=== PATIENT | female | born 1940 | race Caucasian/White ===

== ENCOUNTER → 2017-11-22 09:05 | Outpatient (CLI) | payer MEDICARE, SELFPAY ==
[2017-11-22 10:21] LABS: Hemoglobin 13.1 g/dl (12.0-15.0); Mean Corp Hgb Conc 32.8 g/gl (32-36); Mean Corpuscular Volume 88.7 fL (81-99); Mean Platelet Vol. 10.6 fl (6.2-12.0); Platelet Count 234 K/mm3 (150-450); RBC Distribution Width CV 13.7 % (11.6-14.6); Red Blood Count 4.51 M/mm3 (4.2-5.4); White Blood Count 4.3 K/mm3 (4.4-11.0)
[2017-11-22 10:22] LABS: Scan Indicated on CBC? Y/N NO
[2017-11-22 11:03] LABS: Vitamin D,25 Hydroxy 35.3 ng/mL (29.95-100.01)
[2017-11-22 11:15] LABS: ALB/GLOB Ratio 1.2 RATIO (0.9-2.4); AST(SGOT) 16 U/L (15-37); Alanine Aminotransfer ALT/SGPT 18 U/L (13-56); Albumin, Serum 3.7 g/dL (3.2-5.0); Alkaline Phosphatase 60 U/L (45-117); Anion Gap 8 (5-15); BUN 14 mg/dL (7-18); BUN/Creat Ratio 16.1 RATIO (10-20); Calcium,Total 8.8 mg/dL (8.5-10.1); Chloride 105 mmol/L (98-107); Cholesterol 161 mg/dL (200); Creatinine, Serum 0.87 mg/dL (0.55-1.02); EST Glomerular Filtration Rate 68 mL/min (>60); Est Glom Filt Rate - Afr Amer 82 mL/min (>60); Globulin 3.2 g/dL (2.2-4.2); Glucose 90 mg/dL (74-106); High Density Lipoprotein 62 mg/dL; Potassium 3.9 mmol/L (3.5-5.1); Protein, Total 6.9 g/dL (6.4-8.2); Sodium Level 141 mmol/L (136-145); Triglycerides 101 mg/dL; Very Low Density Lipoprotein 20 mg/dL (5-40)
== END ==
PROVIDERS: Family Provider Family Medicine; PCP Family Medicine; Visit Provider Family Medicine
DX: E78.5 Hyperlipidemia, unspecified (principal); K21.9 Gastro-esophageal reflux disease without esophagitis; M85.80 Other specified disorders of bone density and structure, unspecified site
CPT/HCPCS: 36415; 80053; 80061; 82306; 84443; 85027

== ENCOUNTER → 2017-12-12 13:02 | Outpatient (CLI) | payer MEDICARE, SELFPAY ==
--- NOTE | 2017-12-12 13:05 | BI_ITS ---
MAMMOGRAPHY - BILATERAL SCREENING 3-D NICHELLE SYNTHESIS REASON FOR EXAM: Female, 77 years old. Bilateral Screening 3-D tomosynthesis PERTINENT HISTORY: No significant family history. TECHNIQUE: 2-D mammograms and 3-D Nichelle synthesis of the breast (s) were performed. CAD was performed. COMPARISON: August 05, 2016. FINDINGS: The breast composition is composed of scattered fibroglandular density. No dense spiculated masses or suspicious clustered microcalcifications are identified. No architectural distortion is identified. There is no skin thickening or retraction. There has been no significant change since the prior study. BI/SCREENING MAMM (CAD), BILAT IMPRESSION: No mammographic signs of malignancy. Routine yearly mammograms recommended. ASSESSMENT CATEGORY: BIRADS Category 1: Negative. A letter regarding these results will be sent to the patient by the facility within 30 days. FOLLOW UP RECOMMENDATION: Yearly follow up mammogram recommended. (A) Approximately 10% of breast cancers are not detected by mammography. A normal mammogram should not delay biopsy of a clinically suspicious abnormality. Electronically Signed: Jose Angel Salgado MD at 14:59 EDT , Service support ,
--- NOTE | 2017-12-12 13:06 | BD_ITS ---
STUDY: DUAL ENERGY X-RAY ABSORPTIOMETRY / DXA REASON FOR EXAM: Female, 77 years old. Bone density screening. Patient has history of recent fracture. TECHNIQUE: Bone Mineral Density (BMD) measurements of lumbar spine and bilateral hips were obtained. COMPARISON: May 30, 2012 FINDINGS: Lumbar Spine (L3-L4): g/cm2 (1.095) / T-score (-0.9) / Z-score (0.9) Findings are suggestive of normal bone density with a low fracture risk. Left Femur Total: g/cm2 (1.007) / T-score (0.0) / Z-score (1.8) Left Femoral Neck: g/cm2 (0.970) / T-score (-0.5) / Z-score (1.5) Right Femur Total: g/cm2 (0.962) / T-score (-0.4) / Z-score (1.4) Right Femoral Neck: g/cm2 (0.893) / T-score (-1.0) / Z-score (0.9) Lumbar Spine (L1-L4): There has been decreased bone density since the previous examination. BD/Dexa Bone Density Study IMPRESSION: The patient is considered normal as outlined below according to World Robinson Organization (WHO) criteria with a low fracture risk. There has been worsening of bone density since the previous examination. Reference Information: The T-score is the number of standard deviations above or below the standard which is normal for young adults at their peak bone mineral density. The World Health Organization (WHO) interprets the T-scores as follows: Above -1 Normal bone density Between -1 and -2.5 Osteopenia Equal to / or below -2.5 Osteoporosis As a practical clinical guideline, osteopenia may be graded as follows: Mild -1 through -1.5 Moderate -1.6 through -2.0 Severe -2.1 through -2.4 The Z-score is the number of standard deviations above or below age-matched controls. A Z-score of less than -1.5 would be considered abnormal. References: 1. NIH Osteoporosis and Related Bone Diseases http://www.osteo.org 2. International Society for Clinical Densitometry http://www.iscd.org 3. National Osteoporosis Foundation http://www.nof.org Electronically Signed: Marianela Nicholson MD at 8:53 EDT , Service support ,
== END ==
PROVIDERS: Family Provider Family Medicine; PCP Family Medicine; Visit Provider Family Medicine
DX: Z12.31 Encounter for screening mammogram for malignant neoplasm of breast (principal); Z78.0 Asymptomatic menopausal state
CPT/HCPCS: 77063; 77067; 77080

== ENCOUNTER → 2018-01-16 15:27 | Outpatient (CLI) | payer MEDICARE, SELFPAY | PROVIDERS: Family Provider Family Medicine; PCP Family Medicine; Visit Provider Family Medicine | DX: R30.0 Dysuria (principal) | CPT/HCPCS: 87086; 87088; 87186 ==

== ENCOUNTER 2018-06-26 05:50 | Day surgery (SDC) | payer MEDICARE, SELFPAY ==
--- NOTE | 2018-06-19 14:17 | EKG12_ITS ---
Test Reason : PRE OP Blood Pressure : / mmHG Vent. Rate : 072 BPM Atrial Rate : 072 BPM P-R Int : 152 ms QRS Dur : 074 ms QT Int : 400 ms P-R-T Axes : 064 053 059 degrees QTc Int : 438 ms Normal sinus rhythm Normal ECG Confirmed by HARPAL ALONSO, ANTHONY ([id number]), editorial specialist SNEHAL ELLIOTT ([id number]) on 06/21/2018 3:43:03 PM Referred By: Geraldine Hoang Confirmed By:ANTHONY ROWAN MD
[2018-06-19 14:54] LABS: Hematocrit 39.5 % (37-47); Hemoglobin 13.2 g/dl (12.0-15.0); Mean Corp Hgb Conc 33.4 g/gl (32-36); Mean Corpuscular Volume 89.8 fL (81-99); Mean Platelet Vol. 10.4 fl (6.2-12.0); Platelet Count 225 K/mm3 (150-450); RBC Distribution Width CV 13.2 % (11.6-14.6); RBC Distribution Width SD 42.9 fl (35.1-43.9); White Blood Count 5.4 K/mm3 (4.4-11.0)
[2018-06-19 14:57] LABS: Scan Indicated on CBC? Y/N NO
[2018-06-19 14:59] LABS: Prothrombin Time (Protime)PT. 13.1 SECONDS (11.7-14.9)
[2018-06-19 15:00] LABS: Partial Thromboplast Time 28.6 Seconds (24.1-36.2)
[2018-06-19 15:15] LABS: AST(SGOT) 15 U/L (15-37); Alanine Aminotransfer ALT/SGPT 20 U/L (13-56); Albumin, Serum 3.8 g/dL (3.2-5.0); Alkaline Phosphatase 71 U/L (45-117); Bilirubin, Direct 0.13 mg/dL (0.00-0.30); Globulin 3.3 g/dL (2.2-4.2); Protein, Total 7.1 g/dL (6.4-8.2)
[2018-06-26] VITALS (10 sets, daily range): BP systolic 92–160; BP diastolic 46–73; PULSE 57–70; RESP 12–18; TEMP 36.2–36.6; O2SAT 92–100; BMI 26.6
[2018-06-26] MEDS: Phenazopyridine 95 MG Tablet 190 MG PO (06:25)
--- NOTE | 2018-06-26 07:30 | HYST_PTH ---
PATIENT: JORDY TIJERINA LOC: [facility] – [place] U#:[id number] AGE/SX: 78/F ROOM: RE06/26/[address]: Dr. Geraldine Hoang MD : [id number] BED: DIS: 06/27/2018 SPEC #: [id number] RECD: 06/26/18 11:40 STATUS: DIYA DONA #: [id number] CARMINE: 06/26/18 07:[address]: Geraldine Hoang DEPT: SURGICAL PATHOLOGY RECD BY: Inessa Quiroz ENTERED: 06/26/18 12:05 SP TYPE: HYSTERECT OTHR DR: MD Dr. Rohan Fritz MD Tissues: Uterus, NOS Procedures: Surgery Specimen Level V HEADER OPERATION: Hysterectomy, vaginal PRE-OP DIAGNOSIS: Cystocele, postmenopausal atrophic vaginitis, urge incontinence, chronic idiopathic constipation TISSUE SUBMITTED: Uterus and cervix MICROSCOPIC DIAGNOSIS Uterus and cervix, vaginal hysterectomy: Cervix - chronic cystic cervicitis. Endometrium - cystic atrophic endometrium. Myometrium - focal superficial adenomyosis. - Medical calcification blood vessel edwards. BIB:dionne 06/27/18 MICROSCOPIC DESCRIPTION Slides are reviewed. GROSS DESCRIPTION Received in fixative is one container labeled with the patient's name and designated uterus and cervix. The specimen consists of a hysterectomy specimen consisting of uterus with cervix weighing 35 gm and measuring 7 x 4 x 2.5 cm. The serosal surface is laws, glistening. The ectocervical mucosa is unremarkable. The external os is covered with laws, mucoid material. It is circular in contour. The endocervical canal measures 2.5 cm in length and the endocervical mucosa is unremarkable. The triangular endometrial cavity measures 3 cm in length and up to 2 cm in width. Sections of the uterine wall do not reveal any mass lesion and it measures up to 1 cm in thickness. Chicken Stuffer sections are submitted in six cassettes as follows: 1 - anterior cervix, 2 - posterior cervix, 3 & 4 - anterior uterine wall, 5 & 6 - posterior uterine wall. / BIB:dionne 06/26/18 TC:5 CPT: 20677
[2018-06-26] MEDS: Vasopressin 20 UNITS/ML Vial (07:47)
[2018-06-26] MEDS: Estrogens,Conj. 1 Tube 1 DOSE (09:36)
--- NOTE | 2018-06-26 09:59 | PCM.IMDPSTOP ---
Immediate Post-Op Note Date of Procedure: 06/26/18 Primary Surgeon/Physician: Maite Holm MD tracer clerk: eGraldine Hoang tracer clerk: Behzad Pre-Operative Diagnosis: Cystocele, uterine prolapse Post-Operative Diagnosis: same Surgery/Procedure Performed:: anterior repair with mesh, bilateral sacrospinous ligament fixation with mesh, cystoscopy with left ureteral catheterization. Description of Surgical Findings:: No complications. Mesh flat and in good position at conclusion of case. Estimated Blood Loss: 50cc Specimen's removed: none Drains: limon Type of Anesthesia:: General - Admit VTE Documentation VTE Present on Admission: Yes VTE Mechan Device Prophylaxis: SCD's VTE Pharm Prophylaxis ordered?: No Reason prophylaxis not ordered:: Treatment Not Indicated
--- NOTE | 2018-06-26 10:02 | OP.PN_ITS ---
Immediate Post-Op Note Date of Procedure: 06/26/18 Primary Surgeon/Physician: Maite Holm MD pediatric surgeon: Geraldine Hoang pediatric surgeon: Behzad Pre-Operative Diagnosis: Cystocele, uterine prolapse Post-Operative Diagnosis: same Surgery/Procedure Performed:: anterior repair with mesh, bilateral sacrospinous ligament fixation with mesh, cystoscopy with left ureteral catheterization. Description of Surgical Findings:: No complications. Mesh flat and in good position at conclusion of case. Estimated Blood Loss: 50cc Specimen's removed: none Drains: limon Type of Anesthesia:: General - Admit VTE Documentation VTE Present on Admission: Yes VTE Mechan Device Prophylaxis: SCD's VTE Pharm Prophylaxis ordered?: No Reason prophylaxis not ordered:: Treatment Not Indicated
--- NOTE | 2018-06-26 10:02 | PCM.OPRPT ---
Problem List (1) Cystocele with uterine descensus Status: Acute Report of Operation Date of Procedure: 06/26/18 Pre-Operative Diagnosis: Cystocele, uterine prolapse Post-Operative Diagnosis: same Surgery/Procedure Performed:: anterior repair with mesh, bilateral sacrospinous ligament fixation with mesh, cystoscopy with left ureteral catheterization. Description of Surgical Findings:: No complications. Mesh flat and in good position at conclusion of case. customer account administrator: Geraldine Hoang customer account administrator: Behzad Type of Anesthesia:: General Specimen's removed: none Drains: limon Estimated Blood Loss (mL): 50cc Description of Procedure: The patient is a 78-year-old female with significant pelvic organ prolapse who presents today for surgical intervention following appropriate workup and evaluation in the office. All risks benefits and alternatives were discussed preoperatively in the office. She agreed to insertion of mesh as part of her surgical intervention. The patient was taken to the operating room first by Dr. Hoang. She was placed in a supine position on the operating room table. Anesthesia monitored the head, neck, airway, IV access and vital signs throughout the case. Once anesthesia was appropriately administered the patient was prepped and draped in usual sterile fashion. She then underwent a hysterectomy per Dr. Hoang. Following closure of the vaginal cuff and in a transverse fashion, the case was turned to ri. The Limon catheter was draining her urinary bladder which was empty. The patient was in exaggerated dorsal lithotomy and Trendelenburg position. The anterior vaginal wall was injected submucosally with vasopressin for hydrostatic dissection and hemostatic control. At this time a midline vertical incision was made in the anterior vaginal wall approximately 2 cm in length. Both sharp and blunt dissection ensued until the space was opened with appropriate vaginal thickness all the way to the sacrospinous ligaments bilaterally. The ischial spines were palpable plated and the sacrospinous ligaments were cleared from surrounding tissues bilaterally. The ureters were easily palpable especially on the patient's left side. At this time the Beau was used to pass Ethibond suture through the sacrospinous ligaments bilaterally approximately 1-1/2 cm medial from the ischial spines. The patient's pelvis was very small. Following placement of the sutures palpation of the ureters were was performed to confirm that they were outside of the sacrospinous stitches. At this time sutures were passed bilaterally in the areas of the levator complexes as close to the white line as possible using 2-0 PDS. The mesh was then brought into position and trimmed for appropriate positioning. The mesh arms were folded and the Ethibond suture from the sacrospinous ligaments were passed through the mesh arms. The levator sutures were also passed through the mesh. The mesh was then post pushed into position and the sutures were tied down. 2-0 Vicryl stay sutures were placed close to the vaginal apex and close to the bladder neck area. The mesh was then irrigated with sterile water. The midline incision was closed using running interlocking 2-0 Vicryl. The Limon catheter was removed the patient was placed into flat position and a cystoscopy was performed. There were no strictures or foreign material identified in the urinary bladder. At this time urine was seen flushing from the patient's right ureteral orifice. The left ureteral orifice was intubated with a Polluck catheter and easily inserted to 20 cm and upon removal the left ureter had a very good ureteral jet observed. At this time a new Limon catheter was inserted to the other falling on the floor. Plain vaginal packing with estrogen cream was then placed and the patient was awakened and taken to the recovery room in good condition. There were no complications during this procedure. Grafts/Implants Used: anterior mesh, Coloplast Restorelle - Complications none - Admit VTE Documentation VTE Present on Admission: Yes VTE Mechan Device Prophylaxis: SCD's VTE Pharm Prophylaxis ordered?: Yes
--- NOTE | 2018-06-26 10:11 | OP.PCM_ITS ---
Problem List (1) Cystocele with uterine descensus Status: Acute Report of Operation Date of Procedure: 06/26/18 Pre-Operative Diagnosis: Cystocele, uterine prolapse Post-Operative Diagnosis: same Surgery/Procedure Performed:: anterior repair with mesh, bilateral sacrospinous ligament fixation with mesh, cystoscopy with left ureteral catheterization. Description of Surgical Findings:: No complications. Mesh flat and in good position at conclusion of case. access database developer: Geraldine Hoang access database developer: Behzad Type of Anesthesia:: General Specimen's removed: none Drains: limon Estimated Blood Loss (mL): 50cc Description of Procedure: The patient is a 78-year-old female with significant pelvic organ prolapse who presents today for surgical intervention following appropriate workup and evaluation in the office. All risks benefits and alternatives were discussed preoperatively in the office. She agreed to insertion of mesh as part of her surgical intervention. The patient was taken to the operating room first by Dr. Hoang. She was placed in a supine position on the operating room table. Anesthesia monitored the head, neck, airway, IV access and vital signs throughout the case. Once anesthesia was appropriately administered the patient was prepped and draped in usual sterile fashion. She then underwent a hysterectomy per Dr. Hoang. Following closure of the vaginal cuff and in a transverse fashion, the case was turned to nd. The Limon catheter was draining her urinary bladder which was empty. The patient was in exaggerated dorsal lithotomy and Trendelenburg positi on. The anterior vaginal wall was injected submucosally with vasopressin for hydrostatic dissection and hemostatic control. At this time a midline vertical incision was made in the anterior vaginal wall approximately 2 cm in length. Both sharp and blunt dissection ensued until the space was opened with appropriate vaginal thickness all the way to the sacrospinous ligaments bilaterally. The ischial spines were palpable plated and the sacrospinous ligaments were cleared from surrounding tissues bilaterally. The ureters were easily palpable especially on the patient's left side. At this time the Beau was used to pass Ethibond suture through the sacrospinous ligaments bilaterally approximately 1-1/2 cm medial from the ischial spines. The patient's pelvis was very small. Following placement of the sutures palpation of the ureters were was performed to confirm that they were outside of the sacrospinous stitches. At this time sutures were passed bilaterally in the areas of the levator complexes as close to the white line as possible using 2-0 PDS. The mesh was then brought into position and trimmed for appropriate positioning. The mesh arms were folded and the Ethibond suture from the sacrospinous ligaments were passed through the mesh arms. The levator sutures were also passed through the mesh. The mesh was then post pushed into position and the sutures were tied down. 2-0 Vicryl stay sutures were placed close to the vaginal apex and close to the bladder neck area. The mesh was then irrigated with sterile water. The midline incision was closed using running interlocking 2-0 Vicryl. The Limon catheter was removed the patient was placed into flat position and a cystoscopy was performed. There were no strictures or foreign material identified in the urinary bladder. At this time urine was seen flushing from the patient's right ureteral orifice. The left ureteral orifice was intubated with a Polluck catheter and easily inserted to 20 cm and upon removal the left ureter had a very good ureteral jet observed. At this time a new Limon catheter was inserted to the other falling on the floor. Plain vaginal packing with estrogen cream was then placed and the patient was awakened and taken to the recovery room in good condition. There were no complications during this procedure. Grafts/Implants Used: anterior mesh, Coloplast Restorelle - Complications none - Admit VTE Documentation VTE Present on Admission: Yes VTE Mechan Device Prophylaxis: SCD's VTE Pharm Prophylaxis ordered?: Yes
[2018-06-26] MEDS: Ketorolac 15 MG/ML Vial IV ×2 (12:31→18:03)
[2018-06-26] MEDS: Ondansetron 4 MG/2 ML Vial IV (12:34)
[2018-06-26] MEDS: HYDROmorphone 1 MG/ML Syringe IV (14:18)
[2018-06-26] MEDS: Lactated Ringers 1,000 ML 125 ML IV (16:18)
[2018-06-26] MEDS: Cefazolin 1 GM/50 ML BAG IV (16:20)
[2018-06-26] MEDS: Atorvastatin Calcium 20 MG Tablet PO (21:13)
[2018-06-26] MEDS: oxyCODONE 5 MG Tablet PO ×2 (21:13→22:04)
[2018-06-26] MEDS: Citalopram 20 MG Tablet 40 MG PO (21:13)
[2018-06-26] MEDS: Enoxaparin 40 MG/0.4 ML Syringe SC (21:14)
[2018-06-27] MEDS: Ketorolac 15 MG/ML Vial IV ×3 (00:20→12:13)
[2018-06-27] MEDS: Lactated Ringers 1,000 ML 125 ML IV (00:20)
[2018-06-27] MEDS: Cefazolin 1 GM/50 ML BAG IV (00:20)
[2018-06-27 05:30] VITALS: BP 107/61; PULSE 61; RESP 16; TEMP 37.3; O2SAT 94
[2018-06-27] MEDS: oxyCODONE 5 MG Tablet PO (07:28)
[2018-06-27 07:30] VITALS: O2SAT 95
[2018-06-27 09:15] VITALS: BP 99/53; PULSE 71; RESP 18; TEMP 37; O2SAT 98
[2018-06-27] MEDS: Pantoprazole Sodium 20 MG Tablet PO (09:17)
--- NOTE | 2018-06-27 13:19 | DCINST_ITS ---
Discharge Diet: No Restrictions Discharge Activity: Return to Normal Activity, May Not Drive, May Shower May resume sexual activity in: 6-8 weeks Call your doctor if your incision/area has: Continuous Slow Oozing, Sudden Increased Bleeding, Increased Pain/ Swelling, Increased Redness, Foul Smelling Discharge Call your doctor if you observe: Fever of 101 or Higher, Inability to urinate, Inability to have a bowel movement, Using more than one pad per hour Allergies/Adverse Reactions: Allergies No Known Allergies Allergy (Verified 06/22/18 12:09) Medications to take at Discharge atorvastatin 10 mg tablet 20 mg PO DAILY 04/24/18 citalopram 20 mg tablet 40 mg PO QHS 04/24/18 omeprazole 40 mg capsule,delayed release 20 mg PO DAILY 04/24/18 Ascorbic Acid [Vitamin C] 500 mg PO BIDCM 06/19/18 L.acidoph,Paracasei, B.lactis [Probiotic] 1 ea PO DAILY 06/19/18 Multivitamin [Multiple Vitamins] 1 ea PO BID 06/19/18 Naproxen Sodium [Aleve] 220 mg PO BID 06/19/18 estradiol 0.01% (0.1 mg/gram) vaginal cream 1 g VAGINAL 2XW 06/22/18 Naproxen [Naprosyn] 250 - 500 mg PO Q8H PRN PRN #30 tablet 06/27/18 Oxycodone HCl/Acetaminophen [Percocet 5-325] 1 - 2 tablet PO Q4H PRN PRN 7 Days #28 tablet 06/27/18 The following prescriptions were given: Oxycodone HCl/Acetaminophen [Percocet 5-325] 1 - 2 tablet PO Q4H PRN PRN 7 Days #28 tablet PRN Reason: Moderate-Severe pain Naproxen [Naprosyn] 250 - 500 mg PO Q8H PRN PRN #30 tablet PRN Reason: MILD PAIN Orders to be completed after discharge: Type & Screen Time Frame: 06/19/18, Location: None Selected 12 Lead EKG [[facility]] Time Frame: 06/19/18, Location: None Selected Partial Thromboplast Time Time Frame: 06/19/18, Location: Laboratory CBC-Complete Blood Cnt No Diff Time Frame: 06/19/18, Location: Laboratory Culture, Urine Time Frame: 06/19/18, Location: Laboratory Liver Profile Time Frame: 06/19/18, Location: Laboratory Prothrombin Time w/INR Time Frame: 06/19/18, Location: Laboratory Primary Care Physician: Nicholas Ragsdale MD [Primary Care Provider] - Test Results: Test results from this visit will be discussed in further detail at your follow- up appointment, if applicable. Please Follow Up With: Geraldine Hoang MD - [phone]
--- NOTE | 2018-06-27 13:20 | PCM.PN.GU ---
Physical Exam Subjective: Feeling well. Sore with deep breaths, doing the IS as instructed. Voiding without difficulty. Ready to go home. - Physical Exam Vital Signs Temp 98.6 F 06/27/18 09:15 Pulse 71 06/27/18 09:15 Resp 18 06/27/18 09:15 BP 99/53 L 06/27/18 09:15 Pulse Ox 98 06/27/18 09:15 Intake & Output 06/25/18 06/26/18 06/27/18 23:59 23:59 23:59 Intake Total 2814 / 2814 3897 / 3897 Output Total 425 / 425 1999 Balance 2389 / 2389 1897 / 1897 Weight: 68.1 kg Intake: Oral 700 / 700 2300 / 2300 IV fluid/meds 2114 / 2114 1597 / 1597 IV #2 1300 / 1300 Output: Urine 425 / 425 1999 General: Alert, Oriented x3, Cooperative, No apparent distress HEENT: Atraumatic, Normocephalic Oral: Moist Mucosa Neck: Supple Lungs: Normal air movement Cardiovascular: Regular rate Abdomen: Soft Rectal: Exam deferred Skin: No rashes Musculoskeletal: No Muscle Wasting Neurological: Cranial nerves II-XII grossly intact Psych/Mental Status: Normal Affect Medical Necessity - Tobacco Use Smoking Status: Never smoker Tobacco Use: Non-smoker Assessment/Plan All Active Problems (Last Reviewed 06/22/18 @ 12:10 by Nelsy Wolf) Cystocele with uterine descensus (Acute) POD#1 home with keflex for 3 days post-op restrictions continue estradiol return to office in 2 weeks.
--- NOTE | 2018-06-27 13:24 | DCINST_ITS ---
Discharge Diet: No Restrictions Discharge Activity: May Not Drive, May Shower, - - no lifting over 5 pounds. no strenuous activity. no exercise. Nothing in the vagina except the estradiol cream which needs to be continued. May resume sexual activity in: 6-8 weeks Call your doctor if your incision/area has: Continuous Slow Oozing, Sudden Increased Bleeding, Increased Pain/ Swelling, Increased Redness, Foul Smelling Discharge Call your doctor if you observe: Fever of 101 or Higher, Inability to urinate, Inability to have a bowel movement, Using more than one pad per hour, Chest pain, Calf discomfort, Uncontrolled pain Allergies/Adverse Reactions: Allergies No Known Allergies Allergy (Verified 06/22/18 12:09) Medications to take at Discharge atorvastatin 10 mg tablet 20 mg PO DAILY 04/24/18 citalopram 20 mg tablet 40 mg PO QHS 04/24/18 omeprazole 40 mg capsule,delayed release 20 mg PO DAILY 04/24/18 Ascorbic Acid [Vitamin C] 500 mg PO BIDCM 06/19/18 L.acidoph,Paracasei, B.lactis [Probiotic] 1 ea PO DAILY 06/19/18 Multivitamin [Multiple Vitamins] 1 ea PO BID 06/19/18 Naproxen Sodium [Aleve] 220 mg PO BID 06/19/18 estradiol 0.01% (0.1 mg/gram) vaginal cream 1 g VAGINAL 2XW 06/22/18 Cephalexin [Keflex] 500 mg PO Q12 3 Days #6 cap 06/27/18 Naproxen [Naprosyn] 250 - 500 mg PO Q8H PRN PRN #30 tablet 06/27/18 Oxycodone HCl/Acetaminophen [Percocet 5-325] 1 - 2 tablet PO Q4H PRN PRN 7 Days #28 tablet 06/27/18 The following prescriptions were given: Oxycodone HCl/Acetaminophen [Percocet 5-325] 1 - 2 tablet PO Q4H PRN PRN 7 Days #28 tablet PRN Reason: Moderate-Severe pain Naproxen [Naprosyn] 250 - 500 mg PO Q8H PRN PRN #30 tablet PRN Reason: MILD PAIN Cephalexin [Keflex] 500 mg PO Q12 3 Days #6 cap Orders to be completed after discharge: Type & Screen Time Frame: 06/19/18, Location: None Selected 12 Lead EKG [[facility]] Time Frame: 06/19/18, Location: None Selected Partial Thromboplast Time Time Frame: 06/19/18, Location: Laboratory CBC-Complete Blood Cnt No Diff Time Frame: 06/19/18, Location: Laboratory Culture, Urine Time Frame: 06/19/18, Location: Laboratory Liver Profile Time Frame: 06/19/18, Location: Laboratory Prothrombin Time w/INR Time Frame: 06/19/18, Location: Laboratory Primary Care Physician: Nicholas Ragsdale MD [Primary Care Provider] - Test Results: Test results from this visit will be discussed in further detail at your follow- up appointment, if applicable. Please Follow Up With: Maite Holm MD When: 2 weeks, call for appt. Proposed Discharge Date: 06/27/18
--- NOTE | 2018-06-28 00:19 | PCM.OPRPT ---
Problem List (1) Cystocele with uterine descensus Status: Acute Report of Operation Date of Procedure: 06/26/18 Pre-Operative Diagnosis: Cystocele, uterine prolapse Post-Operative Diagnosis: same Surgery/Procedure Performed:: total vaginal hysterectomy Description of Surgical Findings:: prolapse collection team lead: Geraldine Hoang collection team lead: Behzad Type of Anesthesia:: General Specimen's removed: none Drains: limon Estimated Blood Loss (mL): 50cc Fluids Replaced: crystalloid Description of Procedure: Patient was taken to the operating room and was placed under general anesthesia was prepped and draped in normal sterile fashion in the dorsal lithotomy position. Preoperative antibiotics and SCDs and Limon catheter was placed inside the bladder. Weighted speculum was placed in the vagina and the anterior and posterior lip of the cervix was grasped with 2 Mary clamps and circumferentially injected with dilute vasopressin. A circumferential incision was made with a scalpel and the posterior cul-de-sac was entered into sharply and a longneck speculum was placed. The anterior cul-de-sac was also dissected down and entered into sharply and the uterosacral ligaments were clamped cut and suture ligated bilaterally followed by the cardinal ligaments which were Clamped cut and suture ligated bilaterally with 0 Monocryl. The uterus serially descended and progressive bites were taken bilaterally up to the level of the utero-ovarian ligament bilaterally which was clamped transected and double ligated with 0 Monocryl suture and 0 Vicryl free tie. Bilateral fallopian tubes and ovaries were well visualized and noted be within normal limits and the bilateral fallopian tubes were transected across the base with a Brissa clamp and removed and sutured with 0 Vicryl suture. Excellent hemostasis was noted. Posterior peritoneum was reapproximated with 2-0 Vicryl and a modified Weldon stitch was placed through the posterior vaginal cuff and bilateral uterosacral ligaments across the posterior cul-de-sac skimming along to provide apical support to the vagina. The vagina was closed with pidjry-[id number] 0 Vicryl pop offs including the posterior and anterior peritoneum in the reapproximation. Excellent hemostasis was noted. please see dr colon's dictation for her portion of th eprocedure - Complications none - Admit VTE Documentation VTE Present on Admission: No VTE Mechan Device Prophylaxis: SCD's
--- NOTE | 2018-06-28 00:26 | OP.PCM_ITS ---
Problem List (1) Cystocele with uterine descensus Status: Acute Report of Operation Date of Procedure: 06/26/18 Pre-Operative Diagnosis: Cystocele, uterine prolapse Post-Operative Diagnosis: same Surgery/Procedure Performed:: total vaginal hysterectomy Description of Surgical Findings:: prolapse plasticator: Geraldine Hoang plasticator: Behzad Type of Anesthesia:: General Specimen's removed: none Drains: limon Estimated Blood Loss (mL): 50cc Fluids Replaced: crystalloid Description of Procedure: Patient was taken to the operating room and was placed under general anesthesia was prepped and draped in normal sterile fashion in the dorsal lithotomy position. Preoperative antibiotics and SCDs and Limon catheter was placed inside the bladder. Weighted speculum was placed in the vagina and the anterior and posterior lip of the cervix was grasped with 2 Mary clamps and circumferentially injected with dilute vasopressin. A circumferential incision was made with a scalpel and the posterior cul-de-sac was entered into sharply and a longneck speculum was placed. The anterior cul-de-sac was also dissected down and entered into sharply and the uterosacral ligaments were clamped cut and suture ligated bilaterally followed by the cardinal ligaments which were Clamped cut and suture ligated bilaterally with 0 Monocryl. The uterus serially descended and progressive bites were taken bilaterally up to the level of the utero-ovarian ligament bilaterally which was clamped transected and double ligated with 0 Monocryl suture and 0 Vicryl free tie. Bilateral fallopian tubes and ovaries were well visualized and noted be within normal limits and the bilateral fallopian tubes were transected across the base with a Brissa clamp and removed and sutured with 0 Vicryl suture. Excellent hemostasis was noted. Posterior peritoneum was reapproximated with 2-0 Vicryl and a modified Weldon stitch was placed through the posterior vaginal cuff and bilateral uterosacral ligaments across the posterior cul-de-sac skimming along to provide apical support to the vagina. The vagina was closed with borssd-[id number] 0 Vicryl pop offs including the posterior and anterior peritoneum in the reapproximation. Excellent hemostasis was noted. please see dr colon's dictation for her portion of th eprocedure - Complications none - Admit VTE Documentation VTE Present on Admission: No VTE Mechan Device Prophylaxis: SCD's
--- NOTE | 2018-06-28 00:28 | PCM.PN.OB ---
Subjective: late entry- patient seen at 12:30 06/27/18 no C PSOB N V ambulating well toelratin gpo voiding - Physical Exam General: Alert, Oriented x3 Vital Signs Temp Pulse Resp BP Pulse Ox 98.6 F 71 18 99/53 L 98 06/27/18 09:15 06/27/18 09:15 06/27/18 09:15 06/27/18 09:15 06/27/18 09:15 Oxygen Flow Rate (L/min) 2 Oxygen Delivery Method Room Air Weight: 150 lb 2.157 oz Body Mass Index (BMI) 26.6 Intake and Output for Last 24 Hours 06/26/18 06/27/18 06/28/18 23:59 23:59 23:59 Intake Total 2814 / 2814 3897 / 3897 Output Total 425 / 425 1999 Balance 2389 / 2389 1897 / 1897 Medical Necessity - Tobacco Use Smoking Status: Never smoker Tobacco Use: Non-smoker Assessment/Plan All Active Problems (Last Reviewed 06/22/18 @ 12:10 by Nelsy Wolf) Cystocele with uterine descensus (Acute) s/p tvh pelvic repair routine care [facility]
== END 2018-06-27 13:37 | disposition home or self-care (01) ==
LOC: SDC 05:51 → AC 05:52 → MS2 09:34
PROVIDERS: Urology; Family Provider Family Medicine; PCP Family Medicine; Referring Provider Obstetrics & Gynecology; Visit Provider Obstetrics & Gynecology
PROC: (CPT 57260; principal; 2018-06-26 07:10)
PROC: (CPT 58260; 2018-06-26 07:10)
DX: N81.4 Uterovaginal prolapse, unspecified (principal); N72 Inflammatory disease of cervix uteri; N80.0 Endometriosis of uterus; N85.8 Other specified noninflammatory disorders of uterus; N39.41 Urge incontinence; N95.2 Postmenopausal atrophic vaginitis; K59.04 Chronic idiopathic constipation; K21.9 Gastro-esophageal reflux disease without esophagitis; E78.00 Pure hypercholesterolemia, unspecified; F41.9 Anxiety disorder, unspecified; Z87.440 Personal history of urinary (tract) infections; Z79.899 Other long term (current) drug therapy
CPT/HCPCS: 52000; 57240; 57282; 58262; 36415; 80076; 85027; 85610; 85730; 86850; 86900; 87086; 88307; 93005; J7120; A4216; C1758; J2405

== ENCOUNTER → 2018-07-04 15:36 | Outpatient (CLI) | payer MEDICARE, SELFPAY ==
[2018-06-26 11:09] VITALS: BMI 26.6
[2018-07-04 17:46] LABS: Absolute Lymphocyte Count 1.25 X10^3/ul (0.83-4.51); Absolute Neutrophil Count 5.1 X10^3/uL (2.0-7.7); Basophil# 0.04 X10^3/uL; Basophil% 0.6 % (0-1); Eosinophil# 0.04 X10^3/uL; Eosinophils% 0.6 % (0-5); Hematocrit 40.1 % (37-47); Hemoglobin 12.9 g/dl (12.0-15.0); Lymphocyte # 1.25 X10^3/ul (4.0); Lymphocyte % 17.4 % (19-41); Mean Corp Hgb Conc 32.2 g/gl (32-36); Mean Corpuscular Hgb 28.9 pg (27.0-32.0); Mean Corpuscular Volume 89.7 fL (81-99); Mean Platelet Vol. 10.1 fl (6.2-12.0); Monocyte# 0.75 X10^3/uL; Monocyte% 10.4 % (0-10); Neutrophil # 5.09 X10^3/uL (2.7-7.7); Neutrophil % 70.9 % (47-70); Platelet Count 287 K/mm3 (150-450); RBC Distribution Width CV 13.1 % (11.6-14.6); RBC Distribution Width SD 42.7 fl (35.1-43.9); Red Blood Count 4.47 M/mm3 (4.2-5.4); White Blood Count 7.2 K/mm3 (4.4-11.0)
[2018-07-04 17:53] LABS: POSITIVE COUNT NO; POSITIVE DIFFERENTIAL NO; POSITIVE MORPHOLOGY NO
[2018-07-04 18:07] LABS: ALB/GLOB Ratio 1.1 RATIO (0.9-2.4); AST(SGOT) 11 U/L (15-37); Alanine Aminotransfer ALT/SGPT 22 U/L (13-56); Albumin, Serum 3.8 g/dL (3.2-5.0); Alkaline Phosphatase 68 U/L (45-117); Anion Gap 7 (5-15); BUN 12 mg/dL (7-18); BUN/Creat Ratio 15.6 RATIO (10-20); Calcium,Total 9.2 mg/dL (8.5-10.1); Chloride 106 mmol/L (98-107); Creatinine, Serum 0.77 mg/dL (0.55-1.02); EST Glomerular Filtration Rate 77 mL/min (>60); Est Glom Filt Rate - Afr Amer 94 mL/min (>60); Globulin 3.5 g/dL (2.2-4.2); Glucose 92 mg/dL (74-106); Potassium 4.1 mmol/L (3.5-5.1); Protein, Total 7.3 g/dL (6.4-8.2); Sodium Level 142 mmol/L (136-145)
== END ==
PROVIDERS: Nurse Practitioner Women's Health; Family Provider Family Medicine; PCP Family Medicine; Referring Provider Urology; Visit Provider Urology
DX: R53.83 Other fatigue (principal); Z90.710 Acquired absence of both cervix and uterus; Z98.890 Other specified postprocedural states
CPT/HCPCS: 36415; 80053; 82565; 85025

== ENCOUNTER → 2018-07-16 13:37 | Outpatient (CLI) | payer MEDICARE, SELFPAY ==
[2018-07-16 11:10] VITALS: BMI 26.6
== END ==
PROVIDERS: Family Provider Family Medicine; PCP Family Medicine; Referring Provider Nurse Practitioner Women's Health; Visit Provider Nurse Practitioner Women's Health
DX: N76.0 Acute vaginitis (principal); N89.8 Other specified noninflammatory disorders of vagina
CPT/HCPCS: 87070; 87086; 87088; 87186; 87205

== ENCOUNTER → 2019-02-28 | Outpatient (CLI) | payer MEDICARE, SELFPAY ==
[2018-08-10 13:54] VITALS: BMI 26.6
[2019-02-28 11:39] LABS: ALB/GLOB Ratio 0.9 RATIO (0.9-2.4); AST(SGOT) 13 U/L (15-37); Alanine Aminotransfer ALT/SGPT 19 U/L (13-56); Albumin, Serum 3.3 g/dL (3.2-5.0); Alkaline Phosphatase 73 U/L (45-117); Anion Gap 9 (5-15); BUN 14 mg/dL (7-18); BUN/Creat Ratio 12.8 RATIO (10-20); Calcium,Total 8.9 mg/dL (8.5-10.1); Chloride 103 mmol/L (98-107); Cholesterol 132 mg/dL (200); Creatinine, Serum 1.09 mg/dL (0.55-1.02); EST Glomerular Filtration Rate 52 mL/min (>60); Est Glom Filt Rate - Afr Amer 63 mL/min (>60); Globulin 3.8 g/dL (2.2-4.2); Glucose 123 mg/dL (74-106); High Density Lipoprotein 67 mg/dL; Potassium 4.2 mmol/L (3.5-5.1); Protein, Total 7.1 g/dL (6.4-8.2); Sodium Level 140 mmol/L (136-145); Triglycerides 66 mg/dL; Very Low Density Lipoprotein 13 mg/dL (5-40)
[2019-02-28 11:44] LABS: Vitamin D,25 Hydroxy 25.3 ng/mL (29.95-100.01)
--- NOTE | 2019-02-28 12:56 | BI_ITS ---
MAMMOGRAPHY - BILATERAL SCREENING REASON FOR EXAM: Female, 78 years old. Routine annual screening examination. PERTINENT HISTORY: Non-contributory. TECHNIQUE: Digital bilateral breast nichelle (3D mammographic acquisition) in the CC and MLO projections. 2-D mediolateral oblique (MLO) and craniocaudad (CC) views of both breasts were obtained. CAD: Full Field Digital Mammography with Computer Added Detection was performed. COMPARISON: Comparison is made with prior examination dated December 12, 2017 and August 05, 2016. FINDINGS: Breast Composition: The breasts are heterogeneously dense, which may obscure small masses. There are no dominant masses or suspicious calcifications. No other significant abnormalities are identified. There has been no significant change since the prior study. BI/SCREEN MAMM (CAD) W/NICHELLE BILAT IMPRESSION: Stable bilateral screening mammogram. Yearly follow-up mammogram recommended. (A) ASSESSMENT CATEGORY: BIRADS Category 1: Negative. A letter regarding these results will be sent to the patient by the facility within 30 days. Approximately 10% of breast cancers are not detected by mammography. A normal mammogram should not delay biopsy of a clinically suspicious abnormality. [id number] Electronically Signed: Wili Carroll, at 14:45 EDT , Service support ,
== END | disposition home or self-care (01) ==
LOC: OPBI 12:55
PROVIDERS: Family Provider Family Medicine; PCP Family Medicine; Referring Provider Family Medicine; Visit Provider Family Medicine
DX: R03.0 Elevated blood-pressure reading, without diagnosis of hypertension (principal); E78.5 Hyperlipidemia, unspecified; R53.81 Other malaise; Z12.31 Encounter for screening mammogram for malignant neoplasm of breast
CPT/HCPCS: 36415; 77063; 77067; 80053; 80061; 82306

== ENCOUNTER → 2019-09-18 | Outpatient (CLI) | payer MEDICARE, OTHER, SELFPAY ==
[2018-08-10 13:54] VITALS: BMI 26.6
== END | disposition home or self-care (01) ==
LOC: LABSPEC 11:16
PROVIDERS: PCP Family Medicine; Referring Provider Family Medicine; Visit Provider Family Medicine
DX: R82.90 Unspecified abnormal findings in urine (principal)
CPT/HCPCS: 87077; 87086; 87088; 87186

== ENCOUNTER → 2019-10-15 | Outpatient (CLI) | payer MEDICARE, OTHER, SELFPAY ==
[2018-08-10 13:54] VITALS: BMI 26.6
--- NOTE | 2019-10-15 11:47 | US_ITS ---
STUDY: Salivary gland ULTRASOUND REASON FOR EXAM: Female, 79 years old. ACUTE SIALOADENITIS LEFT NECK PAIN, BACK OF TONGUE PAIN TECHNIQUE: Ultrasound evaluation of the salivary glands was performed with real-time and static gilbert-scale imaging. COMPARISON: None. FINDINGS: The parotid and submandibular glands bilaterally appear mildly diffusely enlarged. There is no evidence for ductal dilatation or intraductal stone.. There is also no definitive evidence for focal mass. US/Head/Neck Soft Tissue IMPRESSION: Mild nonspecific bilateral enlargement of the parotid and submandibular glands. CT may be useful for further evaluation if clinically indicated. Electronically Signed: Vitor Garcia MD at 17:24 EST , Service support ,
== END | disposition home or self-care (01) ==
LOC: US 11:43
PROVIDERS: PCP Family Medicine; Referring Provider Otolaryngology; Visit Provider Otolaryngology
DX: K11.21 Acute sialoadenitis (principal)
CPT/HCPCS: 76536

== ENCOUNTER → 2019-11-06 | Outpatient (CLI) | payer MEDICARE, OTHER, SELFPAY ==
[2018-08-10 13:54] VITALS: BMI 26.6
== END | disposition home or self-care (01) ==
PROVIDERS: PCP Family Medicine; Visit Provider Family Medicine
DX: R30.0 Dysuria (principal)
CPT/HCPCS: 87086; 87088; 87186

== ENCOUNTER → 2020-03-24 | Outpatient (CLI) | payer MEDICARE, OTHER, SELFPAY ==
[2018-08-10 13:54] VITALS: BMI 26.6
--- NOTE | 2020-03-24 12:10 | BI_ITS ---
MAMMOGRAPHY - BILATERAL SCREENING REASON FOR EXAM: Female, 80 years old. Routine annual screening examination. PERTINENT HISTORY: Non-contributory. TECHNIQUE: Digital bilateral breast nichelle (3D mammographic acquisition) in the CC and MLO projections. 2-D mediolateral oblique (MLO) and craniocaudad (CC) views of both breasts were obtained. CAD: Full Field Digital Mammography with Computer Added Detection was performed. COMPARISON: Comparison is made with prior study dated 02/28/2019 and 12/12/2017. FINDINGS: Breast Composition: The breasts are heterogeneously dense, which may obscure small masses. There are no dominant masses or suspicious calcifications. No other significant abnormalities are identified. There has been no significant change since the prior study. BI/SCREEN MAMM (CAD) W/NICHELLE BILAT IMPRESSION: Stable bilateral screening mammogram. Yearly follow-up mammogram recommended. (A) ASSESSMENT CATEGORY: BIRADS Category 1: Negative. A letter regarding these results will be sent to the patient by the facility within 30 days. Approximately 10% of breast cancers are not detected by mammography. A normal mammogram should not delay biopsy of a clinically suspicious abnormality. [id number] Electronically Signed: Wili Carroll, at 13:54 EDT , Service support ,
== END | disposition home or self-care (01) ==
LOC: OPBI 12:09
PROVIDERS: PCP Family Medicine; Referring Provider Family Medicine; Visit Provider Family Medicine
DX: Z12.31 Encounter for screening mammogram for malignant neoplasm of breast (principal)
CPT/HCPCS: 77063; 77067

== ENCOUNTER → 2020-05-26 | Outpatient (CLI) | payer MEDICARE, OTHER, SELFPAY ==
[2018-08-10 13:54] VITALS: BMI 26.6
[2020-05-26 12:56] LABS: Anion Gap 4 (5-15); BUN 17 mg/dL (7-18); BUN/Creat Ratio 16.7 RATIO (10-20); Calcium,Total 8.9 mg/dL (8.5-10.1); Chloride 107 mmol/L (98-107); Cholesterol 150 mg/dL (200); Creatinine, Serum 1.02 mg/dL (0.55-1.02); EST Glomerular Filtration Rate 56 mL/min (>60); Est Glom Filt Rate - Afr Amer 67 mL/min (>60); Glucose 95 mg/dL (74-106); High Density Lipoprotein 73 mg/dL; Sodium Level 140 mmol/L (136-145); Thyroid Stim Hormone (TSH) 3.06 uIU/mL (0.358-3.74); Triglycerides 83 mg/dL; Very Low Density Lipoprotein 17 mg/dL (5-40)
[2020-05-27 08:23] LABS: Vitamin D,25 Hydroxy 44.5 ng/mL
== END | disposition home or self-care (01) ==
LOC: MFPLAB 09:25
PROVIDERS: PCP Family Medicine; Referring Provider Family Medicine; Visit Provider Family Medicine
DX: M85.80 Other specified disorders of bone density and structure, unspecified site (principal); E78.5 Hyperlipidemia, unspecified; Z13.220 Encounter for screening for lipoid disorders
CPT/HCPCS: 36415; 80048; 80061; 82306; 84443

== ENCOUNTER → 2020-05-28 | Outpatient (CLI) | payer MEDICARE, OTHER, SELFPAY ==
[2018-08-10 13:54] VITALS: BMI 26.6
--- NOTE | 2020-05-28 10:56 | BD_ITS ---
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 COMPARISON: Comparison is made with prior study dated 12/12/2017. FINDINGS: Lumbar Spine (L1-L4): g/cm2 (1.057) / T-score (-1.2) / Z-score (0.6) Findings are suggestive of osteopenia with a low fracture risk. Left Femur Total: g/cm2 (0.914) / T-score (-0.7) / Z-score (1.2) Left Femoral Neck: g/cm2 (0.824) / T-score (-1.5) / Z-score (0.5) Right Femur Total: g/cm2 (0.962) / T-score (-0.4) / Z-score (1.5) Right Femoral Neck: g/cm2 (0.901) / T-score (-1.0) / Z-score (1.1) The T-Scores on the most recent prior examination were: Lumbar Spine (L1-L4): There has been worsening of bone density since the previous examination. Left Femur Total: which represents a worsening of 9.2%. Right Femur Total: which represents no significant change. . BD/Dexa Bone Density Study IMPRESSION: The patient is considered osteopenic as outlined below according to World Robinson Organization (WHO) criteria with a low fracture risk. There has been worsening of bone density since the previous examination. Reference Information: The T-score is the number of standard deviations above or below the standard which is normal for young adults at their peak bone mineral density. The World Health Organization (WHO) interprets the T-scores as follows: Above -1 Normal bone density Between -1 and -2.5 Osteopenia Equal to / or below -2.5 Osteoporosis As a practical clinical guideline, osteopenia may be graded as follows: Mild -1 through -1.5 Moderate -1.6 through -2.0 Severe -2.1 through -2.4 The Z-score is the number of standard deviations above or below age-matched controls. A Z-score of less than -1.5 would be considered abnormal. References: 1. NIH Osteoporosis and Related Bone Diseases www osteo.org 2. International Society for Clinical Densitometry www iscd.org 3. National Osteoporosis Foundation www nof.org Electronically Signed: Wili Carroll, at 12:41 EDT , Service support ,
== END | disposition home or self-care (01) ==
LOC: OPBD 10:53
PROVIDERS: PCP Family Medicine; Referring Provider Family Medicine; Visit Provider Family Medicine
DX: Z78.0 Asymptomatic menopausal state (principal)
CPT/HCPCS: 77080

== ENCOUNTER 2020-07-27 09:29 | Day surgery (SDC) | payer MEDICARE, OTHER, SELFPAY ==
[2020-07-07 09:17] VITALS: BMI 28.7
[2020-07-27 10:04] VITALS: BP 124/60; PULSE 64; RESP 18; TEMP 36.7; O2SAT 95; BMI 27.6
[2020-07-27] MEDS: Lactated Ringers 1,000 ML 100 ML IV (10:17)
[2020-07-27 11:01] VITALS: BP 120/52; BP 124/60; PULSE 72; RESP 16; TEMP 36.8; O2SAT 99
[2020-07-27 11:05] VITALS: BP 107/48; BP 124/60; PULSE 63; RESP 16; O2SAT 95
--- NOTE | 2020-07-27 11:05 | OP.CCLET_ITS ---
07/27/2020 Nicholas Ragsdale [address] [place] [address] Re : Colonoscopy procedure for Sofiya Hazel Dear Dr. Ragsdale This procedure was performed on Monday, July 27, 2020. My impressions and recommendations are as follows: Impressions : - Diverticulosis in the sigmoid colon. No specimens collected. - Non-bleeding internal hemorrhoids. - The examination was otherwise normal. Recommendations : - Discharge patient to home. - Resume previous diet. - Continue present medications. - Repeat colonoscopy in 5 years for surveillance. - Return to primary care physician at appointment to be scheduled. My findings are described in the full procedure note, which is enclosed. If I can be of further assistance, please feel free to contact me at Doctor phone number(s): , Fax: [phone], Work: . Sincerely, MD Casimiro Oliveros MD 07/27/2020 11:04:25 AM This report has been signed electronically.
--- NOTE | 2020-07-27 11:05 | OP.COLON_ITS ---
Patient Name: Sofiya Hazel Procedure Date: 07/27/2020 10:36 AM Date of : 1940 Age: 80 Procedure: Colonoscopy Indications: Family history of anal canal cancer in a first-degree relative Providers: Casimiro George MD Referring MD: Nicholas Ragsdale Medicines: See the Anesthesia note for documentation of the administered medications Patient Profile: This is a 80 year old female. Refer to note in patient chart for documentation of history and physical. Last Colonoscopy: April 2015. Complications: No immediate complications. Procedure: Pre-Anesthesia Assessment: - Prior to the procedure, a History and Physical was performed, and patient medications and allergies were reviewed. The patient's tolerance of previous anesthesia was also reviewed. The risks and benefits of the procedure and the sedation options and risks were discussed with the patient. All questions were answered, and informed consent was obtained. Prior Anticoagulants: The patient has taken no previous anticoagulant or antiplatelet agents. ASA Grade Assessment: II - A patient with mild systemic disease. After reviewing the risks and benefits, the patient was deemed in satisfactory condition to undergo the procedure. After I obtained informed consent, the scope was passed under direct vision. Throughout the procedure, the patient's blood pressure, pulse, and oxygen saturations were monitored continuously. The colonoscope was introduced through the anus and advanced to the cecum, identified by appendiceal orifice and ileocecal valve. The colonoscopy was performed without difficulty. The patient tolerated the procedure well. The quality of the bowel preparation was good. Scope In: 10:43:49 AM Scope Withdrawal Time 0 hours 6 minutes 13 seconds Scope Out: 10:57:53 AM Total Procedure Duration Time 0 hours 14 minutes 4 seconds Findings: A few small-mouthed diverticula were found in the sigmoid colon. No biopsies or other specimens were collected for this exam. Non-bleeding internal hemorrhoids were found during retroflexion. The hemorrhoids were mild, small and Grade I (internal hemorrhoids that do not prolapse). The exam was otherwise without abnormality. Impression: - Diverticulosis in the sigmoid colon. No specimens collected. - Non-bleeding internal hemorrhoids. - The examination was otherwise normal. Recommendation: - Discharge patient to home. - Resume previous diet. - Continue present medications. - Repeat colonoscopy in 5 years for surveillance. - Return to primary care physician at appointment to be scheduled. Procedure Code(s): --- Professional --- 17878, Colonoscopy, flexible; diagnostic, including collection of specimen(s) by brushing or washing, when performed (separate procedure) Diagnosis Code(s): --- Professional --- K64.0, First degree hemorrhoids Z80.0, Family history of malignant neoplasm of digestive organs K57.30, Diverticulosis of large intestine without perforation or abscess without bleeding CPT copyright 2017 [employer]. All rights reserved. The codes documented in this report are preliminary and upon carving machine operator review may be revised to meet current compliance requirements. MD Casimiro Oliveros MD 07/27/2020 11:04:25 AM This report has been signed electronically. Number of Addenda: 0 Note Initiated On: 07/27/2020 10:36 AM
--- NOTE | 2020-07-27 11:08 | HP_ITS ---
Intake Vital Signs 07/07/20 Height 5 ft 1 in 07/07/20 Weight: 152 lb 07/07/20 BP 127/81 H 07/07/20 Blood Pressure Location Lt brachial 07/07/20 Position Sitting 07/07/20 Respiration 16 07/07/20 Pulse 77 07/07/20 Pulse Source Monitor 07/07/20 Temp 98.0 F 07/07/20 Temp Source Temporal 07/07/20 Pulse Oximetry (%) 95 07/07/20 Oxygen Delivery Method room air Intake Visit Reasons: CSCOPE Chief Complaint: Cscope Pressurization Mechanic Required: No Is patient in pain?: No Allergies No Known Allergies Allergy (Verified 07/07/20 09:18) Medications Multivitamin [Multiple Vitamins] 1 ea PO BID 06/19/18 [History Confirmed 07/07/20] Naproxen [Naprosyn] 250 - 500 mg PO Q8H PRN PRN #30 tab 06/27/18 [Rx Confirmed 07/07/20] citalopram 40 mg tablet 40 mg PO DAILY #30 tab 07/16/18 [Rx Confirmed 07/07/20] atorvastatin 20 mg tablet 20 mg PO DAILY tab 07/07/20 [History Confirmed 07/07/20] calcium carbonate 500 mg calcium (1,250 mg) tablet 500 mg PO DAILY 07/07/20 [History Confirmed 07/07/20] cholecalciferol (vitamin D3) 10 mcg (400 unit) capsule 10 mcg PO DAILY 07/07/20 [History Confirmed 07/07/20] lorazepam 0.5 mg tablet 0.5 mg PO BID PRN tab 07/07/20 [History Confirmed 07/07/20] omeprazole 40 mg capsule,delayed release 40 mg PO DAILY cap 07/07/20 [History Confirmed 07/07/20] primidone 50 mg tablet 50 mg PO ONCE 07/07/20 [History Confirmed 07/07/20] [facility] Medical History Arthritis (Acute) Hemorrhoids (Acute) Acid reflux (Acute) Constipation (Acute) Anxiety (Acute) Hyperlipidemia (Acute) Surgical History History of bladder suspension procedure (Acute) S/P hysterectomy (Acute) S/p bilateral carpal tunnel release (Acute) History of tubal ligation (Acute) S/P bilateral foot surgery (Acute) S/P cataract extraction (Resolved) Family History Brother Colon cancer High cholesterol Hypertension Mother Colostomy care Hypertension High cholesterol Sister Lung cancer Sister Cancer Thyroid disorder Social History (Updated 07/07/20 @ 11:[address] Casimiro George MD) Smoking Status: Never smoker alcohol intake: never substance use type: does not use caffeine: Yes what type of physical activity do you participate in: none seatbelt use: always do you feel safe at home: Yes additional social history: - solorzano HPI HPI Surgical H&P: Yes HPI: JORDY TIJERINA, is a 80 F who presents to the office today for Evaluation for endoscopy. Her last colonoscopy was on 05/02/2015. She has a brother who of colon cancer. She has had numerous colonoscopies in the past. She is not having any bowel issues at this time. She is not noticing any blood loss and she is not complaining of any abdominal pain. Her last colonoscopy was normal. ROS General General: No weight change, appetite, fatigue, colon cancer, breast cancer or weakness HEENT HEENT: No difficulty swallowing, eye injury, eye surgery, swollen glands or hoarseness Endo Endocrine: No thyroid disease, diabetes mellitus, thyroid cancer, Hair loss, heat intolerance or cold intolerance Skin Skin: No rash or changing moles Musc Musculoskeletal: Yes arthritis; no back problems, rheumatoid arthritis, gout or joint pain Cardio Cardiovascular: No murmur, pacemaker, heart disease, atrial fibrillation, high blood pressure, heart attack, heart stent, palpitations, shortness of breat with exertion or chest pain Psych Psychiatric: Yes depression and anxiety; no hearing voices Resp Respiratory: No shortness of breath, No sleep apnea, Yes cough, No COPD, No asthma, No emphysema, No wheezing Gastro Gastrointestinal: No abdominal pain, No nausea or vomiting, No diarrhea, Yes constipation, No blood in stool, Yes acid reflux, Yes hemorrhoids, No ulcers, No gallbladder problem, No black,tarry stools Avni Hematologic: No blood thinners, No blood disorders, No bleeding, No anemia, No blood clots Neuro Neurologic: No system reviewed and no additional complaints, except as docu, No as per HPI, No abnormal walking, No abnormal hearing, No abnormal movements, No abnormal speech, No behavioral changes, No burning sensations, No confusion, No seizure-like activity, No unsteadiness, No dizziness, No localized weakness, No frequent falls, No headache(s), No lack of coordination, No loss of vision, No memory loss, No numbness, No other visual disturbances, No radiating pain, No restless legs, No sensory deficit, No fainting, No tingling, No tremor(s), No weakness, No other Exam Const General: no acute distress, well developed, well hydrated Orientation: oriented to person, oriented to place, oriented to time [facility] Head: normocephalic, atraumatic Ears: external ears normal Mouth: moist mucous membranes Eyes Sclera: sclerae normal Pupils: normal by confrontation Neck Neck: no lymphadenopathy noted Neck mass: No Thyroid: thyroid normal, symmetrical Chest Chest palpation & inspection: normal inspection of the chest Resp Effort & Inspection: normal respiratory effort Auscultation: clear to auscultation bilaterally Percussion: percussion normal Cardio Rate: regular rate Rhythm: regular rhythm Heart Sounds: no murmurs GI Palpation: soft, no hepatosplenomegaly, no masses, nontender Rectal Exam: other Other: Rectal exam deferred. Extrem General: normal to inspection, no clubbing, cyanosis or edema Assessment & Plan Problems 1. Family history of colon cancer Z80.0 Plan I have discussed the above with the patient. I have offered the patient colonoscopy for evaluation. I have explained the risks/benefits of the procedure and described the procedure. I have discussed the risks with the patient, including but not limited to: infection, bleeding, perforation of the GI tract requiring emergency surgery, inability to complete the procedure, injury to any internal organs, complications of anesthesia, etc. - the patient understands and agrees to proceed. I have answered all the patient's questions to the patient's satisfaction and the patient has no further questions. The patient has been given instructions for the colon cleansing preparation. Coding Level of Care Code Off vis,new,level 3 Diagnoses Family history of colon cancer Z80.0 COVID (Procedure Consent) Procedure Criteria Procedure Criteria: Yes Elective The surgeon/proceduralist and patient have discussed in detail the risk of exposure to and/or potential harm posed by the COVID-19 virus with having a surgery/procedure at this time versus the risk of? delaying the surgery/procedure. It is not possible to know either the risk of delaying the surgery or procedure or chance of getting an infection with perfect accuracy, but a joint decision was made between the patient and the surgeon/proceduralist ?to proceed at this time with the scheduled surgery/procedure as indicated on the consent form. I have re-examined the patient. There are no clinical changes since date of exam.
[2020-07-27 11:10] VITALS: BP 110/52; BP 124/60; PULSE 61; RESP 16; O2SAT 94
[2020-07-27 11:22] VITALS: BP 118/51; BP 124/60; PULSE 60; RESP 16; TEMP 36.5; O2SAT 96
[2020-07-27 11:53] VITALS: BP 124/60
== END 2020-07-27 11:55 | disposition home or self-care (01) ==
LOC: EN 09:30 → AC 09:34
PROVIDERS: PCP Family Medicine; Referring Provider Family Medicine; Visit Provider Surgery
PROC: 0DJD8ZZ Inspection of Lower Intestinal Tract, Via Natural or Artificial Opening Endoscopic (ICD-10-PCS; CPT 45378; principal; 2020-07-27 10:40)
DX: K57.30 Diverticulosis of large intestine without perforation or abscess without bleeding (principal); K64.0 First degree hemorrhoids; Z80.0 Family history of malignant neoplasm of digestive organs; M19.90 Unspecified osteoarthritis, unspecified site; K21.9 Gastro-esophageal reflux disease without esophagitis; E78.5 Hyperlipidemia, unspecified; F41.9 Anxiety disorder, unspecified; F32.9 Major depressive disorder, single episode, unspecified; Z20.828 Contact with and (suspected) exposure to other viral communicable diseases; Z79.899 Other long term (current) drug therapy
CPT/HCPCS: G0105; 87426; C9803; J7120; J2405

== ENCOUNTER → 2020-11-16 12:17 | Outpatient (CLI) | payer MEDICARE, OTHER, SELFPAY ==
[2020-11-16 15:26] LABS: Vitamin D,25 Hydroxy 60.6 ng/mL
[2020-11-16 15:45] LABS: ALB/GLOB Ratio 1.5 RATIO (0.9-2.4); AST(SGOT) 16 U/L (15-37); Alanine Aminotransfer ALT/SGPT 23 U/L (13-56); Albumin, Serum 4.2 g/dL (3.2-5.0); Alkaline Phosphatase 59 U/L (45-117); Anion Gap 6 (5-15); BUN 18 mg/dL (7-18); BUN/Creat Ratio 17.8 RATIO (10-20); Calcium,Total 9.3 mg/dL (8.5-10.1); Chloride 107 mmol/L (98-107); Cholesterol 168 mg/dL (200); Creatinine, Serum 1.01 mg/dL (0.55-1.02); EST Glomerular Filtration Rate 56 mL/min (>60); Est Glom Filt Rate - Afr Amer 68 mL/min (>60); Globulin 2.8 g/dL (2.2-4.2); Glucose 86 mg/dL (74-106); High Density Lipoprotein 70 mg/dL; Sodium Level 141 mmol/L (136-145); Thyroid Stim Hormone (TSH) 1.82 uIU/mL (0.358-3.74); Triglycerides 93 mg/dL; Very Low Density Lipoprotein 19 mg/dL (5-40)
== END ==
PROVIDERS: PCP Family Medicine; Referring Provider Family Medicine; Visit Provider Family Medicine
DX: E78.5 Hyperlipidemia, unspecified (principal); M85.80 Other specified disorders of bone density and structure, unspecified site
CPT/HCPCS: 36415; 80053; 80061; 82306; 84443

== ENCOUNTER → 2020-12-22 14:20 | Outpatient (CLI) | payer MEDICARE, OTHER, SELFPAY ==
--- NOTE | 2020-12-22 14:23 | RAD_ITS ---
STUDY: X-RAY - RIGHT KNEE REASON FOR EXAM: Female, 80 years old. Right knee pain. TECHNIQUE: 4 view(s) of the knee. COMPARISON: None. FINDINGS: Normal visualized distal femur. Normal visualized proximal tibia and fibula. Normal proximal tibiofibular articulation. There is no acute fracture, dislocation or destructive osseous pathology. There is moderate degenerative arthrosis of the medial femorotibial compartment with moderate joint space narrowing. There is mild degenerative arthrosis of the lateral femorotibial compartment. There is severe degenerative arthrosis of the patellofemoral articulation. . The soft tissue structures are unremarkable. RAD/Knee 4 or More Views IMPRESSION: Degenerative arthrosis. Electronically Signed: August Pérez DO at 23:45 EDT Tel [phone], Service support ,
== END ==
PROVIDERS: PCP Family Medicine; Referring Provider Family Medicine; Visit Provider Family Medicine
DX: M25.561 Pain in right knee (principal)
CPT/HCPCS: 73564

== ENCOUNTER → 2021-04-06 | Outpatient (CLI) | payer MEDICARE, OTHER, SELFPAY ==
[2021-04-06 21:57] LABS: Probe Check PASS; Specimen Processing Control PASS
== END | disposition home or self-care (01) ==
PROVIDERS: PCP Family Medicine; Visit Provider Family Medicine
DX: U07.1 COVID-19 (principal)
CPT/HCPCS: 87635; U0005; U0003

== ENCOUNTER 2021-04-07 14:35 | Outpatient (CLI) | payer MEDICARE, OTHER, SELFPAY ==
[2021-04-07] MEDS: 0.9% Saline Lock 10 ML Syringe IV (14:44)
[2021-04-07 14:51] VITALS: BP 134/64; PULSE 75; RESP 18; TEMP 38.1; O2SAT 96; BMI 27.1
[2021-04-07 15:35] VITALS: BP 119/64; PULSE 80; RESP 16; TEMP 37.9; O2SAT 96
[2021-04-07 16:40] VITALS: BP 99/58; PULSE 90; RESP 16; TEMP 37.7
== END 2021-04-07 16:45 | disposition home or self-care (01) ==
LOC: ICUOUT 14:36 → ICU 14:36
PROVIDERS: PCP Family Medicine; Referring Provider Nurse Practitioner Acute Care; Visit Provider Nurse Practitioner Acute Care
DX: Z23 Encounter for immunization (principal); U07.1 COVID-19
CPT/HCPCS: J7050; M0243; A4216; Q0244

== ENCOUNTER → 2021-07-12 12:16 | Outpatient (CLI) | payer MEDICARE, OTHER, SELFPAY ==
--- NOTE | 2021-07-12 12:18 | BI_ITS ---
MAMMOGRAPHY - BILATERAL SCREENING 3-D TOMOSYNTHESIS REASON FOR EXAM: Female, 81 years old. Screening PERTINENT HISTORY: No significant family history. TECHNIQUE: 2-D mammograms and 3-D Tomosynthesis of the breast (s) were performed. CAD was performed. COMPARISON: None. FINDINGS: The breast composition is heterogeneously dense that can obscure small breast masses. Scattered benign calcifications are seen. No dense spiculated masses or suspicious microcalcifications are identified. No architectural distortion is identified. There is no skin thickening or retraction. There has been no significant change since the prior study. BI/SCRN MAMM (CAD)W/NICEHLLE BILAT IMPRESSION: No mammographic signs of malignancy. Routine yearly mammograms recommended. ASSESSMENT CATEGORY: BIRADS Category 2: Benign. A letter regarding these results will be sent to the patient by the facility within 30 days. FOLLOW UP RECOMMENDATION: Yearly follow up mammogram recommended. (A) Approximately 10% of breast cancers are not detected by mammography. A normal mammogram should not delay biopsy of a clinically suspicious abnormality. Electronically Signed: Romario Guzman MD at 14:41 EST , Service support ,
== END ==
PROVIDERS: PCP Family Medicine; Referring Provider Family Medicine; Visit Provider Family Medicine
DX: Z12.31 Encounter for screening mammogram for malignant neoplasm of breast (principal)
CPT/HCPCS: 77063; 77067

== ENCOUNTER 2021-12-08 16:45 | Emergency (ER) | payer MEDICARE, OTHER, SELFPAY ==
[2021-12-08 16:46] VITALS: BP 154/71; PULSE 76; RESP 19; TEMP 36.2; O2SAT 98; BMI 26.2
--- NOTE | 2021-12-08 17:01 | ED.VIS.LOWEX ---
HPI History of Present Illness Chief Complaint: Lower Extremity Injury Informant: patient Narrative Narrative: Nontraumatic left knee pain for the past 2 weeks. States started after putting up curtains on a stepstool. Denies any falls. She has had issues of bilateral knee pain in the past with osteoarthritis she is seeing Dr. Valles, states has done Synvisc injections x3 doses in both knees. On and off pain. States a month ago similar pain had cortisone injection by her PCP which helped symptoms for a week and it has progressed. Denies paresthesias. Is on naproxen. Not helping. Has tolerated Car[place] in the past however states was nauseated. She is not a diabetic. Prior similar symptoms: Yes [facility] Medical History (Updated 12/08/21 @ 18:[address] Harlan Ramey DO) Acid reflux Anxiety Arthritis Constipation Hemorrhoids Hyperlipidemia Home Medications multivitamin 1 ea PO BID 06/19/18 [History Last Taken 04/05/21] naproxen 250 - 500 mg PO Q8H PRN PRN #30 tab 06/27/18 [Rx Last Taken Unknown] atorvastatin 20 mg tablet 20 mg PO DAILY tab 07/07/20 [History Last Taken 04/06/21] calcium carbonate 500 mg calcium (1,250 mg) tablet 500 mg PO BID 07/07/20 [History Last Taken 04/05/21] lorazepam 0.5 mg tablet 0.5 mg PO BID PRN PRN tab 07/07/20 [History Last Taken Unknown] omeprazole 40 mg capsule,delayed release 40 mg PO DAILY cap 07/07/20 [History Last Taken 04/05/21] bupropion HCl 300 mg PO DAILY 04/07/21 [History Last Taken 04/05/21] citalopram 40 mg PO DAILY 04/07/21 [History Last Taken 04/05/21] oxycodone-acetaminophen [Percocet] 1 tab PO Q6H PRN 3 Days #12 tab 12/08/21 [Rx Last Taken Unknown] prednisone 40 mg PO DAILY #10 tab 12/08/21 [Rx Last Taken Unknown] Allergy/AdvReac Type Severity Reaction Status Date / Time No Known Allergies Allergy Verified 12/08/21 16:47 Family History Brother Colon cancer High cholesterol Hypertension Mother Colostomy care Hypertension High cholesterol Sister Lung cancer Sister Cancer Thyroid disorder Surgical History History of bladder suspension procedure History of tubal ligation S/p bilateral carpal tunnel release S/P bilateral foot surgery S/P cataract extraction S/P hysterectomy Social History Smoking Status: Never smoker alcohol intake: never substance use type: does not use caffeine: Yes what type of physical activity do you participate in: none seatbelt use: always do you feel safe at home: Yes additional social history: - solorzano ROS ROS ED Constitutional Constitutional ED: Denies chills, fever(s) or sweats Eyes Eyes: Denies change in vision ENT ENT ED: Denies dysphagia or sore throat Cardiovascular Cardiovascular: Denies chest pain, leg edema, palpitations or racing heartbeat Respiratory/Chest Respiratory/Chest: Denies cough, dyspnea or dyspnea on exertion Gastrointestinal Gastrointestinal: Denies abdominal pain, diarrhea, nausea or vomiting Genitourinary Genitourinary ED: Denies dysuria, hematuria or urinary frequency Musculoskeletal Musculoskeletal: Reports other Details: Left knee pain ; Denies back pain, extremity pain or neck pain Integumentary Denies rash or wounds Neurologic Neurologic: Denies headache(s), paresthesias or weakness EXAM Physical Exam Const Vital Signs: 12/08/21 16:46 12/08/21 18:04 Temperature 97.2 F L Temperature Source Temporal Pulse Rate 76 97 Respiratory Rate 19 H 16 Blood Pressure 154/71 H Blood Pressure Mean 98 Pulse Ox 98 Oxygen Delivery Method Room Air Positive well nourished and well developed Constitutional Narrative: Uncomfortable, nontoxic General Appearance ED: well developed HEENT Reports moist mucous membranes normocephalic and atraumatic Eyes PERRL, EOMs intact bilaterally and conjunctivae normal General Eye ED: Yes normal appearance of both eyes Neck no lymphadenopathy and supple General: Negative for tenderness Chest Wall Chest: Negative for tenderness Resp normal respiratory effort and normal air movement Effort and Inspection: symmetric chest movement; Negative for respiratory distress Cardio regular rate, regular rhythm and no murmurs Peripheral Pulses: pulses 2+ throughout GI normal to inspection, nondistended, normoactive bowel sounds and non-tender Palpation: Negative for guarding or rebound tenderness present Back/Spine no CVA tenderness and no thoracic nor lumbar tenderness Extremity Extremity Narrative: Left lower extremity: Negative logroll, knee extensor mechanism intact. No swelling. Negative varus and valgus positive Chilango's with valgus stress. Skin intact. Neuro vas intact distally. General Extremety ED: Negative for edema or tenderness General Extremity: Negative for edema Neuro oriented x3 and no sensory deficits noted Sensorium / Orientation: awake and alert Skin no rashes or lesions noted and no wounds MDM MDM MDM Narrative Medical decision making narrative: 4 view x-ray left knee reviewed by myself and read by radiology significant arthritis was noted. No fractures. Start on prednisone, initially wrote for oxycodone however patient drove here wanted to drive home. Her ride left. Discussed with her she is status post cortisone injection a month ago, typically cannot be redone for 3 to 4 months. She has been recommended total knee arthroplasty by a previous orthopedist who has since left. She is written prescription for prednisone along with Percocet to use as needed. She continue her Anselmo wrap. She is given follow-up with on-call orthopedist for outpatient evaluation. All questions were answered. Radiography Diagnostic Testing: Clinical Impression(s) from Imaging Studies Knee X-Ray 12/08/21 17:10 IMPRESSION: Degenerative arthrosis. Electronically Signed: Robbie Quintero MD at 17:33 EDT , Discharge Plan Triage Chief Complaint: Lower Extremity Injury ED Provider: Harlan Ramey Dx/Rx/DC Orders Clinical Impression: Internal derangement of left knee, Osteoarthritis, Knee pain, left Instructions: Knee Pain Prescriptions: New oxycodone-acetaminophen [Percocet] 5-325 mg tablet 1 tab PO Q6H PRN (Reason: pain) 3 Days Qty: 12 RF: 0 prednisone 20 MG tablet 40 mg PO DAILY Qty: 10 RF: 0 No Action omeprazole 40 mg capsule,delayed release(DR/EC) 40 mg PO DAILY RF: 0 atorvastatin 20 mg tablet 20 mg PO DAILY RF: 0 lorazepam 0.5 mg tablet 0.5 mg PO BID PRN PRN (Reason: Anxiety) RF: 0 calcium carbonate [Calcium 500] 500 mg calcium (1,250 mg) tablet 500 mg PO BID RF: 0 multivitamin 1 EACH tablet 1 ea PO BID RF: 0 naproxen 250 MG tablet 250 - 500 mg PO Q8H PRN PRN (Reason: MILD PAIN) Qty: 30 RF: 1 bupropion HCl 300 mg tablet extended release 24 hr 300 mg PO DAILY RF: 0 citalopram 40 mg tablet 40 mg PO DAILY RF: 0 Primary Care Provider: Kevin Burns Referrals: Kevin Burns MD [Primary Care Provider] - Gavin Mosley MD [STAFF PHYSICIAN] - 3-5 Days Activity Restrictions/Additional Instructions: Significant osteoarthritis of the left knee. Internal derangement of left knee. Follow-up with Dr. Boudreaux for outpatient discussion as you were recommended knee replacement by Dr. Valles in the past. Disposition Disposition: Home, Self Care Discharge Date/Time: 12/08/21 18:10
--- NOTE | 2021-12-08 17:10 | RAD_ITS ---
STUDY: X-RAY - LEFT KNEE REASON FOR EXAM: Female, 81 years old. pain TECHNIQUE: 4 view(s) of the knee. COMPARISON: None. FINDINGS: Normal visualized distal femur. Normal visualized proximal tibia and fibula. Normal proximal tibiofibular articulation. There is moderate degenerative arthrosis of the medial femorotibial compartment with moderate joint space narrowing. There is moderate degenerative arthrosis of the lateral femorotibial compartment with moderate joint space narrowing. There is moderate degenerative arthrosis of the patellofemoral articulation. The soft tissue structures are unremarkable. RAD/Knee 4 or More Views IMPRESSION: Degenerative arthrosis. Electronically Signed: Robbie Quintero MD at 17:33 EDT ,
[2021-12-08] MEDS: predniSONE 20 MG Tablet 40 MG PO (17:31)
[2021-12-08 18:04] VITALS: PULSE 97; RESP 16
== END 2021-12-08 18:10 | disposition home or self-care (01) ==
PROVIDERS: Emergency Provider Emergency Medicine; PCP Internal Medicine; Visit Provider Emergency Medicine
DX: M23.92 Unspecified internal derangement of left knee (principal); M17.12 Unilateral primary osteoarthritis, left knee; E78.5 Hyperlipidemia, unspecified; M19.90 Unspecified osteoarthritis, unspecified site; K21.9 Gastro-esophageal reflux disease without esophagitis; F41.9 Anxiety disorder, unspecified; Z79.899 Other long term (current) drug therapy
CPT/HCPCS: 73564; 99282

== ENCOUNTER 2022-04-04 07:08 | Day surgery (SDC) | payer MEDICARE, OTHER, SELFPAY ==
--- NOTE | 2022-04-04 | IMM_PTH ---
PATIENT: JORDY TIJERINA LOC: EN U#:[id number] AGE/SX: 82/F ROOM: RE04/04/[address]: Dr. Khadra Seo MD : 1940 BED: DIS: 04/04/2022 SPEC #: [id number] RECD: 04/05/22 07:53 STATUS: DIYA REVishnu #: [id number] CARMINE: 04/04/22 00:[address]: Khadra Seo DEPT: IMMUNOHISTOCHEMISTRY RECD BY: Inessa Quiroz ENTERED: 04/05/22 07:54 SP TYPE: IMMUNO OTHR DR: Dr. Kevin Burns MD Tissues: COLON BIOPSY Procedures: H Pylori (initial) PHYSICIAN & [place] [id number] SPECIMEN INFORMATION: Tissue Source: A. Antrum biopsy Clinical Info: Constipation, diarrhea, acid reflux Specimen Number: [id number] CPT code: 22485 METHODOLOGY: Deparaffinized sections of prefer/formalin-fixed tissue or PAP/DQ stained slides are incubated with monoclonal/polyclonal antibodies/oligonucleotide probes. Localization is made via biotin free immunoperoxidase method. Appropriate controls are performed and reacted as expected. Results on target cell population are indicated in the following table: RESULTS: ANTIBODY / CLONE RESULT Block A H Pylori (polyclonal) negative These tests were developed and their performance characteristics determined by [facility]. They may not have been cleared or approved by the U.S. Food and Drug Administration. The FDA has determined that such clearance or approval is not necessary. The above immunohistochemical/dualISH markers are ordered and reviewed by the Pathologist. INTERPRETATION: A. Antrum biopsy: Negative for H. pylori organisms. AM:kay 04/05/2022
--- NOTE | 2022-04-04 07:18 | HP.PCM_ITS ---
HPI - General HPI Narrative JORDY TIJERINA, is a 82 F who presents for EGD and colonoscopy. Patient states she now has more high constipation with hard stools than her diarrhea she had previously. Patient is unsure amount of fiber she is getting. Patient has been on omeprazole for years and never had an EGD. from 02/23/2022 office appt: JORDY TIJERINA, is a 81 F who presents to the office today for change in bowel habits/diarrhea.? Patient states about 4 weeks ago started having diarrhea and therefore she was having accidents due to not being able to get to the restroom.? Patient did start taking Metamucil and after 3 to 4 days the diarrhea did slow down.? Currently she states she has very soft bowel movements couple times a day but no more accidents.? Patient's last colonoscopy was in [address] George did show diverticulosis and some small hemorrhoids at that time.? Patient's brother did have colon cancer at age 69.? Patient had stool studies done at [facility] urgent care negative fecal occult, negative enteric pathogen/O&P, negative C. difficile On 01/26/2022. [facility] Medical History (Updated 04/01/22 @ 09:22 by Luli Alamo) Acid reflux Anxiety Arthritis Back pain Breast lump Carpal tunnel syndrome Constipation Coronary artery disease Diarrhea Gastric reflux Hemorrhoids High cholesterol History of stress test Hyperlipidemia Leg cramps Macular degeneration Non-smoker Osteopenia Pancreatic cyst Post-menopausal Skin lesion of scalp Sleep apnea Wears dentures Home Medications multivitamin 1 ea PO BID SUPPLEMENT 06/19/18 [History Last Taken 04/05/21] naproxen 250 mg tablet 250 - 500 mg PO Q8H PRN PRN MILD PAIN #30 tabs 06/27/18 [Rx Last Taken Unknown] atorvastatin 20 mg tablet 20 mg PO DAILY 07/07/20 [History Last Taken 04/06/21] calcium carbonate 500 mg calcium (1,250 mg) tablet (Calcium 500) 500 mg PO BID 07/07/20 [History Last Taken 04/05/21] omeprazole 40 mg capsule,delayed release 40 mg PO DAILY ACID REFLUX 07/07/20 [History Last Taken 04/05/21] citalopram 40 mg tablet 40 mg PO DAILY MENTAL HEALTH #30 tabs 03/09/22 [Rx Last Taken Unknown] melatonin 10 mg tablet 10 mg PO QHS 04/01/22 [History Last Taken Unknown] vit C 250 mg-vit E 90 mg-zinc 40 mg-copper 1 [id number] capsule (PreserVision AREDS-2) 1 tab PO BID 04/01/22 [History Last Taken Unknown] Allergy/AdvReac Type Severity Reaction Status Date / Time No Known Allergies Allergy Verified 04/04/22 07:48 Family History Brother Colon cancer High cholesterol Hypertension Anxiety Arthritis Myocardial infarction Mother Colostomy care Hypertension High cholesterol Sister Lung cancer Anxiety Arthritis Breast cancer Depression Respiratory disease Colon cancer Sister Cancer lung Thyroid disorder Hypertension Surgical History (Updated 04/01/22 @ 09:22 by Luli Alamo) bilateral carpal tunnel surgery History of bladder suspension procedure History of tubal ligation Hx of hysterectomy S/p bilateral carpal tunnel release S/P bilateral foot surgery S/P cataract extraction S/P hysterectomy Social History Smoking Status: Never smoker alcohol intake: never substance use type: does not use caffeine: Yes what type of physical activity do you participate in: none seatbelt use: always do you feel safe at home: Yes additional social history: - solorzano Past Medical/Surgical History Planned Operation Planned Operative Procedure/s: COLONOSCOPY/EGD S.O.S: No Previous Hospitalizations/Surgeries HX Hospitalizations: No HX of Surgeries: hysterectomy with bladder sling 2018 tubal ligation bunionectomy b/l carpal tunnel b/l cataract b/l colonoscopy Any Problems With Anesthesia: No You/Your Family Experience Fever (Hyperthermia) With Anes: No Cholinesterase deficiency: No Cardiovascular Hx Chest Pain within Last 2 months: No Hx of Irregular Heartbeat and/or Afib: No Hx Heart Attack: No Hx Congestive Heart Failure: No Hx Rheumatic Fever: No Hx Hypertension: No Hx Internal Defibrillator: No Hx Pacemaker: No Hx Cardiac Catheterization: No Hx Cardiac Surgery/Stents/Etc.: No Hx Stress Test: Yes (2014 neg per pt) Hx Pain in Legs when Walking/Leg Cramps: No Respiratory Chronic Cough: No HX of Shortness of Breath: No Hoarseness: No Hx Chronic Obstructive Pulmonary Disease (COPD): No Hx Asthma: No Hx Emphysema: No Hx Sleep Apnea: Yes (DOESN'T WEAR) CPAP: No BIPAP: No Hx Respiratory Tract Infection/Cold (presently): No Result (for STOP score): Positive Hx Smoking: No Smoking Status: Never smoker Gastrointestinal Hx Gastroesophageal Reflux: Yes Controlled With Meds: Yes Hx Gastrointestinal Disorders: No Hx Gastrointestinal Bleed: No Hx Ulcer: No Hx Hiatal Hernia: No Difficulty Chewing/Swallowing: No Special diet followed at home: No Hx Unplanned Weight Loss of 20#: No HX Unplanned Weight Gain of 20#: No Neurological Hx Seizures: No HX Syncope/Blackout Spells/Unconsciousness: No Hx Transient Ischemic Attacks (TIA): No Hx Multiple Sclerosis: No Hx Parkinson's Disease: No Hx Head/Neck Injury: No Hx Headaches: No Hx Back Injury/Pain: No Recent Onset of Speech Difficulty: No Restless Legs: Yes (no meds) Does patient have nerve stimulator: No Blood Disorder Hx Leukemia: No Bleeding Tendencies: No Hx Deep Vein Thrombosis: No Hx High Cholesterol: Yes (on meds) Blood Transmitted Disease: No Hx Hepatitis: No Hx Cirrhosis: No Hx Anemia: No Hx Blood Disorders: No Reproduction : No Is Patient Lactating: No Hx Hysterectomy: Yes Hx Tubal Ligation: Yes Are You Post Menopause: Yes Genitourinary Hx Renal Disease: No Musculoskeletal Hx Arthritis: Yes Hx Rheumatoid Arthritis: No Hx Gout: No Recent Onset of an Orthopedic Problem: No Endocrine Hx Diabetes: No Thyroid Disease: No Hx Steroid Therapy: No Psycho/Social Hx Substance Use: No Hx Alcohol Use: No Hx Anxiety: Yes Hx Depression: Yes Mental Illness: No Hx Dementia: No Miscellaneous Hx Cancer: No Recent Exposure to Contagious Disease: No Hx of C-Diff: No Any Loose Teeth: Yes Allergies No Known Allergies Allergy (Verified 04/04/22 07:48) Discharge Is Pt Admitted From a Senior Living, or a Correction: No After D/C, Where Do you Plan to Go: Return Home From the [facility] History Number of Risk Factors: 3 Physical Exam Const alert, oriented x3 and no apparent distress HEENT normocephalic and head/scalp atraumatic Resp normal respiratory effort Cardio regular rate GI soft to palpation and non-tender; Negative for non-distended Palpation: Negative for guarding Extremity no clubbing, cyanosis or edema Neuro CN's II-XII intact bilaterally Psych mental status grossly normal Assessment & Plan Assessment/Plan (1) Constipation: (2) Diarrhea: (3) Acid reflux: PLAN: Plan Plan for an EGD as well as colonoscopy Surgery Risks - Colonoscopy Risks Include but are not Limited To: Risks include but are not limited to: Bleeding, perforation requiring further surgery, inability to complete colonoscopy requiring barium enema.
--- NOTE | 2022-04-04 07:20 | HP.PCM_ITS ---
HPI - General HPI Narrative JORDY TIJERINA, is a 82 F who presents [facility] Medical History (Updated 04/01/22 @ 09:22 by Luli Alamo) Acid reflux Anxiety Arthritis Back pain Breast lump Carpal tunnel syndrome Constipation Coronary artery disease Diarrhea Gastric reflux Hemorrhoids High cholesterol History of stress test Hyperlipidemia Leg cramps Macular degeneration Non-smoker Osteopenia Pancreatic cyst Post-menopausal Skin lesion of scalp Sleep apnea Wears dentures Home Medications multivitamin 1 ea PO BID SUPPLEMENT 06/19/18 [History Last Taken 04/05/21] naproxen 250 mg tablet 250 - 500 mg PO Q8H PRN PRN MILD PAIN #30 tabs 06/27/18 [Rx Last Taken Unknown] atorvastatin 20 mg tablet 20 mg PO DAILY 07/07/20 [History Last Taken 04/06/21] calcium carbonate 500 mg calcium (1,250 mg) tablet (Calcium 500) 500 mg PO BID 07/07/20 [History Last Taken 04/05/21] omeprazole 40 mg capsule,delayed release 40 mg PO DAILY ACID REFLUX 07/07/20 [History Last Taken 04/05/21] citalopram 40 mg tablet 40 mg PO DAILY MENTAL HEALTH #30 tabs 03/09/22 [Rx Last Taken Unknown] melatonin 10 mg tablet 10 mg PO QHS 04/01/22 [History Last Taken Unknown] vit C 250 mg-vit E 90 mg-zinc 40 mg-copper 1 [id number] capsule (PreserVision AREDS-2) 1 tab PO BID 04/01/22 [History Last Taken Unknown] Allergy/AdvReac Type Severity Reaction Status Date / Time No Known Allergies Allergy Verified 04/01/22 09:12 Family History Brother Colon cancer High cholesterol Hypertension Anxiety Arthritis Myocardial infarction Mother Colostomy care Hypertension High cholesterol Sister Lung cancer Anxiety Arthritis Breast cancer Depression Respiratory disease Colon cancer Sister Cancer lung Thyroid disorder Hypertension Surgical History (Updated 04/01/22 @ 09:22 by Luli Alamo) bilateral carpal tunnel surgery History of bladder suspension procedure History of tubal ligation Hx of hysterectomy S/p bilateral carpal tunnel release S/P bilateral foot surgery S/P cataract extraction S/P hysterectomy Social History Smoking Status: Never smoker alcohol intake: never substance use type: does not use caffeine: Yes what type of physical activity do you participate in: none seatbelt use: always do you feel safe at home: Yes additional social history: - solorzano Past Medical/Surgical History Planned Operation Planned Operative Procedure/s: COLONOSCOPY/EGD S.O.S: No Previous Hospitalizations/Surgeries HX Hospitalizations: No HX of Surgeries: hysterectomy with bladder sling 2018 tubal ligation bunionectomy b/l carpal tunnel b/l cataract b/l colonoscopy Any Problems With Anesthesia: No You/Your Family Experience Fever (Hyperthermia) With Anes: No Cholinesterase deficiency: No Cardiovascular Hx Chest Pain within Last 2 months: No Hx of Irregular Heartbeat and/or Afib: No Hx Heart Attack: No Hx Congestive Heart Failure: No Hx Rheumatic Fever: No Hx Hypertension: No Hx Internal Defibrillator: No Hx Pacemaker: No Hx Cardiac Catheterization: No Hx Cardiac Surgery/Stents/Etc.: No Hx Stress Test: Yes (2014 neg per pt) Hx Pain in Legs when Walking/Leg Cramps: No Respiratory Chronic Cough: No HX of Shortness of Breath: No Hoarseness: No Hx Chronic Obstructive Pulmonary Disease (COPD): No Hx Asthma: No Hx Emphysema: No Hx Sleep Apnea: Yes (DOESN'T WEAR) CPAP: No BIPAP: No Hx Respiratory Tract Infection/Cold (presently): No Result (for STOP score): Positive Hx Smoking: No Smoking Status: Never smoker Gastrointestinal Hx Gastroesophageal Reflux: Yes Controlled With Meds: Yes Hx Gastrointestinal Disorders: No Hx Gastrointestinal Bleed: No Hx Ulcer: No Hx Hiatal Hernia: No Difficulty Chewing/Swallowing: No Special diet followed at home: No Hx Unplanned Weight Loss of 20#: No HX Unplanned Weight Gain of 20#: No Neurological Hx Seizures: No HX Syncope/Blackout Spells/Unconsciousness: No Hx Transient Ischemic Attacks (TIA): No Hx Multiple Sclerosis: No Hx Parkinson's Disease: No Hx Head/Neck Injury: No Hx Headaches: No Hx Back Injury/Pain: No Recent Onset of Speech Difficulty: No Restless Legs: Yes (no meds) Does patient have nerve stimulator: No Blood Disorder Hx Leukemia: No Bleeding Tendencies: No Hx Deep Vein Thrombosis: No Hx High Cholesterol: Yes (on meds) Blood Transmitted Disease: No Hx Hepatitis: No Hx Cirrhosis: No Hx Anemia: No Hx Blood Disorders: No Reproduction : No Is Patient Lactating: No Hx Hysterectomy: Yes Hx Tubal Ligation: Yes Are You Post Menopause: Yes Genitourinary Hx Renal Disease: No Musculoskeletal Hx Arthritis: Yes Hx Rheumatoid Arthritis: No Hx Gout: No Recent Onset of an Orthopedic Problem: No Endocrine Hx Diabetes: No Thyroid Disease: No Hx Steroid Therapy: No Psycho/Social Hx Substance Use: No Hx Alcohol Use: No Hx Anxiety: Yes Hx Depression: Yes Mental Illness: No Hx Dementia: No Miscellaneous Hx Cancer: No Recent Exposure to Contagious Disease: No Hx of C-Diff: No Any Loose Teeth: Yes Allergies No Known Allergies Allergy (Verified 04/01/22 09:12) Discharge Is Pt Admitted From a Snf, or a Longterm: No After D/C, Where Do you Plan to Go: Return Home From the [facility] History Number of Risk Factors: 3 Assessment & Plan Assessment/Plan (1) Constipation: (2) Diarrhea: (3) Acid reflux: Surgery Risks - Colonoscopy Risks Include but are not Limited To: Risks include but are not limited to: Bleeding, perforation requiring further surgery, inability to complete colonoscopy requiring barium enema.
[2022-04-04] MEDS: Lactated Ringers 1,000 ML 15 ML IV (07:49)
[2022-04-04 07:50] VITALS: BP 144/80; PULSE 62; RESP 16; TEMP 36.7; O2SAT 96; BMI 26.2
--- NOTE | 2022-04-04 08:30 | EGD_PTH ---
PATIENT: JORDY TIJERINA LOC: EN U#:[id number] AGE/SX: 82/F ROOM: RE04/04/[address]: Dr. Khadra Seo MD : 1940 BED: DIS: 04/04/2022 SPEC #: [id number] RECD: 04/04/22 11:31 STATUS: DIYA DONA #: [id number] CARMINE: 04/04/22 08:[address]: Khadra Seo DEPT: SURGICAL PATHOLOGY RECD BY: Deisy Vaughan ENTERED: 04/04/22 12:15 SP TYPE: EGD BIOPSY ALEXI DR: Dr. Kevin uBrns MD Tissues: A - Gastric mucous membrane B - Stomach, NOS Procedures: Surgery Specimen Level IV HEADER OPERATION: Colonoscopy, EGD PRE-OP DIAGNOSIS: Constipation, diarrhea, acid reflux TISSUE SUBMITTED: A. Antrum biopsy, B. GE junction MICROSCOPIC DIAGNOSIS A. Gastric antrum, biopsy: Chronic gastritis B. Gastro-esophageal junction, biopsy: Chronic inflammation. No evidence of goblet cell metaplasia. See Comment. AM:am 04/05/2022 COMMENT A The results of immunohistochemistry for Helicobacter pylori will be reported separately ([id number]). B. Alcian blue/PAS stain with matched control supports the above diagnosis. MICROSCOPIC DESCRIPTION Slides are reviewed. GROSS DESCRIPTION A. Received is one container labeled with the patient?s name and designated antrum. The specimen consists of one irregular fragment of light laws soft tissue that measures 0.3 x 0.3 x 0.1cm. The specimen is totally submitted in one cassette. B. Received is one container labeled with the patient name and designated GE junction. The specimen consists of one irregular fragment of light laws soft tissue that measures 0.5 x 0.2 x 0.1 cm. The specimen is totally submitted in one cassette. /BIB:agata 04/04/22 TC:3 CPT:97308c4,11842
[2022-04-04 09:00] VITALS: BP 125/73; BP 144/80; PULSE 71; RESP 16; TEMP 36.4; O2SAT 99
--- NOTE | 2022-04-04 09:03 | OP.CCLET_ITS ---
04/04/2022 Kevin Burns MD [address] [place] [address] [place] [address] Re : Upper GI endoscopy procedure for Sofiya Hazel Dear Dr. Burns This procedure was performed on Monday, April 04, 2022. My impressions and recommendations are as follows: Impressions : - Z-line irregular, 40 cm from the incisors. - Erythematous mucosa in the antrum. Biopsied. - Normal examined duodenum. Recommendations : - Await pathology results. - Continue present medications. My findings are described in the full procedure note, which is enclosed. If I can be of further assistance, please feel free to contact me at Doctor phone number(s): , Work: . Sincerely, MD Khadra Davila MD 04/04/2022 9:02:08 AM This report has been signed electronically.
--- NOTE | 2022-04-04 09:03 | OP.EGD_ITS ---
Patient Name: Sofiya Hazel Procedure Date: 04/04/2022 8:14 AM Date of : 1940 Age: 82 Procedure: Upper GI endoscopy Indications: Esophageal reflux Providers: Khadra Seo MD Medicines: Monitored Anesthesia Care Patient Profile: This is an 82 year old female. Complications: No immediate complications. Procedure: Pre-Anesthesia Assessment: - Prior to the procedure, a History and Physical was performed, and patient medications and allergies were reviewed. The patient's tolerance of previous anesthesia was also reviewed. The risks and benefits of the procedure and the sedation options and risks were discussed with the patient. All questions were answered, and informed consent was obtained. Prior Anticoagulants: The patient has taken no previous anticoagulant or antiplatelet agents. ASA Grade Assessment: Per anesthesia. After reviewing the risks and benefits, the patient was deemed in satisfactory condition to undergo the procedure. After obtaining informed consent, the endoscope was passed under direct vision. Throughout the procedure, the patient's blood pressure, pulse, and oxygen saturations were monitored continuously. The pediatric colonoscope was introduced through the mouth, and advanced to the second part of duodenum. The upper GI endoscopy was accomplished without difficulty. The patient tolerated the procedure well. Scope In: 8:24:55 AM Scope Out: 8:31:09 AM Total Procedure Duration Time 0 hours 6 minutes 14 seconds Findings: The Z-line was irregular and was found 40 cm from the incisors. The cardia and gastric fundus were normal on retroflexion. Mildly erythematous mucosa without bleeding was found in the gastric antrum. Biopsies were taken with a cold forceps for histology. Biopsies were taken with a cold forceps for Helicobacter pylori cultures. The examined duodenum was normal. Impression: - Z-line irregular, 40 cm from the incisors. - Erythematous mucosa in the antrum. Biopsied. - Normal examined duodenum. Recommendation: - Await pathology results. - Continue present medications. Procedure Code(s): --- Professional --- 59168, Esophagogastroduodenoscopy, flexible, transoral; with biopsy, single or multiple Diagnosis Code(s): --- Professional --- K22.8, Other specified diseases of esophagus K31.89, Other diseases of stomach and duodenum K21.9, Gastro-esophageal reflux disease without esophagitis CPT copyright 2017 [employer]. All rights reserved. The codes documented in this report are preliminary and upon packer inspector review may be revised to meet current compliance requirements. MD Khadra Davila MD 04/04/2022 9:02:08 AM This report has been signed electronically. Number of Addenda: 0 Note Initiated On: 04/04/2022 8:14 AM
[2022-04-04 09:05] VITALS: BP 134/75; BP 144/80; PULSE 68; RESP 16; O2SAT 96
--- NOTE | 2022-04-04 09:08 | OP.COLON_ITS ---
Patient Name: Sofiya Hazel Procedure Date: 04/04/2022 8:31 AM Date of : 1940 Age: 82 Procedure: Colonoscopy Indications: Constipation, Diarrhea Providers: Khadra Seo MD Medicines: Monitored Anesthesia Care Patient Profile: This is an 82 year old female. Last Colonoscopy: within the past 3 years. Complications: No immediate complications. Procedure: Pre-Anesthesia Assessment: - Prior to the procedure, a History and Physical was performed, and patient medications and allergies were reviewed. The patient's tolerance of previous anesthesia was also reviewed. The risks and benefits of the procedure and the sedation options and risks were discussed with the patient. All questions were answered, and informed consent was obtained. Prior Anticoagulants: The patient has taken no previous anticoagulant or antiplatelet agents. ASA Grade Assessment: Per anesthesia. After reviewing the risks and benefits, the patient was deemed in satisfactory condition to undergo the procedure. After I obtained informed consent, the scope was passed under direct vision. Throughout the procedure, the patient's blood pressure, pulse, and oxygen saturations were monitored continuously. The pediatric colonoscope was introduced through the anus and advanced to the cecum, identified by the appendiceal orifice, ileocecal valve and palpation. The colonoscopy was somewhat difficult due to a tortuous colon. Successful completion of the procedure was aided by applying abdominal pressure. The patient tolerated the procedure well. The quality of the bowel preparation was good. Scope In: 8:32:41 AM Scope Withdrawal Time 0 hours 8 minutes 6 seconds Scope Out: 8:54:26 AM Total Procedure Duration Time 0 hours 21 minutes 45 seconds Findings: Hemorrhoids were found on perianal exam. Non-bleeding internal hemorrhoids were found. The hemorrhoids were Grade I (internal hemorrhoids that do not prolapse). Scattered small-mouthed diverticula were found in the sigmoid colon and ascending colon. The exam was otherwise without abnormality. Impression: - Hemorrhoids found on perianal exam. - Non-bleeding internal hemorrhoids. - Diverticulosis in the sigmoid colon and in the ascending colon. - The examination was otherwise normal. - No specimens collected. Recommendation: - Discharge patient to home. - Resume previous diet. - Continue present medications. - No repeat colonoscopy due to current age (66 years or older). Procedure Code(s): --- Professional --- 77446, Colonoscopy, flexible; diagnostic, including collection of specimen(s) by brushing or washing, when performed (separate procedure) Diagnosis Code(s): --- Professional --- K64.0, First degree hemorrhoids K59.00, Constipation, unspecified R19.7, Diarrhea, unspecified K57.30, Diverticulosis of large intestine without perforation or abscess without bleeding CPT copyright 2017 [employer]. All rights reserved. The codes documented in this report are preliminary and upon case planner review may be revised to meet current compliance requirements. MD Khadra Davila MD 04/04/2022 9:08:04 AM This report has been signed electronically. Number of Addenda: 0 Note Initiated On: 04/04/2022 8:31 AM
--- NOTE | 2022-04-04 09:09 | OP.CCLET_ITS ---
04/04/2022 Kevin Burns MD [address] [place] [address] [place] [address] Re : Colonoscopy procedure for Sofiya Hazel Dear Dr. Burns This procedure was performed on Monday, April 04, 2022. My impressions and recommendations are as follows: Impressions : - Hemorrhoids found on perianal exam. - Non-bleeding internal hemorrhoids. - Diverticulosis in the sigmoid colon and in the ascending colon. - The examination was otherwise normal. - No specimens collected. Recommendations : - Discharge patient to home. - Resume previous diet. - Continue present medications. - No repeat colonoscopy due to current age (66 years or older). My findings are described in the full procedure note, which is enclosed. If I can be of further assistance, please feel free to contact me at Doctor phone number(s): , Work: . Sincerely, MD Khadra Davila MD 04/04/2022 9:08:04 AM This report has been signed electronically.
[2022-04-04 09:10] VITALS: BP 140/81; BP 144/80; PULSE 68; RESP 16; O2SAT 98
[2022-04-04 09:15] VITALS: BP 144/80; BP 160/78; PULSE 68; RESP 16; TEMP 37.2; O2SAT 97
[2022-04-04 09:31] VITALS: BP 144/80
== END 2022-04-04 09:49 | disposition home or self-care (01) ==
LOC: EN 07:09 → AC 07:11
PROVIDERS: PCP Internal Medicine; Referring Provider Internal Medicine; Visit Provider Surgery
PROC: 0DJD8ZZ Inspection of Lower Intestinal Tract, Via Natural or Artificial Opening Endoscopic (ICD-10-PCS; CPT 45378; principal; 2022-04-04 08:25)
DX: K21.00 Gastro-esophageal reflux disease with esophagitis, without bleeding (principal); K29.50 Unspecified chronic gastritis without bleeding; K64.0 First degree hemorrhoids; K64.8 Other hemorrhoids; K31.89 Other diseases of stomach and duodenum; K57.30 Diverticulosis of large intestine without perforation or abscess without bleeding; E78.00 Pure hypercholesterolemia, unspecified; I25.10 Atherosclerotic heart disease of native coronary artery without angina pectoris; F41.9 Anxiety disorder, unspecified; G47.30 Sleep apnea, unspecified; Z79.899 Other long term (current) drug therapy; Z86.16 Personal history of COVID-19; Z80.0 Family history of malignant neoplasm of digestive organs
CPT/HCPCS: 45378; 43239; 88305; 88342; J7120; J2405

== ENCOUNTER → 2022-06-14 | Outpatient (CLI) | payer MEDICARE, OTHER, SELFPAY ==
[2022-06-14 11:10] LABS: Mucous, Urine 0 SEEN /hpf (<or=2+)
[2022-06-14 12:12] LABS: Color, Urine Yellow (Yellow); Glucose, Dipstick Normal (Normal); Ketone-Dipstick Negative (Negative); Leukocyte Esterase-Dipstick 500 /ul (Negative); Nitrite-Dipstick Positive (Negative); Occult Blood-Urine 10 /ul (Negative); Protein-Dipstick Negative (Negative); Urine Bilirubin Dipstick Negative (Negative); Urine Clarity Sl. Cloudy (Clear); Urine Urobilinogen Normal (Normal)
[2022-06-14 12:15] LABS: Absolute Lymphocyte Count 1.49 X10^3/uL (0.83-4.51); Absolute Neutrophil Count 3.9 X10^3/uL (2.0-7.7); Basophil# 0.05 X10^3/uL; Basophil% 0.8 % (0-1); Hematocrit 40.2 % (37-47); Lymphocyte # 1.49 X10^3/ul (0.83-4.51); Lymphocyte % 24.4 % (19-41); Mean Corp Hgb Conc 32.3 g/dL (32-36); Mean Corpuscular Volume 89.5 fL (81-99); Mean Platelet Vol. 10.3 fl (6.2-12.0); Monocyte# 0.61 X10^3/uL; NRBC Flagged by Analyzer 0 % (0-5); Neutrophil # 3.94 X10^3/uL (2.7-7.7); Neutrophil % 64.5 % (47-70); Platelet Count 205 K/mm3 (150-450); RBC Distribution Width CV 13.8 % (11.6-14.6); RBC Distribution Width SD 45.1 fl (35.1-43.9); Red Blood Count 4.49 M/mm3 (4.2-5.4); White Blood Count 6.1 K/mm3 (4.4-11.0)
[2022-06-14 12:23] LABS: Bacteria 2+ /hpf (None Seen); Red Blood Cells-Urine 0-5 SEEN /hpf (0-5); Squamous Epithelial Cells - UA 0-5 SEEN /hpf (5-10); White Blood Cells 25-50 SEEN /hpf (0-5)
[2022-06-14 12:24] LABS: ALB/GLOB Ratio 1.3 RATIO (0.9-2.4); AST(SGOT) 15 U/L (15-37); Alanine Aminotransfer ALT/SGPT 24 U/L (13-56); Albumin, Serum 3.8 g/dL (3.2-5.0); Alkaline Phosphatase 66 U/L (45-117); Anion Gap 4 (5-15); BUN 19 mg/dL (7-18); BUN/Creat Ratio 20.2 RATIO (10-20); Calcium,Total 9.2 mg/dL (8.5-10.1); Chloride 106 mmol/L (98-107); Cholesterol 155 mg/dL (200); Creatinine, Serum 0.94 mg/dL (0.55-1.02); EST Glomerular Filtration Rate 61 mL/min (>60); Est Glom Filt Rate - Afr Amer 74 mL/min (>60); Glucose 102 mg/dL (74-106); High Density Lipoprotein 71 mg/dL; Potassium 4.3 mmol/L (3.5-5.1); Protein, Total 6.8 g/dL (6.4-8.2); Sodium Level 138 mmol/L (136-145); Triglycerides 60 mg/dL; Very Low Density Lipoprotein 12 mg/dL (5-40)
== END | disposition home or self-care (01) ==
PROVIDERS: Visit Provider Internal Medicine
DX: E78.5 Hyperlipidemia, unspecified (principal); R82.90 Unspecified abnormal findings in urine
CPT/HCPCS: 36415; 80053; 80061; 81001; 85025; 87086; 87088; 87186

== ENCOUNTER → 2022-10-03 | Outpatient (CLI) | payer MEDICARE, OTHER, SELFPAY ==
[2022-10-03 15:58] LABS: ALB/GLOB Ratio 1.3 RATIO (0.9-2.4); AST(SGOT) 17 U/L (15-37); Alanine Aminotransfer ALT/SGPT 24 U/L (13-56); Albumin, Serum 3.9 g/dL (3.2-5.0); Alkaline Phosphatase 67 U/L (45-117); Anion Gap 7 (5-15); BUN 19 mg/dL (7-18); BUN/Creat Ratio 20.1 RATIO (10-20); Calcium,Total 9.3 mg/dL (8.5-10.1); Chloride 104 mmol/L (98-107); Creatinine, Serum 0.94 mg/dL (0.55-1.02); EST Glomerular Filtration Rate 61 mL/min (>60); Est Glom Filt Rate - Afr Amer 73 mL/min (>60); Globulin 2.9 g/dL (2.2-4.2); Glucose 123 mg/dL (74-106); Potassium 3.6 mmol/L (3.5-5.1); Protein, Total 6.8 g/dL (6.4-8.2); Sodium Level 140 mmol/L (136-145)
[2022-10-03 15:59] LABS: Vitamin B12 338 pg/mL (211-911)
== END | disposition home or self-care (01) ==
LOC: BIMLAB 13:50
PROVIDERS: PCP Internal Medicine; Referring Provider Internal Medicine; Visit Provider Internal Medicine
DX: E78.5 Hyperlipidemia, unspecified (principal); Z13.21 Encounter for screening for nutritional disorder
CPT/HCPCS: 36415; 80053; 82607

== ENCOUNTER → 2023-06-08 | Outpatient (CLI) | payer MEDICARE, OTHER, SELFPAY ==
[2023-06-08 15:38] LABS: Bacteria 0 SEEN /hpf (None Seen); Mucous, Urine 0 SEEN /hpf (<or=2+); Red Blood Cells-Urine 0 SEEN /hpf (0-5); White Blood Cells 0 SEEN /hpf (0-5)
[2023-06-08 15:50] LABS: Color, Urine Yellow (Yellow); Glucose, Dipstick Normal (Normal); Ketone-Dipstick Negative (Negative); Leukocyte Esterase-Dipstick Negative /ul (Negative); Nitrite-Dipstick Negative (Negative); Occult Blood-Urine Negative /ul (Negative); Protein-Dipstick Negative (Negative); Specific Gravity, Urine 1.005 (1.002-1.030); Urine Bilirubin Dipstick Negative (Negative); Urine Clarity Clear (Clear); Urine Urobilinogen Normal (Normal)
[2023-06-08 16:47] LABS: Squamous Epithelial Cells - UA 5-10 SEEN /hpf (5-10)
== END | disposition home or self-care (01) ==
LOC: LABSPEC 15:21
PROVIDERS: PCP Internal Medicine; Referring Provider Physician Assistant Surgical; Visit Provider Physician Assistant Surgical
DX: R82.90 Unspecified abnormal findings in urine (principal); N39.0 Urinary tract infection, site not specified
CPT/HCPCS: 81001; 87086

== ENCOUNTER → 2023-07-19 | Outpatient (CLI) | payer MEDICARE, OTHER, SELFPAY ==
[2023-07-19 15:25] LABS: Absolute Lymphocyte Count 1.89 X10^3/uL (0.83-4.51); Absolute Neutrophil Count 3.8 X10^3/uL (2.0-7.7); Basophil# 0.09 X10^3/uL; Basophil% 1.4 % (0-1); Eosinophil# 0.09 X10^3/uL; Eosinophils% 1.4 % (0-5); Hematocrit 40.5 % (37-47); Hemoglobin 12.7 g/dL (12.0-15.0); Lymphocyte # 1.89 X10^3/ul (0.83-4.51); Lymphocyte % 29.2 % (19-41); Mean Corp Hgb Conc 31.4 g/dL (32-36); Mean Corpuscular Hgb 28.5 pg (27.0-32.0); Mean Platelet Vol. 10.6 fl (6.2-12.0); Monocyte# 0.63 X10^3/uL; Monocyte% 9.7 % (0-10); NRBC Flagged by Analyzer 0 % (0-5); Neutrophil # 3.77 X10^3/uL (2.7-7.7); Neutrophil % 58.1 % (47-70); Platelet Count 238 K/mm3 (150-450); RBC Distribution Width CV 12.9 % (11.6-14.6); RBC Distribution Width SD 42.5 fl (35.1-43.9); Red Blood Count 4.45 M/mm3 (4.2-5.4); White Blood Count 6.5 K/mm3 (4.4-11.0)
[2023-07-19 15:37] LABS: ALB/GLOB Ratio 1.4 RATIO (0.9-2.4); AST(SGOT) 13 U/L (15-37); Alanine Aminotransfer ALT/SGPT 23 U/L (13-56); Alkaline Phosphatase 63 U/L (45-117); Anion Gap 7 (5-15); BUN 16 mg/dL (7-18); Chloride 107 mmol/L (98-107); Cholesterol 133 mg/dL (200); Creatinine, Serum 0.84 mg/dL (0.55-1.02); EST Glomerular Filtration Rate 69 mL/min (>60); Est Glom Filt Rate - Afr Amer 83 mL/min (>60); Globulin 2.8 g/dL (2.2-4.2); Glucose 90 mg/dL (74-106); High Density Lipoprotein 64 mg/dL; Potassium 3.8 mmol/L (3.5-5.1); Protein, Total 6.8 g/dL (6.4-8.2); Sodium Level 142 mmol/L (136-145); Triglycerides 85 mg/dL; Very Low Density Lipoprotein 17 mg/dL (5-40)
[2023-07-19 15:41] LABS: Vitamin B12 881 pg/mL (211-911)
== END | disposition home or self-care (01) ==
LOC: BIMLAB 11:46
PROVIDERS: PCP Internal Medicine; Referring Provider Internal Medicine; Visit Provider Internal Medicine
DX: E78.5 Hyperlipidemia, unspecified (principal); M85.80 Other specified disorders of bone density and structure, unspecified site; F41.9 Anxiety disorder, unspecified
CPT/HCPCS: 36415; 80053; 80061; 82306; 82607; 85025

== ENCOUNTER → 2023-07-24 | Outpatient (CLI) | payer MEDICARE, OTHER, SELFPAY ==
--- NOTE | 2023-07-24 14:03 | US_ITS ---
INDICATION: right chest wall swelling EXAMINATION: Ultrasound US Chest TECHNIQUE: Mccann scale images were obtained of the right lower anterior chest wall . COMPARISON: No relevant prior comparison study available FINDINGS: No cystic or solid mass is seen in the region of interest scan. No focal abnormality is seen. US/Chest IMPRESSION: No abnormality seen in the region of interest. Electronically Signed: Bradford Jacobs MD at 22:07 EST ,
== END | disposition home or self-care (01) ==
PROVIDERS: PCP Internal Medicine; Visit Provider Internal Medicine
DX: R22.2 Localized swelling, mass and lump, trunk (principal)
CPT/HCPCS: 76604

== ENCOUNTER → 2023-08-30 | Outpatient (CLI) | payer MEDICARE, OTHER, SELFPAY ==
--- NOTE | 2023-08-30 10:19 | BI_ITS ---
MAMMOGRAPHY - BILATERAL SCREENING REASON FOR EXAM: Female, 83 years old. Routine annual screening examination. PERTINENT HISTORY: Non-contributory. Remote breast aspiration. TECHNIQUE: Digital bilateral breast nichelle (3D mammographic acquisition) in the CC and MLO projections. 2-D mediolateral oblique (MLO) and craniocaudad (CC) views of both breasts were obtained. CAD: Full Field Digital Mammography with Computer Added Detection was performed. COMPARISON: Comparison is made with prior study dated July 12, 2021 and March 24, 2020. FINDINGS: Breast Composition: The breasts are heterogeneously dense, which may obscure small masses. There are no dominant masses or suspicious calcifications. No other significant abnormalities are identified. There has been no significant change since the prior study. BI/SCRN MAMM (CAD)W/NICHELLE BILAT IMPRESSION: Stable bilateral screening mammogram. Yearly follow-up mammogram recommended. (A) ASSESSMENT CATEGORY: BIRADS Category 1: Negative. A letter regarding these results will be sent to the patient by the facility within 30 days. Approximately 10% of breast cancers are not detected by mammography. A normal mammogram should not delay biopsy of a clinically suspicious abnormality. [id number] Electronically Signed: Wili Carroll MD at 12:22 EST ,
--- NOTE | 2023-08-30 10:25 | BD_ITS ---
STUDY: DUAL ENERGY X-RAY ABSORPTIOMETRY / DXA REASON FOR EXAM: Female, 83 years old. Post menopausal TECHNIQUE: Bone Mineral Density (BMD) measurements of lumbar spine and bilateral hips were obtained. COMPARISON: Comparison is made with prior study dated May 28, 2020. FINDINGS: Lumbar Spine (L1-L4): g/cm2 (0.884) / T-score (-2.0) / Z-score (0.9) Findings are suggestive of osteopenia with a moderate fracture risk. Left Femur Total: g/cm2 (0.851) / T-score (-0.7) / Z-score (1.4) Left Femoral Neck: g/cm2 (0.713) / T-score (-1.2) / Z-score (1.1) Right Femur Total: g/cm2 (0.850) / T-score (-0.8) / Z-score (1.4) Right Femoral Neck: g/cm2 (0.700) / T-score (-1.3) / Z-score (1.0) The T-Scores on the most recent prior examination were: Lumbar Spine (L1-L4): There has been worsening of bone density since the previous examination. Left Femur Total: which represents an improvement of 0.1. Right Femur Total: which represents a worsening of 5.3%. BD/Dexa Bone Density Study IMPRESSION: The patient is considered osteopenic as outlined below according to World [employer] Organization (WHO) criteria with a moderate fracture risk. There has been worsening of bone density since the previous examination. Reference Information: The T-score is the number of standard deviations above or below the standard which is normal for young adults at their peak bone mineral density. The World Health Organization (WHO) interprets the T-scores as follows: Above -1 Normal bone density Between -1 and -2.5 Osteopenia Equal to / or below -2.5 Osteoporosis As a practical clinical guideline, osteopenia may be graded as follows: Mild -1 through -1.5 Moderate -1.6 through -2.0 Severe -2.1 through -2.4 The Z-score is the number of standard deviations above or below age-matched controls. A Z-score of less than -1.5 would be considered abnormal. References: 1. NIH Osteoporosis and Related Bone Diseases www osteo.org 2. International Society for Clinical Densitometry www iscd.org 3. National Osteoporosis Foundation www nof.org Electronically Signed: Wili Carroll MD at 14:20 EST ,
== END | disposition home or self-care (01) ==
LOC: OPBD 10:19
PROVIDERS: PCP Internal Medicine; Referring Provider Internal Medicine; Visit Provider Internal Medicine
DX: Z12.31 Encounter for screening mammogram for malignant neoplasm of breast (principal); Z78.0 Asymptomatic menopausal state
CPT/HCPCS: 77063; 77067; 77080

== ENCOUNTER → 2024-04-30 | Outpatient (CLI) | payer MEDICARE, OTHER, SELFPAY ==
--- NOTE | 2024-04-30 12:45 | CT_ITS ---
INDICATION: headache EXAMINATION: CT BRAIN WITH AND WITHOUT CONTRAST - CT Head or Brain WO/W Contrast Injection TECHNIQUE: Multiple axial images were obtained of the brain with and without IV contrast. The protocol utilizes one or more of the following dose reduction techniques: automated exposure control, adjustment of mA and/or kV according to patient size,and/or use of iterative reconstruction technique. IV Contrast dosage and agent: 60 cc of Isovue-370 RADIATION DOSAGE (If Supplied By Facility): CTDIvol = ( 44.99 ) mGy, DLP = ( 1479.73 ) mGycm COMPARISON: No relevant prior comparison study available 10/23/2003 FINDINGS: BRAIN PARENCHYMA: No intra- or extra-axial hemorrhage. No evidence of acute infarct. No intracranial mass or mass effect. There is preservation of the gilbert/white matter interface. Posterior fossa structures are unremarkable. No abnormal contrast enhancement. CSF SPACES: Appropriate for age. No hydrocephalus. Basal cisterns are patent. CALVARIUM, SKULL BASE, PARANASAL SINUSES AND MASTOID AIR CELLS: Clear. No discrete lytic or blastic abnormalities. ORBITS: Both globes, extraocular muscles, optic nerves and retrobulbar fat appear unremarkable. ASPECTS Score for Acute Strokes: 10 CT/Brain/Head W/WO Contrast IMPRESSION: Negative CT Brain with and without contrast. Electronically Signed: Bradford Jacobs MD at 10:45 EDT ,
--- NOTE | 2024-04-30 12:47 | CT_ITS ---
CT RIGHT LOWER EXTREMITY WITH 3-D IMAGING CLINICAL INDICATION: Pain, right knee surgical planning. TECHNIQUE: Axial CT images of the right lower extremity (including right hip, right knee, and right ankle) was performed without IV contrast material. Coronal and sagittal reformats were provided. The protocol utilizes one or more of the following dose reduction techniques: automated exposure control, adjustment of mA and/or kV according to patient size, and/or use of iterative reconstruction technique. RADIATION DOSAGE (If Supplied By Facility): CTDIvol = ( 18.76 ) mGy, DLP = ( 1116.24 ) mGycm COMPARISON: Right knee radiographs dated 12/08/2021. FINDINGS: Bones: There is mild degenerative arthrosis of the right hip joint with mild marginal osteophyte formation. There is severe degenerative arthrosis of the medial femorotibial compartment of the right knee with [id number], marginal osteophyte formation, and subchondral sclerosis. There is moderate degenerative arthrosis of the patellofemoral and lateral femorotibial compartments of the right knee. Normal right ankle. Osseous structures are normal without evidence of fracture or dislocation. No lytic or blastic osseous masses. Soft Tissues: There is a tiny right knee joint effusion. The deep soft tissue structures are unremarkable. The superficial soft tissues are unremarkable without evidence of edema, hematoma, or foreign body. 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 Tiny right knee joint effusion. Electronically Signed: Charlie Moss MD at 15:48 EDT ,
[2024-04-30 13:13] LABS: CREATININE FINGERSTICK < 1.0 mg/dL (0.55-1.02); EGFR FINGERSTICK > 60.0000 mL/min (>60)
== END | disposition home or self-care (01) ==
PROVIDERS: PCP Internal Medicine; Referring Provider Physician Assistant; Visit Provider Physician Assistant
DX: Z01.812 Encounter for preprocedural laboratory examination (principal); M17.11 Unilateral primary osteoarthritis, right knee; M25.561 Pain in right knee; R51.9 Headache, unspecified
CPT/HCPCS: 70470; 73700; Q9967

== ENCOUNTER 2024-05-20 06:56 | Observation (INO) | payer MEDICARE, OTHER, SELFPAY ==
--- NOTE | 2024-04-30 12:42 | EKG12_ITS ---
Test Reason : PREOP Blood Pressure : / mmHG Vent. Rate : 063 BPM Atrial Rate : 063 BPM P-R Int : 120 ms QRS Dur : 074 ms QT Int : 436 ms P-R-T Axes : 035 006 028 degrees QTc Int : 446 ms Normal sinus rhythm Normal ECG Confirmed by GISELA ALONSO, JESENIA ([id number]), assistant film editor CORTEZ CALDERA ([id number]) on 05/01/2024 1:17:28 PM Referred By: Gavin Mosley Confirmed By:JESENIA HIGGINS MD
[2024-04-30 13:40] LABS: Absolute Lymphocyte Count 2.11 X10^3/uL (0.83-4.51); Absolute Neutrophil Count 3.5 X10^3/uL (2.0-7.7); Basophil# 0.07 X10^3/uL; Basophil% 1.1 % (0-1); Eosinophil# 0.19 X10^3/uL; Eosinophils% 2.9 % (0-5); Hematocrit 37.5 % (37-47); Hemoglobin 12.1 g/dL (12.0-15.0); Lymphocyte # 2.11 X10^3/ul (0.83-4.51); Lymphocyte % 32.6 % (19-41); Mean Corp Hgb Conc 32.3 g/dL (32-36); Mean Corpuscular Hgb 29.4 pg (27.0-32.0); Mean Corpuscular Volume 91.2 fL (81-99); Mean Platelet Vol. 9.6 fl (6.2-12.0); Monocyte# 0.62 X10^3/uL; Monocyte% 9.6 % (0-10); NRBC Flagged by Analyzer 0 % (0-5); Neutrophil # 3.47 X10^3/uL (2.7-7.7); Neutrophil % 53.5 % (47-70); Platelet Count 218 K/mm3 (150-450); RBC Distribution Width CV 13.2 % (11.6-14.6); RBC Distribution Width SD 44.6 fl (35.1-43.9); Red Blood Count 4.11 M/mm3 (4.2-5.4); White Blood Count 6.5 K/mm3 (4.4-11.0)
[2024-04-30 14:00] LABS: Magnesium 2.2 mg/dL (1.6-2.6)
[2024-04-30 14:03] LABS: Albumin, Serum 3.7 g/dL (3.2-5.0); Anion Gap 3 (5-15); BUN 18 mg/dL (7-18); BUN/Creat Ratio 21.3 RATIO (10-20); Calcium,Total 9.4 mg/dL (8.5-10.1); Chloride 104 mmol/L (98-107); Creatinine, Serum 0.85 mg/dL (0.55-1.02); EST Glomerular Filtration Rate 68 mL/min (>60); Est Glom Filt Rate - Afr Amer 83 mL/min (>60); Glucose 100 mg/dL (74-106); Potassium 3.7 mmol/L (3.5-5.1); Sodium Level 137 mmol/L (136-145)
--- NOTE | 2024-05-16 09:07 | PCM.HP.BLA ---
History and Physical History and Physical Patient Name: Sofiya Hazel : 1940From:? CYNTHIA PRESTON PA-C DATE OF PRE-OPERATIVE EXAM: 05/13/2024 DATE OF SURGERY:? 05/20/2024 SCHEDULED PROCEDURE:? Robotic-assisted right total knee arthroplasty HISTORY OF PRESENT ILLNESS: Preoperative history and physical exam was performed on May 13, 2024.? This is a 84-year-old female who has been having ongoing pain for many years with her right knee.? Patient's pain has been constant, dull, aching, sharp, and sore.? Her pain can reach 8/10 with activities and on average is 6/10.? Pain is increased with going up and down stairs, sitting and walking for long distances.? Patient has attempted conservative measures including nonsteroidal anti-inflammatories, Tylenol, corticosteroid injections, and viscose supplementation injections.? The last injection was temporarily helpful.? She continues to have pain over the medial aspect of the knee.? She denies past history of surgery on the right knee.? After failing conservative measures and discussing treatment options with Dr. Gavin Mosley, the patient does wish to proceed with the robotic assisted right total knee arthroplasty.? Patient has medical history pertinent for coronary artery disease, gastroesophageal reflux disease, anxiety, hypercholesterolemia.? She denies past history of DVT or pulmonary embolism.? No recent chest pain, shortness of breath, fevers chills or recent infections.? Patient has obtain surgical clearance from the primary care provider Dr. Burns. ? REVIEW OF SYSTEMS: Review Of Systems: Constitutional: Reports anxiety.? Denies anorexia,? change in appetite, fever and weight change,hard of hearing, and vision problems. Cardiovasular: Denies chest pain, heart murmur, irregular heartbeat and peripheral vascular disease. Respiratory: Denies asthma, cough, pneumonia, sleep apnea, shortness of breath, tuberculosis and wheezing. Gastrointestinal: Reports constipation, but denies diarrhea, heartburn, nausea, rectal itching and vomitingDenies constipation, diarrhea, heartburn, nausea, bloody stools and vomiting, and difficulty swallowing. Genitourinary: Reports incontinence. Musculoskeletal: Reports leg swelling and pain, but denies trouble walking and weakness and limp. Skin: Reports tattoo, but denies Raynaud's and history of shingles. Neurological: Denies ambulatory dysfunction, dizziness, numbness/tingling and tremor. Psychiatric: Reports anxiety, but denies depression, insomnia, mental illness and stress. Hematologic/Lymphatic: Denies anemia, bleeding/bruising tendency and past transfusion. Reviewed, no changes. PAST MEDICAL HISTORY: Advance Care Plan: Other Directive, LIVING WILL Effective Date: 12/13/2021 Other Directive, POA Effective Date: 12/13/2021 Past Medical History: Medical Problems: Arthritis, Hypercholesterolemia, Osteoarthritis Covid- 19 - (02/2021) Acid Reflux, Coronary Artery Disease, Anxiety Accidents: Fracture - RT FOOT Surgical Hx: Tubal Ligation - sukh Feet - Bilateral bunion-sukh Carpal Tunnel - (09/2006) left [facility] Tenovaginotomy RRF - (11/20/2006) [facility]? [facility] Carpal Tunnel - (2006) RIGHT CTR, DR. BROWN, [facility] Hysterectomy - (2016) BLADDER SURGERY Anesthesia Complications: None Assistive Devices: Dentures Reviewed and updated. 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 Personal Habits:? Cigarette Use: Never.Smokeless Tobacco: Never Used Smokeless Tobacco.E-Cigarette Use: Never used.Alcohol: Denies use.Drug Use: Denies Use.Enjoy Exercising: Never Exercises. Reviewed, no changes. VITALS: Ht: 61 Wt: 152lb Wt k.947 BMI: 28.7 BP: 134/82 Pulse: 66 T: 97.4 T: 36.3C Pain Level: 8 O2SatR: 97 ALLERGIES: No Known Drug Allergy No Known Substance Allergies MEDICATIONS: Mupirocin 2 % use qtip and apply inside each nostril twice a day until the day of surgery, Meloxicam 7.5 mg 1 by mouth twice a day, Citalopram Hydrobromide 40 mg daily, B-Complex? 1 po qd, Atorvastatin Calcium 20 mg 1 tab by mouth every night at bedtime, Preservision Areds 2? 1po qdya, Calcium 500 mg twice daily, Multivitamin? take one(1) tablet daily., Prevacid 30 mg 1 tablet 1x/day by mouth, Melatonin 10 mg one by mouth at bedtime, Vitamin D (Cholecalciferol) 10 mcg (400 Unit) 1t po qd, Krill Oil 350 mg one daily by mouth PRE-OP EXAM: General appearance:NORMAL? Other: Eyes: Conjunctivae and lids: NORMAL? Pupils: ERR Ears, Nose, Mouth, and Throat: NORMAL? Other: Inspection of lips, teeth and gums: NORMAL?? Other: Neck: Examination of neck: no masses noted. Respiratory: Assessment of respiratory effort: NORMAL?? Other: ? Auscultation of lungs: clear to auscultation no wheezes, rhonchi or rales. Cardiovascular:? Auscultation of heart: regular rate and rhythm, no murmurs, gallops or rubs. PHYSICAL EXAMINATION: Patient walks with an antalgic gait.? Patient's right knee is without erythema or signs of infection.? She does have varus alignment which is fixed.? She has large effusion.? Tenderness to palpation along the medial joint line and lateral joint line.? Range of motion: Lacks 5 full extension to 105 flexion.? Stable to varus/valgus stress test, stable anterior/posterior drawer exam. IMAGING STUDIES: Previous x-rays of the right knee reveal varus alignment with severe medial joint space narrowing, subchondral sclerosis, osteophyte formation consistent with severe stage IV [id number] erosive osteoarthritis IMPRESSION: 1.? Severe right knee osteoarthritis with varus deformity 2.? Coronary artery disease 3.? Hypercholesterolemia 4.? Anxiety 5.? Gastroesophageal reflux disease 6.? Overweight with a BMI 28.7 PLAN: Dr. Gavin Mosley did discuss and review with the patient all treatment options including surgical versus nonsurgical options.? Patient does wish to proceed with the above-stated procedure.? Potential risks, benefits, and complications of the procedure were discussed in detail including but not limited to , infection, nerve and blood vessel damage, persistent pain, numbness, tingling, paresthesias, blood clot, pulmonary embolism, and requirement for possible further surgery.? The patient expressed full understanding and has no further questions for the doctor.? Patient does agree to proceed with the above-stated procedure and has signed the surgery consent form. POST-OP MEDICATION PLAN: Pain Medications:? Postoperative pain regimen will be initiated by Dr. Gavin Mosley in the hospital.? Patient was found to be staph positive and will be placed on doxycycline postoperatively.? Discussed with the patient she has more sensitive to some light on this medication and should take appropriate precautions.? Also recommended [id number] probiotic.? Patient is concerned about discharge home postoperatively.? I did explain to the patient that we will have case management on board and she will need to be assessed by physical therapy postoperatively for appropriate and safe discharge planning.? She did voice understanding. DVT Prophylaxis:? Aspirin 81 mg twice daily for 4 weeks postoperatively.? Denies past history of DVT or pulmonary embolism This dictation was created using voice recognition software. Phonetic and/or grammatical errors may exist. ___? I have re-examined the patient.? There are no clinical changes since date of exam. ___? See progress notes for changes. ___? Dictated on admission Date: ? Time: Signature:
[2024-05-20] VITALS (14 sets, daily range): BP systolic 103–135; BP diastolic 47–85; PULSE 58–76; RESP 15–18; TEMP 36.4–36.7; O2SAT 94–99; BMI 26.5
[2024-05-20] MEDS: Lactated Ringers 1,000 ML 999 ML IV ×2 (06:21→09:41)
[2024-05-20] MEDS: Vancomycin IV 1,000 MG/200 ML BAG 200 MG IV (06:22)
[2024-05-20] MEDS: Magnesium 1 GM over 15 mins IV (06:36)
--- NOTE | 2024-05-20 06:47 | PCM.PRE.AN2 ---
ASA Classification* ASA Classification ASA Classification: 2 Assessment & Plan Anesthesia* Anesthesia Assessment Anesthesia Assessment: Discussed sedation and/or anesthesia options, risks, benefits, and alternatives with patient/parents/legal guardian/POA. Questions invited. The patient/parents/legal guardian/POA seems to understand and agrees to proceed with anesthesia plan. Reviewed the physical assessment, medical history, allergy history and patient home medications list prior to surgery/procedure/anesthetic and documented any changes. Performed airway and anesthesia risk assessments. Anesthesia Type Anesthesia Type: Spinal (Block consented, GA bkup) Anesthesia Focused Assessment* Airway Assessment Mouth opens: >3 cm Mallampati Score: II Focused Labs Anesthesia Preop lab: CBC WBC 6.5 K/mm3 (4.4-11.0) 04/30/24 13:27 RBC 4.11 M/mm3 (4.2-5.4) L 04/30/24 13:27 Hgb 12.1 g/dL (12.0-15.0) 04/30/24 13:27 Hct 37.5 % (37-47) 04/30/24 13:27 Plt Count 218 K/mm3 (150-450) 04/30/24 13:27 CHEMISTRY Potassium 3.7 mmol/L (3.5-5.1) 04/30/24 13:27 Sodium 137 mmol/L (136-145) 04/30/24 13:27 Magnesium 2.2 mg/dL (1.6-2.6) 04/30/24 13:27 BUN 18 mg/dL (7-18) 04/30/24 13:27 Creatinine 0.85 mg/dL (0.55-1.02) 04/30/24 13:27 Glucose 100 mg/dL (74-106) 04/30/24 13:27 TSH 1.82 uIU/mL (0.358-3.74) 11/16/20 12:18 COAG PT 13.1 SECONDS (11.7-14.9) 06/19/18 13:55 Pre-Assessment Diagnosis/Proposed Procedure Planned Operative Procedure(s): ROBOTIC ASSISTED RIGHT TOTAL KNEE ARTHROPLASTY Anesthesia History Anesthesia History - senior officer: Anesthesia History - senior officer Hx Hospitalization No 04/26/24 10:11 Any Problems With Anesthesia No 04/26/24 10:11 Cholinesterase deficiency No 04/26/24 10:11 You/Your Family Experience No 04/26/24 10:11 fever (hyperthermia) with Relationship Recent Exposure to Contagious No 04/04/22 07:18 Disease Does patient have nerve No 04/26/24 10:11 stimulator Patient instructed to have device shut off --Does patient have Pacemaker or ICD? When Was Last Pacemaker Check QUESTION #4 FULL TEXT: You/Your Family Experience fever (hyperthermia) with Anesthesia Last Oral Intake Last Oral intake: Last Oral Intake NPO since Meds taken in AM with sips of water? Meds patient instructed to take am of surgery PONV PONV - senior officer: PONV - senior officer Female Yes 04/26/24 10:11 HX of Motion Sickness No 04/26/24 10:11 HX of N/V After Surgery No 04/26/24 10:11 Non-Smoker Yes 04/26/24 10:11 Duration of Surgery greater Yes 04/26/24 10:11 than 60 minutes Number of Risk Factors 3 04/26/24 10:11 PONV Score Moderate Risk 04/26/24 10:11 Height & Weight Height & Weight: Anesthesia: Height & Weight Height 5 ft 3 in 05/17/24 08:36 Weight: 68.946 kg 05/17/24 08:36 Respiratory Assessment Respiratory Assessment - senior officer: Respiratory Tract Infection Hx - senior officer Hx Respiratory Tract Infection No 04/26/24 10:11 STOP Sleep Apnea STOP Sleep Apnea - senior officer: STOP Sleep Apnea - senior officer Hx Hypertension No 04/26/24 10:11 Hx Sleep Apnea Yes: DOESN'T WEAR 04/26/24 10:11 CPAP No 04/26/24 10:11 BIPAP No 04/26/24 10:11 Do you snore loudly (louder No 04/26/24 10:11 than talking or can be heard Do you often feel tired/ No 04/26/24 10:11 fatigued/ sleepy during daytime? Has anyone observed you stop No 04/26/24 10:11 breathing during sleep? STOP Results Positive 04/26/24 10:11 QUESTION #5 FULL TEXT : Do you snore loudly (louder than talking or can be heard through closed doors)? Tobacco Use History Tobacco Use History - senior officer: Tobacco Use History - senior officer Tobacco Use Smoking Status Never smoker 04/26/24 10:11 Hx Tobacco Use No 04/26/24 10:11 Years Smoking Packs Smoked per Day Smoking Cessation Date was within the last 15 years Hx Smoking Cessation Date Hx Smoking Cessation Counseling Hematologic Medial History Hematologic Hx - senior officer: Hematologic Medical Hx - pricing coordinator Hx of Blood Transfusion No 04/26/24 10:11 Hx of Transfusion in last 3 No 04/26/24 10:11 Months Date of Last Transfusion (if within last 3 months) Ever experience any problems No 04/26/24 10:11 with transfusion(s)? Specify any problems Hx of Preganancy in last 3 No 04/26/24 10:11 Months Nurse Filling Out Transfusion [email or web address] 04/26/24 10:11 & Questions: Date: 04/26/24 04/26/24 10:11 Time: 10:19 04/26/24 10:11 Patient unable to answer at this time (ie. confused, unrespo /Reproduction History /Reproductive History - senior officer: /Reproductive Hx- senior officer Hx Now Gestational Age (in weeks): EDC: Hx Hx Para Hx Section SAB No 04/26/24 10:11 Active Medications Active Medications: Current Medications Generic Name Dose Route Start Last Admin Trade Name Ramez PRN Reason Stop Dose Admin Acetaminophen 1,000 mg 05/20/24 07:30 Acetaminophen 500 Mg Tablet PO 05/20/24 07:31 X1 ONE Sodium Chloride 77.4 ml/ 0 ml 05/20/24 07:30 Ropivacaine 200 mg/ OPERA.SITE 05/20/24 07:31 Epinephrine HCl 0.6 mg/ X1 ONE Ketorolac Tromethamine 30 mg/ Morphine Sulfate 5 mg Dexamethasone Sodium Phosphate 10 mg 05/20/24 07:30 Dexamethasone 10 Mg/Ml Vial IV 05/20/24 07:31 X1 ONE Gabapentin 600 mg 05/20/24 07:30 Gabapentin 600 Mg Tablet PO 05/20/24 07:31 X1 ONE Lactated Ringer's 1,000 mls @ 999 mls/hr 05/20/24 07:30 05/20/24 06:21 IV 05/20/24 08:30 999 mls/hr .Q1H1M NAMITA Administration Cefazolin Sodium 2 gm/ Sodium 110 mls @ 150 mls/hr 05/20/24 07:30 Chloride IV 05/20/24 08:13 PREOP ONE Tranexamic Acid 1,000 mg/ 110 mls @ 660 mls/hr 05/20/24 07:30 Sodium Chloride IV 05/20/24 07:39 X1 ONE Tranexamic Acid 1,000 mg/ 110 mls @ 660 mls/hr 05/20/24 08:30 Sodium Chloride IV 05/20/24 08:39 X1 ONE Lactated Ringer's 1,000 mls @ 999 mls/hr 05/20/24 08:30 IV 05/20/24 09:30 .Q1H1M NAMITA Lactated Ringer's 1,000 mls @ 125 mls/hr 05/20/24 09:30 IV 05/20/24 17:29 .Q8H NAMITA Vancomycin HCl 1,000 mg in 200 mls @ 200 mls/hr 05/20/24 06:00 05/20/24 06:22 Vancomycin IV 05/20/24 06:59 200 mls/hr PREOP ONE Administration Magnesium Sulfate 1 gm/ 102 mls @ 408 mls/hr 05/20/24 07:30 05/20/24 06:36 Dextrose IV 05/20/24 07:44 408 mls/hr X1 ONE Administration Insulin Human Lispro 1 - 6 unit 05/20/24 07:30 Insulin Lispro 100 Unit/Ml Insuln.Pen SC 05/20/24 13:30 Q4H PRN PRN BG>/= 180, SEE PROTOCOL Protocol PFSH Medical History Preoperative evaluation to rule out surgical contraindication Headache Lightheadedness Localized swelling of chest wall Thrush Perineal pruritus in female Encounter for vitamin deficiency screening Flu vaccine need Foul smelling urine Wears dentures Post-menopausal High cholesterol Back pain Gastric reflux Non-smoker Sleep apnea Leg cramps History of stress test Coronary artery disease Pancreatic cyst Skin lesion of scalp Diarrhea Macular degeneration Osteopenia Carpal tunnel syndrome Breast lump Arthritis Hemorrhoids Acid reflux Constipation Hyperlipidemia Anxiety Home Medications ?Medication ?Instructions ?Recorded ?Last Taken ?Type calcium carbonate (Calcium 500) 500 mg PO BID 07/07/20 05/15/24 History melatonin 10 mg tablet 10 mg PO QHS 04/01/22 05/19/24 History vit C 250 mg-vit E 90 mg-zinc 40 1 tab PO BID 04/01/22 05/19/24 History mg-copper 1 [id number] capsule (PreserVision AREDS-2) lansoprazole 30 mg capsule,delayed 30 mg PO DAILY #60 caps 12/28/22 05/19/24 Rx release hydrocortisone 2.5 % topical cream 1 applic topical BID PRN skin 07/19/23 Unknown Rx irritation #30 grams cholecalciferol (vitamin D3) 10 10 mcg PO DAILY 11/09/23 05/19/24 History mcg (400 unit) capsule blood pressure monitor #1 ea 11/27/23 Unknown Rx atorvastatin 40 mg tablet 40 mg PO DAILY #90 tabs 01/19/24 05/18/24 Rx acetaminophen 500 mg capsule 1,000 mg PO BID 04/26/24 05/15/24 History citalopram 40 mg tablet [address] [facility] 04/26/24 05/19/24 History indomethacin 50 mg capsule 50 mg PO BID #30 caps 05/06/24 05/13/24 Rx krill oil 500 mg capsule mg PO 05/06/24 05/15/24 History meloxicam 7.5 mg tablet 7.5 mg PO BID 05/20/24 05/15/24 History Allergy/AdvReac Type Severity Reaction Status Date / Time No Known Allergies Allergy Verified 05/20/24 06:28 Family History Brother Colon cancer High cholesterol Hypertension Anxiety Arthritis Myocardial infarction Mother Colostomy care Hypertension High cholesterol Sister Lung cancer Anxiety Arthritis Breast cancer Depression Respiratory disease Colon cancer Sister Cancer lung Thyroid disorder Hypertension Surgical History Hx of hysterectomy History of bladder suspension procedure S/P hysterectomy S/p bilateral carpal tunnel release S/P cataract extraction bilateral carpal tunnel surgery S/P bilateral foot surgery History of tubal ligation Social History Smoking Status: Never smoker alcohol intake: never substance use type: does not use caffeine: Yes what type of physical activity do you participate in: none seatbelt use: always do you feel safe at home: Yes additional social history: - solorzano Review of Systems (Anesthesia) ROS Narrative System reviewed and no additional complaints, except as documented.
[2024-05-20] MEDS: Acetaminophen 500 MG Tablet 1000 MG PO ×3 (06:52→22:44)
[2024-05-20] MEDS: Gabapentin 600 MG Tablet PO (06:53)
--- NOTE | 2024-05-20 06:57 | RAD_ITS ---
STUDY: X-RAY - RIGHT KNEE REASON FOR EXAM: Female, 84 years old. Post op - AP and Lateral xray of operative knee in PACU. TECHNIQUE: 2 views of the right knee. COMPARISON: Right knee radiographs dated 12/22/2020. FINDINGS: There are new postoperative changes related to right total knee arthroplasty with patellar resurfacing. There is a vertical staple line along the anterior aspect of the knee. There is gas in the patellofemoral joint recess and anterior soft tissues, compatible with recent surgery. The orthopedic hardware components are intact. There is no periprosthetic fracture. Normal proximal tibiofibular articulation. RAD/Knee 1 or 2 Views IMPRESSION: New postoperative changes related to right total knee arthroplasty. Electronically Signed: Charlie Moss MD at 9:49 EDT ,
[2024-05-20] MEDS: Lactated Ringers 1,000 ML 75 ML IV (07:17)
[2024-05-20 07:19] LABS: Bedside Glucose 115 mg/dL (74-106)
[2024-05-20] MEDS: Cefazolin 2 GM in 0.9% Normal Saline (100mL Bag) 100 ML IV (07:28)
[2024-05-20] MEDS: dexAMETHasone 10 MG/ML Vial IV (07:30)
--- NOTE | 2024-05-20 07:30 | KNEE_PTH ---
PATIENT: JORDY TIJERINA LOC: MS3 U#:[id number] AGE/SX: 84/F ROOM: [facility] [place] RE05/20/[address]: Dr. Gavin Mosley MD : 1940 BED: 1 DIS: 05/22/2024 SPEC #: [id number] RECD: 05/20/24 09:20 STATUS: DIYA REVishnu #: [id number] CARMINE: 05/20/24 07:[address]: Gavin Mosley DEPT: SURGICAL PATHOLOGY RECD BY: Deisy Vaughan ENTERED: 05/20/24 11:03 SP TYPE: TOTAL KNEE OTHR DR: MD Dr. Angel De León MD Tissues: Knee, NOS Procedures: Decalcification bone/plaque Surgery Specimen Level IV HEADER OPERATION: Total knee replacement robotic arm assist PRE-OP DIAGNOSIS: Severe right knee osteoarthritis with varus deformity TISSUE SUBMITTED: Bone and soft tissue right knee MICROSCOPIC DIAGNOSIS Bone and soft tissue, right knee, total knee replacement/resection: Pieces of bone with degenerative osteoarthritic changes. Fibroadipose tissue, fibroconnective tissue and reactive synovial tissue. : 05/23/2024 MICROSCOPIC DESCRIPTION Slides are reviewed. GROSS DESCRIPTION Received is one container designated bone and soft tissue right knee. The specimen consists of multiple fragments of laws-yellow bone measuring in aggregate 10.0 x 9.0 x 3.0 cm. Also in the specimen container are a small piece of yellow-white soft tissue noted attached to the bone measuring in aggregate 2.5 x 1.0 x 0.3 cm. A number of bony fragments contain articular surfaces consistent with tibial plateau and femoral condyle and displaying prominent osteophyte formation, eburnation and bone erosion. Quality Supervisor sections are submitted in two cassettes as follows: 1 - soft tissue, entirely submitted, 2 - bone after decalcification. / BIB. 05/20/2024 TC:5 CPT: 12491, 93213
[2024-05-20] MEDS: TXA 1000mg in NS100 100ml (IVPB at Incision) 660 MG IV (07:35)
[2024-05-20] MEDS: TXA 1000mg in NS100 100ml (IVPB at Closure) 660 MG IV (08:30)
[2024-05-20] MEDS: JPS (Morphine 10mg/ml) OPERA.SITE (08:31)
--- NOTE | 2024-05-20 08:34 | OP.PCM_ITS ---
Report of Operation Date of Procedure: 05/20/24 Pre-Operative Diagnosis: Right knee primary osteoarthritis Post-Operative Diagnosis: Right knee primary osteoarthritis Surgery/Procedure Performed:: Right minimally invasive robotic total knee replacement Description of Surgical Findings:: Stable knee with good patella tracking Surgeon: Gavin Mosley compressed gas tester: Shalom Jha Type of Anesthesia: Spinal Anesthesiologist: Rancho Gold Special Medications: 2 g Ancef, 1 g TXA at incision, 1 g TXA closure, 10 mg Decadron, joint cocktail (5 mg Duramorph, 30 mL of 0.5% Ropivicaine, 1000 units of epinephrine, 30 mg of Toradol) Specimen's removed: Bony cuts Estimated Blood Loss (mL): 50 Fluids Replaced: 1300 mL crystalloid Description of Procedure: Implants used: 1. [place] size 2 triathlon cruciate retaining distal femoral press-fit component 2. Afshan size 3 press-fit tritanium tibial baseplate 3. Afshan X3 9 mm CS polyethylene 4. [place] X3 32 asymmetric patella Brief history operative indications: 84-year-old F with history of right knee osteoarthritis with radiographic findings with loss of joint space, osteophyte formation and subchondral sclerosis. Failed conservative measures as mentioned in the H&P. Discussion of total knee arthroplasty as well as risk and benefits were discussed the patient including but not limited to blood loss, DVTs, PEs, neurovascular damage, genera l risk of anesthesia including loss of life, and stiffness or instability were discussed with patient. Patient demonstrated understanding and was able to sign informed consent. Procedure: On the date of procedure patient's right lower extremity was marked in the preoperative area. The patient was then taken back to the operating room where the patient was placed on the table in the supine position. All bony prominences were identified a well-padded. Anesthesia assumed control of the C-spine and airway and remained controlled throughout the remainder of the procedure. A tourniquet was placed on the right upper thigh and the leg was prepped in a sterile fashion. The surgeon then scrubbed at this time .Upon reentering the room right lower extremity was draped in a standard orthopedic fashion. A timeout was then called and everyone agreed upon the side, the site, the procedure to be performed, patient's identity and antibiotics given. Esmarch bandage was used to exsanguinate the extremity and the tourniquet was placed up to 250 mmHg with the knee in flexion. A midline skin incision was made and sharp dissection was taken down through skin subcutaneous tissue and fat. The standard medial parapatellar incision was made and the patella was subluxed laterally. An Appropriate deep MCL release was done and the fat pad was resected. Our attention was then directed to the patella. The patella was everted and a flat resection was made. The knee was then flexed up in 2 femoral pins were placed inside the incision and 2 tibial pins were placed outside the incision in the medial tibia bicortically. Once this was completed the 2 checkpoints in the femur and tibia were placed. Knee was then flexed up and the bony landmarks were registered. Once this was completed knee was taken through range of motion and manually stressed allowing us to a plan for an appropriate tibial cut. The robotic arm was brought into the field sterilely and checkpoint and saw were registered. Based on the patient's deformity the tibial cut was made in 1-1/2 degrees of. At this time the tensioner was then placed in the joint and ligament tension was checked at 90 degrees and full extension. Based on the patient's ligamentous tension appropriate adjustments were made to the operative plan and ligament releases were done. Once we were happy with our operative plan with balanced flexion and extension gaps our attention was directed to the femur. The robot was brought into the field sterilely and registered. Posterior condylar cuts, anterior chamfer cuts and anterior cuts were appropriately made for a size 2 femur. When these were completed the saws were switched out in the distal femoral and posterior chamfer cuts were made. Protecting the soft tissue throughout this time. A size 3 tibial base plate was selected. the knee was flexed to 90 degrees and the soft tissues and posterior osteophytes were removed from the joint. 40 cc of the periarticular injection was injected into the posterior medial corner of the joint. The appropriate trials were then placed on the femur and tibia. A trial polyethylene was trialed to ensure proper balancing and stability of the knee. The appropriate tibial internal rotation was then marked with a bovie. Our attention was then directed to the patella. The lug holes were drilled and the patella trial was placed. Patellar tracking was checked and deemed appropriate. Once we were happy lug holes were drilled for the femur and trial components were removed. the tibia was subluxed and pinned into place and the keel was punched and drilled appropriately. Final components were verified and opened, and cement was mixed in a vacuum. Afshan Simplex cement was used. The wound was copiously irrigated with normal saline. When the cement was ready the components were impacted into place starting with the tibia, femur and finally cementing the patella. The trial poly component was placed and the knee was placed in full extension. All excess cement was removed in the process. Once the cement had cured the tracking, alignment and balance were verified and a size [] polyethylene component was placed. Once the final components were placed a 3-minute dilute Betadine lavage was performed followed by an Irrisept lavage was performed and the wound was copiously irrigated with normal saline solution and the periarticular injection was given. The wound was closed in a layer otero fashion using #1 vicryl interrupted sutures for the arthrotomy, 2-0 interrupted Vicryl suture for the subcuticular layer and luigi for final skin closure. A sterile compressive dressing was then placed. The patient was then awakened from anesthesia, transferred to the [place] and transferred to the PACU for recovery. Post op plan DVT ppx: ASA 81mg BID, thigh high compression stockings Follow up: in office in 2 weeks for wound check PT: to start POD #0 at hospital, outpatient PT should be arranged. Patient replaced on doxycycline postoperatively extended oral antibiotics due to positive staph screening preoperatively My physician legal support assistant was a vital part of this case. He was important in appropriate retraction during the case, and protection of soft tissues during bony cuts. His intimate knowledge of the case and my steps aided in safe and expedient completion of the procedure as well as appropriate position of the leg during the case. He was also vital in assisting with closure under my direct supervision. Due to the complexity of this case robotic arm was used to assist in the surgery to improve accuracy and clinical outcomes. Complications No intraoperative complications Admit VTE Documentation VTE Present on Admission: No VTE Mechan Device Prophylaxis: SCD's and Thigh High STEVEN Hose VTE Pharm Prophylaxis ordered?: Yes
--- NOTE | 2024-05-20 09:12 | PCM.POST.ANE ---
Anesthesia: Postop Eval I Current Vital Signs Temperature: 97.6 F Pulse Rate: 72 Blood Pressure: 103/71 Respiratory Rate: 16 Pulse Ox: 97 Oxygen Delivery Method: Room Air Assessment Airway patent: Yes Spontaneous unlabored respirations: Yes Mental status: Awake and Calm nausea: No Vomiting: No Anesthesia Complication: No Fluid Hydration Crystalloid volume administer (ml): 1,800 Total IV fluid infused: 1,800 Progress Note Anesthesia document: Postop Eval 1 completed: Yes
[2024-05-20] MEDS: Lactated Ringers 1,000 ML 125 ML IV (10:01)
--- NOTE | 2024-05-20 10:50 | POSTOPAN2_ITS ---
Anesthesia Postop Eval I Sum Postop Eval Completion status Anesthesia document: Postop Eval 1 completed: Yes Anesthesia Postop Eval I Summary Anesthesia Postop Eval I Summary: Anesthesia Postop Eval I: Assessment Summary Airway patent Yes 05/20/24 09:13 SENIOR CARE SPECIALIST.ADONISOBNaida Spontaneous unlabored Yes 05/20/24 09:13 SENIOR CARE SPECIALIST.GEORGE respirations Mental status Awake,Calm 05/20/24 09:13 SENIOR CARE SPECIALIST.GEORGE nausea No 05/20/24 09:13 SENIOR CARE SPECIALIST.GEORGE Vomiting No 05/20/24 09:13 SENIOR CARE SPECIALISTTREVOR Anesthesia Postop Eval I: Fluid Summary Crystalloid volume administer 1,800 05/20/24 09:13 SENIOR CARE SPECIALIST.GEORGE (ml) Colloids volume administered ( ml) Blood Product volume administered (ml) Total IV fluid infused 1,800 05/20/24 09:13 SENIOR CARE SPECIALIST.GEORGE Anesthesia Postop Eval I: Summary Notes Anesthesia Complication No 05/20/24 09:13 SENIOR CARE SPECIALISTTREVOR Anesthesia Complication Comment: Post-operative progress note Anesthesia: Postop Eval II Evaluation Mental status: Awake Pain Level: 0 nausea: No Vomiting: No
--- NOTE | 2024-05-20 10:50 | PCM.POSTANE2 ---
Anesthesia Postop Eval I Sum Postop Eval Completion status Anesthesia document: Postop Eval 1 completed: Yes Anesthesia Postop Eval I Summary Anesthesia Postop Eval I Summary: Anesthesia Postop Eval I: Assessment Summary Airway patent Yes 05/20/24 09:13 FRANCHISE SPECIALIST.ADONISOBNaida Spontaneous unlabored Yes 05/20/24 09:13 FRANCHISE SPECIALIST.GEORGE respirations Mental status Awake,Calm 05/20/24 09:13 FRANCHISE SPECIALIST.GEORGE nausea No 05/20/24 09:13 FRANCHISE SPECIALIST.GEORGE Vomiting No 05/20/24 09:13 FRANCHISE SPECIALISTTREOVR Anesthesia Postop Eval I: Fluid Summary Crystalloid volume administer 1,800 05/20/24 09:13 FRANCHISE SPECIALIST.GEORGE (ml) Colloids volume administered ( ml) Blood Product volume administered (ml) Total IV fluid infused 1,800 05/20/24 09:13 FRANCHISE SPECIALIST.GEORGE Anesthesia Postop Eval I: Summary Notes Anesthesia Complication No 05/20/24 09:13 FRANCHISE SPECIALISTTREVOR Anesthesia Complication Comment: Post-operative progress note Anesthesia: Postop Eval II Evaluation Mental status: Awake Pain Level: 0 nausea: No Vomiting: No
[2024-05-20] MEDS: Senna/Docusate Sodium 1 Tablet 2 TABLET PO ×3 (11:36→22:46)
[2024-05-20] MEDS: Calcium (Elemental) 500 MG Tablet PO ×2 (11:36→22:46)
[2024-05-20] MEDS: Lansoprazole 15 MG Capsule.DR 30 MG PO (11:37)
[2024-05-20] MEDS: Famotidine 20 MG Tablet PO (11:37)
[2024-05-20] MEDS: Atorvastatin Calcium 40 MG Tablet PO (11:37)
[2024-05-20] MEDS: Aspirin 81 MG TAB.CHEW PO ×2 (11:37→22:43)
[2024-05-20] MEDS: Ensure Surgery 237 ML LIQUID PO (13:58)
[2024-05-20] MEDS: Cefazolin 1 GM/50 ML BAG IV ×2 (15:31→22:44)
--- NOTE | 2024-05-20 15:49 | PCM.CONS.GEN ---
Assessment & Plan Assessment/Plan (1) Encounter for perioperative consultation: PLAN: Plan This 84-year-old female was admitted after right knee TKA 1. Perioperative management of right knee primary osteoarthritis: Patient had right minimally invasive robotic total knee replacement on 05/20/2024. No nausea or vomiting. Pain is well-controlled. DVT prophylaxis as per discretion of orthopedic surgeon. Incentive spirometry. Bowel and bladder care per 2. nonobstructive CAD: Twelve-lead EKG reviewed. Normal sinus rhythm 63/min. No chest pain or shortness of breath. 3. Dyslipidemia: On atorvastatin continued. 4. GERD: PPI. 5. Anxiety on citalopram continued HPI Consult Data Date of Consult: 05/20/24 HPI Narrative Reason for Consultation: Perioperative management after right TKR HPI Narrative: JORDY TIJERINA, is a 84 F who is admitted after elective right knee minimally invasive robotic replacement. Patient denies history of chest pain shortness of breath, dizziness vertigo or syncope. She has history of nonobstructive CAD, dyslipidemia. She is voiding urine. She had a bowel movement in the morning. No nausea or vomiting. No acute concern [facility] Medical History Preoperative evaluation to rule out surgical contraindication Headache Lightheadedness Localized swelling of chest wall Thrush Perineal pruritus in female Encounter for vitamin deficiency screening Flu vaccine need Foul smelling urine Wears dentures Post-menopausal High cholesterol Back pain Gastric reflux Non-smoker Sleep apnea Leg cramps History of stress test Coronary artery disease Pancreatic cyst Skin lesion of scalp Diarrhea Macular degeneration Osteopenia Carpal tunnel syndrome Breast lump Arthritis Hemorrhoids Acid reflux Constipation Hyperlipidemia Anxiety Home Medications ?Medication ?Instructions ?Recorded ?Last Taken ?Type calcium carbonate (Calcium 500) 500 mg PO BID 07/07/20 05/15/24 History melatonin 10 mg tablet 10 mg PO QHS 04/01/22 05/19/24 History vit C 250 mg-vit E 90 mg-zinc 40 1 tab PO BID 04/01/22 05/19/24 History mg-copper 1 [id number] capsule (PreserVision AREDS-2) lansoprazole 30 mg capsule,delayed 30 mg PO DAILY #60 caps 12/28/22 05/19/24 Rx release hydrocortisone 2.5 % topical cream 1 applic topical BID PRN skin 07/19/23 Unknown Rx irritation #30 grams cholecalciferol (vitamin D3) 10 10 mcg PO DAILY 11/09/23 05/19/24 History mcg (400 unit) capsule blood pressure monitor #1 ea 11/27/23 Unknown Rx atorvastatin 40 mg tablet 40 mg PO DAILY #90 tabs 01/19/24 05/18/24 Rx acetaminophen 500 mg capsule 1,000 mg PO BID 04/26/24 05/15/24 History citalopram 40 mg tablet 40 mg PO [facility] 04/26/24 05/19/24 History indomethacin 50 mg capsule 50 mg PO BID #30 caps 05/06/24 05/13/24 Rx krill oil 500 mg capsule mg PO 05/06/24 05/15/24 History meloxicam 7.5 mg tablet 7.5 mg PO BID 05/20/24 05/15/24 History Allergy/AdvReac Type Severity Reaction Status Date / Time No Known Allergies Allergy Verified 05/20/24 06:28 Family History Brother Colon cancer High cholesterol Hypertension Anxiety Arthritis Myocardial infarction Mother Colostomy care Hypertension High cholesterol Sister Lung cancer Anxiety Arthritis Breast cancer Depression Respiratory disease Colon cancer Sister Cancer lung Thyroid disorder Hypertension Surgical History Hx of hysterectomy History of bladder suspension procedure S/P hysterectomy S/p bilateral carpal tunnel release S/P cataract extraction bilateral carpal tunnel surgery S/P bilateral foot surgery History of tubal ligation Social History Smoking Status: Never smoker alcohol intake: never substance use type: does not use caffeine: Yes what type of physical activity do you participate in: none seatbelt use: always do you feel safe at home: Yes additional social history: - solorzanoace BOWDEN ROS Narrative Constitutional: Reports fatigue and weakness. No fever. HEENT: Reports systems reviewed and no addt'l complaints, except as documented Respiratory/Chest: No acute shortness of breath or respiratory distress or wheezing. CVS: No chest pain palpitation or dizziness Gastrointestinal: Denies coffee ground emesis, hematemesis or vomiting Genitourinary: Denies burning urination or new urinary tract symptoms Musculoskeletal: Chronic degenerative arthritis. Denies acute joint pain or limited range of motion. No acute injury Neurologic: Denies seizure-like symptoms. skin: Right TKR. Endocrinology: Reports systems reviewed and no addt'l complaints, except as documented Hematologic/Lymphatic: Reports systems reviewed and no addt'l complaints, except as documented Rest 14 ROS are negative except as mentioned in HPI Physical Exam Narrative General: Alert, Oriented x3, Cooperative HEENT: Atraumatic, PERRLA, EOMI, Normocephalic Oral: No Gingival or Mucosal Lesions/ Ulcerations Neck: Supple, No JVD, Negative Carotid Bruits Chest wall/Lungs: Air entry diminished in bilateral lung bases. No crepitation/rhonchi Cardiovascular: Regular rate, Regular Rhythm, Normal S1, Normal S2, No M/G/R Abdomen: Bowel Sounds Present, Soft, Non Tender, Non-Distended : No dysuria. No renal angle tenderness. No suprapubic tenderness. Extremities: No edema, Capillary Refill Less than 3 Seconds Skin: Right knee under Anselmo wrap bandage and ice wrap. No acute tenderness. Musculoskeletal: Severe degenerative arthritis, knee joint right worse than left. No acute tenderness to Palpation of Extremities Neurological: Cranial nerves II-XII grossly intact, DTR 2+/4. No acute focal neurological deficit. Psych/Mental Status: Normal Affect, Appropriate. Lab / Micro Data 04/30/24 13:27 04/30/24 13:27 Labs: Laboratory Results - last 24 hr 05/20/24 06:39: POC Glucose 115 H Imaging Radiology Impression Knee X-Ray 05/20/24 06:57 IMPRESSION: New postoperative changes related to right total knee arthroplasty. Electronically Signed: Charlie Moss MD at 9:49 EDT , Charges/Coding Visit Charges Office Visits / Consults: [id number] OV L4 Est 30min
--- NOTE | 2024-05-20 16:19 | CASEMGMT ---
Social Work- Pt declines list of SNF facilities. Pt preference is [facility]. Referral completed. IGGY Vines
[2024-05-20] MEDS: Ketorolac 15 MG/ML Vial IV (17:20)
[2024-05-20] MEDS: Citalopram 40 MG TABLET PO (22:46)
[2024-05-20] MEDS: MELATONIN 10 MG TABLET PO (22:47)
[2024-05-21 05:00] VITALS: BP 133/66; PULSE 62; RESP 18; TEMP 36.7; O2SAT 98
[2024-05-21] MEDS: Acetaminophen 500 MG Tablet 1000 MG PO ×3 (05:20→22:06)
[2024-05-21] MEDS: Ketorolac 15 MG/ML Vial IV ×2 (06:19→12:22)
[2024-05-21] MEDS: 0.9% Saline Lock 10 ML Syringe IV ×2 (06:19→12:23)
[2024-05-21 07:03] LABS: Hematocrit 30.4 % (37-47); Hemoglobin 9.8 g/dL (12.0-15.0); Mean Corp Hgb Conc 32.2 g/dL (32-36); Mean Corpuscular Hgb 28.9 pg (27.0-32.0); Mean Corpuscular Volume 89.7 fL (81-99); Mean Platelet Vol. 10.3 fl (6.2-12.0); Platelet Count 148 K/mm3 (150-450); RBC Distribution Width CV 12.6 % (11.6-14.6); RBC Distribution Width SD 41.1 fl (35.1-43.9); Red Blood Count 3.39 M/mm3 (4.2-5.4); White Blood Count 8.4 K/mm3 (4.4-11.0)
[2024-05-21 07:13] LABS: Anion Gap 4 (5-15); BUN 18 mg/dL (7-18); BUN/Creat Ratio 23.9 RATIO (10-20); Calcium,Total 8.6 mg/dL (8.5-10.1); Chloride 107 mmol/L (98-107); Creatinine, Serum 0.75 mg/dL (0.55-1.02); EST Glomerular Filtration Rate 78 mL/min (>60); Est Glom Filt Rate - Afr Amer 95 mL/min (>60); Estimated Creatinine Clearance 50.16 ml/min; Glucose 124 mg/dL (74-106); Potassium 3.9 mmol/L (3.5-5.1); Sodium Level 139 mmol/L (136-145)
--- NOTE | 2024-05-21 08:15 | PCM.PN.ORT ---
Subjective Subjective The patient was sitting in bed upon examination. Patient denies any chest pain, shortness of breath, dizziness, lightheadedness, nausea or vomiting, or calf pain. Pain is controlled on medications. No adverse overnight events. Patient does report increased pain this morning. She does live home alone in which there is concern upon discharge. Case management is currently involved with appropriate discharge planning. Patient has had a drop in her hemoglobin postoperatively. She denies past history of anemia. Denies any dizziness or lightheadedness. Her vitals are stable. Objective Data Objective Data Vital Signs: Vital Signs Temp Pulse Resp BP Pulse Ox O2 Del Method O2 Flow Rate 98.0 F 62 18 133/66 H 98 Room Air 2 05/21/24 05:00 05/21/24 05:00 05/21/24 05:00 05/21/24 05:00 05/21/24 05:00 05/21/24 08:01 05/20/24 23:00 Oxygen Flow Rate (L/min) 2 Oxygen Delivery Method Room Air Weight: 67.9 kg Body Mass Index (BMI) 26.5 Intake & Output: Intake and Output for Last 24 Hours 05/19/24 05/20/24 05/21/24 23:59 23:59 23:59 Intake Total 5482 / 6618 1336 / 1336 Balance 5482 / 6618 1336 / 1336 Lab / Micro Data 05/21/24 06:27 05/21/24 06:27 Labs: Laboratory Results - last 24 hr 05/21/24 06:27: WBC 8.4, RBC 3.39 L, Hgb 9.8 L, Hct 30.4 L, MCV 89.7, MCH 28.9, MCHC 32.2, RDW Std Deviation 41.1, RDW Coeff of David 12.6, Plt Count 148 L, MPV 10.3, Sodium 139, Potassium 3.9, Chloride 107, Carbon Dioxide 28.0, Anion Gap 4 L, BUN 18, Creatinine 0.75, Estim Creat Clear Calc 50.16, Est GFR (MDRD) Af Amer 95, Est GFR (MDRD) Non-Af 78, BUN/Creatinine Ratio 23.9 H, Glucose 124 H, Calcium 8.6 Micro: Microbiology 04/30/24 13:27 Swab (Method) Nasal Screen MRSA/MSSA - Final Radiography Diagnostic Testing: Radiology Impression Knee X-Ray 05/20/24 06:57 IMPRESSION: New postoperative changes related to right total knee arthroplasty. Electronically Signed: Charlie Moss MD at 9:49 EDT , Physical Exam Narrative Vital signs stable and afebrile. SCDs and STEVEN hose are in place bilaterally Patient is able to plantarflex and dorsiflex actively. Sensation is intact to light touch to saphenous, sural, superficial and deep peroneal, and tibial distribution. Dressings are clean dry and intact. Negative Homans bilaterally, negative signs and symptoms of DVT. Const alert, oriented x3 and no apparent distress Assessment & Plan Assessment/Plan (1) Status post total right knee replacement: PLAN: 1. S/P robotic assisted right total knee arthroplasty POD #1 2. Continue Pain Medications: Tylenol, meloxicam, oxycodone. Patient will resume her home meloxicam postoperatively. 3. DVT Prophylaxis: Take 81 mg aspirin twice daily for 4 weeks postoperatively for DVT prophylaxis. Patient denies past history of DVT or pulmonary embolism. 4. PT/OT: Weightbearing as tolerated with walker. Patient does live home alone and in a 1.5 story home. Would appreciate recommendations from physical therapy for appropriate discharge planning 5. H & H: .4, asymptomatic. There has been postoperative drop in hemoglobin most likely secondary to acute blood loss versus dilutional component. She has no past history of anemia. Vitals are stable. Patient will be started on ferrous sulfate and folic acid. I did recommend to the patient that upon discharge following back with her primary care physician in approximately 3-4 weeks for reassessment with labs. She did voiced understanding. 6. Currently on doxycycline for 2 weeks postoperatively due to findings of staph positive in preoperative workup. I discussed with the patient potential side effects of doxycycline including sensitivity to the sunlight and increased risk of skin burn. Recommend patient take appropriate precautions. Also recommend patient to take probiotic while on the antibiotic. Patient voiced understanding agreement. 7. Encouraged Incentive Spirometry 8. Patient is aware of postoperative constipation that can occur from 1-3 days postoperatively. Will continue with senna 2 tablets twice daily until first bowel movement. Patient was advised if not having a bowel movement after day 3 she is to contact orthopedics so appropriate change can be made. Patient voiced understanding. 9. Continue postoperative medical treatment per medicine 10. Disposition: At this time I would appreciate recommendations from physical therapy after assessment today. She has had increased pain as the block is wearing off. Patient does live home alone and in a 1.5 story house. There is concern for discharge planning with the patient for risk of fall at home. Case management is currently involved with appropriate discharge planning. Patient also had a drop in her hemoglobin in which she has no past history of anemia. There is no increased bleed or vital changes. I do feel this is from acute blood loss from surgery versus dilutional component. Once we have patient appropriately assessed for discharge planning we will move forward with regards to those recommendations. I will repeat labs tomorrow. I have reviewed the [place] Automated Rx Reporting System (OARRS) report for this patient for refill pattern and other prescriber involvement as part of the appropriate surveillance for the provision of acute and chronic controlled medications. The report was requested and reviewed on the date of this entry and was considered in the prescribing process. This dictation was created using voice recognition software. Phonetic and/or grammatical errors may exist.
[2024-05-21 08:20] VITALS: BP 111/46; PULSE 59; RESP 16; TEMP 36.9; O2SAT 97
[2024-05-21] MEDS: Ensure Surgery 237 ML LIQUID PO ×2 (08:38→16:52)
--- NOTE | 2024-05-21 09:35 | CASEMGMT ---
BETTINA JACOBSEN Assessment: Face to Face with pt for initial transition planning/care coordination assessment. BETTINA JACOBSEN introduced self and role at [facility], pt voices understanding and consents to assessment. Pt is A&O x4 and answers all questions appropriately at this time. Pt lying in bed in no distress with oxygen on. Care providers, pharmacy, and demographics verified/updated. Admitting Dx: TKR Strata Score: 1 PCP:Katy Specialists:tracy Mosley Pharmacy: [facility] Benef[facility]: yes LNOK: Juancarlos Hazel, son; Nadja Hazel, dil Living Arrangements: Pt lives alone in a 1.5 story home with 2 steps to enter with a grab bar. Pt reports prior to surgery she was I in ADL and IADLs. Pt denies concerns at home. Transportation: Pt drives self and denies concerns with transportation. DME:cane, [employer], built in shower seat HHC/SNF: Denies hx of Pt states she would like to go to the Inpt Rehab Unit at [facility], she is aware she has been accepted and RN DELMAR or NABEEL to follow pt after she has therapy today to confirm that she is appropriate for that level of care. Pt does not want a list of other options for Rehab units. Pt states no further concerns/needs. CM to follow. Advised pt to ask CM if any further question/concerns/needs arise, voices understanding. Pt Goal: Inpt Rehab Unit [facility] Plan: Inpt Rehab Unit pending therapy today Doron DUNBAR CM
--- NOTE | 2024-05-21 09:47 | CASEMGMT ---
Met with patient to complete CHURCH form. CHURCH form explained to patient who voiced understanding and signed form. Original form placed in pt?s chart and copy provided to patient. Mary Moralez, Discharge Planning Asst
[2024-05-21] MEDS: Multivitamin (Healthy Eyes) Capsule 1 CAP PO ×2 (11:01→16:53)
[2024-05-21] MEDS: Cholecalciferol (VIT D3) 25 MCG TABLET (1,000 UNITS) PO (11:02)
[2024-05-21] MEDS: Lansoprazole 15 MG Capsule.DR 30 MG PO (11:02)
[2024-05-21] MEDS: Famotidine 20 MG Tablet PO (11:02)
[2024-05-21] MEDS: Aspirin 81 MG TAB.CHEW PO ×2 (11:02→22:06)
[2024-05-21] MEDS: Atorvastatin Calcium 40 MG Tablet PO (11:02)
[2024-05-21] MEDS: Calcium (Elemental) 500 MG Tablet PO ×2 (11:02→22:05)
[2024-05-21] MEDS: Ferrous Sulfate 325 MG Tablet PO ×2 (12:16→16:52)
--- NOTE | 2024-05-21 12:49 | PCM.PN.HOSP ---
Reason for Visit Reason for Visit: Diagnoses Encounter for other preprocedural examination (05/20/24) Presence of right artificial knee joint (05/20/24) Objective Data Objective Data Vital Signs: Vital Signs Temp Pulse Resp BP Pulse Ox O2 Del Method O2 Flow Rate 98.4 F 59 L 16 111/46 L 97 Room Air 2 05/21/24 08:20 05/21/24 08:20 05/21/24 08:20 05/21/24 08:20 05/21/24 08:20 05/21/24 08:20 05/20/24 23:00 Oxygen Flow Rate (L/min) 2 Oxygen Delivery Method Room Air Weight: 149 lb 11.102 oz Body Mass Index (BMI) 26.5 Intake & Output: Intake and Output for Last 24 Hours 05/19/24 05/20/24 05/21/24 23:59 23:59 23:59 Intake Total 5482 / 6618 1336 / 1336 Balance 5482 / 6618 1336 / 1336 Lab / Micro Data 05/21/24 06:27 05/21/24 06:27 Labs: Laboratory Results - last 24 hr 05/21/24 06:27: WBC 8.4, RBC 3.39 L, Hgb 9.8 L, Hct 30.4 L, MCV 89.7, MCH 28.9, MCHC 32.2, RDW Std Deviation 41.1, RDW Coeff of David 12.6, Plt Count 148 L, MPV 10.3, Sodium 139, Potassium 3.9, Chloride 107, Carbon Dioxide 28.0, Anion Gap 4 L, BUN 18, Creatinine 0.75, Estim Creat Clear Calc 50.16, Est GFR (MDRD) Af Amer 95, Est GFR (MDRD) Non-Af 78, BUN/Creatinine Ratio 23.9 H, Glucose 124 H, Calcium 8.6 Micro: Microbiology 04/30/24 13:27 Swab (Method) Nasal Screen MRSA/MSSA - Final Physical Exam Narrative Seen and examined. No acute issues. Did not had bowel movement after surgery but patient felt like she is going to have it. On stool softeners. Physical exam General: Alert, Oriented x3, Cooperative HEENT: Atraumatic, PERRLA, EOMI, Normocephalic Oral: No Gingival or Mucosal Lesions/ Ulcerations Neck: Supple, No JVD, Negative Carotid Bruits Chest wall/Lungs: Air entry diminished in bilateral lung bases. No crepitation/rhonchi Cardiovascular: Regular rate, Regular Rhythm, Normal S1, Normal S2, No M/G/R Abdomen: Bowel Sounds Present, Soft, Non Tender, Non-Distended : No dysuria. No renal angle tenderness. No suprapubic tenderness. Extremities: No edema, Capillary Refill Less than 3 Seconds Skin: Right knee under Anselmo wrap bandage and ice wrap. No acute tenderness. Musculoskeletal: Severe degenerative arthritis, knee joint right worse than left. No acute tenderness to Palpation of Extremities Neurological: Cranial nerves II-XII grossly intact, DTR 2+/4. No acute focal neurological deficit. Psych/Mental Status: Normal Affect, Appropriate. Assessment & Plan Assessment/Plan (1) Encounter for perioperative consultation: PLAN: Plan This 84-year-old female was admitted after right knee TKA 1. Perioperative management of right knee primary osteoarthritis: Patient had right minimally invasive robotic total knee replacement on 05/20/2024. No nausea or vomiting. Pain is well-controlled. DVT prophylaxis as per discretion of orthopedic surgeon. Incentive spirometry. Bowel and bladder care. 05/21: Blood pressure and heart rate are controlled. No shortness of breath or hypoxia. PT and OT on board. On stool softener. Voiding spontaneously urine. 2. Mild nonobstructive CAD: Twelve-lead EKG reviewed. Normal sinus rhythm 63/min. No chest pain or shortness of breath. 05/21: No acute issues. Continue home medications. 3. Dyslipidemia: On atorvastatin continued. 4. GERD: PPI. 5. Anxiety on citalopram continued Patient is medically optimized and can be discharged from medical standpoint. Charges/Coding Visit Charges Inpatient E&M: 20944 Subs Hosp L2
[2024-05-21 14:15] VITALS: BP 98/56; PULSE 73; RESP 16; TEMP 36.8; O2SAT 97
[2024-05-21] MEDS: Doxycycline 100 MG CAPSULE PO ×2 (14:19→22:06)
--- NOTE | 2024-05-21 15:13 | CASEMGMT ---
Social Work- SW met with pt to advise of RU acceptance. SW advised that pt will likely be d/c tomorrow by physician per sw conversation with physician. Pt expressed agreement. IGGY Vines
[2024-05-21 16:42] VITALS: BP 101/42; PULSE 72; RESP 16; TEMP 36.8; O2SAT 97
[2024-05-21] MEDS: oxyCODONE 5 MG Tablet PO ×2 (16:50→22:05)
[2024-05-21 19:59] VITALS: BP 110/48; PULSE 75; RESP 16; TEMP 37.2; O2SAT 92
[2024-05-21] MEDS: MELATONIN 10 MG TABLET PO (22:05)
[2024-05-21] MEDS: Senna/Docusate Sodium 1 Tablet 2 TABLET PO (22:05)
[2024-05-21] MEDS: Citalopram 40 MG TABLET PO (22:06)
[2024-05-22 03:32] VITALS: BP 116/52; PULSE 71; RESP 16; TEMP 36.9; O2SAT 92
[2024-05-22] MEDS: Acetaminophen 500 MG Tablet 1000 MG PO (06:34)
[2024-05-22] MEDS: Multivitamin (Healthy Eyes) Capsule 1 CAP PO (07:41)
[2024-05-22] MEDS: Famotidine 20 MG Tablet PO (07:42)
[2024-05-22] MEDS: Folic Acid 1 MG Tablet PO (07:42)
[2024-05-22] MEDS: Aspirin 81 MG TAB.CHEW PO (07:42)
[2024-05-22] MEDS: Senna/Docusate Sodium 1 Tablet 2 TABLET PO (07:43)
[2024-05-22] MEDS: Cholecalciferol (VIT D3) 25 MCG TABLET (1,000 UNITS) PO (07:43)
[2024-05-22] MEDS: Calcium (Elemental) 500 MG Tablet PO (07:43)
[2024-05-22] MEDS: Ensure Surgery 237 ML LIQUID PO (07:44)
[2024-05-22] MEDS: Atorvastatin Calcium 40 MG Tablet PO (07:44)
[2024-05-22] MEDS: Meloxicam 7.5 MG Tablet PO (08:20)
[2024-05-22 08:34] VITALS: O2SAT 96
[2024-05-22 09:50] VITALS: BP 126/59; PULSE 70; RESP 18; TEMP 36.8; O2SAT 93
[2024-05-22] MEDS: Doxycycline 100 MG CAPSULE PO (09:55)
[2024-05-22] MEDS: Lansoprazole 15 MG Capsule.DR 30 MG PO (09:55)
--- NOTE | 2024-05-22 10:10 | PCM.PN.ORT ---
Subjective Subjective The patient was sitting in bedside chair upon examination. Patient denies any chest pain, shortness of breath, dizziness, lightheadedness, nausea or vomiting, or calf pain. Pain is controlled on medications. No adverse overnight events. Patient does report her pain has increased since the block wore off. Pain is primarily when she is up and moving. Patient is ready for discharge to the fourth floor rehabilitation at [facility]. Patient denies any dizziness or lightheadedness. Objective Data Objective Data Vital Signs: Vital Signs Temp Pulse Resp BP Pulse Ox O2 Del Method O2 Flow Rate 98.3 F 70 18 126/59 H 93 Room Air 2 05/22/24 09:50 05/22/24 09:50 05/22/24 09:50 05/22/24 09:50 05/22/24 09:50 05/22/24 09:50 05/20/24 23:00 Oxygen Flow Rate (L/min) 2 Oxygen Delivery Method Room Air Weight: 67.9 kg Body Mass Index (BMI) 26.5 Intake & Output: Intake and Output for Last 24 Hours 05/20/24 05/21/24 05/22/24 23:59 23:59 23:59 Intake Total 5482 / 6618 1985 600 / 600 Balance 5482 / 6618 1985 600 / 600 Lab / Micro Data 05/22/24 10:04 05/21/24 06:27 Micro: Microbiology 04/30/24 13:27 Swab (Method) Nasal Screen MRSA/MSSA - Final Physical Exam Narrative Vital signs stable and afebrile. Patient is able to plantarflex and dorsiflex actively. Sensation is intact to light touch to saphenous, sural, superficial and deep peroneal, and tibial distribution. Dressings are clean dry and intact. Negative Homans bilaterally, negative signs and symptoms of DVT. Const alert, oriented x3 and no apparent distress Assessment & Plan Assessment/Plan (1) Status post total right knee replacement: PLAN: 1. S/P robotic assisted right total knee arthroplasty POD #2 2. Continue Pain Medications: Tylenol, meloxicam, oxycodone. Patient will resume her home meloxicam postoperatively. 3. DVT Prophylaxis: Take 81 mg aspirin twice daily for 4 weeks postoperatively for DVT prophylaxis. Patient denies past history of DVT or pulmonary embolism. 4. PT/OT: Weightbearing as tolerated with walker. Patient does live home alone and in a 1.5 story home. Would appreciate recommendations from physical therapy for appropriate discharge planning 5. H & H: 10.7/33.0, asymptomatic. Hemoglobin has improved since yesterday. There has been postoperative drop in hemoglobin most likely secondary to acute blood loss versus dilutional component. She has no past history of anemia. Vitals are stable. Patient will be started on ferrous sulfate and folic acid. I did recommend to the patient that upon discharge following back with her primary care physician in approximately 3-4 weeks for reassessment with labs. She did voiced understanding. 6. Currently on doxycycline for 2 weeks postoperatively due to findings of staph positive in preoperative workup. I discussed with the patient potential side effects of doxycycline including sensitivity to the sunlight and increased risk of skin burn. Recommend patient take appropriate precautions. Also recommend patient to take probiotic while on the antibiotic. Patient voiced understanding agreement. 7. Encouraged Incentive Spirometry 8. Postoperative constipation: Patient has had a bowel movement. We will use the stool softener as needed. Also discussed with the patient that the ferrous sulfate can cause some constipation. If needed she can use this while on that medication. 9. Continue postoperative medical treatment per medicine 10. Disposition: Case was discussed with case management. Patient is okay to be discharged to the fourth floor rehabilitation unit at [facility]. Plan will be for discharge today. Patient will continue above medications. I discussed her medications in great detail. Patient was found to have some postoperative anemia in which we did start her on ferrous sulfate and folic acid. I would recommend we repeat lab work in 1 week. Also recommend once she is discharged from the fourth floor rehabilitation unit she is scheduling a follow-up within 3-4 weeks postoperatively with her primary care provider. I would defer any further management to the primary care provider. Patient did voiced understanding. We discussed the potential for constipation and black tarry stools with ferrous sulfate. If she has any concerns she will contact our office. Patient will follow-up as scheduled at her 2-week postoperative follow-up with orthopedics for suture/staple removal and x-rays. Upon discharge she will contact our office with any concerns or questions. I have reviewed the [place] Automated Rx Reporting System (OARRS) report for this patient for refill pattern and other prescriber involvement as part of the appropriate surveillance for the provision of acute and chronic controlled medications. The report was requested and reviewed on the date of this entry and was considered in the prescribing process. This dictation was created using voice recognition software. Phonetic and/or grammatical errors may exist.
[2024-05-22 10:13] LABS: Hemoglobin 10.7 g/dL (12.0-15.0); Mean Corp Hgb Conc 32.4 g/dL (32-36); Mean Corpuscular Hgb 29.6 pg (27.0-32.0); Mean Corpuscular Volume 91.2 fL (81-99); Mean Platelet Vol. 9.9 fl (6.2-12.0); Platelet Count 165 K/mm3 (150-450); RBC Distribution Width CV 13.1 % (11.6-14.6); RBC Distribution Width SD 43.8 fl (35.1-43.9); Red Blood Count 3.62 M/mm3 (4.2-5.4); White Blood Count 8.7 K/mm3 (4.4-11.0)
--- NOTE | 2024-05-22 10:20 | PCM.DC ---
Discharge Instructions Diet Discharge Diet: No restrictions Activity Discharge Activity: May Not Drive (No driving for 6 weeks postoperatively. Must also be off all narcotics and able to walk 100 feet without the use of cane or walker.) Ice area for (Minutes): 20 (Every 1-2 hours while [address] place barrier between the skin and ice pack.) Weight Bearing Status: Weight bearing as tolerated (With walker) Keep extremity elevated above heart level: Operative Extremity Dressing / Incision Call your doctor if your incision/area has: Continuous Slow Oozing, Sudden Increased Bleeding, Increased Pain/ Swelling, Increased Redness and Foul Smelling Discharge Call your doctor if you observe: Fever of 101 or Higher, Coldness, Increased Pain, Numbness or Tingling, Change in Color, Shortness of breath, Chest pain, Calf discomfort and Uncontrolled pain Remove Dressing in: 3 days (Okay to remove dressings on May 25, 2024) Additional Dressing/Incision Instructions:: Follow [facility] Post-op Instructions. Continue antibiotics for 2 weeks postoperatively: Continue with doxycycline as prescribed. You are more sensitive to sunlight and should take appropriate precautions as you are more likely to get skin burn in the setting. Okay to shower with Mepilex dressing in place. Once postoperative dressing has been removed only use gentle soap and water over the incision. Do not use any ointments, Neosporin, salves, alcohol pads over the incision for 6 weeks postoperatively. Do not submerge underwater for 6 weeks postoperatively. Continue with STEVEN hose/elastic stockings for 2 weeks postoperatively. May remove at nighttime but needs to be placed back on the leg during the day. Do NOT use alcohol with narcotic pain medication. Do NOT make important decisions while taking narcotic medication. If you have problems with taking your medication (rash, itching, nausea, etc.) call the office at once. Follow Up Care Test Results: Test results from this visit will be discussed in further detail at your follow-up appointment, if applicable. Discharge Plan Admission Admit Date/Time: 05/20/24 06:56 Attending Provider: Gavin Mosley Primary Care Provider: Kevin Burns Consulting Providers: Angel Benitez Discharge Orders/Prescriptions Prescriptions: New acetaminophen 500 mg Tablet 1,000 mg PO TID 14 Days Qty: 84 0RF Rx Instructions: Do not take more than 3000 mg Tylenol in a 24-hour period. aspirin [Enteric Coated Aspirin] 81 mg tablet,delayed release (DR/EC) 81 mg PO BID 30 Days Qty: 60 0RF Rx Instructions: Take 81 mg aspirin twice daily for 4 weeks postoperatively for DVT prophylaxis. meloxicam 7.5 mg Tablet 7.5 mg PO BID 14 Days Qty: 28 0RF doxycycline monohydrate 100 mg Capsule 100 mg PO BID 12 Days Qty: 0 0RF Rx Instructions: Take for 2 weeks postoperatively ferrous sulfate [FeroSul] 325 mg (65 mg iron) Tablet 325 mg PO 1200,1700 14 Days Qty: 28 0RF folic acid 1 mg Tablet 1 mg PO BREAKFAST 14 Days Qty: 14 0RF oxycodone 5 mg Tablet 5 - 10 mg PO Q4H PRN PRN (Reason: as needed for pain) 7 Days Qty: 0 0RF sennosides-docusate sodium [Stimulant Laxative Plus] 8.6-50 mg Tablet 2 tab PO BID Qty: 0 0RF Rx Instructions: Only use senna as needed for constipation Continued calcium carbonate [Calcium 500] 500 mg calcium (1,250 mg) tablet 500 mg PO BID hydrocortisone 2.5 % cream 1 applic topical BID PRN (Reason: skin irritation) Qty: 30 3RF cholecalciferol (vitamin D3) 10 mcg (400 unit) capsule 10 mcg PO DAILY melatonin 10 mg Tablet 10 mg PO QHS PreserVision AREDS-2 250-90-40-1 mg Capsule 1 tab PO BID citalopram 40 mg tablet 40 mg PO QHS lansoprazole 30 mg capsule,delayed release(DR/EC) 30 mg PO DAILY Qty: 60 1RF (DME) blood pressure monitor Kit See Rx Instructions .ROUTE .MEDSUPPLY Qty: 1 0RF Rx Instructions: As directed atorvastatin 40 mg tablet 40 mg PO DAILY Qty: 90 3RF Held krill oil 500 mg capsule PO Hold Instructions: Resume on 06/03/24. Hold for 2 weeks postoperatively Discontinued indomethacin 50 mg capsule 50 mg PO BID Qty: 30 0RF Rx Instructions: administer with food or milk acetaminophen 500 mg capsule 1,000 mg PO BID meloxicam 7.5 mg tablet 7.5 mg PO BID Other Ambulatory Orders: 12 Lead EKG (Routine) Timeframe: 20240430 Location: None Selected Ordered By: Dr. Gavin Melany CBC-Complete Blood Cnt No Diff (Routine) Timeframe: 1 Week Facility: [facility] - Location: Laboratory Ordered By: Shalom HAWLEY Referrals / Follow Up: Kevin Burns MD [Primary Care Provider] - (follow up in 3-4 weeks with labs) Aleena Brumfield PA [Med Staff - Adv Practice Prof] - 06/03/24 3:15 pm Disposition Disposition (needs filled in before D/C Order can be placed): Inpatient Rehab Unit/Facility
--- NOTE | 2024-05-22 10:39 | PCM.DC.SUM ---
Providers Date of Admission: 05/20/24 Primary Care Physician: Dr. Kevin Burns MD Consultations 05/20/24 06:56 Consult: Hospitalist Routine Consulting Provider: Angel Benitez Reason for Consult: post op med management EMERGENT Consult: No MD Notified: Yes Date Notified: 05/20/24 Time Notified: 10:41 Method of Notification: Text Reason For Visit: Total Knee Replacement Robotic Arm Diagnosis Discharge Diagnosis (1) Status post total right knee replacement: Status: Acute Code(s): Z96.651 - Presence of right artificial knee joint Plan: 1. S/P robotic assisted right total knee arthroplasty POD #2 2. Continue Pain Medications: Tylenol, meloxicam, oxycodone. Patient will resume her home meloxicam postoperatively. 3. DVT Prophylaxis: Take 81 mg aspirin twice daily for 4 weeks postoperatively for DVT prophylaxis. Patient denies past history of DVT or pulmonary embolism. 4. PT/OT: Weightbearing as tolerated with walker. Patient does live home alone and in a 1.5 story home. Would appreciate recommendations from physical therapy for appropriate discharge planning 5. H & H: 10.7/33.0, asymptomatic. Hemoglobin has improved since yesterday. There has been postoperative drop in hemoglobin most likely secondary to acute blood loss versus dilutional component. She has no past history of anemia. Vitals are stable. Patient will be started on ferrous sulfate and folic acid. I did recommend to the patient that upon discharge following back with her primary care physician in approximately 3-4 weeks for reassessment with labs. She did voiced understanding. 6. Currently on doxycycline for 2 weeks postoperatively due to findings of staph positive in preoperative workup. I discussed with the patient potential side effects of doxycycline including sensitivity to the sunlight and increased risk of skin burn. Recommend patient take appropriate precautions. Also recommend patient to take probiotic while on the antibiotic. Patient voiced understanding agreement. 7. Encouraged Incentive Spirometry 8. Postoperative constipation: Patient has had a bowel movement. We will use the stool softener as needed. Also discussed with the patient that the ferrous sulfate can cause some constipation. If needed she can use this while on that medication. 9. Continue postoperative medical treatment per medicine 10. Disposition: Case was discussed with case management. Patient is okay to be discharged to the fourth floor rehabilitation unit at [facility]. Plan will be for discharge today. Patient will continue above medications. I discussed her medications in great detail. Patient was found to have some postoperative anemia in which we did start her on ferrous sulfate and folic acid. I would recommend we repeat lab work in 1 week. Also recommend once she is discharged from the fourth floor rehabilitation unit she is scheduling a follow-up within 3-4 weeks postoperatively with her primary care provider. I would defer any further management to the primary care provider. Patient did voiced understanding. We discussed the potential for constipation and black tarry stools with ferrous sulfate. If she has any concerns she will contact our office. Patient will follow-up as scheduled at her 2-week postoperative follow-up with orthopedics for suture/staple removal and x-rays. Upon discharge she will contact our office with any concerns or questions. I have reviewed the [place] Automated Rx Reporting System (OARRS) report for this patient for refill pattern and other prescriber involvement as part of the appropriate surveillance for the provision of acute and chronic controlled medications. The report was requested and reviewed on the date of this entry and was considered in the prescribing process. This dictation was created using voice recognition software. Phonetic and/or grammatical errors may exist. Medications at Discharge Home Medications calcium carbonate (Calcium 500) 500 mg PO BID 07/07/20 melatonin 10 mg tablet 10 mg PO QHS 04/01/22 vit C 250 mg-vit E 90 mg-zinc 40 mg-copper 1 [id number] capsule (PreserVision AREDS-2) 1 tab PO BID 04/01/22 lansoprazole 30 mg capsule,delayed release 30 mg PO DAILY #60 caps 12/28/22 hydrocortisone 2.5 % topical cream 1 applic topical BID PRN skin irritation #30 grams 07/19/23 cholecalciferol (vitamin D3) 10 mcg (400 unit) capsule 10 mcg PO DAILY 11/09/23 blood pressure monitor #1 ea 11/27/23 atorvastatin 40 mg tablet 40 mg PO DAILY #90 tabs 01/19/24 citalopram 40 mg tablet 40 mg PO QHS MENTAL HEALTH 04/26/24 krill oil 500 mg capsule mg PO 05/06/24 acetaminophen 500 mg tablet 1,000 mg (2 x 500 mg) PO TID 14 days #84 tabs 05/22/24 aspirin 81 mg tablet,delayed release (Enteric Coated Aspirin) 81 mg PO BID 30 days #60 tabs 05/22/24 doxycycline monohydrate 100 mg capsule 100 mg PO BID 12 days #0 caps 05/22/24 ferrous sulfate 325 mg (65 mg iron) tablet (FeroSul) 325 mg PO 1200,1700 14 days #28 tabs 05/22/24 folic acid 1 mg tablet 1 mg PO BREAKFAST 14 days #14 tabs 05/22/24 meloxicam 7.5 mg tablet 7.5 mg PO BID 14 days #28 tabs 05/22/24 oxycodone 5 mg tablet 5 - 10 mg (1 - 2 x 5 mg) PO Q4H PRN PRN as needed for pain 7 days #0 tabs 05/22/24 sennosides 8.6 mg-docusate sodium 50 mg tablet (Stimulant Laxative Plus) 2 tab PO BID #0 tabs 05/22/24 Hospital Course Operations total knee replacement (Right robotic assisted total knee arthroplasty) Summary of Care Provided Hospital Course: Patient is a 84-year-old female who has had ongoing right knee pain for many years. After failing conservative measures, the patient opted to proceed with a robotic assisted right total knee arthroplasty. The patient underwent the above-stated procedure on May 20, 2024. Patient did receive perioperative antibiotics. Intraoperatively was uneventful. For details please see dictated operative note. The patient was placed in thigh-high teds, bilateral SCDs, remained stable in recovery. Patient was admitted to the 3rd floor at [facility]. The patient's pain was managed with the use of IV and p.o. pain medications. Patient participated in physical therapy. Patient was discharged on postoperative day # 2 to 4 for inpatient rehabilitation at [facility]. Patient was given medications stated below. Patient will continue the doxycycline for 2 weeks postoperatively as she did test positive for staph on preoperative workup. Advised the patient that she is more sensitive to the sunlight and should take appropriate precautions. Postoperatively she also saw a drop in her hemoglobin with postoperative anemia secondary to acute blood loss versus dilutional component. She was placed on ferrous sulfate and folic acid. I do advise patient to follow-up with her primary care physician upon discharge from the fourth floor rehabilitation unit for repeat labs and continued management of the postoperative anemia. I would defer to the primary care physician for continuation of the iron and folic acid. Did advise the patient that the ferrous sulfate can cause constipation and medication can be adjusted. She will contact our office with any concerns or questions. Patient will continue with the Tylenol, meloxicam, and oxycodone for primary pain control. She will remain on the aspirin 81 mg twice daily for 4 weeks postoperatively for DVT prophylaxis. Patient will follow up with [facility] per postop instructions for reassessment. Weight / BMI Weight Weight: 67.9 kg Body Mass Index (BMI) 26.5 ABG / Lab / Microbiology Data 05/22/24 10:04 05/21/24 06:27 Laboratory: Laboratory Results - last 24 hr 05/22/24 10:04: WBC 8.7, RBC 3.62 L, Hgb 10.7 L, Hct 33.0 L, MCV 91.2, MCH 29.6, MCHC 32.4, RDW Std Deviation 43.8, RDW Coeff of David 13.1, Plt Count 165, MPV 9.9 Microbiology: Microbiology 04/30/24 13:27 Swab (Method) Nasal Screen MRSA/MSSA - Final D/C Instructions Discharge Diet: No restrictions Ice area for (Minutes): 20 (Every 1-2 hours while awake[address] place barrier between the skin and ice pack.) Weight Bearing Status: Weight bearing as tolerated (With walker) Keep extremity elevated above heart level: Operative Extremity Call your doctor if your incision/area has: Continuous Slow Oozing, Sudden Increased Bleeding, Increased Pain/ Swelling, Increased Redness and Foul Smelling Discharge Call your doctor if you observe: Fever of 101 or Higher, Coldness, Increased Pain, Numbness or Tingling, Change in Color, Shortness of breath, Chest pain, Calf discomfort and Uncontrolled pain Additional Dressing/Incision Instructions: Follow [facility] Post-op Instructions. Continue antibiotics for 2 weeks postoperatively: Continue with doxycycline as prescribed. You are more sensitive to sunlight and should take appropriate precautions as you are more likely to get skin burn in the setting. Okay to shower with Mepilex dressing in place. Once postoperative dressing has been removed only use gentle soap and water over the incision. Do not use any ointments, Neosporin, salves, alcohol pads over the incision for 6 weeks postoperatively. Do not submerge underwater for 6 weeks postoperatively. Continue with STEVEN hose/elastic stockings for 2 weeks postoperatively. May remove at nighttime but needs to be placed back on the leg during the day. Do NOT use alcohol with narcotic pain medication. Do NOT make important decisions while taking narcotic medication. If you have problems with taking your medication (rash, itching, nausea, etc.) call the office at once. Meaningful Use Info Meaningful Use Meaningful Use Diagnoses (Choose all that apply): None applicable Ischemic Stroke Statin Dosing Therapy Reference: STATIN DOSE THERAPY REFERENCE: * Patients > 75 years receive moderate or high dose statin therapy. * Patients 75 years or YOUNGER should receive HIGH intensity statin dose unless contraindicated. You will be required to document reason for non-treatment if statin daily dose does not meet guidelines. HIGH DOSE STATIN THERAPY DAILY Atorvastatin > than or = to 40 mg Rosuvastatin > than or = to 20 mg Amlodipine + Atorvastatin > than or = to 2.5/40 mg Ezetimibe + Simvastatin 10/80 mg Simvastatin 80mg Discharge Plan Admission Admit Date/Time: 05/20/24 06:56 Attending Provider: Gavin Mosley Primary Care Provider: Kevin Burns Consulting Providers: Angel Benitez Discharge Orders/Prescriptions Prescriptions: New acetaminophen 500 mg Tablet 1,000 mg PO TID 14 Days Qty: 84 0RF Rx Instructions: Do not take more than 3000 mg Tylenol in a 24-hour period. aspirin [Enteric Coated Aspirin] 81 mg tablet,delayed release (DR/EC) 81 mg PO BID 30 Days Qty: 60 0RF Rx Instructions: Take 81 mg aspirin twice daily for 4 weeks postoperatively for DVT prophylaxis. meloxicam 7.5 mg Tablet 7.5 mg PO BID 14 Days Qty: 28 0RF doxycycline monohydrate 100 mg Capsule 100 mg PO BID 12 Days Qty: 0 0RF Rx Instructions: Take for 2 weeks postoperatively ferrous sulfate [FeroSul] 325 mg (65 mg iron) Tablet 325 mg PO 1200,1700 14 Days Qty: 28 0RF folic acid 1 mg Tablet 1 mg PO BREAKFAST 14 Days Qty: 14 0RF oxycodone 5 mg Tablet 5 - 10 mg PO Q4H PRN PRN (Reason: as needed for pain) 7 Days Qty: 0 0RF sennosides-docusate sodium [Stimulant Laxative Plus] 8.6-50 mg Tablet 2 tab PO BID Qty: 0 0RF Rx Instructions: Only use senna as needed for constipation Continued calcium carbonate [Calcium 500] 500 mg calcium (1,250 mg) tablet 500 mg PO BID hydrocortisone 2.5 % cream 1 applic topical BID PRN (Reason: skin irritation) Qty: 30 3RF cholecalciferol (vitamin D3) 10 mcg (400 unit) capsule 10 mcg PO DAILY melatonin 10 mg Tablet 10 mg PO QHS PreserVision AREDS-2 250-90-40-1 mg Capsule 1 tab PO BID citalopram 40 mg tablet 40 mg PO QHS lansoprazole 30 mg capsule,delayed release(DR/EC) 30 mg PO DAILY Qty: 60 1RF (DME) blood pressure monitor Kit See Rx Instructions .ROUTE .MEDSUPPLY Qty: 1 0RF Rx Instructions: As directed atorvastatin 40 mg tablet 40 mg PO DAILY Qty: 90 3RF Held krill oil 500 mg capsule PO Hold Instructions: Resume on 06/03/24. Hold for 2 weeks postoperatively Discontinued indomethacin 50 mg capsule 50 mg PO BID Qty: 30 0RF Rx Instructions: administer with food or milk acetaminophen 500 mg capsule 1,000 mg PO BID meloxicam 7.5 mg tablet 7.5 mg PO BID Other Ambulatory Orders: 12 Lead EKG (Routine) Timeframe: [id number] Location: None Selected Ordered By: Dr. Gavin Mosley CBC-Complete Blood Cnt No Diff (Routine) Timeframe: 1 Week Facility: [facility] - Location: Laboratory Ordered By: Shalom HAWLEY Referrals / Follow Up: Kevin Burns MD [Primary Care Provider] - (follow up in 3-4 weeks with labs) Aleena Brumfield PA [Med Staff - Adv Practice Prof] - 06/03/24 3:15 pm Disposition Disposition (needs filled in before D/C Order can be placed): Inpatient Rehab Unit/Facility
--- NOTE | 2024-05-22 11:01 | CASEMGMT ---
Social Work Per physician, pt is ready for DC to [facility] inpatient rehab today. NABEEL spoke with Fouzia in [facility] and pt can be accepted. SW updated pt that [facility] has accepted and dc is planned for today. Pt is agreeable and states she will notify her family. RN updated. Disposition: Inpatient Rehab IGGY Renee
[2024-05-22] MEDS: oxyCODONE 5 MG Tablet PO (11:08)
== END 2024-05-22 11:16 ==
LOC: SDC 09:57 → MS3 09:57
PROVIDERS: Anesthesiology; Physician Assistant Surgical; Admitting Provider Specialist; PCP Internal Medicine; Referring Provider Specialist; Visit Provider Specialist
PROC: 0SRC0JZ Replacement of Right Knee Joint with Synthetic Substitute, Open Approach (ICD-10-PCS; CPT 27447; principal; 2024-05-20 07:00)
DX: M17.11 Unilateral primary osteoarthritis, right knee (principal); F41.9 Anxiety disorder, unspecified; K21.9 Gastro-esophageal reflux disease without esophagitis; I25.10 Atherosclerotic heart disease of native coronary artery without angina pectoris; E78.00 Pure hypercholesterolemia, unspecified; Z79.899 Other long term (current) drug therapy
CPT/HCPCS: 27447; S2900; 01402; 64447; 36415; 73560; 80048; 82040; 82962; 83735; 85025; 85027; 87077; 87081; 88305; 88311; 93005; 94668; 96365; 96366; 96375; 96376; 97116; 97162; 97166; 97530; 97535; 99221; 99252; C1776; J7120; A4216; G0378; G0463; J3475

== ENCOUNTER 2024-05-22 11:32 | Inpatient (IN) | payer MEDICARE, OTHER, SELFPAY ==
[2024-05-22 11:41] VITALS: BP 146/68; PULSE 69; RESP 15; TEMP 36.5; O2SAT 96; BMI 28.1
[2024-05-22] MEDS: Acetaminophen 500 MG Tablet 1000 MG PO ×2 (13:40→21:04)
[2024-05-22 13:48] VITALS: O2SAT 91
[2024-05-22] MEDS: oxyCODONE 5 MG Tablet PO ×2 (16:12→21:03)
[2024-05-22] MEDS: Ferrous Sulfate 325 MG Tablet PO (16:14)
--- NOTE | 2024-05-22 16:22 | HP.PCM_ITS ---
HPI - General General Date of Admission: 05/22/24 Date of Service: 05/22/24 Chief Complaint: Here for 3 hours daily rehabilitation. HPI Narrative JORDY TIJERINA, is a 84 Female who presents with followin05/20/2024 Admit [facility]. 05/20/2024 Dr. Mosley performed right total knee replacement. 05/20/2024 Medicine consulted. 05/21/2024 Sitting in bed, pain controlled with medications. Lives alone. Hemoglobin 9.8. Tylenol, Meloxicam, Oxycodone for pain. Aspirin 81mg twice daily x 4 weeks for dvt prophylaxis. PT/OT, consider SNF. Doxycycline 100mg twice daily x 2 weeks, nasal swab s. aureus. Bowel regimen. 05/21/2024, Constipated, on stool softeners. 05/22/2024 Admit to with debility, here for rehabilitation, strengthening, prior to discharge home alone. [facility] Medical History (Updated 05/22/24 @ 16:[address] Jesus Veloz MD) Preoperative evaluation to rule out surgical contraindication Headache Lightheadedness Localized swelling of chest wall Thrush Perineal pruritus in female Encounter for vitamin deficiency screening Flu vaccine need Foul smelling urine Wears dentures Post-menopausal High cholesterol Back pain Gastric reflux Non-smoker Sleep apnea Leg cramps History of stress test Coronary artery disease Pancreatic cyst Skin lesion of scalp Diarrhea Macular degeneration Osteopenia Carpal tunnel syndrome Breast lump Arthritis Hemorrhoids Acid reflux Constipation Hyperlipidemia Anxiety Home Medications ?Medication ?Instructions ?Recorded ?Last Taken ?Type calcium carbonate (Calcium 500) 500 mg PO BID supplement 07/07/20 05/22/24 History melatonin 10 mg tablet 10 mg PO QHS sleep 04/01/22 05/21/24 History vit C 250 mg-vit E 90 mg-zinc 40 1 tab PO BID supplement 04/01/22 05/19/24 History mg-copper 1 if-fmihel-vvoihk capsule (PreserVision AREDS-2) lansoprazole 30 mg capsule,delayed 30 mg PO DAILY Acid reflex #60 caps 12/28/22 05/22/24 Rx release hydrocortisone 2.5 % topical cream 1 applic topical BID PRN skin 07/19/23 Unknown Rx irritation #30 grams cholecalciferol (vitamin D3) 10 10 mcg PO DAILY supplement 11/09/23 05/22/24 History mcg (400 unit) capsule blood pressure monitor #1 ea 11/27/23 Unknown Rx atorvastatin 40 mg tablet 40 mg PO DAILY cholesterol #90 tabs 01/19/24 05/22/24 Rx citalopram 40 mg tablet 40 mg PO QHS MENTAL HEALTH 04/26/24 05/21/24 History krill oil 500 mg capsule 500 mg PO DAILY supplement 05/06/24 05/15/24 History acetaminophen 500 mg tablet 1,000 mg PO Q8 pain 05/22/24 05/22/24 History aspirin 81 mg tablet,delayed 81 mg PO BID DVT Prophalyaxis 05/22/24 05/22/24 History release (Enteric Coated Aspirin) doxycycline monohydrate 100 mg 100 mg PO BID ATB 05/22/24 05/22/24 History capsule ferrous sulfate 325 mg (65 mg 325 mg PO 1200,1700 supplement 14 05/22/24 05/21/24 Rx iron) tablet (FeroSul) days #28 tabs folic acid 1 mg tablet 1 mg PO DAILY supplement 05/22/24 05/22/24 History meloxicam 7.5 mg tablet 7.5 mg PO BID OA 14 days #28 tabs 05/22/24 05/22/24 Rx oxycodone 5 mg tablet 5 - 10 mg (1 - 2 x 5 mg) PO Q4H 05/22/24 05/22/24 11:10 Rx PRN PRN as needed for pain 7 days #0 tabs sennosides 8.6 mg-docusate sodium 2 tab PO BID bowel mobility #0 tabs 05/22/24 05/22/24 Rx 50 mg tablet (Stimulant Laxative Plus) Allergy/AdvReac Type Severity Reaction Status Date / Time No Known Allergies Allergy Verified 05/20/24 06:28 Family History Brother Colon cancer High cholesterol Hypertension Anxiety Arthritis Myocardial infarction Mother Colostomy care Hypertension High cholesterol Sister Lung cancer Anxiety Arthritis Breast cancer Depression Respiratory disease Colon cancer Sister Cancer lung Thyroid disorder Hypertension Surgical History (Updated 05/22/24 @ 16:[address] Jesus Veloz MD) History of total right knee replacement Hx of hysterectomy History of bladder suspension procedure S/P hysterectomy S/p bilateral carpal tunnel release S/P cataract extraction bilateral carpal tunnel surgery S/P bilateral foot surgery History of tubal ligation Social History (Updated 05/22/24 @ 16:[address] Jesus Veloz MD) household members: none Smoking Status: Never smoker alcohol intake: never substance use type: does not use caffeine: Yes what type of physical activity do you participate in: none seatbelt use: always do you feel safe at home: Yes additional social history: - solorzano ROS Constitutional Constitutional: Denies chills, fever(s) or weight gain ENT HEENT: Denies headache(s), nasal congestion or nasal discharge Cardiovascular Cardiovascular: Denies chest pain or palpitations Respiratory/Chest Respiratory/Chest: Denies cough, excessive phlegm production or shortness of breath with exertion Gastrointestinal Gastrointestinal: Denies abdominal pain, nausea or vomiting Genitourinary Genitourinary: Denies dysuria Musculoskeletal Musculoskeletal: Reports joint pain and other Details: right knee pain. ; Denies joint swelling Integumentary Integumentary: Denies rash or wounds Neurologic Neurologic: Denies focal weakness, numbness or tingling Psychiatric Psychiatric: Denies anxiety, auditory hallucinations, depression, homicidal ideation or suicidal ideation Vital Signs Vital Signs Vital Signs: 05/22/24 11:41 05/22/24 13:48 Temperature 97.7 F L Temperature Source Temporal Pulse Rate 69 Respiratory Rate 15 Blood Pressure 146/68 H Blood Pressure Mean 94 Blood Pressure Source Monitor Blood Pressure Position Semi-Fowlers Blood Pressure Location Left Arm Pulse Ox 96 91 Oxygen Delivery Method Room Air Room Air Weight Weight: 72 kg Body Mass Index (BMI) 28.1 Indicators for Scoring Admitted with or Primary Diagnosis of CVA/Stroke: No Hx of CVA/Stroke: No Physical Exam Const alert General Appearance: cooperative HEENT normocephalic Eyes PERRL and EOMs intact bilaterally Neck supple, no JVD and no carotid bruits Resp normal respiratory effort, normal air movement and clear to auscultation bilaterally Cardio regular rate and regular rhythm GI normal to inspection, nondistended, normoactive bowel sounds, non-tender and non-distended Extremity normal capillary refill General Extremity: Negative for edema Skin no rashes or lesions noted General Skin Exam: no breakdown Psych affect normal Appearance: appropriate Assessment & Plan Assessment/Plan (1) Debility: (2) Status post total right knee replacement: (3) Coronary artery disease: (4) Acid reflux: (5) Anxiety: (6) Hyperlipidemia: QUALIFIERS: Hyperlipidemia type: unspecified Qualified Code(s): E78.5 - Hyperlipidemia, unspecified PLAN: Plan 84 year old female with below past medical history hospitalized for right total knee replacement 05/20/[address] Mosley, admitted to TCU with debility, here for rehabilitation, strengthening, prior to discharge home alone. * Debility - PT/OT. * Pain - Tylenol 1000mg q8, Oxycodone 5 - 10mg q4 prn. * Bowel - senna/colace 2 tablets bid, Dulcolax 10mg pr x 1 prn, MOM 30ml po x 1 prn. * DVT prophylaxis - Aspirin 81mg bid thru 06/21/2024. * Hyperlipidemia - Atorvastatin 40mg qhs. * Calcium deficiency - Calcium 500mg bid. * Vitamin D deficiency - D3 25mcg daily. * Depression - Celexa 40mg qhs. * S. aureus nasal swab - Doxycycline 100mg bid thru . * Iron deficiency anemia - Ferrous sulfate 325mg bid. * Folate deficiency - Folic acid 1mg daily. * Rash - HC 2.5% topical bid prn. * Insomnia - Melatonin 10mg qhs. * Osteoarthritis - Meloxicam 7.5mg bid. * Macular degeneration - Healthy Eyes 1 capsule po bid. * GERD - Pantoprazole 40mg daily.
[2024-05-22 17:35] VITALS: BP 131/60; PULSE 69; RESP 15; TEMP 36.3; O2SAT 95
[2024-05-22] MEDS: Senna/Docusate Sodium 1 Tablet 2 TABLET PO (21:04)
[2024-05-22] MEDS: Multivitamin (Healthy Eyes) Capsule 1 CAP PO (21:04)
[2024-05-22] MEDS: Meloxicam 7.5 MG Tablet PO (21:05)
[2024-05-22] MEDS: Aspirin E.C. 81 MG Tablet PO (21:05)
[2024-05-22] MEDS: Citalopram 40 MG TABLET PO (21:05)
[2024-05-22] MEDS: Doxycycline 100 MG CAPSULE PO (21:05)
[2024-05-22] MEDS: MELATONIN 10 MG TABLET PO (21:06)
[2024-05-23 05:27] VITALS: BP 127/62; PULSE 72; RESP 16; TEMP 37.2; O2SAT 92
[2024-05-23] MEDS: oxyCODONE 5 MG Tablet PO ×4 (05:31→20:44)
[2024-05-23] MEDS: Acetaminophen 500 MG Tablet 1000 MG PO ×3 (05:31→20:39)
[2024-05-23 05:59] LABS: Absolute Lymphocyte Count 1.47 X10^3/uL (0.83-4.51); Basophil# 0.04 X10^3/uL; Basophil% 0.5 % (0-1); Eosinophils% 3.4 % (0-5); Hematocrit 31.1 % (37-47); Hemoglobin 9.9 g/dL (12.0-15.0); Lymphocyte # 1.47 X10^3/ul (0.83-4.51); Lymphocyte % 16.8 % (19-41); Mean Corp Hgb Conc 31.8 g/dL (32-36); Mean Corpuscular Hgb 29.1 pg (27.0-32.0); Mean Corpuscular Volume 91.5 fL (81-99); Mean Platelet Vol. 10.7 fl (6.2-12.0); Monocyte# 0.91 X10^3/uL; Monocyte% 10.4 % (0-10); NRBC Flagged by Analyzer 0 % (0-5); Neutrophil # 5.99 X10^3/uL (2.7-7.7); Neutrophil % 68.6 % (47-70); Platelet Count 189 K/mm3 (150-450); RBC Distribution Width CV 13.2 % (11.6-14.6); RBC Distribution Width SD 44.2 fl (35.1-43.9); White Blood Count 8.7 K/mm3 (4.4-11.0)
[2024-05-23 07:11] LABS: ALB/GLOB Ratio 0.8 RATIO (0.9-2.4); AST(SGOT) 12 U/L (15-37); Alanine Aminotransfer ALT/SGPT 20 U/L (13-56); Albumin, Serum 2.5 g/dL (3.2-5.0); Alkaline Phosphatase 53 U/L (45-117); Anion Gap 4 (5-15); BUN 18 mg/dL (7-18); BUN/Creat Ratio 24.7 RATIO (10-20); Calcium,Total 8.7 mg/dL (8.5-10.1); Chloride 106 mmol/L (98-107); Creatinine, Serum 0.73 mg/dL (0.55-1.02); EST Glomerular Filtration Rate 81 mL/min (>60); Est Glom Filt Rate - Afr Amer 98 mL/min (>60); Estimated Creatinine Clearance 50.38 ml/min; Globulin 3.3 g/dL (2.2-4.2); Glucose 111 mg/dL (74-106); Magnesium 1.8 mg/dL (1.6-2.6); Phosphorus 3.5 mg/dL (2.5-4.9); Potassium 4.2 mmol/L (3.5-5.1); Protein, Total 5.8 g/dL (6.4-8.2); Sodium Level 140 mmol/L (136-145)
[2024-05-23 07:22] VITALS: O2SAT 90
--- NOTE | 2024-05-23 07:50 | PN.REHAB_ITS ---
Subjective Subjective Patient seen, examined. She is sleepy, but no new complaints, pain controlled. Objective Data Objective Data Vital Signs: Vital Signs Temp Pulse Resp BP Pulse Ox O2 Del Method 99.0 F 72 16 127/62 H 90 Room Air 05/23/24 05:27 05/23/24 05:27 05/23/24 05:27 05/23/24 05:27 05/23/24 07:22 05/23/24 07:22 Oxygen Delivery Method Room Air Weight: 72 kg Body Mass Index (BMI) 28.1 Intake & Output: Intake and Output for Last 24 Hours 05/21/24 05/22/24 05/23/24 23:59 23:59 23:59 Intake Total 660 / 660 650 / 650 Output Total 400 / 400 800 / 800 Balance 260 / 260 -150 / -150 Lab / Micro Data 05/23/24 05:17 05/23/24 05:17 Labs: Laboratory Results - last 24 hr 05/23/24 05:17: WBC 8.7, RBC 3.40 L, Hgb 9.9 L, Hct 31.1 L, MCV 91.5, MCH 29.1, MCHC 31.8 L, RDW Std Deviation 44.2 H, RDW Coeff of David 13.2, Plt Count 189, MPV 10.7, Immature Gran % (Auto) 0.300, Neut % (Auto) 68.6, Lymph % (Auto) 16.8 L, M marcos % (Auto) 10.4 H, Eos % (Auto) 3.4, Baso % (Auto) 0.5, Absolute Neuts (auto) 6.0, Absolute Lymphs (auto) 1.47, Nucleated RBC % 0, Sodium 140, Potassium 4.2, Chloride 106, Carbon Dioxide 30.0, Anion Gap 4 L, BUN 18, Creatinine 0.73, Estim Creat Clear Calc 50.38, Est GFR (MDRD) Af Amer 98, Est GFR (MDRD) Non-Af 81, B UN/Creatinine Ratio 24.7 H, Glucose 111 H, Calcium 8.7, Phosphorus 3.5, Magnesium 1.8, Total Bilirubin 0.60, AST 12 L, ALT 20, Alkaline Phosphatase 53, Total Protein 5.8 L, Albumin 2.5 L, Globulin 3.3, Albumin/Globulin Ratio 0.8 L Indicators for Scoring Admitted with or Primary Diagnosis of CVA/Stroke: No Hx of CVA/Stroke: No Physical Exam Const alert General Appearance: cooperative HEENT normocephalic Eyes PERRL and EOMs intact bilaterally Neck supple, no JVD and no carotid bruits Resp normal respiratory effort, normal air movement and clear to auscultation bilaterally Cardio regular rate and regular rhythm GI normal to inspection, nondistended, normoactive bowel sounds, non-tender and non-distended Extremity normal capillary refill General Extremity: Negative for edema Skin no rashes or lesions noted General Skin Exam: no breakdown Psych affect normal Appearance: appropriate Assessment & Plan Assessment/Plan (1) Debility: (2) Status post total right knee replacement: (3) Coronary artery disease: (4) Acid reflux: (5) Anxiety: (6) Hyperlipidemia: QUALIFIERS: Hyperlipidemia type: unspecified Qualified Code(s): E 78.5 - Hyperlipidemia, unspecified PLAN: Plan 84 year old female with below past medical history hospitalized for right total knee replacement 05/20/[address] Mosley, admitted to TCU with debility, here for rehabilitation, strengthening, prior to discharge home alone. * Debility - PT/OT. * Pain - Tylenol 1000mg q8, Oxycodone 5 - 10mg q4 prn. * Bowel - senna/colace 2 tablets bid, Dulcolax 10mg pr x 1 prn, MOM 30ml po x 1 prn. * DVT prophylaxis - Aspirin 81mg bid thru 06/21/2024. * Hyperlipidemia - Atorvastatin 40mg qhs. * Calcium deficiency - Calcium 500mg bid. * Vitamin D deficiency - D3 25mcg daily. * Depression - Celexa 40mg qhs. * S. aureus nasal swab - Doxycycline 100mg bid thru . * Iron deficiency anemia - Ferrous sulfate 325mg bid. * Folate deficiency - Folic acid 1mg daily. * Rash - HC 2.5% topical bid prn. * Insomnia - Melatonin 10mg qhs. * Osteoarthritis - Meloxicam 7.5mg bid. * Macular degeneration - Healthy Eyes 1 capsule po bid. * GERD - Pantoprazole 40mg daily.
[2024-05-23] MEDS: Aspirin E.C. 81 MG Tablet PO ×2 (08:03→20:38)
[2024-05-23] MEDS: Calcium (Elemental) 500 MG Tablet PO ×2 (08:03→16:21)
[2024-05-23] MEDS: Doxycycline 100 MG CAPSULE PO ×2 (08:03→20:38)
[2024-05-23] MEDS: Senna/Docusate Sodium 1 Tablet 2 TABLET PO ×2 (08:03→20:37)
[2024-05-23] MEDS: Multivitamin (Healthy Eyes) Capsule 1 CAP PO ×2 (08:04→20:38)
[2024-05-23] MEDS: Meloxicam 7.5 MG Tablet PO ×2 (08:04→20:38)
[2024-05-23] MEDS: Ferrous Sulfate 325 MG Tablet PO ×2 (08:04→16:21)
[2024-05-23] MEDS: Pantoprazole Sodium 40 MG Tablet PO (08:04)
[2024-05-23] MEDS: Folic Acid 1 MG Tablet PO (08:04)
[2024-05-23] MEDS: Cholecalciferol (VIT D3) 25 MCG TABLET (1,000 UNITS) PO (08:05)
--- NOTE | 2024-05-23 15:48 | CHAPLAIN ---
Type of Pastoral Visit _x__ Initial Visit ___ Follow-up Visit ___ On-call Visit ___ General Patient Visit ___ Spiritual Assessment ___ Family Conference ___ Bereavement ___ Rapid Response ___ Code Blue ___ Other (describe below) Pastoral Care Referral From _x__ Patient ___ Family ___ Nurse ___ Physician ___ Fish Bin Tender ___ Weight Caller ___ Other (describe below) Sacrament/Intervention _x__ Active listening ___ Anointing ___ Gnosticism ___ Bereavement ___ Communion _x__ Rossana exploration ___ _x__ Life review _x__ Prayer ___ Reconciliation ___ Sacrament of Sick _x__ Supportive presence ___ Wedding ___ Other (describe below) Pastoral Comments patient is welcoming and describes her health situation and rehab needs; pt has gift items in the room and states that they come from her scientologist family; pt has long relationship with her local scientologist and is thankful for that support; pt speaks of this being her first incident of its kind and how she needs better pain management and recovery before going home; pt speaks of being during COVID and how hard that time was for her; pt is given time to express her grief and frustration from that time and to affirm her feelings and hopes for the future; pt has a strong rossana as did her who helped her prepare for the hope of eternal life with his passing; pt welcomes presence and prayer for support today; pt has some tears
--- NOTE | 2024-05-23 17:02 | CASEMGMT ---
Social Work SW requested pt provide copies of advanced directives. Charito Carrasco OFFAL BALER BEAM DYER OPERATOR
[2024-05-23 17:23] VITALS: BP 104/44; PULSE 66; RESP 17; TEMP 37.1; O2SAT 17
[2024-05-23 20:20] VITALS: PULSE 66; RESP 17; O2SAT 93
[2024-05-23] MEDS: MELATONIN 10 MG TABLET PO (20:38)
[2024-05-23] MEDS: Atorvastatin Calcium 40 MG Tablet PO (20:39)
[2024-05-23] MEDS: Citalopram 40 MG TABLET PO (20:40)
[2024-05-24 06:00] VITALS: BP 145/76; PULSE 77; RESP 16; TEMP 36.7; O2SAT 94
[2024-05-24] MEDS: Acetaminophen 500 MG Tablet 1000 MG PO ×3 (06:24→21:29)
[2024-05-24] MEDS: Doxycycline 100 MG CAPSULE PO ×2 (08:12→21:29)
[2024-05-24] MEDS: Aspirin E.C. 81 MG Tablet PO ×2 (08:12→21:30)
[2024-05-24] MEDS: Meloxicam 7.5 MG Tablet PO ×2 (08:12→21:29)
[2024-05-24] MEDS: Folic Acid 1 MG Tablet PO (08:12)
[2024-05-24] MEDS: Senna/Docusate Sodium 1 Tablet 2 TABLET PO ×2 (08:12→21:29)
[2024-05-24] MEDS: Pantoprazole Sodium 40 MG Tablet PO (08:12)
[2024-05-24] MEDS: Cholecalciferol (VIT D3) 25 MCG TABLET (1,000 UNITS) PO (08:12)
[2024-05-24] MEDS: Calcium (Elemental) 500 MG Tablet PO ×2 (08:13→17:25)
[2024-05-24] MEDS: Multivitamin (Healthy Eyes) Capsule 1 CAP PO ×2 (08:13→21:29)
--- NOTE | 2024-05-24 08:21 | PN.REHAB_ITS ---
Subjective Subjective Patient seen, examined. Sleepy, but easily awakened. Pain controlled, noticed albumin low, encouraged her to eat everything on her tray. Objective Data Objective Data Vital Signs: Vital Signs Temp Pulse Resp BP Pulse Ox O2 Del Method 98.1 F 77 16 145/76 H 94 Room Air 05/24/24 06:00 05/24/24 06:00 05/24/24 06:00 05/24/24 06:00 05/24/24 06:00 05/24/24 06:00 Oxygen Delivery Method Room Air Weight: 72 kg Body Mass Index (BMI) 28.1 Intake & Output: Intake and Output for Last 24 Hours 05/22/24 05/23/24 05/24/24 23:59 23:59 23:59 Intake Total 660 / 660 2410 / 2410 690 / 690 Output Total 400 / 400 1999 / 1999 400 / 400 Balance 260 / 260 410 / 410 290 / 290 Lab / Micro Data 05/23/24 05:17 05/23/24 05:17 Indicators for Scoring Admitted with or Primary Diagnosis of CVA/Stroke: No Hx of CVA/Stroke: No Physical Exam Const alert General Appearance: cooperative HEENT normocephalic Eyes PERRL and EOMs intact bilaterally Neck supple, no JVD and no carotid bruits Resp normal respiratory effort, normal air movement and clear to auscultation bilaterally Cardio regular rate and regular rhythm GI normal to inspection, nondistended, normoactive bowel sounds, non-tender and non-distended Extremity normal capillary refill General Extremity: Negative for edema Skin no rashes or lesions noted General Skin Exam: no breakdown Psych affect normal Appearance: appropriate Assessment & Plan Assessment/Plan (1) Debility: (2) Status post total right knee replacement: (3) Coronary artery disease: (4) Acid reflux: (5) Anxiety: (6) Hyperlipidemia: QUALIFIERS: Hyperlipidemia type: unspecified Qualified Code(s): E 78.5 - Hyperlipidemia, unspecified PLAN: Plan 84 year old female with below past medical history hospitalized for right total knee replacement 05/20/[address] Mosley, admitted to TCU with debility, here for rehabilitation, strengthening, prior to discharge home alone. * Debility - PT/OT. * Pain - Tylenol 1000mg q8, Oxycodone 5 - 10mg q4 prn. * Bowel - senna/colace 2 tablets bid, Dulcolax 10mg pr x 1 prn, MOM 30ml po x 1 prn. * DVT prophylaxis - Aspirin 81mg bid thru 06/21/2024. * Hyperlipidemia - Atorvastatin 40mg qhs. * Calcium deficiency - Calcium 500mg bid. * Vitamin D deficiency - D3 25mcg daily. * Depression - Celexa 40mg qhs. * S. aureus nasal swab - Doxycycline 100mg bid thru . * Iron deficiency anemia - Ferrous sulfate 325mg bid. * Folate deficiency - Folic acid 1mg daily. * Rash - HC 2.5% topical bid prn. * Insomnia - Melatonin 10mg qhs. * Osteoarthritis - Meloxicam 7.5mg bid. * Macular degeneration - Healthy Eyes 1 capsule po bid. * GERD - Pantoprazole 40mg daily.
[2024-05-24] MEDS: Ferrous Sulfate 325 MG Tablet PO ×2 (13:09→17:25)
[2024-05-24 17:06] VITALS: BP 120/56; PULSE 66; RESP 16; TEMP 37.3; O2SAT 95
[2024-05-24] MEDS: oxyCODONE 5 MG Tablet PO ×2 (17:48→21:30)
[2024-05-24 21:25] VITALS: PULSE 66; RESP 16; O2SAT 95
[2024-05-24] MEDS: Citalopram 40 MG TABLET PO (21:29)
[2024-05-24] MEDS: Atorvastatin Calcium 40 MG Tablet PO (21:29)
[2024-05-24] MEDS: MELATONIN 10 MG TABLET PO (21:29)
--- NOTE | 2024-05-25 03:19 | NURSING ---
Reviewed and agree with Batsheva BENNETT, documentation and assessment charting.
[2024-05-25 06:00] VITALS: BP 157/70; PULSE 70; RESP 18; TEMP 36.8; O2SAT 18
[2024-05-25] MEDS: Acetaminophen 500 MG Tablet 1000 MG PO ×3 (06:17→21:23)
[2024-05-25 07:02] VITALS: O2SAT 91
[2024-05-25 07:48] VITALS: BP 139/62; PULSE 70; RESP 18; TEMP 36.8; O2SAT 93
[2024-05-25] MEDS: Calcium (Elemental) 500 MG Tablet PO ×2 (08:03→17:27)
[2024-05-25] MEDS: Doxycycline 100 MG CAPSULE PO ×2 (09:55→21:22)
[2024-05-25] MEDS: Multivitamin (Healthy Eyes) Capsule 1 CAP PO ×2 (09:55→21:22)
[2024-05-25] MEDS: Folic Acid 1 MG Tablet PO (09:55)
[2024-05-25] MEDS: Aspirin E.C. 81 MG Tablet PO ×2 (09:56→21:22)
[2024-05-25] MEDS: Meloxicam 7.5 MG Tablet PO ×2 (09:56→21:23)
[2024-05-25] MEDS: Pantoprazole Sodium 40 MG Tablet PO (09:57)
[2024-05-25] MEDS: Cholecalciferol (VIT D3) 25 MCG TABLET (1,000 UNITS) PO (09:57)
[2024-05-25] MEDS: Senna/Docusate Sodium 1 Tablet 2 TABLET PO ×2 (09:59→21:24)
[2024-05-25] MEDS: Ferrous Sulfate 325 MG Tablet PO ×2 (13:03→17:27)
[2024-05-25] MEDS: oxyCODONE 5 MG Tablet PO ×2 (17:35→21:27)
[2024-05-25 18:00] VITALS: BP 145/74; PULSE 74; RESP 16; TEMP 37.1; O2SAT 96
[2024-05-25] MEDS: Citalopram 40 MG TABLET PO (21:22)
[2024-05-25] MEDS: MELATONIN 10 MG TABLET PO (21:23)
[2024-05-25] MEDS: Atorvastatin Calcium 40 MG Tablet PO (21:23)
[2024-05-26] MEDS: Acetaminophen 500 MG Tablet 1000 MG PO ×3 (05:10→20:38)
[2024-05-26] MEDS: oxyCODONE 5 MG Tablet PO ×2 (05:10→20:39)
[2024-05-26 05:17] VITALS: BP 143/58; PULSE 67; RESP 16; TEMP 36.4; O2SAT 94
[2024-05-26] MEDS: Doxycycline 100 MG CAPSULE PO ×2 (07:56→20:35)
[2024-05-26] MEDS: Calcium (Elemental) 500 MG Tablet PO ×2 (07:56→17:33)
[2024-05-26] MEDS: Meloxicam 7.5 MG Tablet PO ×2 (07:56→20:37)
[2024-05-26] MEDS: Aspirin E.C. 81 MG Tablet PO ×2 (07:57→20:36)
[2024-05-26] MEDS: Senna/Docusate Sodium 1 Tablet 2 TABLET PO ×2 (07:57→20:41)
[2024-05-26] MEDS: Folic Acid 1 MG Tablet PO (07:57)
[2024-05-26] MEDS: Multivitamin (Healthy Eyes) Capsule 1 CAP PO ×2 (07:57→20:36)
[2024-05-26] MEDS: Pantoprazole Sodium 40 MG Tablet PO (07:57)
[2024-05-26] MEDS: Cholecalciferol (VIT D3) 25 MCG TABLET (1,000 UNITS) PO (07:57)
[2024-05-26] MEDS: Ferrous Sulfate 325 MG Tablet PO ×2 (12:25→17:33)
[2024-05-26 18:00] VITALS: BP 135/69; PULSE 73; RESP 16; TEMP 36.9; O2SAT 94
[2024-05-26] MEDS: Citalopram 40 MG TABLET PO (20:35)
[2024-05-26] MEDS: MELATONIN 10 MG TABLET PO (20:36)
[2024-05-26] MEDS: Atorvastatin Calcium 40 MG Tablet PO (20:36)
[2024-05-27] MEDS: Acetaminophen 500 MG Tablet 1000 MG PO ×3 (05:13→21:18)
[2024-05-27 05:21] VITALS: BP 135/64; PULSE 74; RESP 18; TEMP 36.8; O2SAT 96
[2024-05-27] MEDS: Calcium (Elemental) 500 MG Tablet PO ×2 (07:57→17:10)
[2024-05-27] MEDS: Aspirin E.C. 81 MG Tablet PO ×2 (07:57→21:21)
[2024-05-27] MEDS: Meloxicam 7.5 MG Tablet PO ×2 (07:57→21:19)
[2024-05-27] MEDS: Doxycycline 100 MG CAPSULE PO ×2 (07:57→21:21)
[2024-05-27] MEDS: Multivitamin (Healthy Eyes) Capsule 1 CAP PO ×2 (07:57→21:21)
[2024-05-27] MEDS: Pantoprazole Sodium 40 MG Tablet PO (07:57)
[2024-05-27] MEDS: Senna/Docusate Sodium 1 Tablet 2 TABLET PO ×2 (07:57→21:22)
[2024-05-27] MEDS: Folic Acid 1 MG Tablet PO (07:57)
[2024-05-27] MEDS: Cholecalciferol (VIT D3) 25 MCG TABLET (1,000 UNITS) PO (07:57)
--- NOTE | 2024-05-27 08:36 | CASEMGMT ---
Social Work IDT met with patient and dtr via conference call for Team meeting. Discussed patient's progress in PT/OT/SN. Educated to Medicare approval of 11 days with [facility] 06/02. Pt has own FWW. IDT recommending OP PT. Provided verbal list of options. Pt prefers [facility]. Pt requesting to DC home 05/29. IDT agreeable. Son can transport. SW faxed referral to [facility] for PT. Plan: DC home alone 05/29, [facility] Charito Carrasco, HOUSEKEEPING ASSOCIATE DISABILITY CASE MANAGER
[2024-05-27] MEDS: oxyCODONE 5 MG Tablet PO ×3 (10:37→21:24)
[2024-05-27] MEDS: Ferrous Sulfate 325 MG Tablet PO ×2 (12:59→17:10)
[2024-05-27 18:00] VITALS: BP 138/62; PULSE 71; RESP 18; TEMP 37; O2SAT 96
--- NOTE | 2024-05-27 20:34 | PN.REHAB_ITS ---
Subjective Subjective Patient seen, examined on Team rounds. Her son was on speaker phone. She is ambulating well with therapy, she has no new problems, concerns, issues, complaints. Objective Data Objective Data Vital Signs: Vital Signs Temp Pulse Resp BP Pulse Ox O2 Del Method 98.6 F 71 18 138/62 H 96 Room Air 05/27/24 18:00 05/27/24 18:00 05/27/24 18:00 05/27/24 18:00 05/27/24 18:00 05/27/24 18:00 Oxygen Delivery Method Room Air Weight: 72 kg Body Mass Index (BMI) 28.1 Intake & Output: Intake and Output for Last 24 Hours 05/25/24 05/26/24 05/27/24 23:59 23:59 23:59 Intake Total 1500 / 1500 1450 / 1450 1440 / 1440 Output Total 400 / 400 2500 / 2500 1600 / 1600 Balance 1100 / 1100 -1050 / -1050 -160 / -160 Lab / Micro Data 05/23/24 05:17 05/23/24 05:17 Indicators for Scoring Admitted with or Primary Diagnosis of CVA/Stroke: No Hx of CVA/Stroke: No Physical Exam Const alert General Appearance: cooperative HEENT normocephalic Eyes PERRL and EOMs intact bilaterally Neck supple, no JVD and no carotid bruits Resp normal respiratory effort, normal air movement and clear to auscultation bilaterally Cardio regular rate and regular rhythm GI normal to inspection, nondistended, normoactive bowel sounds, non-tender and non-distended Extremity normal capillary refill General Extremity: Negative for edema Skin no rashes or lesions noted General Skin Exam: no breakdown Psych affect normal Appearance: appropriate Assessment & Plan Assessment/Plan (1) Debility: (2) Status post total right knee replacement: (3) Coronary artery disease: (4) Acid reflux: (5) Anxiety: (6) Hyperlipidemia: QUALIFIERS: Hyperlipidemia type: unspecified Qualified Code(s): E 78.5 - Hyperlipidemia, unspecified PLAN: Plan 84 year old female with below past medical history hospitalized for right total knee replacement 05/20/[address] Mosley, admitted to TCU with debility, here for rehabilitation, strengthening, prior to discharge home alone. * Debility - PT/OT. * Pain - Tylenol 1000mg q8, Oxycodone 5 - 10mg q4 prn. * Bowel - senna/colace 2 tablets bid, Dulcolax 10mg pr x 1 prn, MOM 30ml po x 1 prn. * DVT prophylaxis - Aspirin 81mg bid thru 06/21/2024. * Hyperlipidemia - Atorvastatin 40mg qhs. * Calcium deficiency - Calcium 500mg bid. * Vitamin D deficiency - D3 25mcg daily. * Depression - Celexa 40mg qhs. * S. aureus nasal swab - Doxycycline 100mg bid thru 06/05/2024. * Iron deficiency anemia - Ferrous sulfate 325mg bid. * Folate deficiency - Folic acid 1mg daily. * Rash - HC 2.5% topical bid prn. * Insomnia - Melatonin 10mg qhs. * Osteoarthritis - Meloxicam 7.5mg bid. * Macular degeneration - Healthy Eyes 1 capsule po bid. * GERD - Pantoprazole 40mg daily.
[2024-05-27] MEDS: MELATONIN 10 MG TABLET PO (21:20)
[2024-05-27] MEDS: Atorvastatin Calcium 40 MG Tablet PO (21:20)
[2024-05-27] MEDS: Citalopram 40 MG TABLET PO (21:21)
[2024-05-27 22:00] VITALS: RESP 16
[2024-05-28] MEDS: Acetaminophen 500 MG Tablet 1000 MG PO ×3 (06:09→21:17)
[2024-05-28] MEDS: oxyCODONE 5 MG Tablet PO ×3 (06:28→21:28)
[2024-05-28 06:37] VITALS: BP 136/73; PULSE 73; RESP 16; TEMP 36.4; O2SAT 92
--- NOTE | 2024-05-28 08:11 | DS.PCM_ITS ---
Providers Date of Admission: 05/22/24 Primary Care Physician: Dr. Kevin Burns MD Reason For Visit: TOTAL RIGHT KNEE REPLACEMENT Diagnosis Discharge Diagnosis (1) Debility: Status: Acute Code(s): R53.81 - Other malaise (2) Status post total right knee replacement: Status: Acute Code(s): Z96.651 - Presence of right artificial knee joint (3) Coronary artery disease: Status: Acute Code(s): I25.10 - Atherosclerotic heart disease of [place] coronary artery without angina pectoris (4) Acid reflux: Status: Acute Code(s): K21.9 - Gastro-esophageal reflux disease without esophagitis (5) Anxiety: Status: Chronic Code(s): F41.9 - Anxiety disorder, unspecified (6) Hyperlipidemia: Status: Chronic Code(s): E78.5 - Hyperlipidemia, unspecified Qualifiers: Hyperlipidemia type: unspecified Qualified Code(s): E78.5 - Hyperlipidemia, unspecified Plan 84 year old female with below past medical history hospitalized for right total knee replacement 05/20/[address] Mosley, admitted to TCU with debility, here for rehabilitation, strengthening, prior to discharge home alone. * Debility - PT/OT. * Pain - Tylenol 1000mg q8, Oxycodone 5 - 10mg q4 prn. * Bowel - senna/colace 2 tablets bid, Dulcolax 10mg pr x 1 prn, MOM 30ml po x 1 prn. * DVT prophylaxis - Aspirin 81mg bid thru 06/21/2024. * Hyperlipidemia - Atorvastatin 40mg qhs. * Calcium deficiency - Calcium 500mg bid. * Vitamin D deficiency - D3 25mcg daily. * Depression - Celexa 40mg qhs. * S. aureus nasal swab - Doxycycline 100mg bid thru 06/05/2024. * Iron deficiency anemia - Ferrous sulfate 325mg bid. * Folate deficiency - Folic acid 1mg daily. * Rash - HC 2.5% topical bid prn. * Insomnia - Melatonin 10mg qhs. * Osteoarthritis - Meloxicam 7.5mg bid. * Macular degeneration - Healthy Eyes 1 capsule po bid. * GERD - Pantoprazole 40mg daily. Medications at Discharge Home Medications calcium carbonate (Calcium 500) 500 mg PO BID supplement 11/17/20 melatonin 10 mg tablet 10 mg PO QHS sleep 04/01/22 vit C 250 mg-vit E 90 mg-zinc 40 mg-copper 1 [id number] capsule (PreserVision AREDS-2) 1 tab PO BID supplement 04/01/22 lansoprazole 30 mg capsule,delayed release 30 mg PO DAILY Acid reflex #60 caps 12/28/22 cholecalciferol (vitamin D3) 10 mcg (400 unit) capsule 10 mcg PO DAILY supplement 11/09/23 blood pressure monitor #1 ea 11/27/23 atorvastatin 40 mg tablet 40 mg PO DAILY cholesterol #90 tabs 01/19/24 citalopram 40 mg tablet 40 mg PO QHS MENTAL HEALTH 04/26/24 krill oil 500 mg capsule 500 mg PO DAILY supplement 05/06/24 acetaminophen 500 mg tablet 1,000 mg PO Q8 pain 05/22/24 ferrous sulfate 325 mg (65 mg iron) tablet (FeroSul) 325 mg PO 1200,1700 supplement 14 days #28 tabs 05/22/24 folic acid 1 mg tablet 1 mg PO DAILY supplement 05/22/24 meloxicam 7.5 mg tablet 7.5 mg PO BID OA 14 days #28 tabs 05/22/24 aspirin 81 mg tablet,delayed release 81 mg PO BID 23 days #0 tabs 05/28/24 doxycycline monohydrate 100 mg capsule 100 mg PO BID 7 days #14 caps 05/28/24 oxycodone 5 mg tablet 5 - 10 mg (1 - 2 x 5 mg) PO Q4H PRN PRN PAIN 1-10 7 days #84 tabs 05/28/24 sennosides 8.6 mg-docusate sodium 50 mg tablet (Stimulant Laxative Plus) 2 tab PO BID 30 days #120 tabs 05/28/24 Hospital Course Operations total knee replacement (Right.) Procedures None Summary of Care Provided Minutes Spent on Discharge: 35 Hospital Course: 84 year old female with below past medical history hospitalized for right total knee replacement 05/20/[address] Mosley, admitted to TCU with debility, here for rehabilitation, strengthening, prior to discharge home alone. Discharge home alone 05/29/2024, [facility] PT. Physical Exam Const alert General Appearance: cooperative HEENT normocephalic Eyes PERRL and EOMs intact bilaterally Neck supple, no JVD and no carotid bruits Resp normal respiratory effort, normal air movement and clear to auscultation bilaterally Cardio regular rate and regular rhythm GI normal to inspection, nondistended, normoactive bowel sounds, non-tender and non-distended Extremity normal capillary refill General Extremity: Negative for edema Skin no rashes or lesions noted General Skin Exam: no breakdown Psych affect normal Appearance: appropriate Weight / BMI Weight Weight: 72 kg Body Mass Index (BMI) 28.1 ABG / Lab / Microbiology Data 05/23/24 05:17 05/23/24 05:17 Indicators for Scoring Admitted with or Primary Diagnosis of CVA/Stroke: No Hx of CVA/Stroke: No D/C Instructions Discharge Diet: No restrictions Discharge Activity: Return to Normal Activity, May Shower and Use Walker Weight Bearing Status: Weight bearing as tolerated Call your doctor if you observe: Fever of 101 or Higher, Inability to urinate, Inability to have a bowel movement, Shortness of breath, Dizziness, Fainting spells, Swelling in the ankles, Chest pain and Uncontrolled pain Additional Instructions: Discharge home alone 05/29/2024, [facility] PT. Meaningful Use Info Meaningful Use Meaningful Use Diagnoses (Choose all that apply): None applicable Ischemic Stroke Statin Dosing Therapy Reference: STATIN DOSE THERAPY REFERENCE: * Patients > 75 years receive moderate or high dose statin therapy. * Patients 75 years or YOUNGER should receive HIGH intensity statin dose unless contraindicated. You will be required to document reason for non-treatment if statin daily dose does not meet guidelines. HIGH DOSE STATIN THERAPY DAILY Atorvastatin > than or = to 40 mg Rosuvastatin > than or = to 20 mg Amlodipine + Atorvastatin > than or = to 2.5/40 mg Ezetimibe + Simvastatin 10/80 mg Simvastatin 80mg Discharge Plan Admission Admit Date/Time: 05/22/24 11:32 Primary Reason for Your Visit: Debility. Attending Provider: Jesus Veloz Chi Primary Care Provider: Kevin Burns Instructions Additional Instructions / Restrictions: Discharge home alone 05/29/2024, [facility] PT. Discharge Orders/Prescriptions Prescriptions: New sennosides-docusate sodium [Stimulant Laxative Plus] 8.6-50 mg Tablet 2 tab PO BID 30 Days Qty: 120 0RF aspirin 81 mg Tablet,Delayed Release (Dr/Ec) 81 mg PO BID 23 Days Qty: 0 0RF doxycycline monohydrate 100 mg Capsule 100 mg PO BID 7 Days Qty: 14 0RF oxycodone 5 mg Tablet 5 - 10 mg PO Q4H PRN PRN (Reason: PAIN 1-10) 7 Days Qty: 84 0RF Continued calcium carbonate [Calcium 500] 500 mg calcium (1,250 mg) tablet 500 mg PO BID cholecalciferol (vitamin D3) 10 mcg (400 unit) capsule 10 mcg PO DAILY krill oil 500 mg capsule 500 mg PO DAILY melatonin 10 mg Tablet 10 mg PO QHS PreserVision AREDS-2 250-90-40-1 mg Capsule 1 tab PO BID citalopram 40 mg tablet 40 mg PO QHS meloxicam 7.5 mg Tablet 7.5 mg PO BID 14 Days Qty: 28 0RF ferrous sulfate [FeroSul] 325 mg (65 mg iron) Tablet 325 mg PO 1200,1700 14 Days Qty: 28 0RF acetaminophen 500 mg Tablet 1,000 mg PO Q8 folic acid 1 mg Tablet 1 mg PO DAILY lansoprazole 30 mg capsule,delayed release(DR/EC) 30 mg PO DAILY Qty: 60 1RF atorvastatin 40 mg tablet 40 mg PO DAILY Qty: 90 3RF Discontinued hydrocortisone 2.5 % cream 1 applic topical BID PRN (Reason: skin irritation) Qty: 30 3RF oxycodone 5 mg Tablet 5 - 10 mg PO Q4H PRN PRN (Reason: as needed for pain) 7 Days Qty: 0 0RF sennosides-docusate sodium [Stimulant Laxative Plus] 8.6-50 mg Tablet 2 tab PO BID Qty: 0 0RF Rx Instructions: Only use senna as needed for constipation aspirin [Enteric Coated Aspirin] 81 mg tablet,delayed release (DR/EC) 81 mg PO BID doxycycline monohydrate 100 mg Capsule 100 mg PO BID No Action (DME) blood pressure monitor Kit See Rx Instructions .ROUTE .MEDSUPPLY Qty: 1 0RF Rx Instructions: As directed Referrals / Follow Up: Kevin Burns MD [Primary Care Provider] - 06/06/24 2:00 pm (WITH DANIEL VILLALBA) Gavin Mosley MD [Med Staff - Active Staff] - 06/03/24 3:15 pm (WITH MICAELA CERDA NP) Disposition Disposition (needs filled in before D/C Order can be placed): Home, Self Care
[2024-05-28] MEDS: Calcium (Elemental) 500 MG Tablet PO ×2 (08:18→16:21)
[2024-05-28] MEDS: Doxycycline 100 MG CAPSULE PO ×2 (08:21→21:17)
[2024-05-28] MEDS: Meloxicam 7.5 MG Tablet PO ×2 (08:21→21:18)
[2024-05-28] MEDS: Aspirin E.C. 81 MG Tablet PO ×2 (08:21→21:18)
[2024-05-28] MEDS: Multivitamin (Healthy Eyes) Capsule 1 CAP PO ×2 (08:21→21:18)
[2024-05-28] MEDS: Folic Acid 1 MG Tablet PO (08:21)
[2024-05-28] MEDS: Pantoprazole Sodium 40 MG Tablet PO (08:21)
[2024-05-28] MEDS: Senna/Docusate Sodium 1 Tablet 2 TABLET PO ×2 (08:22→21:18)
[2024-05-28] MEDS: Cholecalciferol (VIT D3) 25 MCG TABLET (1,000 UNITS) PO (08:22)
[2024-05-28] MEDS: Ferrous Sulfate 325 MG Tablet PO ×2 (13:06→16:21)
[2024-05-28 18:00] VITALS: BP 132/65; PULSE 71; RESP 16; TEMP 37.2; O2SAT 93
[2024-05-28] MEDS: Atorvastatin Calcium 40 MG Tablet PO (21:20)
[2024-05-28] MEDS: MELATONIN 10 MG TABLET PO (21:20)
[2024-05-28] MEDS: Citalopram 40 MG TABLET PO (21:21)
[2024-05-29] MEDS: Acetaminophen 500 MG Tablet 1000 MG PO (05:29)
[2024-05-29 05:31] VITALS: BP 148/62; PULSE 65; RESP 17; TEMP 36.4; O2SAT 95
[2024-05-29 05:32] VITALS: BMI 27.8
--- NOTE | 2024-05-29 07:38 | REHABEVAL_ITS ---
Admission Information Primary Diagnosis:: Right total knee replacement. Status Changes from Prescreening?: No changes Identified Actual Problem List:: Pain, ALteration in Cmfrt, Alteration in Sleep, Mobility Impaired, Ineffective Communication, Know.Dfct/Disease Process and Alteration- Leisure Activ. Potential Problem List:: DVT, Bleeding, Infection, UTI, Aspiration, Falls, Skin Integrity and Depression Risk of Complications DVT: STEVEN Hose Bleeding: Monitor Lab Values, Nursing to Teach Precautions for anti-coagulation therapy., Wound, if applicable, to be assessed every shift. and Stroke patients assessed for lethargy or change in status. Infection: Clinical Staff to Monitor for S/S of infection: and S/S of infection include fever, redness, warmth, etc. Urinary Tract Infection: Monitor for frequency, burning, discomfort, or incontinence. and Nursing will obtain urine sample for urinalysis and C&S when ordered. Aspiration: Clinical staff will monitor for coughing, drooling, congestion., Speech will evaluate swallowing and dsyphasia. and Nursing will monitor patient swallowing during meals. Falls: Patient will be evaluated for Fall Precautions and Patient will be placed on Fall Precautions as indicated per protocol. Skin Breakdown: Nursing will assess skin daily using assessment tool. and Nursing will place on Skin Breakdown Precautions as indicated. Pain: Clinical staff will assess patient's pain level per protocol., Medications will be given, if needed, and the pain level reassessed. and Other methods: Massage, distraction, decrease stimulus, etc. used PRN. Plan of Care Patient requires physician specializing in physical medicine and rehab oversight to provide close medical supervision of rehab issues including: Pain Management, Sleep Problems, Bowel and Bladder, Medical and co-morbidity Management, DVT prophylaxis, Rehabilitation Leadership and Coordination of treatment team Patient needs Physical Therapy: At least 5 out of 7 days and For a minimum of 1. 5 hrs Patient needs Physical Therapy to improve:: Mobility, Strengthening, Transfers, Stretching, ROM, Endurance, Stairs, Gait and Balance Patient needs Occupational Therapy: At least 5 out of 7 days and For a minimum of 1.5 hrs Patient needs Occupational Therapy to improve ADL's incl.: Eating, Grooming, Bathing, Dressing, Toileting, Toilet transfers, Community Reintegration, Higher functioning activities, Household tasks, Adaptive Equipment, Splinting and Other activities as determined Patient requires 24/7 Rehabilitation Nursing for: Pain Issues, Identifying and preventing risk factors, Monitoring and reporting current medical conditions, Assisting with ambulation, transfer, and all ADL's, Teaching patients about disease process and medications, Family teaching, Providing safe environment, Bowel and Bladder Issues, Skin integrity and Medication Management Patient needs Sheet Metal Shop Supervisor/ Case Management for: Discharge Planning and Arranging Home Equipment or Services Patient needs Dietary and Nutrition Services for: Adequate Nutrition, Nutr itional Supplements and Nutritional Education Goals Goals Patient will remain: free from falls and or injury at time of discharge. Patient will ambulate: with MOD I assist Patient will complete upper body dressing at: MOD I level of assist. Patient will complete lower body dressing at: MOD I level of assist. Patient will complete toilet transfer at: - (Sup.) Patient will complete toileting at: - (Sup.) Patient will perform bathing at: MOD I level of assist. Patient will perform Tub/Shower transfer at: - (Sup.) Patient will complete grooming at: MOD I level of assist. Discharge Planning Pt Prognosis for Sig. Practical Improv. w/in Reasonable Time: Good Estimated Length of stay (days): 7 Anticipated D/C Destination: Home with Outpt Therapy Was Preadmission Assessment Accurate?: Yes
[2024-05-29] MEDS: Pantoprazole Sodium 40 MG Tablet PO (08:30)
[2024-05-29] MEDS: Aspirin E.C. 81 MG Tablet PO (08:30)
[2024-05-29] MEDS: oxyCODONE 5 MG Tablet PO (08:30)
[2024-05-29] MEDS: Multivitamin (Healthy Eyes) Capsule 1 CAP PO (08:30)
[2024-05-29] MEDS: Folic Acid 1 MG Tablet PO (08:30)
[2024-05-29] MEDS: Cholecalciferol (VIT D3) 25 MCG TABLET (1,000 UNITS) PO (08:30)
[2024-05-29] MEDS: Doxycycline 100 MG CAPSULE PO (08:31)
[2024-05-29] MEDS: Calcium (Elemental) 500 MG Tablet PO (08:31)
[2024-05-29] MEDS: Meloxicam 7.5 MG Tablet PO (08:31)
[2024-05-29 13:19] VITALS: BP 148/62; PULSE 65; RESP 16; TEMP 36.4; O2SAT 95
== END 2024-05-29 13:20 | disposition home or self-care (01) | DRG 470 ==
PROVIDERS: Admitting Provider Family Medicine Geriatric Medicine; PCP Internal Medicine; Referring Provider Family Medicine Geriatric Medicine; Visit Provider Family Medicine Geriatric Medicine
DX: Z47.1 Aftercare following joint replacement surgery (principal); D50.9 Iron deficiency anemia, unspecified; F32.A Depression, unspecified; I25.10 Atherosclerotic heart disease of native coronary artery without angina pectoris; H35.30 Unspecified macular degeneration; K21.9 Gastro-esophageal reflux disease without esophagitis; E78.00 Pure hypercholesterolemia, unspecified; E55.9 Vitamin D deficiency, unspecified; F41.9 Anxiety disorder, unspecified; E53.8 Deficiency of other specified B group vitamins; M17.11 Unilateral primary osteoarthritis, right knee; Z96.651 Presence of right artificial knee joint; Z79.899 Other long term (current) drug therapy; Z79.82 Long term (current) use of aspirin; G47.00 Insomnia, unspecified
CPT/HCPCS: 36415; 73560; 80048; 80053; 82040; 82962; 83735; 84100; 85025; 85027; 87077; 87081; 88305; 88311; 93005; 94668; 96365; 96366; 96375; 96376; 97110; 97116; 97162; 97166; 97530; 97535; 97802; 99221; 99252; C1776; J7120; A4216; G0378; G0463; J3475

== ENCOUNTER → 2024-07-08 | Outpatient (CLI) | payer MEDICARE, OTHER, SELFPAY ==
--- NOTE | 2024-07-08 11:22 | RAD_ITS ---
INDICATION: pain EXAMINATION/TECHNIQUE: X-RAY - RIGHT XR Shoulder Min 2 Views 4 VIEWS COMPARISON: No relevant prior comparison study available FINDINGS: SOFT TISSUES: Soft tissue calcification lateral to the humeral head consistent with calcific tendinitis. No radiopaque foreign body. BONES/JOINTS: No acute fracture or subluxation.. Sclerosis in the region of the greater tuberosity. Preservation of the joint space.. No sclerotic or destructive changes observed. RAD/Shoulder min 2 Views IMPRESSION: Calcific tendinitis of the right shoulder. Electronically Signed: Bradford Jacobs MD at 11:42 EST ,
[2024-07-08 15:26] LABS: Absolute Lymphocyte Count 1.74 X10^3/uL (0.83-4.51); Absolute Neutrophil Count 4.6 X10^3/uL (2.0-7.7); Basophil# 0.07 X10^3/uL; Eosinophil# 0.22 X10^3/uL; Hematocrit 37.7 % (37-47); Hemoglobin 12.1 g/dL (12.0-15.0); Lymphocyte # 1.74 X10^3/ul (0.83-4.51); Lymphocyte % 23.9 % (19-41); Mean Corp Hgb Conc 32.1 g/dL (32-36); Mean Corpuscular Hgb 28.9 pg (27.0-32.0); Mean Platelet Vol. 10.8 fl (6.2-12.0); Monocyte# 0.65 X10^3/uL; Monocyte% 8.9 % (0-10); NRBC Flagged by Analyzer 0 % (0-5); Neutrophil # 4.59 X10^3/uL (2.7-7.7); Neutrophil % 62.9 % (47-70); Platelet Count 259 K/mm3 (150-450); RBC Distribution Width CV 12.9 % (11.6-14.6); RBC Distribution Width SD 42.3 fl (35.1-43.9); Red Blood Count 4.19 M/mm3 (4.2-5.4); White Blood Count 7.3 K/mm3 (4.4-11.0)
== END | disposition home or self-care (01) ==
PROVIDERS: Nurse Practitioner; PCP Internal Medicine; Referring Provider Physician Assistant; Visit Provider Physician Assistant
DX: M25.511 Pain in right shoulder (principal); D64.9 Anemia, unspecified
CPT/HCPCS: 36415; 73030; 85025

== ENCOUNTER → 2024-09-27 | Outpatient (CLI) | payer MEDICARE, OTHER, SELFPAY ==
--- NOTE | 2024-09-27 13:00 | RAD_ITS ---
PROCEDURE: CHEST PA AND LATERAL REASON FOR EXAM: Cough. TECHNIQUE: Frontal and lateral views of the chest. COMPARISON: None. FINDINGS: The heart size is normal. The mediastinal contour is unremarkable. Hyperinflation. Degenerative changes are identified within the thoracic spine. RAD/Chest PA and Lateral IMPRESSION: Hyperinflation. Reading Location: [place] [id number]
== END | disposition home or self-care (01) ==
LOC: MTRAD 12:56
PROVIDERS: PCP Internal Medicine; Referring Provider Physician Assistant Surgical; Visit Provider Physician Assistant Surgical
DX: R05.9 Cough, unspecified (principal)
CPT/HCPCS: 71046

== ENCOUNTER → 2025-01-02 | Outpatient (CLI) | payer MEDICARE, OTHER, SELFPAY ==
[2025-01-02 17:34] LABS: ALB/GLOB Ratio 1.6 RATIO (0.9-2.4); AST(SGOT) 20 U/L (<=31); Alanine Aminotransfer ALT/SGPT 16 U/L (<=34); Albumin, Serum 4.1 g/dL (3.4-4.8); Alkaline Phosphatase 64 U/L (35-104); Anion Gap 11 (5-15); BUN 19 mg/dL (4-19); BUN/Creat Ratio 20.5 RATIO (10-20); Calcium,Total 9.5 mg/dL (7.6-11.0); Carbon Dioxide 24.6 mmol/L (21.0-32.0); Chloride 105 mmol/L (98-108); Cholesterol 142 mg/dL (<=200); Creatinine, Serum 0.92 mg/dL (0.70-1.20); EST Glomerular Filtration Rate 63 (>60); Globulin 2.5 g/dL (2.2-4.2); Glucose 119 mg/dL (70-99); High Density Lipoprotein 61 mg/dL; Low Density Lipoprotein Calc. 57 mg/dL; Potassium 3.9 mmol/L (3.3-5.1); Protein, Total 6.6 g/dL (5.9-8.4); Sodium Level 140 mmol/L (133-145); Total Bilirubin 0.35 mg/dL (0.00-1.30); Triglycerides 122 mg/dL; Very Low Density Lipoprotein 24 mg/dL (5-40); Vitamin D,25 Hydroxy 47.7 ng/mL (30-100); cholesterol:hdl ratio screen 2.34
[2025-01-02 17:36] LABS: Rheumatoid Factor < 10.0 IU/mL (<15)
[2025-01-02 17:53] LABS: Absolute Lymphocyte Count 1.49 X10^3/uL (0.83-4.51); Absolute Neutrophil Count 5.4 X10^3/uL (2.0-7.7); Basophil# 0.03 X10^3/uL; Basophil% 0.4 % (0-1); Eosinophil# 0.22 X10^3/uL; Eosinophils% 2.8 % (0-5); Hematocrit 37.3 % (37-47); Hemoglobin 12.3 g/dL (12.0-15.0); Lymphocyte # 1.49 X10^3/ul (0.83-4.51); Lymphocyte % 19.2 % (19-41); Mean Corpuscular Hgb 29.3 pg (27.0-32.0); Mean Corpuscular Volume 88.8 fL (81-99); Mean Platelet Vol. 10.4 fl (6.2-12.0); Monocyte# 0.63 X10^3/uL; Monocyte% 8.1 % (0-10); NRBC Flagged by Analyzer 0 % (0-5); Neutrophil # 5.38 X10^3/uL (2.7-7.7); Neutrophil % 69.2 % (47-70); Platelet Count 201 K/mm3 (150-450); RBC Distribution Width SD 45.1 fl (35.1-43.9); White Blood Count 7.8 K/mm3 (4.4-11.0)
[2025-01-02 17:56] LABS: Erythrocyte Sedimentation Rate 9 mm/hr (0-30)
[2025-01-04 14:08] LABS: CCP IgG Antibodies 7 units (0-19)
[2025-01-06 13:08] LABS: ANTINUCLEAR ANTIBODIES DIRECT Negative (Negative)
== END | disposition home or self-care (01) ==
LOC: BIMLAB 15:31
PROVIDERS: PCP Internal Medicine; Referring Provider Internal Medicine; Visit Provider Internal Medicine
DX: E78.5 Hyperlipidemia, unspecified (principal); M19.90 Unspecified osteoarthritis, unspecified site; M85.80 Other specified disorders of bone density and structure, unspecified site
CPT/HCPCS: 36415; 80053; 80061; 82306; 85025; 85652; 86038; 86200; 86225; 86431

== ENCOUNTER → 2025-01-10 | Outpatient (CLI) | payer MEDICARE, OTHER, SELFPAY ==
--- NOTE | 2025-01-10 13:04 | BI_ITS ---
EXAM: SCRN MAMM (CAD)W/NICHELLE BILAT 01/10/2025 CLINICAL HISTORY: F, Age 84 y/o , SCREENING TECHNIQUE: Bilateral screening digital breast tomosynthesis with 2D and 3D images. Computer aided detection. COMPARISON: Prior exam(s) dated 08/30/2023, 07/12/2021, 03/24/2020. FINDINGS: TISSUE DENSITY: The breast tissue is composed of scattered area of fibroglandular density. Bilateral Breast Mammographic Findings: No significant masses, calcifications or other abnormalities are identified. BI/SCRN MAMM (CAD)W/NICHELLE BILAT IMPRESSION: Right Breast: BIRADS 1 NEGATIVE. Left Breast: BIRADS 1 NEGATIVE. OVERALL FINAL ASSESSMENT: BIRADS 1 NEGATIVE. RECOMMENDATION: Routine annual follow-up in 1 Year A letter with findings and recommendations will be mailed to the patient. Reading Location: [id number]
== END | disposition home or self-care (01) ==
LOC: OPBI 13:01
PROVIDERS: PCP Internal Medicine; Referring Provider Internal Medicine; Visit Provider Internal Medicine
DX: Z12.31 Encounter for screening mammogram for malignant neoplasm of breast (principal)
CPT/HCPCS: 77063; 77067

== ENCOUNTER → 2025-03-24 | Outpatient (CLI) | payer MEDICARE, OTHER, SELFPAY ==
[2025-03-24 15:59] LABS: Hematocrit 36.8 % (37-47); Hemoglobin 12.0 g/dL (12.0-15.0); Immature Granulocytes Count 0.000 X10^3/uL (0.0-0.0); Mean Corp Hgb Conc 32.6 g/dL (32-36); Mean Corpuscular Volume 88.5 fL (81-99); Mean Platelet Vol. 10.4 fl (6.2-12.0); NRBC Flagged by Analyzer 0 % (0-5); Platelet Count 222 K/mm3 (150-450); RBC Distribution Width CV 14.1 % (11.6-14.6); RBC Distribution Width SD 45.4 fl (35.1-43.9); Red Blood Count 4.16 M/mm3 (4.2-5.4); White Blood Count 5.6 K/mm3 (4.4-11.0)
[2025-03-24 16:32] LABS: AST(SGOT) 19 U/L (<=31); Alanine Aminotransfer ALT/SGPT 12 U/L (<=34); Albumin, Serum 4.2 g/dL (3.4-4.8); Alkaline Phosphatase 72 U/L (35-104); Anion Gap 10 (5-15); BUN 15 mg/dL (4-19); BUN/Creat Ratio 19.1 RATIO (10-20); Calcium,Total 9.5 mg/dL (7.6-11.0); Carbon Dioxide 27.3 mmol/L (21.0-32.0); Chloride 104 mmol/L (98-108); Globulin 2.2 g/dL (2.2-4.2); Glucose 100 mg/dL (70-99); Potassium 4.0 mmol/L (3.3-5.1)
== END | disposition home or self-care (01) ==
LOC: BIMLAB 14:32
PROVIDERS: PCP Internal Medicine; Referring Provider Internal Medicine; Visit Provider Internal Medicine
DX: R61 Generalized hyperhidrosis (principal); R19.7 Diarrhea, unspecified
CPT/HCPCS: 36415; 80053; 84439; 84443; 84482; 85025

== ENCOUNTER → 2025-03-25 | Outpatient (CLI) | payer MEDICARE, OTHER, SELFPAY ==
--- OUTSIDE RECORDS SUMMARY | 2025-03-25 19:19 | XMS RPT_ITS | CCD ---
Author Organization [facility] Care Team Providers Care Income Auditor Name Role Phone JOHNNIE RAGSDALE Primary Care Unavail able BRYANT MCGREGOR, PIPE LINE MAINTENANCE SUPERVISOR Attending Unavaila ble BRYANT MCGREGOR, PIPE LINE MAINTENANCE SUPERVISOR Admitting Unavaila ble AA NO PCP, NO PCP Primary Care Unavailable SOUTH, DEE DEE Attending Unavailable SOUTH, DEE DEE Admitting Unavailable BRYANT CASAREZ Consulting Unavailable SOUTH, DEE DEE Attending Unavailable SOUTH, DEE DEE Admitting Unavailable JOHNNIE RAGSDALE Primary Care Unavail able RUPINDER LOPES Consulting Unavailable Melyssa ALONSO, Johnnie Covarrubias Primary Care Provider Dr. Malcolm Burns Primary Care Provider [phone] Dr. Malcolm Burns Attending Provider [phone] Dr. Malcolm Burns Referring Provider [phone] Dr. Khadra Seo Attending Provider Maicol SANCHEZ, PIPE LINE MAINTENANCE SUPERVISOR-C Carlita Oates Attending Provider Dr. Khadra Seo Other Provider Dr. Malcolm Burns Primary Care Provider [phone] Dr. Jim Maldonado Attending Provider Dr. Malcolm Burns Referring Provider [phone] CHANDAN Choe Attending Provider Dr. Malcolm Burns Primary Care Provider [phone] Dr. Malcolm Burns Referring Provider [phone] CHANDAN Choe Attending Provider [phone] Dr. Malcolm Burns Attending Provider [phone] Dr. Khadra Seo Attending Provider Johnnie Ragsdale MD Primary Care Provider Malcolm Burns MD Primary Care Provider [phone] OLEGHE, EFEWONGBE B Primary Care Unavailable PRALEELA VICKIE Attending Unavailable ANDRZEJ VICKIE Referring Unavailable OLEGHE, EFEWONGBE B Primary Care Unavailable Katy ALONSO, Dr. Brown Primary Care Provider Dr. Malcolm Burns MD Referring Provider [phone] Georgina IYER, Amos Attending Provider Chuck Choe Attending Provider Chuck Choe Referring Provider Dr. Malcolm Burns MD Attending Provider [phone] Oleghe, Efewongbe Referring Unavailable Oleghe, Efewongbe Attending Unavailable Oleghe, Efewongbe Primary Care Unavailable Oleghe, Efewongbe Primary Care Unavailable Oleghe, Efewongbe Referring Unavailable Oleghe, Efewongbe Attending Unavailable Oleghe, Efewongbe Primary Care Unavailable Jim Maldonado Attending Unavailable Gavin Mosley Referring Unavailable Oleghe, Efewongbe Referring Unavailable Carina Brand Attending Unavailable Oleghe, Efewongbe Primary Care Unavailable Oleghe, Efewongbe Referring Unavailable Gavin Palomino Attending Unavailable Oleghe, Efewongbe Primary Care Unavailable Amos Erickson Attending Unavailable Oleghe, Efewongbe Primary Care Unavailable Oleghe, Efewongbe Referring Unavailable Chuck Choe Attending Unavailable Oleghe, Efewongbe Primary Care Unavailable Oleghe, Efewongbe Referring Unavailable Oleghe, Efewongbe Referring Unavailable Oleghe, Efewongbe Attending Unavailable Oleghe, Efewongbe Primary Care Unavailable Oleghe, Efewongbe Primary Care Unavailable Gavin Mosley Admitting Unavailable Gavin Mosley Referring Unavailable Angel Benitez Attending Unavailable Angel Benitez Consulting Unavailable Gavin Mosley Consulting Unavailable Oleghe, Efewongbe Attending Unavailable Oleghe, Efewongbe Primary Care Unavailable Oleghe, Efewongbe Referring Unavailable Oleghe, Efewongbe Primary Care Unavailable Rosa HAWLEY, Hamilton Referring Unavailable Rosa HAWLEY, Hamilton Attending Unavailable Oleghe, Efewongbe Referring Unavailable Oleghe, Efewongbe Primary Care Unavailable Rosa HAWLEY, Hamilton Attending Unavailable Carina Brand Consulting Unavailable Gavin Palomino Referring Unavailable Gavin Palomino Attending Unavailable Oleghe, Efewongbe Primary Care Unavailable Chuck Choe Referring Unavailable Jass HAWLEY, Chuck Attending Unavailable Oleghe, Efewongbe Primary Care Unavailable Magdiel, Jesus Chi Referring Unavailable Magdiel Jesus Chi Attending Unavailable Magdiel, Jesus Chi Admitting Unavailable Oleghe, Efewongbe Primary Care Unavailable Oleghe, Efewongbe Primary Care Unavailable Gavin Mosley Admitting Unavailable Gavin Mosley Referring Unavailable Gavin Mosley Attending Unavailable Angel Benitez Consulting Unavailable Oleghe, Efewongbe Attending Unavailable Oleghe, Efewongbe Primary Care Unavailable Oleghe, Efewongbe Referring Unavailable Oleghe , Dr. Brown Primary Care Provider Dr. Malcolm Burns MD Referring Provider [phone] Medications Current Medications Medication Drug Class(es) Dates Sig (Normalized) Sig (Original) acetaminophen 500 mg oral tablet (20 sources) Start: 05-22-2024 End: 01-02-2025 take 2 tablets by mouth every eight hours as needed for pain Acetaminophen 500 mg tablet Active 1000 mg PO EVERY 8 HOURS as needed for pain January 02, 2025 2:58pm Start: 05-22-2024 End: 05-22-2024 Acetaminophen 500 mg Tablet Discontinued 1000 mg PO THREE TIMES A DAY 84 14 0 May 22, 2024 12:00am May 22, 2024 11:53am Do not take more than 3000 mg Tylenol in a 24-hour period. Start: 04-26-2024 End: 05-22-2024 take 2 capsules by mouth twice daily Acetaminophen 500 mg capsule Discontinued 1000 mg PO TWICE A DAY April 26, 2024 12:00am May 22, 2024 10:22am Start: 04-18-2024 End: 04-26-2024 take 1 tablet by mouth every twelve hours Acetaminophen 650 mg tablet extended release Discontinued 650 mg PO Q12H April 18, 2024 12:00am April 26, 2024 10:10am atorvastatin 20 mg oral tablet (20 sources) HMG-CoA Reductase Inhibitor Start: 03-05-2025 take 2 tablets by mouth once daily Atorvastatin 20 mg tablet Active 40 mg PO DAILY 90 March 05, 2025 9:48pm cholesterol Start: 08-31-2022 End: 03-05-2025 take 1 tablet by mouth once daily Atorvastatin 40 mg tablet Discontinued 40 mg PO DAILY 90 January 19, 2024 1:00pm March 05, 2025 9:49pm cholesterol Start: 06-09-2022 End: 08-31-2022 take 2 tablets by mouth once daily Atorvastatin 20 mg tablet Discontinued 40 mg PO DAILY 90 August 12, 2022 10:10am August 31, 2022 1:12pm Start: 06-09-2022 End: 08-31-2022 take 40 mg by mouth once daily Atorvastatin Discontinu ed 40 MG PO DAILY 90 August 12, 2022 9:10am August 31, 2022 12:12pm Start: 04-24-2018 End: 07-07-2020 take 2 tablets by mouth once daily Atorvastatin (Lipitor) 10 mg tablet Discontinued 20 mg PO DAILY April 24, 2018 12:00am July 07, 2020 10:12am Start: 08-05-2011 End: 06-09-2022 take 1 tablet by mouth once daily Atorvastatin 20 mg tablet Discontinued 20 mg PO DAILY July 07, 2020 1:00am June 09, 2022 10:27am Comment on above: Take 1 tablet by sergio th once daily. Blood Pressure Monitor kit (8 sources) Start: 11-27-2023 Blood Pressure Monitor kit Active 0 .ROUTE .MEDSUPPLY 1 0 November 27, 2023 4:27pm Elevated blood pressure reading Elevated blood-pressure reading, without diagnosis of hypertension monitor blood pressure As directed Start: 11-27-2023 Blood Pressure Monitor kit Active 0 .ROUTE .MEDSUPPLY 1 November 27, 2023 4:27pm As directed Start: 11-09-2023 End: 11-27-2023 Blood Pressure Monitor kit D iscontinued 0 .ROUTE .MEDSUPPLY 1 0 November 09, 2023 12:00am November 27, 2023 4:27pm Elevated blood pressure reading Elevated blood-pressure reading, without diagnosis of hypertension As directed Start: 11-09-2023 End: 11-27-2023 Blood Pressure Monitor kit D iscontinued 0 .ROUTE .MEDSUPPLY 1 November 09, 2023 12:00am November 27, 2023 4:27pm As directed calcium carbonate 1250 mg oral tablet (10 sources) Start: 07-07-2020 take 1 tablet by mouth twice daily Calcium Carbonate (Calcium 500) 500 mg calcium (1,250 mg) tablet Active 500 mg PO TWICE A DAY July 07, 2020 1:00am supplement calcium carbonate 1500 mg / cholecalciferol 200 unt oral tablet (7 sources) Vitamin D Start: 07-04-2006 TRACIE-600 WITH VITAMIN D 600 MG-200 UNIT TAB ,bid 0 07/04/2006 Active Comment on above: ,bid cholecalciferol 0.01 mg oral capsule (4 sources) Vitamin D Start: 11-09-2023 take 1 capsule by mouth once daily Cholecalciferol (Vitamin D3) 10 mcg (400 unit) capsule Active 10 ug PO DAILY November 09, 2023 12:00am supplement citalopram 20 mg oral tablet (20 sources) Serotonin Reuptake Inhibitor Start: 03-05-2025 take 1 tablet by mouth at bedtime Citalopram 20 mg tablet Active 20 mg PO AT BEDTIME 90 1 March 05, 2025 9:48pm MENTAL HEALTH Start: 07-16-2018 End: 03-05-2025 take 1 tablet by mouth once daily Citalopram 40 mg tablet Discontinued 40 mg PO DAILY 90 3 January 19, 2024 12:59pm April 26, 2024 10:12am MENTAL HEALTH Start: 04-24-2018 End: 07-16-2018 take 2 tablets by mouth at bedtime Citalopram (Celexa) 20 mg tablet Discontinued 40 mg PO AT BEDTIME April 24, 2018 12:00am July 16, 2018 12:28pm Start: 06-21-2012 take 2 tablets by mo uth once daily citalopram hydrobromide (CELEXA) 10 mg tablet Take 2 tablets by mouth once daily. 0 06/21/2012 Active Comment on above: Take 2 tablets by mo uth once daily. krill oil 500 mg oral capsule (4 sources) Start: take 1 capsule by mouth once daily Krill Oil 500 mg capsule Active 500 mg PO DAILY May 06, 2024 12:00am supplement lansoprazole 15 mg delayed release oral capsule (15 sources) Proton Pump Inhibitor Start: take 1 capsule by mouth once daily Lansoprazole 15 mg capsule,delayed release(DR/EC) Active 15 mg PO DAILY 90 3 January 02, 2025 4:11pm Acid reflex Start: 01-02-2025 End: 01-02-2025 Lansoprazole 30 mg capsule,d elayed release(DR/EC) Discontinued 40 mg PO DAILY January 02, 2025 2:59pm January 02, 2025 4:12pm Acid reflex Start: 12-28-2022 End: 01-02-2025 take 1 capsule by mouth once daily Lansoprazole 30 mg capsule,delayed release(DR/EC) Discontinued 30 mg PO DAILY 60 1 December 28, 2022 12:00am January 02, 2025 3:01pm Acid reflex Magnesium (4 sources) Start: 01-02-2025 take 1 tablet by mouth twice daily Magnesium 200 mg tablet Active 200 mg PO TWICE A DAY January 02, 2025 12:00am melatonin 10 mg oral tablet (9 sources) Start: 04-01-2022 take 1 tablet by mouth at bedtime Melatonin 10 mg Tablet Active 10 mg PO AT BEDTIME April 01, 2022 12:00am sleep multivitamin ORAL tablet (7 sources) take 1 tablet by mouth once daily multivitamin ORAL tablet Take 1 tablet by mouth once daily. Active take 1 tablet by mouth once manuel y multivitamin ORAL tablet Take 1 tablet by mouth once daily. 0 Active Comment on above: [facility] Multivitamin preparation (10 sources) Start: 01-11-2023 take 1 tablet by mouth once daily Multivitamin Active 1 TABLET PO DAILY January 11, 2023 12:59pm Start: 01-11-2023 take 1 tablet by sergio once daily Multivitamin Active 1 TABLET PO DAILY January 11, 2023 1:59pm Start: 06-19-2018 Multivitamin A ctive 1 EACH PO TWICE A DAY June 19, 2018 11:28am Start: 06-19-2018 End: 01-11-2023 Multivitamin Discontinued 1 EACH PO TWICE A DAY June 18, 2018 11:00pm January 11, 2023 12:59pm Start: 06-19-2018 End: 01-11-2023 Multivitamin Discontinued 1 EACH PO TWICE A DAY June 19, 2018 12:00am January 11, 2023 1:59pm Start: 06-19-2018 Multivitamin A ctive 1 EACH PO TWICE A DAY June 19, 2018 12:00am naproxen sodium 220 mg oral capsule (20 sources) Nonsteroidal Anti-inflammatory Drug Start: 01-02-2025 take 1 capsule by mouth once daily Naproxen Sodium (Aleve) 220 mg capsule Active 220 mg PO ONCE January 02, 2025 12:00am daily Start: 06-27-2018 End: 10-03-2022 take 250-500 mg by mouth every eight hours as needed for pain Naproxen 250 MG tablet Discontinued 250 - 500 mg PO EVERY 8 HOURS NEEDED as needed for MILD PAIN 19 09June 27, 2018 1:00am October 03, 2022 5:04pm Start: 06-19-2018 End: 07-25-2018 take 1 tablet by mouth twice daily Naproxen Sodium 220 MG tablet Discontinued 220 mg PO TWICE A DAY June 19, 2018 12:00am July 25, 2018 11:14am NAPROXEN SODIUM (ALEVE ORAL) Take by mouth. Active NAPROXEN SODIUM (ALEVE ORAL) Take by mouth. 0 Active Comment on above: Take by mouth. phenazopyridine hydrochloride 200 mg oral tablet (7 sources) Start: 04-12-20 take 1 tablet by mouth twice daily as needed for pain phenazopyridine (PYRIDIUM) 200 mg tablet Indications: UTI (lower urinary tract infection) Take 1 tablet by mouth twice daily as needed for Pain (urinary burning. Turns urine orange.). 20 tablet 1 04/12/2013 Active Comment on above: Take 1 tablet by sergio twice daily as needed for Pain (urinary burning. Turns urine orange.). predniSONE 20 mg oral tablet (12 sources) Start: 12-10-19 End: 12-17-19 take 2 tablets by mouth once daily, then take 1 tablet by mouth once daily at mealtime predniSONE (DELTASONE) 20 mg tablet Indications: Acute left ankle pain Take 2 tablets by mouth once daily for 4 days, THEN 1 tablet once daily for 3 days. Take daily with food.. 11 tablet 12/09/2024 12/16/2024 Active Start: 12-08-2021 End: 02-08-2022 take 2 tablets by mouth once daily Prednisone 20 MG tablet Discontinued 40 mg PO DAILY December 08, 2021 12:00am February 08, 2022 2:58pm Start: 12-08-2021 End: 02-08-2022 take 40 mg by mouth once daily Prednisone Discontinued 40 MG PO DAILY December 07, 2021 11:00pm February 08, 2022 1:58pm vit A/vit C/vit E/zinc/copper (OCUVITE PRESERVISION ORAL) (3 sources) vit A/vit C/vit E/zinc/copper (OCUVITE PRESERVISION ORAL) Take by mouth. Active Vit C,K-Hu-Waxcq-Lutein-Zeaxan (Preservision Areds-2) 250-90-40-1 mg Capsule (9 sources) Start: 04-01-2022 take 2 capsules by mouth twice daily Vit C,U-Iu-Uwoml-Lutein-Zeaxa n (Preservision Areds-2) 250-90-40-1 mg Capsule Active 1 {tbl} PO TWICE A DAY April 01, 2022 12:00am supplement Start: 04-01-2022 take 2 capsules by m outh twice daily Vit C,N-Ez-Msdxo-Lutein-Zeaxan (Preservision Areds-2) 250-90-40-1 mg Capsule Active 1 {tbl} PO TWICE A DAY April 01, 2022 12:00am Start: 04-01-2022 Vit C,E-Zn-Etl Tester dd-Fgvwje-Fcirjy (Preservision Areds-2) 250-90-40-1 mg Capsule Active 1 TABLET PO TWICE A DAY March 31, 2022 11:00pm Start: 04-01-2022 Vit C,E-Zn-Etl Tester mg-Omgnyt-Bwzefr (Preservision Areds-2) 250-90-40-1 mg Capsule Active 1 TABLET PO TWICE A DAY April 01, 2022 12:00am VITAMIN B COMPLEX ORAL (7 sources) VITAMIN B COMPLE X ORAL Take by mouth. Active VITAMIN B COMPLE X ORAL Take by mouth. 0 Active Comment on above: Take by mouth. Completed/Discontinued Medications Medication Drug Class(es) Dates Sig (Normalized) Sig (Original) acetaminophen 325 mg / oxyCODONE hydrochloride 5 mg oral tablet (20 sources) Opioid Agonist Start: 12-08-2021 End: 02-08-2022 Oxycodone-Acetamino phen (Percocet) 5-325 mg tablet Discontinued 1 {tbl} PO EVERY 6 HOURS as needed for pain 12 3 0 December 08, 2021 February 08, 2022 2:58pm Arthritis Unspecified osteoarthritis, unspecified site Start: 06-27-2018 End: 07-04-2018 Oxycodone-Acetaminophen 1 TA BLET tablet Discontinued 1 - 2 {tbl} PO EVERY 4 HOURS NEEDED as needed for Moderate-Severe pain 28 7 0 June 27, 2018 1:00am July 03, 2018 1:00am July 04, 2018 1:09am Other acute postprocedural pain Start: 06-27-2018 End: 07-04-2018 take 1 tablet by mouth every four hours as needed Oxycodone-Acetaminophen Discontinued 1 - 2 TABLET PO EVERY 4 HOURS NEEDED 28 7 June 27, 2018 12:00am July 04, 2018 12:09am ascorbic acid 500 mg oral tablet (10 sources) Vitamin C Start: 06-19-2018 End: 07-07-2020 take 1 tablet by mouth twice daily at mealtime Ascorbic Acid (Vitamin C) 500 MG tablet Discontinued 500 mg PO TWICE DAILY WITH MEALS June 19, 2018 12:00am July 07, 2020 10:19am aspirin 81 mg delayed release oral tablet (19 sources) Platelet Aggregation Inhibitor, Nonsteroidal Anti-inflammatory Drug Start: 05-22-2024 End: 01-02-2025 take 1 tablet by mouth twice daily Aspirin 81 mg Tablet,Delayed Release (Dr/Ec) Discontinued 81 mg PO TWICE A DAY 0 23 0 May 28, 2024 12:00am January 02, 2025 4:12pm Start: 09-08-2008 aspirin(ECOTRI N LOW STRENGTH 81 MG TAB) Take one(1) tablet daily. 0 09/08/2008 Active Comment on above: Take one(1) tablet d aily. benzonatate 100 mg oral capsule (12 sources) Non-narcotic Antitussive Start: End: take 1 capsule by mouth three times daily as needed for cough Benzonatate 100 mg capsule Discontinued 100 mg PO THREE TIMES A DAY as needed for PRN cough 10 4 0 September 25, 2024 1:00am September 28, 2024 1:00am September 29, 2024 1:12am Start: 01-12-2023 End: 07-19-2023 take 1 capsule by mouth three times daily as needed for cough Benzonatate 100 mg capsule Discontinued 100 mg PO THREE TIMES A DAY as needed for cough 30 0 January 12, 2023 12:00am July 19, 2023 11:51am 24 hr buPROPion hydrochloride 300 mg extended release oral tablet (10 sources) Aminoketone Start: 04-07-2021 End: 02-08-2022 take 1 tablet by mouth once daily Bupropion Hcl 300 mg tablet extended release 24 hr Discontinued 300 mg PO DAILY April 07, 2021 12:00am February 08, 2022 2:57pm cephalexin 500 mg oral capsule (18 sources) Cephalosporin Antibacterial Start: 06-17-2022 End: 10-03-2022 take 1 capsule by mouth every eight hours Cephalexin 500 mg capsule Discontinued 500 mg PO Q8H 15 0 June 17, 2022 12:00am October 03, 2022 2:04pm Start: 06-27-2018 End: 06-30-2018 take 1 capsule by mouth every twelve hours Cephalexin 500 MG capsule Discontinued 500 mg PO EVERY 12 HOURS 6 3 0 June 27, 2018 1:00am June 29, 2018 1:00am June 30, 2018 1:10am post-operative cyclobenzaprine hydrochloride 5 mg oral tablet (4 sources) Muscle Relaxant Start: 07-08-2024 End: 01-02-2025 take 1 tablet by mouth at bedtime as needed for muscle spasms Cyclobenzaprine 5 mg tablet Discontinued 5 mg PO AT BEDTIME as needed for muscle spasm 14 0 July 08, 2024 1:00am January 02, 2025 2:59pm docusate sodium 50 mg / sennosides, skilled nursing 8.6 mg oral tablet (12 sources) Start: 05-22-2024 End: 01-02-2025 Sennosides-Docusate Sodium (Stimulant Laxative Plus) 8.6-50 mg Tablet Discontinued 2 {tbl} PO TWICE A DAY 120 30 0 May 28, 2024 12:00am January 02, 2025 3:00pm doxycycline monohydrate 100 mg oral capsule (12 sources) Tetracycline-c lass Drug Start: 05-22-2024 End: 07-08-2024 take 1 capsule by mouth twice daily Doxycycline Monohydrate 100 mg Capsule Discontinued 100 mg PO TWICE A DAY 14 7 0 May 28, 2024 12:00am July 08, 2024 12:06pm estradiol 0.1 mg/ml vaginal cream (17 sources) Estrogen Start: 06-22-2018 End: 07-07-2020 Estradiol (Estrace) 0.01 % (0.1 mg/gram) cream Discontinued 1 g VAGINAL TWICE A WEEK June 22, 2018 12:00am July 07, 2020 10:19am Start: 10-17-2011 estradiol (EST RACE) 0.01 % (0.1 mg/g) VAGINAL vaginal cream Indications: Postmenopausal atrophic vaginitis Use vaginally. Apply small amount at vaginal opening 1-2 times week 1 Tube 1 10/17/2011 Active Comment on above: Use vaginally. Apply small amount at vaginal opening 1-2 times week ferrous sulfate 325 mg oral tablet (4 sources) Start: End: Ferrous Sulfate (Ferosul) 325 mg (65 mg iron) Tablet Discontinued 325 mg PO 1200,1700 28 14 0 May 22, 2024 12:00am January 02, 2025 2:59pm supplement folic acid 1 mg oral tablet (8 sources) Start: End: take 1 tablet by mouth at breakfast Folic Acid 1 mg Tablet Discontinued 1 mg PO WITH BREAKFAST 14 14 0 May 22, 2024 12:00am May 22, 2024 11:53am hydrocortisone 25 mg/ml topical cream (15 sources) Corticosteroid Start: End: Hydrocortisone 2.5 % cream Discontinued 1 NMA TOPICAL TWICE A DAY as needed for skin irritation 30 3 July 19, 2023 12:22pm May 28, 2024 8:14am indomethacin 50 mg oral capsule (4 sources) Nonsteroidal Anti-inflammatory Drug Start: End: take 1 capsule by mouth twice daily at mealtime Indomethacin 50 mg capsule Discontinued 50 mg PO TWICE A DAY 30 0 May 06, 2024 12:00am May 22, 2024 10:30am administer with food or milk L.Acidoph, Paracasei,B. Lactis (6 sources) Start: 018 End: 020 L.Acidoph, Paracasei,B. Lactis Discontinued 1 EACH PO DAILY June 19, 2018 11:28am July 07, 2020 10:13am Start: 06-19-2018 End: 07-07-2020 L.Acidoph, Paracasei,B. Lact is Discontinued 1 EACH PO DAILY June 18, 2018 11:00pm July 07, 2020 9:13am Start: 06-19-2018 End: 07-07-2020 L.Acidoph, Paracasei,B. Lact is Discontinued 1 EACH PO DAILY June 19, 2018 12:00am July 07, 2020 10:13am L.Acidoph,Paracasei,B.Animal is 1 EACH capsule (4 sources) Start: 06-19-2018 End: 07-07-2020 take 1 capsule by mouth once daily L.Acidoph,Paracasei,B.Animalis 1 EACH capsule Discontinued 1 NMA PO DAILY June 19, 2018 12:00am July 07, 2020 10:13am LORazepam 0.5 mg oral tablet (10 sources) John sharynantonino banueloslaz ne Start: 07-07-2020 End: 02-08-2022 take 1 tablet by mouth twice daily as needed for anxiety Lorazepam 0.5 mg tablet Discontinued 0.5 mg PO TWICE DAILY NEEDED as needed for Anxiety July 07, 2020 1:00am February 08, 2022 2:57pm mecobalamin 1 mg chewable tablet (4 sources) Start: 11-09-2023 End: 04-26-2024 take 1 tablet by mouth once daily Mecobalamin (Vitamin B12) 1,000 mcg tablet,chewable Discontinued 1000 ug PO DAILY November 09, 2023 12:00am April 26, 2024 10:10am meloxicam 7.5 mg oral tablet (20 sources) Nons tero idal Anti -inf maranda ator y Drug Start: 05-20-2024 End: 06-30-2024 take 1 tablet by mouth twice daily Meloxicam 7.5 mg tablet Discontinued 7.5 mg PO TWICE A DAY 60 30 0 May 31, 2024 3:46pm June 29, 2024 1:00am June 30, 2024 1:08am OA Start: 04-26-2024 End: 05-06-2024 take 1 tablet by mouth twice daily Meloxicam 7.5 mg tablet Discontinued 7.5 mg PO TWICE A DAY April 26, 2024 12:00am May 06, 2024 1:13pm Start: 10-03-2022 End: 01-11-2023 take 1 tablet by mouth once daily as needed for pain Meloxicam 15 mg tablet Discontinued 15 mg PO DAILY as needed for pain 60 2 October 03, 2022 1:00am January 11, 2023 1:58pm methylPREDNISolone 4 mg oral tablet (4 sources) Corticosteroid Start: 07-08-2024 End: 01-02-2025 take 1 tablet by mouth once Methylprednisolone (Medrol (Mando)) 4 mg tablets,dose pack Discontinued 0 PO per package directions 21 July 08, 2024 1:00am January 02, 2025 3:00pm PO PER PKG DIR Multivitamin 1 EACH tablet (4 sources) Start: 06-19-2018 End: 01-11-2023 Multivitamin 1 EACH tablet Discontinued 1 NMA PO TWICE A DAY June 19, 2018 12:00am January 11, 2023 1:59pm SUPPLEMENT Start: 06-19-2018 End: 01-11-2023 Multivitamin 1 EACH tablet D iscontinued 1 NMA PO TWICE A DAY June 19, 2018 12:00am January 11, 2023 1:59pm Multivitamin tablet (4 sources) Start: 01-11-2023 End: 11-09-2023 Multivitamin tablet Disconti nued 1 {tbl} PO DAILY January 11, 2023 1:59pm November 09, 2023 3:39pm SUPPLEMENT Start: 01-11-2023 End: 11-09-2023 Multivitamin tablet Disconti nued 1 {tbl} PO DAILY January 11, 2023 1:59pm November 09, 2023 3:39pm nitrofurantoin, macrocrystals 25 mg / nitrofurantoin, monohydrate 75 mg oral capsule (8 sources) Nitrofuran Antibacterial Start: 06-08-2023 End: 06-15-2023 take 1 capsule by mouth every twelve hours at mealtime Nitrofurantoin Monohyd/M-Cryst 100 mg capsule Discontinued 1 NMA PO Q12H 14 7 0 June 08, 2023 12:00am June 14, 2023 12:00am June 15, 2023 12:04am administer with a meal/food; swallow whole; do not open, crush, dissolve , or chew nystatin [id number] unt/ml oral suspension (8 sources) Polyene Antifungal Start: 11-09-2023 End: 12-07-2023 Nystatin 100,000 unit/mL suspension Discontinued [id number] U PO EVERY 6 HOURS 473 28 0 November 09, 2023 4:13pm December 06, 2023 12:00am December 07, 2023 12:06am administer 1/2 of dose in each side of the mouth; no eating/drinking for 30 minutes after each dose Start: 12-05-2022 End: 01-02-2023 Nystatin Discontinued [id number] UNIT PO EVERY 6 HOURS 473 28 December 04, 2022 11:00pm January 01, 2023 11:04pm administer 1/2 of dose in each side of the mouth; no eating/drinking for 30 minutes after each dose Start: 12-05-2022 End: 01-02-2023 Nystatin Discontinued [id number] UNIT PO EVERY 6 HOURS 473 December 05, 2022 12:00am January 02, 2023 12:04am administer 1/2 of dose in each side of the mouth; no eating/drinking for 30 minutes after each dose Nystatin 100,000 unit/mL suspension (4 sources) Start: 12-05-2022 End: 01-02-2023 Nystatin 100,000 unit/mL suspension Discontinued [id number] U PO EVERY 6 HOURS 473 28 0 December 05, 2022 12:00am January 01, 2023 12:00am January 02, 2023 12:04am administer 1/2 of dose in each side of the mouth; no eating/drinking for 30 minutes after each dose Start: 12-05-2022 End: 01-02-2023 Nystatin 100,000 unit/mL kellie pension Discontinued [id number] U PO EVERY 6 HOURS 473 28 December 05, 2022 12:00am January 01, 2023 12:00am January 02, 2023 12:04am administer 1/2 of dose in each side of the mouth; no eating/drinking for 30 minutes after each dose omeprazole 40 mg delayed release oral capsule (20 sources) Proton Pump Inhibitor Start: 04-24-2018 End: 07-16-2018 Omeprazole 40 mg capsule,delayed release(DR/EC) Discontinued 20 mg PO DAILY April 24, 2018 12:00am July 16, 2018 12:29pm Start: 04-24-2018 End: 07-16-2018 take 20 mg by mouth once daily Omeprazole Discontinued 20 MG PO DAILY April 23, 2018 11:00pm July 16, 2018 11:29am Start: 06-21-2012 End: 04-07-2022 take 1 capsule by mouth once daily Omeprazole 40 mg capsule,delayed release(DR/EC) Discontinued 40 mg PO DAILY July 07, 2020 1:00am April 07, 2022 7:23am ACID REFLUX Comment on above: Take 1 capsule by [facility] once daily. ondansetron 4 mg disintegrating oral tablet (10 sources) Serotonin-3 Receptor Antagonist Start: 06-01-20 15 End: 04-24-20 18 take 1 tablet by mouth every eight hours as needed for nausea Ondansetron 4 MG tablet Discontinued 4 mg PO EVERY 8 HOURS NEEDED as needed for Nausea June 01, 2015 12:00am April 24, 2018 9:23am oxyCODONE hydrochloride 5 mg oral tablet (8 sources) Opioid Agonist Start: 05-22-20 24 End: 01-03-20 25 take 5-10 mg by mouth every four hours as needed for pain Oxycodone 5 mg Tablet Discontinued 5 - 10 mg PO EVERY 4 HOURS NEEDED as needed for PAIN 1-10 84 7 0 May 28, 2024 January 02, 2025 3:00pm Status post total right knee replacement Presence of right artificial knee joint pantoprazole 40 mg delayed release oral tablet (20 sources) Proton Pump Inhibitor Start: 04-07-20 22 End: 12-29-19 23 take 1 tablet by mouth once daily Pantoprazole 40 mg tablet,delayed release (DR/EC) Discontinued 0 .ROUTE .COMPLEX 90 1 November 28, 2022 5:48pm December 28, 2022 6:02pm TAKE 1 TABLET BY MOUTH EVERY DAY sulfamethoxazole 800 mg / trimethoprim 160 mg oral tablet (10 sources) Dihydrofolate Reductase Inhibitor Antibacterial, Sulfonamide Antimicrobial Start: 07-16-20 End: 07-21-20 Sulfamethoxazole-Tr imethoprim 800-160 mg tablet Discontinued 1 {tbl} PO TWICE A DAY 10 July 16, 2018 1:00am July 20, 2018 1:00am July 21, 2018 1:13am Start: 07-16-2018 End: 07-21-2018 take 1 tablet by mouth twice daily Sulfamethoxazole-Trimethoprim Discontinu ed 1 TABLET PO TWICE A DAY 10 July 16, 2018 12:00am July 21, 2018 12:13am Problems Active Problems Problem Classification Problem Date Documented Da te Episodic/Chronic Abdominal pain (10 sources) Abdominal pain; Translations: [Unspecified abdominal pain] 06-02-2015 Episodic Anxiety disorders (17 sources) Anxiety disorder, unspecified; Translations: [Anxiety] Onset: 0 06-14-2022 Chronic Conditions associated with dizziness or vertigo (10 sources) Lightheadedness; Translations: [Dizziness and giddiness] 07-19-2023 Episodic Coronary atherosclerosis and other heart disease (4 sources) Coronary arteriosclerosis; Translations: [Atherosclerotic heart disease of [place] coronary artery without angina pectoris] 05-22-2024 Chronic Deficiency and other anemia (4 sources) Anemia; Translations: [Anemia, unspecified] 06-06-2024 Episodic Disorders of lipid metabolism (18 sources) Hyperlipidemia, unspecified; Translations: [Hyperlipidemia] Onset: 0 06-14-2022 Chronic Diverticulosis and diverticulitis (4 sources) Diverticular disease; Translations: [Diverticulosis of intestine, part unspecified, without perforation or abscess without bleeding] 11-09-2023 Chronic Esophageal disorders (19 sources) Gastro-esophageal reflux disease without esophagitis; Translations: [Gastroesophageal reflux disease] Onset: 0 Chronic Gastrointestinal hemorrhage (1 source) Rectal hemorrhage; Translations: [Hemorrhage of anus and rectum] Episodic Genitourinary symptoms and ill-defined conditions (8 sources) Foul smelling urine; Translations: [Unspecified abnormal findings in urine] 06-14-2022 Episodic Genitourinary symptoms and ill-defined conditions (1 source) Stress incontinence (female) (male); Translations: [STRESS INCONTINENCE FEMALE MALE] Onset: 0 Headache; including migraine (4 sources) Headache; Translations: [Headache] 05-06-2024 Episodic Hemorrhoids (13 sources) Hemorrhoids; Translations: [Unspecified hemorrhoids] 07-07-2020 Episodic Immunizations and screening for infectious disease (11 sources) Contact with and (suspected) exposure to other viral communicable diseases; Translations: [Needs influenza immunization] Onset: 0 06-14-2022 Episodic Influenza (7 sources) Influenza due to Influenza A virus; Translations: [Influenza due to other identified influenza virus with other respiratory manifestations] 09-27-2024 Episodic Joint disorders and dislocations; trauma-related (10 sources) Derangement of left knee; Translations: [Unspecified internal derangement of left knee] 12-16-2021 Chronic Malaise and fatigue (4 sources) Asthenia; Translations: [Other malaise] 05-22-2024 Episodic Mood disorders (1 source) Major depressive disorder, single episode, unspecified; Translations: [THERESE DEPRESS D/O SINGLE EPIS UNS] Onset: 0 Mycoses (11 sources) Candidiasis of mouth; Translations: [Candidal stomatitis] 12-05-2022 Episodic Osteoarthritis (20 sources) Unspecified osteoarthritis, unspecified site; Translations: [Arthritis] Onset: 0 10-03-2022 Chronic Other aftercare (1 source) Other long-term (current) drug therapy; Translations: [OTH EXECUTIVE PERSONAL ASSISTANT CURRENT DRUG THERAPY] Onset: 0 Episodic Other aftercare (4 sources) Post-discharge follow-up; Translations: [Encounter for follow-up examination after completed treatment for conditions other than malignant neoplasm] 06-06-2024 Episodic Other bone disease and musculoskeletal deformities (10 sources) Osteopenia; Translations: [Other specified disorders of bone density and structure, unspecified site] 07-19-2023 Episodic Other bone disease and musculoskeletal deformities (4 sources) Other specified disorders of bone density and structure, unspecified site; Translations: [Disorder of bone and cartilage, unspecified] Onset: 5 07-19-2023 Episodic Other circulatory disease (4 sources) Elevated blood pressure; Translations: [Elevated blood-pressure reading, without diagnosis of hypertension] 11-09-2023 Episodic Other connective tissue disease (4 sources) History of total knee arthroplasty; Translations: [Presence of right artificial knee joint] 05-21-2024 Chronic Other connective tissue disease (1 source) Presence of right artificial knee joint; Translations: [Presence of right artificial knee joint] Onset: Chronic Other gastrointestinal disorders (10 sources) Constipation; Translations: [Constipation, unspecified] 07-07-2020 Episodic Other gastrointestinal disorders (10 sources) Diarrhea; Translations: [Diarrhea, unspecified] Episodic Other gastrointestinal disorders (4 sources) Diarrhea, unspecified; Translations: [Diarrhea] Episodic Other gastrointestinal disorders (2 sources) Constipation, unspecified; Translations: [Constipation, unspecified] Episodic Other inflammatory condition of skin (8 sources) Disorder of female perineum; Translations: [Anogenital pruritus, unspecified] 10-03-2022 Episodic Other lower respiratory disease (8 sources) Postviral cough; Translations: [Post-viral cough syndrome] 01-11-2023 Episodic Other non-traumatic joint disorders (10 sources) Pain in left knee; Translations: [Left knee pain] 12-16-2021 Episodic Other non-traumatic joint disorders (4 sources) Acute ankle pain; Translations: [Pain in left ankle and joints of left foot] 12-09-2024 Episodic Other non-traumatic joint disorders (1 source) Pain in left ankle and joints of left foot; Translations: [Acute left ankle pain] Onset: 5 Episodic Other screening for suspected conditions (not mental disorders or infectious disease) (9 sources) Patient encounter status; Translations: [Encounter for screening for nutritional disorder] Onset: 5 10-03-2022 Episodic Other skin disorders (9 sources) Lesion of scalp; Translations: [Disorder of the skin and subcutaneous tissue, unspecified] 02-08-2022 Episodic Other skin disorders (1 source) Disorder of the skin and subcutaneous tissue, unspecified; Translations: [Unspecified disorder of skin and subcutaneous tissue] Episodic Other skin disorders (7 sources) Localized swelling of chest wall; Translations: [Localized swelling, mass and lump, trunk] 07-19-2023 Episodic Other skin disorders (4 sources) Localized swelling, mass and lump, trunk; Translations: [Localized superficial swelling, mass, or lump] 07-19-2023 Episodic Other skin disorders (1 source) Hyperhidrosis; Translations: [Generalized hyperhidrosis] 03-24-2025 Episodic Other upper respiratory infections (8 sources) Viral upper respiratory tract infection; Translations: [Acute upper respiratory infection, unspecified] Onset: 5 09-25-2024 Episodic Prolapse of female genital organs (13 sources) Rectocele; Translations: [Uterovaginal prolapse, unspecified] Onset: 0 08-11-2018 Chronic Residual codes; unclassified (7 sources) Family history of malignant neoplasm of gastrointestinal tract; Translations: [Family history of malignant neoplasm of digestive organs] 10-28-2008 Episodic Residual codes; unclassified (8 sources) History of operative procedure on foot; Translations: [Other specified postprocedural states] 07-07-2020 Episodic Retinal detachments; defects; vascular occlusion; and retinopathy (9 sources) Degenerative disorder of macula ; Translations: [Unspecified macular degeneration] 02-08-2022 Chronic Sprains and strains (10 sources) Strain of muscle(s) and tendon(s) of the rotator cuff of right shoulder, initial encounter; Translations: [Strain of right rotator cuff capsule] Onset: 4 07-08-2024 Episodic Unclassified (1 source) Cough, unspecified; Translations: [Cough, unspecified] Onset: 5 Urinary tract infections (4 sources) Urinary tract infection, site not specified; Translations: [Urinary tract infection, site not specified] 06-08-2023 Episodic Viral infection (17 sources) Disease caused by 2019-nCoV; Translations: [COVID-19] Onset: 7 03-01-2007 Episodic Past or Other Problems Problem Classification Problem Date Documented Da te Episodic/Chronic Allergic reactions (7 sources) Radiation-induced dermatosis; Translations: [Other skin changes due to chronic exposure to nonionizing radiation] Onset: 03-01-2007 03-01-2007 Episodic Deficiency and other anemia (1 source) Anemia, unspecified; Translations: [Anemia, unspecified] Onset: 06-06-2024 Episodic Other and unspecified benign neoplasm (7 sources) Benign neoplasm of skin of face; Translations: [Other benign neoplasm of skin of unspecified part of face] Onset: 03-01-2007 03-01-2007 Episodic Other non-traumatic joint disorders (1 source) Pain in right shoulder; Translations: [Pain in right shoulder] Onset: 08-05-2024 Episodic Other skin disorders (7 sources) Inflamed seborrheic keratosis; Translations: [Inflamed seborrheic keratosis] Onset: 03-01-2007 03-01-2007 Episodic Other skin disorders (7 sources) Disorder of skin pigmentation; Translations: [Disorder of pigmentation, unspecified] Onset: 03-01-2007 03-01-2007 Episodic Other skin disorders (7 sources) Disorder of sebaceous gland; Translations: [Follicular disorder, unspecified] Onset: 03-01-2007 03-01-2007 Episodic Other skin disorders (7 sources) Actinic keratosis; Translations: [Actinic keratosis] Onset: 09-15-2008 09-15-2008 Episodic Unclassified (10 sources) bilateral carpal tunnel surgery 03-10-2022 Results Test Name Value Interpretation Reference Range Facility Breast imaging reportOrdered By: Jana Kim on 01-10-2025 Study report [facility] Imaging Services [address] [place] [address] [id number] SCRN MAMM (CAD)W/NICHELLE BILAT MR#: [id number] Acct: [id number] Name: SOFIYA TIJERINA Rep #: [id number] : 1940 F 84 From: Denia Kim MD PCP: Dr. Malcolm Burns MD Status: R EG CLI Study:SCRN MAMM (CAD)W/NICHELLE BILAT Date of Exa m: 01/10/25 Exam# [id number] Ordering Dr: Sanket Burns MD EXAM: SCRN MAMM (CAD)W/NICHELLE BILAT 01/10/2025 CLINICAL HISTORY: F, Age 84 y/o , SCREENING TECHNIQUE: Bilateral screening digital breast tomosynthesis with 2D and 3D images. Computeraided detection. COMPARISON: Prior exam(s) dated 08/30/2023, 07/12/2021, 03/24/2020. FINDINGS: TISSUE DENSITY: The breast tissue is composed of scattered area of fibroglandular density. Bilateral Breast Mammographic Findings: No significant masses, calcifications or other abnormalities are identified. BI/SCRN MAMM (CAD)W/NICHELLE BILAT IMPRESSION: Right Breast: BIRADS 1 NEGATIVE. Left Breast: BIRADS 1 NEGATIVE. OVERALL FINAL ASSESSMENT: BIRADS 1 NEGATIVE. RECOMMENDATION: Routine annual follow-up in 1 Year A letter with findings and recommendations will be mailed to the patient. Reading Location: [facility] CC: Dr. Malcolm Burns MD ~ Credit Analyst: Signed [facility] SCRN MAMM (CAD)W/NICHELLE BILATo n 01-10-2025 SCRN MAMM (CAD)W/NICHELLE BILAT [facility] Imaging Services [address] [place] [address] SCRN MAMM (CAD)W/NICHELLE BILAT MR#: [id number] Acct: [id number] Name: SOFIYA TIJERINA Rep #: [id number] : 1940 F 84 From: Jana Kim MD PCP: Dr. Malcolm Burns MD Status: REG CLI Study: SCRN MAMM (CAD)W/NICHELLE BILAT Date of Exam: 12/20 11/12 Exam# [id number] Ordering Dr: Malcolm Burns MD EXAM: SCRN MAMM (CAD)W/NICHELLE BILAT 01/10/2025 CLINICAL HISTORY: F, Age 84 y/o , SCREENING TECHNIQUE: Bilateral screening digital breast tomosynthesis with 2D and 3D images. Computer aided detection. COMPARISON: Prior exam(s) dated 08/30/2023, 07/12/2021, 03/24/2020. FINDINGS: TISSUE DENSITY: The breast tissue is composed of scattered area of fibroglandular density. Bilateral Breast Mammographic Findings: No significant masses, calcifications or other abnormalities are identified. BI/SCRN MAMM (CAD)W/NICHELLE BILAT IMPRESSION: Right Breast: BIRADS 1 NEGATIVE. Left Breast: BIRADS 1 NEGATIVE. OVERALL FINAL ASSESSMENT: BIRADS 1 NEGATIVE. RECOMMENDATION: Routine annual follow-up in 1 Year A letter with findings and recommendations will be mailed to the patient. Reading Location: [id number] CC: Dr. Malcolm Burns MD Credit Analyst: Signed Normal [facility] KRISHAN w/ Reflex Mult Confirmon 01-06-2025 KRISHAN,DIRECT Negative Normal Negative [facility] Comment on above: Result Comment: Perf ormed at: [address] [id number] Rug Touch Up Painter: Ponce Alberto PhD, Phone: [phone] Performed By: #### L 506.1001, L505.7010, L3100.5450, L101.9900, L500.4100, L100.0100, L500.4050, L4600.0100 #### [facility] [address] [place], [address] CCP IgG Antibodieson 025 CCP IgG Ab. 7 units Normal 0-19 [facility] Comment on above: Result Comment: Nega tive <20 Weak positive 20 - 39 Moderate positive 40 - 59 Strong positive >59 Performed at: [address] [id number] Rug Touch Up Painter: Ponce Alberto PhD, Phone: [phone] Performed By: #### L 506.1001, L505.7010, L3100.5450, L101.9900, L500.4100, L100.0100, L500.4050, L4600.0100 ####[facility] [address] [place], [place], [id number] Absolute lymphocyte countOrd ered By: Malcolm Burns on 01-02-2025 Lymphocytes Auto (Unsp spec) [#/Vol] 1.49 10*3/uL 0.83-4.51 [facility] Absolute neutrophil countOrd ered By: Malcolm Burns on 01-02-2025 Neutrophils (Bld) [#/Vol] 5.4 10*3/uL 2.0-7.7 [facility] Anion gap in Serum or Plasma Ordered By: Malcolm Damicojamarcussanket on 01-02-2025 Anion gap [Moles/Vol] 11 mmol/L 01-02 [facility] Automated lymphocyte count a s percentage of total leukocytesOrdered By: Malcolm Burns on 01-02-2025 Lymphocytes/100 WBC Auto (Unsp spec) 19.2 % - [facility] BUN/creatinine ratioOrdered By: sanjuanitamemphisvivi Burns on 01-02-2025 Urea nitrogen/Creatinine [Mass ratio] 20.5 mg/mg High 10- [facility] Basophil percentageOrdered B y: Malcolm Burns on 01-02-2025 Basophils/100 WBC (Bld) 0.4 % 0- [facility] Bilirubin, totalOrdered By: Malcolm Burns on 01-02-2025 Bilirubin [Mass/Vol] 0.35 mg/dL 0.00-1.30 [facility] CBC W/Diff, Automatedon 12-19 Absolute Lymph 1.49 X10 3/uL Normal 0.83-4.51 [facility] Comment on above: Performed By: #### L 506.1001, L505.7010, L3100.5450, L101.9900, L500.4100, L100.0100, L500.4050, L4600.0100 ####[facility] [address] [place], [address] Absolute Neut 5.4 X10 3/uL Normal 2.0-7.7 [facility] Comment on above: Performed By: #### L 506.1001, L505.7010, L3100.5450, L101.9900, L500.4100, L100.0100, L500.4050, L4600.0100 ####[facility] [address] [place], [address] Basophils/100 WBC (Bld) 0.4 % Normal 0-1 [facility] Comment on above: Performed By: #### L 506.1001, L505.7010, L3100.5450, L101.9900, L500.4100, L100.0100, L500.4050, L4600.0100 ####[facility] [address] [place], [address] Eosinophils/100 WBC (Bld) 2.8 % Normal 0-5 [facility] Comment on above: Performed By: #### L 506.1001, L505.7010, L3100.5450, L101.9900, L500.4100, L100.0100, L500.4050, L4600.0100 ####[facility] [address] [place], [address]( Erythrocyte distribution width (RBC) [Ratio] 14.0 % Normal 11.6-14.6 [facility] Comment on above: Performed By: #### L 506.1001, L505.7010, L3100.5450, L101.9900, L500.4100, L100.0100, L500.4050, L4600.0100 ####[facility] [address] [place], [address]( Hematocrit (Bld) [Volume fraction] 37.3 % Normal 37-47 [facility] Comment on above: Performed By: #### L 506.1001, L505.7010, L3100.5450, L101.9900, L500.4100, L100.0100, L500.4050, L4600.0100 ####[facility] [address] [place], [address] Hemoglobin (Bld) [Mass/Vol] 12.3 g/dL Normal 12.0-15.0 [facility] Comment on above: Performed By: #### L 506.1001, L505.7010, L3100.5450, L101.9900, L500.4100, L100.0100, L500.4050, L4600.0100 ####[facility] [address] [place], [address] IG% 0.300 Normal 0.0-0.9 [facility] Comment on above: Result Comment: IG% - Immature Granulocytes (promyelocytes, myelocytes and metamyelocytes) > 1% indicates that a LEFT SHIFT is Present. Performed By: #### L 506.1001, L505.7010, L3100.5450, L101.9900, L500.4100, L100.0100, L500.4050, L4600.0100 ####[facility] [address] [place], [address] Lymphocytes/100 WBC (Bld) 19.2 % Normal 19-41 [facility] Comment on above: Performed By: #### L 506.1001, L505.7010, L3100.5450, L101.9900, L500.4100, L100.0100, L500.4050, L4600.0100 ####[facility] [address] [place], [address] MCH (RBC) [Entitic mass] 29.3 pg Normal 27.0-32.0 [facility] Comment on above: Performed By: #### L 506.1001, L505.7010, L3100.5450, L101.9900, L500.4100, L100.0100, L500.4050, L4600.0100 ####[facility] [address] [place], [address] MCHC (RBC) [Mass/Vol] 33.0 g/dL Normal 32-36 [facility] Comment on above: Performed By: #### L 506.1001, L505.7010, L3100.5450, L101.9900, L500.4100, L100.0100, L500.4050, L4600.0100 ####[facility] [address] [place], [address] MCV (RBC) [Entitic vol] 88.8 fL Normal 81-99 [facility] Comment on above: Performed By: #### L 506.1001, L505.7010, L3100.5450, L101.9900, L500.4100, L100.0100, L500.4050, L4600.0100 ####[facility] [address] [place], [address] Monocytes/100 WBC (Bld) 8.1 % Normal 0-10 [facility] Comment on above: Performed By: #### L 506.1001, L505.7010, L3100.5450, L101.9900, L500.4100, L100.0100, L500.4050, L4600.0100 ####[facility] [address] [place], [address] Neutrophils/100 WBC (Bld) 69.2 % Normal 47-70 [facility] Comment on above: Performed By: #### L 506.1001, L505.7010, L3100.5450, L101.9900, L500.4100, L100.0100, L500.4050, L4600.0100 ####[facility] [address] [place], [address] Nucleated RBC (Bld) [#/Vol] 0 10*3/uL Normal 0-5 [facility] Comment on above: Performed By: #### L 506.1001, L505.7010, L3100.5450, L101.9900, L500.4100, L100.0100, L500.4050, L4600.0100 ####[facility] [address] [place], [address] Platelet mean volume (Bld) [Entitic vol] 10.4 fL Normal 6.2-12.0 [facility] Comment on above: Performed By: #### L 506.1001, L505.7010, L3100.5450, L101.9900, L500.4100, L100.0100, L500.4050, L4600.0100 ####[facility] [address] [place], [address] Platelets (Bld) [#/Vol] 201 10*3/uL Normal 150-450 [facility] Comment on above: Performed By: #### L 506.1001, L505.7010, L3100.5450, L101.9900, L500.4100, L100.0100, L500.4050, L4600.0100 ####[facility] [address] [place], [address] RBC (Bld) [#/Vol] 4.20 10*6/uL Normal 4.2-5.4 [facility] Comment on above: Performed By: #### L 506.1001, L505.7010, L3100.5450, L101.9900, L500.4100, L100.0100, L500.4050, L4600.0100 ####[facility] [address] [place], [address] RDW SD 45.1 fl High 35.1-43.9 [facility] Comment on above: Performed By: #### L 506.1001, L505.7010, L3100.5450, L101.9900, L500.4100, L100.0100, L500.4050, L4600.0100 ####[facility] [address] [place], [address] WBC (Bld) [#/Vol] 7.8 10*3/uL Normal 4.4-11.0 [facility] Comment on above: Performed By: #### L 506.1001, L505.7010, L3100.5450, L101.9900, L500.4100, L100.0100, L500.4050, L4600.0100 ####[facility] [address] [place], [address] Calculated very low density lipoprotein (VLDL) cholesterol measurementOrdered By: Vickysanjuanitapeggy Mookiejamarcussanket on 01-02-2025 Calculated very low density lipoprotein (VLDL) cholesterol measurement 24 mg/dL 5-40 [facility] Carbon dioxide, total [Moles /volume] in Central venous bloodOrdered By: Malcolm Burns on 01-02-2025 CO2 [Moles/Vol] 24.6 mmol/L 21.0-32.0 [facility] Chloride assayOrdered By: Vicky ericvivi Burns on 01-02-2025 Chloride [Moles/Vol] 105 mmol/L 98-108 [facility] Comprehensive Metabolic Prof ilon 01-02-2025 Albumin [Mass/Vol] 4.1 g/dL Normal 3.4-4.8 [facility] Comment on above: Performed By: #### L 506.1001, L505.7010, L3100.5450, L101.9900, L500.4100, L100.0100, L500.4050, L4600.0100 ####[facility] [address] [place], [place], [id number] Albumin/Globulin [Mass ratio] 1.6 {ratio} Normal 0.9-2.4 [facility] Comment on above: Performed By: #### L 506.1001, L505.7010, L3100.5450, L101.9900, L500.4100, L100.0100, L500.4050, L4600.0100 ####[facility] [address] [place], [place], [id number] ALK PHOS 64 U/L Normal 35-104 [facility] Comment on above: Performed By: #### L 506.1001, L505.7010, L3100.5450, L101.9900, L500.4100, L100.0100, L500.4050, L4600.0100 ####[facility] [address] [place], [address] ALT [Catalytic activity/Vol] 16 U/L Normal <=34 [facility] Comment on above: Performed By: #### L 506.1001, L505.7010, L3100.5450, L101.9900, L500.4100, L100.0100, L500.4050, L4600.0100 ####[facility] [address] [place], [address] AST [Catalytic activity/Vol] 20 U/L Normal <=31 [facility] Comment on above: Performed By: #### L 506.1001, L505.7010, L3100.5450, L101.9900, L500.4100, L100.0100, L500.4050, L4600.0100 ####[facility] [address] [place], [place], [phone] Bilirubin [Mass/Vol] 0.35 mg/dL Normal 0.00-1.30 [facility] Comment on above: Performed By: #### L 506.1001, L505.7010, L3100.5450, L101.9900, L500.4100, L100.0100, L500.4050, L4600.0100 ####[facility] [address] [place], [place], [phone] BUN/CRE 20.5 RATIO High 10-20 [facility] Comment on above: Performed By: #### L 506.1001, L505.7010, L3100.5450, L101.9900, L500.4100, L100.0100, L500.4050, L4600.0100 ####[facility] [address] [place], [address] Calcium [Mass/Vol] 9.5 mg/dL Normal 7.6-11.0 [facility] Comment on above: Performed By: #### L 506.1001, L505.7010, L3100.5450, L101.9900, L500.4100, L100.0100, L500.4050, L4600.0100 ####[facility] [address] [place], [address] Chloride [Moles/Vol] 105 mmol/L Normal 98-108 [facility] Comment on above: Performed By: #### L 506.1001, L505.7010, L3100.5450, L101.9900, L500.4100, L100.0100, L500.4050, L4600.0100 ####[facility] [address] [place], [address] CO2 [Moles/Vol] 24.6 mmol/L Normal 21.0-32.0 [facility] Comment on above: Performed By: #### L 506.1001, L505.7010, L3100.5450, L101.9900, L500.4100, L100.0100, L500.4050, L4600.0100 ####[facility] [address] [place], [address] Creatinine [Mass/Vol] 0.92 mg/dL Normal 0.70-1.20 [facility] Comment on above: Performed By: #### L 506.1001, L505.7010, L3100.5450, L101.9900, L500.4100, L100.0100, L500.4050, L4600.0100 ####[facility] [address] [place], [address] GAP 11 Normal 5-15 [facility] Comment on above: Performed By: #### L 506.1001, L505.7010, L3100.5450, L101.9900, L500.4100, L100.0100, L500.4050, L4600.0100 ####[facility] [address] [place], [address] GFR/1.73 sq M.predicted among non-blacks MDRD (S/P/Bld) [Vol rate/Area] 63 mL/min/{1.73_m2} Normal >60 [facility] Comment on above: Result Comment: mL/m in/1.73m2 CKD-EPI Creatinine Equation (2020) Performed By: #### L 506.1001, L505.7010, L3100.5450, L101.9900, L500.4100, L100.0100, L500.4050, L4600.0100 ####[facility] [address] [place], [address] Globulin (S) [Mass/Vol] 2.5 g/dL Normal 2.2-4.2 [facility] Comment on above: Performed By: #### L 506.1001, L505.7010, L3100.5450, L101.9900, L500.4100, L100.0100, L500.4050, L4600.0100 ####[facility] [address] [place], [address] Glucose [Mass/Vol] 119 mg/dL High 70-99 [facility] Comment on above: Performed By: #### L 506.1001, L505.7010, L3100.5450, L101.9900, L500.4100, L100.0100, L500.4050, L4600.0100 ####[facility] [address] [place], [address] Potassium [Moles/Vol] 3.9 mmol/L Normal 3.3-5.1 [facility] Comment on above: Performed By: #### L 506.1001, L505.7010, L3100.5450, L101.9900, L500.4100, L100.0100, L500.4050, L4600.0100 ####[facility] [address] [place], [address] Sodium [Moles/Vol] 140 mmol/L Normal 133-145 [facility] Comment on above: Performed By: #### L 506.1001, L505.7010, L3100.5450, L101.9900, L500.4100, L100.0100, L500.4050, L4600.0100 ####[facility] [address] [place], [address] T PROT 6.6 g/dL Normal 5.9-8.4 [facility] Comment on above: Performed By: #### L 506.1001, L505.7010, L3100.5450, L101.9900, L500.4100, L100.0100, L500.4050, L4600.0100 ####[facility] [address] [place], [address] Urea nitrogen [Mass/Vol] 19 mg/dL Normal 4-19 [facility] Comment on above: Performed By: #### L 506.1001, L505.7010, L3100.5450, L101.9900, L500.4100, L100.0100, L500.4050, L4600.0100 ####[facility] [address] [place], [address] Eosinophil percentageOrdered By: Malcolm Burns on 01-02-2025 Eosinophils/100 WBC (Bld) 2.8 % 0-5 [facility] Erythrocyte Sed Rateon 01-02 SED RATE 9 mm/hr Normal 0-30 [facility] Comment on above: Performed By: #### L 506.1001, L505.7010, L3100.5450, L101.9900, L500.4100, L100.0100, L500.4050, L4600.0100 ####[facility] [address] [place], [address] Erythrocyte distribution wid th ratioOrdered By: Malcolm Burns on 01-02-2025 Erythrocyte distribution width (RBC) [Ratio] 14.0 % 11.6-14.6 [facility] Erythrocyte distribution wid th standard deviationOrdered By: Malcolm Burns on 01-02-2025 Erythrocyte distribution width (RBC) [Ratio] 45.1 fl High 35.1-43.9 [facility] Erythrocyte sedimentation ra teOrdered By: Malcolm Burns on 01-02-2025 ESR (Bld) [Velocity] 9 mm/h 0-30 [facility] Glomerular filtration rate ( GFR) estimation/1.73 sq m using serum, plasma, or whole bOrdered By: Malcolm Burns on 01-02-2025 GFR/1.73 sq M.predicted among non-blacks MDRD (S/P/Bld) [Vol rate/Area] 63 mL/min/{1.73_m2} >60 [facility] Comment on above: mL/min/1.73m2 CKD-EP I Creatinine Equation (2020) Hematocrit Auto (Bld) [Volum e fraction]Ordered By: Malcolm Burns on 01-02-2025 Hematocrit (Bld) [Volume fraction] 37.3 % 37-47 [facility] Hemoglobin measurementOrdere d By: Malcolm Burns on 01-02-2025 Hemoglobin (Bld) [Mass/Vol] 12.3 g/dL 12.0-15.0 [facility] Immature granulocytes/100 WB C Auto (Bld)Ordered By: Malcolm Burns on 01-02-2025 Immature granulocytes/100 WBC (Bld) 0.300 % 0.0-0.9 [facility] Comment on above: IG% - Immature Granu locytes (promyelocytes, myelocytes and metamyelocytes) > 1% indicates that a LEFT SHIFT is Present. Internal Medicine Office Vis itolauro 01-02-2025 Internal Medicine Office Visit [facility] [address] [place] [address] [place] [address] OFFICE VISIT Date of Service: 01/02/25 MR#: [id number] Acct: [id number] Name: SOFIYA TIJERINA Rep #: [id number] : 1940 Provider: Dr. Malcolm li MD Age/Sex: 84/F [place] [facility] Status: Signed Intake Vital Signs 09/25/24 09:34 01/02/25 14:57 01/02/25 15:02 Height 5 ft 2 in 5 ft 2 in Weight: 150 lb BMI 27.4 BP 144/70 H 136/68 H Blood Pressure Location Lt brachial Rt brachial Position Sitting Respiration 18 Pulse 94 Pulse Source Monitor Temp 97.6 F L Temp Source Temporal Pulse Oximetry (%) 96 Oxygen Delivery Method room air Intake Visit Reasons: FU Chief Complaint: Follow-up chronic conditions Is patient in pain?: No Allergies No Known Allergies Allergy (Verified 01/02/25 14:58) Medications ???Medication ???Instructions ???Recorded ???Confirmed ???Type calcium carbonate (Calcium 500) 500 mg PO BID supplement 07/07/20 01/02/25 History melatonin 10 mg tablet 10 mg PO QHS sleep 04/01/22 History vit C 250 mg-vit E 90 mg-zinc 40 1 tab PO BID supplement 04/01/22 0 01/02/25 History mg-copper 1 mr-knwdwc-spqoxd capsule (PreserVision AREDS-2) cholecalciferol (vitamin D3) 10 10 mcg PO DAILY supplement 4 01/02/25 History mcg (400 unit) capsule blood pressure monitor #1 ea 11/27/23 01/02/25 Rx atorvastatin 40 mg tablet 40 mg PO DAILY cholesterol #90 tab s 01/19/24 01/02/25 Rx citalopram 40 mg tablet 40 mg PO QHS MENTAL HEALTH 4 01/02/25 History krill oil 500 mg capsule 500 mg PO DAILY supplement 4 01/02/25 History aspirin 81 mg tablet,delayed 81 mg PO BID 23 days #0 tabs 05/2801/02/25 Rx release acetaminophen 500 mg tablet 1,000 mg PO Q8 PRN pain 01/02/25 0 01/02/25 History lansoprazole 15 mg capsule,delayed 15 mg PO DAILY Acid reflex #90 c aps 01/02/25 Rx release magnesium 200 mg tablet 200 mg PO BID 01/02/25 01/02/25 Hi story naproxen sodium 220 mg capsule 220 mg PO ONCE 01/02/25 01/02/25 H istory (Aleve) Have you fallen in the past year?: [facility] (Updated 01/02/25 @ 16:[address] Malcolm Burns MD) GERD (gastroesophageal reflux disease) Viral URI Right shoulder strain Strain of right rotator cuff capsule Preoperative evaluation to rule out surgical contraindication Headache Lightheadedness Localized swelling of chest wall Thrush Perineal pruritus in female Encounter for vitamin deficiency screening Flu vaccine need Foul smelling urine Wears dentures Post-menopausal High cholesterol Back pain Gastric reflux Non-smoker Sleep apnea Leg cramps History of stress test Coronary artery disease Pancreatic cyst Skin lesion of scalp Diarrhea Macular degeneration Osteopenia Carpal tunnel syndrome Breast lump Arthritis Hemorrhoids Constipation Hyperlipidemia Anxiety Surgical History History of total right knee replacement Hx of hysterectomy History of bladder suspension procedure S/P hysterectomy S/p bilateral carpal tunnel release S/P cataract extraction bilateral carpal tunnel surgery S/P bilateral foot surgery History of tubal ligation Family History Brother Colon cancer High cholesterol Hypertension Anxiety Arthritis Myocardial infarction Mother Colostomy care Hypertension High cholesterol Sister Lung cancer Anxiety Arthritis Breast cancer Depression Respiratory disease Colon cancer Sister Cancer lung Thyroid disorder Hypertension Social History household members: none Smoking Status: Never smoker alcohol intake: never substance use type: does not use caffeine: Yes what type of physical activity do you participate in: none seatbelt use: always do you feel safe at home: Yes additional social history: - solorzano HPI HPI Chief Complaint: Follow-up chronic conditions Details: SOFIYA TIJERINA, is a 84 F who presents to the office today for follow-up of her chronic medical conditions. Also has some concerns. Was recently seen by her orthopedic surgeon due to ankle swelling. Imaging done was suggestive of arthritis. She had injection which was quite helpful. She however states that there was concern for an autoimmune/inflammatory arthritis process due to several joint involvement. She denies any significant L morning stiffness. No known history of rheumatoid arthritis. Chronic history of reflux currently on Prevacid. Takes anbx-woc-ymxvibx Prevacid. When she occasionally misses this, she reports increased burning and concerns with swallowing. With highly acidic foods or dr (more content not included)... Normal [facility] LDL calc ser/plasOrdered By: Malcolm Burns on 01-02-2025 Cholesterol in LDL [Mass/Vol] 57 mg/dL [facility] Comment on above: Uksjlhezbc=057-647 m g/dL & Higher Njpq=667 mg/dL or greater Laboratory - Chemistry and C hemistry - challengeOrdered By: Malcolm Burns on 01-02-2025 AST [Catalytic activity/Vol] 20 U/L <32 [facility] Lipid Profileon 01-02-2025 CHOL:HDL 2.34 Normal [facility] Comment on above: Performed By: #### L 506.1001, L505.7010, L3100.5450, L101.9900, L500.4100, L100.0100, L500.4050, L4600.0100 ####[facility] [address] [place], [address] Cholesterol [Mass/Vol] 142 mg/dL Normal <=200 [facility] Comment on above: Result Comment: Chol esterol level, Desirable <200 mg/dL Borderline high cholesterol 200-239 mg/dL High cholesterol >=240 mg/dL Recommendations of the NCEP Adult Treatment Panel for the following risk-cutoff thresholds for the [place] population. Performed By: #### L 506.1001, L505.7010, L3100.5450, L101.9900, L500.4100, L100.0100, L500.4050, L4600.0100 ####[facility] [address] [place], [address] Cholesterol in HDL [Mass/Vol] 61 mg/dL Normal [facility] Comment on above: Result Comment: Yenny onal Cholesterol Education Program (NCEP) guidelines: <40 mg/dL: Low HDL-cholesterol (major risk factor for CHD) >= 60 mg/dL: High HDL-cholesterol (negative risk factor for CHD) HDL-cholesterol is affected by a number of factors, e.g. smoking, exercise, hormones, sex and age. Performed By: #### L 506.1001, L505.7010, L3100.5450, L101.9900, L500.4100, L100.0100, L500.4050, L4600.0100 ####[facility] [address] [place], [address] Cholesterol in LDL [Mass/Vol] 57 mg/dL Normal [facility] Comment on above: Result Comment: Bord xpmbmr=937-158 mg/dL Higher Dvkg=987 mg/dL or greater Performed By: #### L 506.1001, L505.7010, L3100.5450, L101.9900, L500.4100, L100.0100, L500.4050, L4600.0100 ####[facility] [address] [place], [address](253) Cholesterol in VLDL [Mass/Vol] 24 mg/dL Normal 5-40 [facility] Comment on above: Performed By: #### L 506.1001, L505.7010, L3100.5450, L101.9900, L500.4100, L100.0100, L500.4050, L4600.0100 ####[facility] [address] [place], [address] Triglyceride [Mass/Vol] 122 mg/dL Normal [facility] Comment on above: Result Comment: The drugs N-Acetylcysteine and Metamizole may falsely depress this assay. Normal range: <150 mg/dL Borderline High: 150-199 mg/dL High: 200-499 mg/dL Very High: >500 mg/dL Performed By: #### L 506.1001, L505.7010, L3100.5450, L101.9900, L500.4100, L100.0100, L500.4050, L4600.0100 ####[facility] [address], [address](431) MCV (mean corpuscular volume ) determinationOrdered By: Malcolm Burns on 01-02-2025 MCV (RBC) [Entitic vol] 88.8 fL 81-99 [facility] Mean corpuscular hemoglobin (MCH) determinationOrdered By: Malcolm Burns on 01-02-2025 MCH (RBC) [Entitic mass] 29.3 pg 27.0-32.0 [facility] Mean corpuscular hemoglobin concentration (MCHC) determinationOrdered By: Malcolm Burns on 01-02-2025 MCHC (RBC) [Mass/Vol] 33.0 g/dL 32-36 [facility] Mean platelet volume determi nationOrdered By: Malcolm Burns on 01-02-2025 Platelet mean volume (Bld) [Entitic vol] 10.4 fL 6.2-12.0 [facility] Monocyte percentageOrdered B y: Slymattievivi Damicojamarcussanket on 01-02-2025 Monocytes/100 WBC (Bld) 8.1 % 0-10 [facility] Neutrophil percentageOrdered By: sanjuanitamemphisvivi Burns on 01-02-2025 Neutrophils/100 WBC (Bld) 69.2 % 47-70 [facility] Nucleated red blood cell per centageOrdered By: Malcolm Damicojamarcussanket on 01-02-2025 Nucleated RBC/100 WBC (Bld) [Ratio] 0 % 0-5 [facility] Platelet countOrdered By: Vicky ericvivi Damicojamarcussanket on 01-02-2025 Platelets (Bld) [#/Vol] 201 10*3/uL 150-450 [facility] Potassium measurement (mass/ volume)Ordered By: Malcolm Burns on 01-02-2025 Potassium (Unsp spec) [Mass/Vol] 3.9 mmol/L 3.3-5.1 [facility] RBC Auto (Bld) [#/Vol]Ordere d By: Malcolm Burns on 01-02-2025 RBC (Bld) [#/Vol] 4.20 10*6/uL 4.2-5.4 [facility] Rheumatoid Factoron 01-03-20 25 RHEUMATOID FAC < 10.0 Normal <15 [facility] Comment on above: Performed By: #### L 506.1001, L505.7010, L3100.5450, L101.9900, L500.4100, L100.0100, L500.4050, L4600.0100 ####[facility] [address] [place], [address] Screening total cholesterol/ high density lipoprotein (HDL) cholesterol ratioOrdered By: Malcolm Burns on 01-02-2025 Cholesterol.total/Chol esterol in HDL [Mass ratio] 2.34 {ratio} [facility] Serum DNA double strand anti body assay (units/volume)Ordered By: Malcolm Burns on 01-02-2025 DNA double strand Ab Qn (S) Not Reportable [facility] Serum Scl-70 antibody assay (units/volume)Ordered By: Malcolm Burns on 01-02-2025 SCL-70 extractable nuclear Ab Qn (S) TNP [facility] Comment on above: Test not performed Serum creatinine measurement (mass/volume)Ordered By: Malcolm Burns on 01-02-2025 Creatinine [Mass/Vol] 0.92 mg/dL 0.70-1.20 [facility] Serum globulin measurementOr dered By: Malcolm Burns on 01-02-2025 Globulin (S) [Mass/Vol] 2.5 g/dL 2.2-4.2 [facility] Serum glucose measurement (m ass/volume)Ordered By: Malcolm Burns on 01-02-2025 Glucose [Mass/Vol] 119 mg/dL High 70-99 [facility] Serum or plasma alanine francisco otransferase (ALT) measurementOrdered By: Malcolm Burns on 01-02-2025 ALT [Catalytic activity/Vol] 16 U/L <35 [facility] Serum or plasma albumin lucinda urement (mass/volume)Ordered By: Malcolm Burns on 01-02-2025 Albumin [Mass/Vol] 4.1 g/dL 3.4-4.8 [facility] Serum or plasma albumin/glob ulin mass ratioOrdered By: Malcolm Burns on 01-02-2025 Albumin/Globulin [Mass ratio] 1.6 {ratio} 0.9-2.4 [facility] Serum or plasma alkaline claribel sphatase measurementOrdered By: Malcolm Burns on 01-02-2025 ALP [Catalytic activity/Vol] 64 U/L 35-104 [facility] Serum or plasma calcium lucinda urement (mass/volume)Ordered By: Malcolm Burns on 01-02-2025 Calcium [Mass/Vol] 9.5 mg/dL 7.6-11.0 [facility] Serum or plasma cholesterol in HDL measurement (mass/volume)Ordered By: Malcolm Burns on 01-02-2025 Cholesterol in HDL [Mass/Vol] 61 mg/dL >40 [facility] Comment on above: National Cholesterol Education Program (NCEP) guidelines:<40 mg/dL: Low HDL-cholesterol (major risk factor for CHD)>= 60 mg/dL: High HDL-cholesterol (negative risk factor for CHD)HDL-cholesterol is affected by a number of factors, e.g. smoking, exercise, hormones, sex and age. Serum or plasma cholesterol measurement (mass/volume)Ordered By: Malcolm Burns on 01-02-2025 Cholesterol [Mass/Vol] 142 mg/dL <201 [facility] Comment on above: Cholesterol level, D esirable <200 mg/dLBorderline high cholesterol 200-239 mg/dLHigh cholesterol >=240 mg/dLRecommendations of the NCEP Adult Treatment Panel for the following risk-cutoff thresholds for the [place] population. Serum or plasma cyclic citru llinated peptide IgG antibody assay (units/volume)Ordered By: Malcolm Burns on 01-02-2025 Cyclic citrullinated peptide IgG Qn 7 units 0-19 [facility] Comment on above: Negative <20 Weak po sitive 20 - 39 Moderate positive 40 - 59 Strong positive >59Performed at: [facility] [id number] Director: Ponce Alberto PhD, Phone: [phone] Serum or plasma urea nitroge n measurement (mass/volume)Ordered By: Malcolm Burns on 01-02-2025 Urea nitrogen [Mass/Vol] 19 mg/dL 4-19 [facility] Serum rheumatoid factor dete ctionOrdered By: Malcolm Burns on 01-02-2025 Rheumatoid factor Ql (S) < 10.0 IU/mL <15 [facility] Sodium levelOrdered By: Sly Burns on 01-02-2025 Sodium [Moles/Vol] 140 mmol/L 133-145 [facility] Total proteinOrdered By: Lorenzo Burns on 01-02-2025 Protein [Mass/Vol] 6.6 g/dL 5.9-8.4 [facility] Triglycerides measurementOrd ered By: Malcolm Burns on 01-02-2025 Triglyceride [Mass/Vol] 122 mg/dL <199 [facility] Comment on above: The drugs N-Acetylcy steine and Metamizole may falsely depress this assay. Normal range: <150 mg/dLBorderline High: 150-199 mg/dLHigh: 200-499 mg/dLVery High: >500 mg/dL Vitamin D,25 Hydroxyon 01-02 Vitamin D 25-OH 47.7 ng/mL Normal 30-100 [facility] Comment on above: Result Comment: Roseanna min D Status Deficiency: <20 ng/mL (50nmol/L) Insufficiency: 20-30 ng/mL (50-75 nmol/L) Sufficiency: 30-100 ng/mL (75-250 nmol/L) Toxicity: >100 ng/mL (>250 nmol/L) Performed By: #### L 506.1001, L505.7010, L3100.5450, L101.9900, L500.4100, L100.0100, L500.4050, L4600.0100 ####[facility] [address] [place], [address] White blood cell (WBC) count Ordered By: Malcolm Katy on 01-02-2025 WBC (Bld) [#/Vol] 7.8 10*3/uL 4.4-11.0 [facility] CNPHeidy 12-17-2024 ROSALINO Telephone (XRI) SOFIYA TIJERINA ([id number]) 1940 F Date Time Provider Department 12/17/24 SAMRA YOUI During your visit today, we recorded the following information about you: GarciaNatasha 12/17/2024 1:41 PM Signed Patient is requesting disc and report of 12/09/24 XR Ankle LT. Patient is scheduled to follow up with non [facility] specialist tomorrow, 12/18/24 at 2:00 pm. PH. [phone] Samra You PSS 12/17/2024 4:30 PM Signed CD READY FOR CONDUCTOR AND ENGINEER AT [facility] Allergies As of Date: 12/17/2024 (No Known Allergies) Date Reviewed: 12/09/2024 Reviewed by: Paris Francis LPN - Fully Assessed Reason for Visit: Release Of Medical Records [2017] Cmt: Imaging Prescriptions as of 12/18/2024 - vit A/vit C/vit E/zinc/copper (OCUVITE PRESERVISION ORAL) Take by mouth. - phenazopyridine (PYRIDIUM) 200 mg tablet Take 1 tablet by mouth twice daily as needed for Pain (urinary burning. Turns urine orange.). - citalopram hydrobromide (CELEXA) 10 mg tablet Take 2 tablets by mouth once daily. - Omeprazole (PRILOSEC) 40 mg capsule Take 1 capsule by mouth once daily. - multivitamin ORAL tablet Take 1 tablet by mouth once daily. - NAPROXEN SODIUM (ALEVE ORAL) Take by mouth. - VITAMIN B COMPLEX ORAL Take by mouth. - estradiol (ESTRACE) 0.01 % (0.1 mg/g) VAGINAL vaginal cream Use vaginally. Apply small amount at vaginal opening 1-2 times week - atorvastatin (LIPITOR) 20 mg ORAL tablet Take 1 tablet by mouth once daily. - aspirin(ECOTRIN LOW STRENGTH 81 MG TAB) Take one(1) tablet daily. - TRACIE-600 WITH VITAMIN D 600 MG-200 UNIT TAB ,bid Problem List As Of Date 12/17/2024 Noted Resolved SEBORRHEIC KERATOSIS INFLAMED [L82.0] 03/01/2007 VIRAL WARTS NOS [B07.9] 03/01/2007 SOLAR LENGINES///DYSCHROMIA OTHER [L81.9] 03/01/2007 CHR SOLAR SKIN DAMAGE NOS [L57.8] 03/01/2007 SEBACEOUS HYPERPLASIA///SEBACEOUS GLAND DIS NO*03/01/2007 BENIGN MARSHA SKIN FACE NEC [D23.30] 03/01/2007 ACTINIC KERATOSIS [L57.0] 09/15/2008 FAMILY HX GI MALIGNANCY [Z80.0] Encounter Status:Closed by SAMRA YOU on 12/18/24 [facility] CNOVon 12-09-2024 CNOV Office Visit (UCTR ) SOFIYA TIJERINA ([id number]) 1940 F Date Time Provider Department 12/09/24 11:15 AM VICKIE MURILLO [facility] During your visit today, we recorded the following information about you: Temperature Pulse Respiration Blood pressure 98.1 degrees 68/minute 18/minute 110/64 Weight 70.6 kg Vickie Murillo APRN.TITLE I ASSISTANT 12/09/2024 12:40 PM Signed [facility] Subjective Sofiya Tijerina is a 84 year old female. Patient presents with: left ankle pain and swelling: X 4 days-cannot recall an injury HPI Sofiya Tijerina is a 84 year old female who presents with left ankle pain and swelling for the past 4 days. She denies injury. States she has known arthritis in joints and takes aleve for this. She denies numbness or tingling in the ankle or foot. She has kept it elevated. Rates pain 5/10; describes pain as feels weird. Review of Systems Constitutional: Negative for chills and fever. Musculoskeletal: Positive for joint swelling. Negative for gait problem. See HPI Skin: Negative for color change and rash. Objective BP 110/64 Pulse 68 Temp 36.7 ?C (98.1 ?F) (Tympanic) Resp 18 Wt 70.6 kg (155 lb 10.3 oz) SpO2 98% PAST MEDICAL HISTORY Diagnosis Date - Anxiety state, unspecified - Arthritis - Coronary artery disease - Diverticulosis of colon (without mention of hemorrhage) - GERD (gastroesophageal reflux disease) - Mixed hyperlipidemia Hyperlipidemia - Pancreatic cyst (HCC) 07/2010 monitoring it. - PMH - PAST MEDICAL HISTORY OF IRRITABLE BLADDER PAST SURGICAL HISTORY Procedure Laterality Date - COLONOSCOPY - COLONOSCOPY 07/15/03 - COLONOSCOPY FLX DX W/COLLJ SPEC WHEN PFRMD 12/29/2008 Colonoscopy - LIG/TRNSXJ FLP TUBE ABDL/VAG APPR UNI/BI - PAST SURGICAL HISTORY OF BUNIONECTOMY - PAST SURGICAL HISTORY OF carpal tunnel surgery bilaterally ALLERGIES Patient has no known allergies. MEDICATIONS - citalopram hydrobromide (CELEXA) 10 mg tablet Take 2 tablets by mouth once daily. - Omeprazole (PRILOSEC) 40 mg capsule Take 1 capsule by mouth once daily. - multivitamin ORAL tablet Take 1 tablet by mouth once daily. - NAPROXEN SODIUM (ALEVE ORAL) Take by mouth. - VITAMIN B COMPLEX ORAL Take by mouth. - atorvastatin (LIPITOR) 20 mg ORAL tablet Take 1 tablet by mouth once daily. - aspirin(ECOTRIN LOW STRENGTH 81 MG TAB) Take one(1) tablet daily. - TRACIE-600 WITH VITAMIN D 600 MG-200 UNIT TAB ,bid - vit A/vit C/vit E/zinc/copper (OCUVITE PRESERVISION ORAL) Take by mouth. - phenazopyridine (PYRIDIUM) 200 mg tablet Take 1 tablet by mouth twice daily as needed for Pain (urinary burning. Turns urine orange.). (Patient not taking: Reported on 01/25/2018 ) - estradiol (ESTRACE) 0.01 % (0.1 mg/g) VAGINAL vaginal cream Use vaginally. Apply small amount at vaginal opening 1-2 times week (Patient not taking: Reported on 12/09/2024) FAMILY HISTORY Problem Relation Age of Onset - Colon Cancer Brother PASSED FROM THIS - other (SEPTICEMIA [Other]) Mother PASSED FROM THIS - other (UNKNOWN [Other]) Father - Colon Cancer Sister - other (cystic fibrosis [Other]) Daughter - other (cystic fibrosis [Other]) Daughter Social History Tobacco Use - Smoking status: Never - Smokeless tobacco: Never Substance Use Topics - Alcohol use: No - Drug use: No Physical Exam Vitals and nursing note reviewed. Constitutional: Appearance: Normal appearance. Musculoskeletal: General: Swelling and tenderness present. No deformity or signs of injury. Left ankle: Swelling present. No ecchymosis. Tenderness present over the lateral malleolus. Normal range of motion. Normal pulse. Skin: General: Skin is warm and dry. Capillary Refill: Capillary refill takes less than 2 seconds. Findings: No bruising, erythema or rash. Neurological: Mental Status: She is alert. {ASSESSMENT/PLAN: 1. Acute left ankle pain - ICD9: 719.47, ICD10: M25.572 - XR ANKLE GENERAL 3V AP/LAT/OBL LEFT FINDINGS: Soft tissue swelling. No acute fracture or dislocation identified. Talonavicular joint degenerative changes with dorsal hypertrophic spur formation. No evidence of cortical destruction or periostitis to suggest radiographic evidence of osteomyelitis. No soft tissue gas or radiopaque foreign body IMPRESSION IMPRESSION: Soft tissue swelling. No radiographic evidence of acute osseous abnormality. Credit Analyst: JESSICA Transcribe Date/Time: Dec 09 2024 11:59A Dictated by : CANDIE RUSSELL MD - [place] wrap applied to left ankle. Wear during daytime only for 5-7 days or until pain is improved. - PREDNISONE 20 MG TABLET - Follow-up with your PCP in 3-5 days if symptoms have not improved or sooner if symptoms worsen - Discussed red flags and need for immediate medical evaluation if any occur. - Discussed supportive care treatment with fluids, r (more content not included)... Normal [facility] XR ANKLE 3V AP/LAT/OBL LTon 12-09-2024 XR ANKLE 3V AP/LAT/OBL LT * * *Final Report* * * DATE OF EXAM: Dec 09 2024 11:47AM WOX 5298 - XR ANKLE 3V AP/LAT/OBL LT / PROCEDURE REASON: Acute left ankle pain * * * * Physician Interpretation * * * * TITLE: XR ANKLE 3V AP/LAT/OBL LT CLINICAL INDICATION: Ankle pain TECHNIQUE: 3 view radiographic study of the left ankle COMPARISON: None FINDINGS: Soft tissue swelling. No acute fracture or dislocation identified. Talonavicular joint degenerative changes with dorsal hypertrophic spur formation. No evidence of cortical destruction or periostitis to suggest radiographic evidence of osteomyelitis. No soft tissue gas or radiopaque foreign body IMPRESSION: Soft tissue swelling. No radiographic evidence of acute osseous abnormality. Credit Analyst: [facility] Transcribe Date/Time: Dec 09 2024 11:59A Dictated by : CANDIE RUSSELL MD This examination was interpreted and the report reviewed and electronically signed by: CANDIE RUSSELL MD on Dec 09 2024 12:03PM EST [id number] Normal [facility] XR Ankle - left AP and Later al and obliqueon 12-09-2024 IMPRESSION: Soft tissue swelling. No radiographic evidence of acute osseous abnormality. Credit Analyst: [facility] Transcribe Date/Time: Dec 09 2024 11:59A Dictated by : CANDIE RUSSELL MD This examination was interpreted and the report reviewed and electronically signed by: CANDIE RUSSELL MD on Dec 09 2024 12:03PM EST DIVISION OF RADIOLOGY * * *Final Report* * * DATE OF EXAM: Dec 09 2024 11:47AM WOX 5298 - XR ANKLE 3V AP/LAT/OBL LT / PROCEDURE REASON: Acute left ankle pain * * * * Physician Interpretation * * * * TITLE: XR ANKLE 3V AP/LAT/OBL LT CLINICAL INDICATION: Ankle pain TECHNIQUE: 3 view radiographic study of the left ankle COMPARISON: None FINDINGS: Soft tissue swelling. No acute fracture or dislocation identified. Talonavicular joint degenerative changes with dorsal hypertrophic spur formation. No evidence of cortical destruction or periostitis to suggest radiographic evidence of osteomyelitis. No soft tissue gas or radiopaque foreign body DIVISION OF RADIOLOGY Provider, [facility] - 12/09/2024 * * *Final Report* * * DATE OF EXAM: Dec 09 2024 11:47AM WOX 5298 - XR ANKLE 3V AP/LAT/OBL LT / PROCEDURE REASON: Acute left ankle pain * * * * Physician Interpretation * * * * TITLE: XR ANKLE 3V AP/LAT/OBL LT CLINICAL INDICATION: Ankle pain TECHNIQUE: 3 view radiographic study of the left ankle COMPARISON: None FINDINGS: Soft tissue swelling. No acute fracture or dislocation identified. Talonavicular joint degenerative changes with dorsal hypertrophic spur formation. No evidence of cortical destruction or periostitis to suggest radiographic evidence of osteomyelitis. No soft tissue gas or radiopaque foreign body IMPRESSION IMPRESSION: Soft tissue swelling. No radiographic evidence of acute osseous abnormality. Credit Analyst: JESSICA Transcribe Date/Time: Dec 09 2024 11:59A Dictated by : CANDIE RUSSELL MD This examination was interpreted and the report reviewed and electronically signed by: CANDIE RUSSELL MD on Dec 09 2024 12:03PM EST [facility] Radiology Study observation (narrative) [facility] XR Ankle - left AP and Later al and obliqueOrdered By: Ccf Provider on 12-09-2024 [facility] Chest PA and Lateralon 09-27 Chest PA and Lateral [facility] Imaging Services [address] [place] [address] Chest PA and Lateral MR#: [id number] Acct: [id number] Name: SOFIYA TIJERINA Rep #: [id number] : 1940 F 84 From: Wili monk MD PCP: Dr. Malcolm Burns MD Status: REG CLI Study: Chest PA and Lateral Date of Exam: 09/27/24 Exam# [id number] Ordering Dr: Chuck Regan PA PROCEDURE: CHEST PA AND LATERAL REASON FOR EXAM: Cough. TECHNIQUE: Frontal and lateral views of the chest. COMPARISON: None. FINDINGS: The heart size is normal. The mediastinal contour is unremarkable. Hyperinflation. Degenerative changes are identified within the thoracic spine. RAD/Chest PA and Lateral IMPRESSION: Hyperinflation. Reading Location: [facility] CC: CHANDAN Bolaños; Dr. Malcolm Burns MD Credit Analyst: Signed Normal [facility] No Panel InformationOrdered By: Chuck Regan on 09-27-2024 Influenza Types A,B Rapid (Clinic) Pos FLU A &Neg FLU B [facility] Urgent Care Visit Reporton 0 09-27-2024 Urgent Care Visit Report [facility] [address], [address] [place] [address] OFFICE VISIT Date of Service: 09/27/24 MR#: [id number] Acct: [id number] Name: SOFIYA TIJERINA Rep #: [id number] : 1940 Provider: CHANDAN Bolaños Age/Sex: 84/F Location[place] [facility] Status: Signed Intake Vital Signs 09/25/24 09:34 09/27/24 12:21 Height 5 ft 2 in Weight: 151 lb 4 oz BMI 27.6 BP 110/64 120/80 Position Sitting Sitting Pulse 76 75 Temp 98.6 F 98.1 F Temp Source Oral Oral Pulse Oximetry (%) 97 96 Oxygen Delivery Method room air room air Intake Visit Reasons: Cough Accompanied by: Self Allergies No Known Allergies Allergy (Verified 09/27/24 12:17) Medications ???Medication ???Instructions ???Recorded ???Confirmed ???Type calcium carbonate (Calcium 500) 500 mg PO BID supplement 07/07/20 09/27/24 History melatonin 10 mg tablet 10 mg PO QHS sleep 04/01/22 History vit C 250 mg-vit E 90 mg-zinc 40 1 tab PO BID supplement 04/01/22 0 09/27/24 History mg-copper 1 [id number] capsule (PreserVision AREDS-2) lansoprazole 30 mg capsule,delayed 30 mg PO DAILY Acid reflex #60 c aps 12/28/22 09/27/24 Rx release cholecalciferol (vitamin D3) 10 10 mcg PO DAILY supplement 4 09/27/24 History mcg (400 unit) capsule blood pressure monitor #1 ea 11/27/23 09/27/24 Rx atorvastatin 40 mg tablet 40 mg PO DAILY cholesterol #90 tab s 01/19/24 09/27/24 Rx citalopram 40 mg tablet 40 mg PO QHS MENTAL HEALTH 4 09/27/24 History krill oil 500 mg capsule 500 mg PO DAILY supplement 4 09/27/24 History acetaminophen 500 mg tablet 1,000 mg PO Q8 pain 05/22/2409/27 History ferrous sulfate 325 mg (65 mg 325 mg PO 1200,1700 supplement 14 05/22/24 09/27/24 Rx iron) tablet (FeroSul) days #28 tabs folic acid 1 mg tablet 1 mg PO DAILY supplement 05/22/24 09/27/24 History aspirin 81 mg tablet,delayed 81 mg PO BID 23 days #0 tabs 05/2809/27/24 Rx release oxycodone 5 mg tablet 5 - 10 mg (1 - 2 x 5 mg) PO Q4H 09/27/24 Rx PRN PRN PAIN 1-10 7 days #84 tabs sennosides 8.6 mg-docusate sodium 2 tab PO BID 30 days #120 tabs 09/27/24 Rx 50 mg tablet (Stimulant Laxative Plus) cyclobenzaprine 5 mg tablet 5 mg PO QHS PRN muscle spasm #14 1 09/07/23 09/27/24 Rx tabs methylprednisolone 4 mg tablets in See Rx Instructions PO PER PKG D IR 07/08/24 09/27/24 Rx a dose pack (Medrol (Mando)) #21 tabs benzonatate 100 mg capsule 100 mg PO TID PRN PRN cough 4 days 09/25/24 09/27/24 Rx #10 caps Have you fallen in the past year?: No Nurse's Note: Patient has a cough and wheezing. Patient states this has been going on since . Patient is taking the Tessalon pearls as prescribed. [facility] Medical History (Updated 09/27/24 @ 13:32 by Chuck HAWLEY, PA) Viral URI Right shoulder strain Strain of right rotator cuff capsule Preoperative evaluation to rule out surgical contraindication Headache Lightheadedness Localized swelling of chest wall Thrush Perineal pruritus in female Encounter for vitamin deficiency screening Flu vaccine need Foul smelling urine Wears dentures Post-menopausal High cholesterol Back pain Gastric reflux Non-smoker Sleep apnea Leg cramps History of stress test Coronary artery disease Pancreatic cyst Skin lesion of scalp Diarrhea Macular degeneration Osteopenia Carpal tunnel syndrome Breast lump Arthritis Hemorrhoids Acid reflux Constipation Hyperlipidemia Anxiety Surgical History (Updated 06/06/24 @ 13:55 by Theresa Rey MA) History of total right knee replacement Hx of hysterectomy History of bladder suspension procedure S/P hysterectomy S/p bilateral carpal tunnel release S/P cataract extraction bilateral carpal tunnel surgery S/P bilateral foot surgery History of tubal ligation Family History Brother Colon cancer High cholesterol Hypertension Anxiety Arthritis Myocardial infarction Mother Colostomy care Hypertension High cholesterol Sister Lung cancer Anxiety Arthritis Breast cancer Depression Respiratory disease Colon cancer Sister Cancer lung Thyroid disorder Hypertension Social History (Updated 05/22/24 @ 16:[address] Jesus Veloz MD) household members: none Smoking Status: Never smoker alcohol intake: never substance use type: does not use caffeine: Yes what type of physical activity do you participate in: none seatbelt use: always do you feel safe at home: Yes additional social history: - solorzano HPI HPI Details: SOFIYA TIJERINA, is a 84 F who presents to the office today for complaint of ongoing cough for the past 3 (more content not included)... Normal [facility] - Microbiology an d Antimicrobial susceptibilityOrdered By: Amos Erickson on 09-25-2024 SARS-CoV-2 (COVID-19) RNA IRAIS+probe Ql (Unsp spec) Not detected [facility] No Panel InformationOrdered By: Amos Erickson on 09-25-2024 Influenza Types A,B Rapid (Clinic) Negative [facility] Urgent Care Visit Reporton 0 09-25-2024 Urgent Care Visit Report [facility] [address], [address] [place] [address] OFFICE VISIT Date of Service: 09/25/24 MR#: [id number] Acct: [id number] Name: SOFIYA TIJERINA Rep #: [id number] : 1940 Provider: SHIREEN Erickson Age/Sex: 84/F Location: [facility] Status: Signed Intake Vital Signs 06/06/24 13:56 09/25/24 09:34 Height 5 ft 2 in 5 ft 2 in Weight: 153 lb 151 lb 4 oz BMI 28.0 27.6 BP 130/82 H 110/64 Blood Pressure Location Lt brachial Position Sitting Sitting Respiration 16 Pulse 71 76 Pulse Source Monitor Temp 97 F L 98.6 F Temp Source Temporal Oral Pulse Oximetry (%) 96 97 Oxygen Delivery Method room air room air Intake Visit Reasons: COUGH, HEADACHE Chief Complaint: right shoulder pain Allergies No Known Allergies Allergy (Verified 09/25/24 09:25) Medications ???Medication ???Instructions ???Recorded ???Confirmed ???Type calcium carbonate (Calcium 500) 500 mg PO BID supplement 07/07/20 09/25/24 History melatonin 10 mg tablet 10 mg PO QHS sleep 04/01/22 History vit C 250 mg-vit E 90 mg-zinc 40 1 tab PO BID supplement 04/01/22 0 09/25/24 History mg-copper 1 [id number] capsule (PreserVision AREDS-2) lansoprazole 30 mg capsule,delayed 30 mg PO DAILY Acid reflex #60 c aps 12/28/22 09/25/24 Rx release cholecalciferol (vitamin D3) 10 10 mcg PO DAILY supplement 4 09/25/24 History mcg (400 unit) capsule blood pressure monitor #1 ea 11/27/23 09/25/24 Rx atorvastatin 40 mg tablet 40 mg PO DAILY cholesterol #90 tab s 01/19/24 09/25/24 Rx citalopram 40 mg tablet 40 mg PO QHS MENTAL HEALTH 4 09/25/24 History krill oil 500 mg capsule 500 mg PO DAILY supplement 4 09/25/24 History acetaminophen 500 mg tablet 1,000 mg PO Q8 pain 05/22/2409/25 History ferrous sulfate 325 mg (65 mg 325 mg PO 1200,1700 supplement 14 05/22/24 09/25/24 Rx iron) tablet (FeroSul) days #28 tabs folic acid 1 mg tablet 1 mg PO DAILY supplement 05/22/24 09/25/24 History aspirin 81 mg tablet,delayed 81 mg PO BID 23 days #0 tabs 05/2809/25/24 Rx release oxycodone 5 mg tablet 5 - 10 mg (1 - 2 x 5 mg) PO Q4H 09/25/24 Rx PRN PRN PAIN 1-10 7 days #84 tabs sennosides 8.6 mg-docusate sodium 2 tab PO BID 30 days #120 tabs 09/25/24 Rx 50 mg tablet (Stimulant Laxative Plus) cyclobenzaprine 5 mg tablet 5 mg PO QHS PRN muscle spasm #14 1 09/07/23 09/25/24 Rx tabs methylprednisolone 4 mg tablets in See Rx Instructions PO PER PKG D IR 07/08/24 09/25/24 Rx a dose pack (Medrol (Mando)) #21 tabs benzonatate 100 mg capsule 100 mg PO TID PRN PRN cough 4 days 09/25/24 09/25/24 Rx #10 caps Have you fallen in the past year?: No Nurse's Note: Patient has cough and Headache with body aches that started yesterday. [facility] Medical History (Updated 09/25/24 @ 10:14 by Amos Erickson NP-C) Viral URI Right shoulder strain Strain of right rotator cuff capsule Preoperative evaluation to rule out surgical contraindication Headache Lightheadedness Localized swelling of chest wall Thrush Perineal pruritus in female Encounter for vitamin deficiency screening Flu vaccine need Foul smelling urine Wears dentures Post-menopausal High cholesterol Back pain Gastric reflux Non-smoker Sleep apnea Leg cramps History of stress test Coronary artery disease Pancreatic cyst Skin lesion of scalp Diarrhea Macular degeneration Osteopenia Carpal tunnel syndrome Breast lump Arthritis Hemorrhoids Acid reflux Constipation Hyperlipidemia Anxiety Surgical History (Updated 06/06/24 @ 13:55 by Theresa Rey MA) History of total right knee replacement Hx of hysterectomy History of bladder suspension procedure S/P hysterectomy S/p bilateral carpal tunnel release S/P cataract extraction bilateral carpal tunnel surgery S/P bilateral foot surgery History of tubal ligation Family History Brother Colon cancer High cholesterol Hypertension Anxiety Arthritis Myocardial infarction Mother Colostomy care Hypertension High cholesterol Sister Lung cancer Anxiety Arthritis Breast cancer Depression Respiratory disease Colon cancer Sister Cancer lung Thyroid disorder Hypertension Social History (Updated 05/22/24 @ 16:[address] Jesus Veloz MD) household members: none Smoking Status: Never smoker alcohol intake: never substance use type: does not use caffeine: Yes what type of physical activity do you participate in: none seatbelt use: always do you feel safe at home: Yes additional social history: - solorzano HPI HPI Chief Complaint: right shoulder pain Details: (more content not included)... Normal [facility] CBC W/Diff, Automatedon 11-1 Absolute Lymph 1.74 X10 3/uL Normal 0.83-4.51 [facility] Comment on above: Performed By: #### L 100.0100 #### [facility] [address] [place], [address] Absolute Neut 4.6 X10 3/uL Normal 2.0-7.7 [facility] Comment on above: Performed By: #### L 100.0100 #### [facility] [address] [place], [address] Basophils/100 WBC (Bld) 1.0 % Normal 0-1 [facility] Comment on above: Performed By: #### L 100.0100 #### [facility] [address] [place], [address] Eosinophils/100 WBC (Bld) 3.0 % Normal 0-5 [facility] Comment on above: Performed By: #### L 100.0100 #### [facility] [address] [place], [address] Erythrocyte distribution width (RBC) [Ratio] 12.9 % Normal 11.6-14.6 [facility] Comment on above: Performed By: #### L 100.0100 #### [facility] [address] [place], [address] Hematocrit (Bld) [Volume fraction] 37.7 % Normal 37-47 [facility] Comment on above: Performed By: #### L 100.0100 #### [facility] [address] [place], [address] Hemoglobin (Bld) [Mass/Vol] 12.1 g/dL Normal 12.0-15.0 [facility] Comment on above: Performed By: #### L 100.0100 #### [facility] [address] [place], [address] IG% 0.300 Normal 0.0-0.9 [facility] Comment on above: Result Comment: IG% - Immature Granulocytes (promyelocytes, myelocytes and metamyelocytes) > 1% indicates that a LEFT SHIFT is Present. Performed By: #### L 100.0100 #### [facility] [address] [place], [address] Lymphocytes/100 WBC (Bld) 23.9 % Normal 19-41 [facility] Comment on above: Performed By: #### L 100.0100 #### [facility] [address] [place], [address] MCH (RBC) [Entitic mass] 28.9 pg Normal 27.0-32.0 [facility] Comment on above: Performed By: #### L 100.0100 #### [facility] [address] [place], [address] MCHC (RBC) [Mass/Vol] 32.1 g/dL Normal 32-36 [facility] Comment on above: Performed By: #### L 100.0100 #### [facility] [address] [place], [address] MCV (RBC) [Entitic vol] 90.0 fL Normal 81-99 [facility] Comment on above: Performed By: #### L 100.0100 #### [facility] [address] [place], [address] Monocytes/100 WBC (Bld) 8.9 % Normal 0-10 [facility] Comment on above: Performed By: #### L 100.0100 #### [facility] [address] [place], [address] Neutrophils/100 WBC (Bld) 62.9 % Normal 47-70 [facility] Comment on above: Performed By: #### L 100.0100 #### [facility] [address] [place], [address] Nucleated RBC (Bld) [#/Vol] 0 10*3/uL Normal 0-5 [facility] Comment on above: Performed By: #### L 100.0100 #### [facility] [address] [place], [address] Platelet mean volume (Bld) [Entitic vol] 10.8 fL Normal 6.2-12.0 [facility] Comment on above: Performed By: #### L 100.0100 #### [facility] [address] [place], [address] Platelets (Bld) [#/Vol] 259 10*3/uL Normal 150-450 [facility] Comment on above: Performed By: #### L 100.0100 #### [facility] [address] [place], [address] RBC (Bld) [#/Vol] 4.19 10*6/uL Low 4.2-5.4 [facility] Comment on above: Performed By: #### L 100.0100 #### [facility] [address] [place], [address] RDW SD 42.3 fl Normal 35.1-43.9 [facility] Comment on above: Performed By: #### L 100.0100 #### [facility] [address] [place], [address] WBC (Bld) [#/Vol] 7.3 10*3/uL Normal 4.4-11.0 [facility] Comment on above: Performed By: #### L 100.0100 #### [facility] [address] [place], [address] Shoulder min 2 Viewson 07-08 Shoulder min 2 Views [facility] Imaging Services [address] [place] [address] Shoulder min 2 Views MR#: [id number] Acct: [id number] Name: SOFIYA TIJERINA Rep #: [id number] : 1940 F 84 From: Bradfodr Vazquez PCP: Dr. Malcolm Burns MD Status: REG CLI Study: Shoulder min 2 Views Date of Exam: 07/08/24 Exam# [id number] Ordering Dr: Gavin Calixto :[id number] INDICATION: pain EXAMINATION/TECHNIQUE: X-RAY - RIGHT XR Shoulder Min 2 Views 4 VIEWS COMPARISON: No relevant prior comparison study available FINDINGS: SOFT TISSUES: Soft tissue calcification lateral to the humeral head consistent with calcific tendinitis. No radiopaque foreign body. BONES/JOINTS: No acute fracture or subluxation.. Sclerosis in the region of the greater tuberosity. Preservation of the joint space.. No sclerotic or destructive changes observed. RAD/Shoulder min 2 Views IMPRESSION: Calcific tendinitis of the right shoulder. Electronically Signed: Bradford Jacobs MD at 11:42 EST , CC: Dr. Malcolm Burns MD; CHANDAN Veloz Credit Analyst: Signed Normal [facility] Urgent Care Visit Reporton 1 09-07-2023 Urgent Care Visit Report [facility] [address], [address] [place] [address] OFFICE VISIT Date of Service: 07/08/24 MR#: [id number] Acct: [id number] Name: SOFIYA TIJERINA Rep #: [id number] : 1940 Provider: CHANDAN Veloz Age/Sex: 84/F Location: [facility] Status: Signed Intake Vital Signs 06/06/24 13:56 07/08/24 11:06 Height 5 ft 2 in Weight: 153 lb BMI 28.0 BP 130/82 H 136/70 H Blood Pressure Location Lt brachial Lt brachial Position Sitting Sitting Respiration 16 16 Pulse 71 81 Pulse Source Monitor NIBP Temp 97 F L 98.7 F Temp Source Temporal Oral Pulse Oximetry (%) 96 96 Oxygen Delivery Method room air room air Intake Visit Reasons: R SHOULDER PAIN Chief Complaint: right shoulder pain 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: No Is patient in pain?: Yes Allergies No Known Allergies Allergy (Verified 07/08/24 11:06) Medications ???Medication ???Instructions ???Recorded ???Confirmed ???Type calcium carbonate (Calcium 500) 500 mg PO BID supplement 07/07/20 06/06/24 History melatonin 10 mg tablet 10 mg PO QHS sleep 04/01/22 06/06/24 History vit C 250 mg-vit E 90 mg-zinc 40 1 tab PO BID supplement 04/01/22 06/06/24 History mg-copper 1 [id number] capsule (PreserVision AREDS-2) lansoprazole 30 mg capsule,delayed 30 mg PO DAILY Acid reflex #60 caps 12/28/22 06/06/24 Rx release cholecalciferol (vitamin D3) 10 10 mcg PO DAILY supplement 11/09/23 06/06/24 History mcg (400 unit) capsule blood pressure monitor #1 ea 11/27/23 06/06/24 Rx atorvastatin 40 mg tablet 40 mg PO DAILY cholesterol #90 tabs 01/19/24 06/06/24 Rx citalopram 40 mg tablet 40 mg PO QHS MENTAL HEALTH 04/26/24 06/06/24 History krill oil 500 mg capsule 500 mg PO DAILY supplement 05/06/24 06/06/24 History acetaminophen 500 mg tablet 1,000 mg PO Q8 pain 05/22/24 06/06/24 History ferrous sulfate 325 mg (65 mg 325 mg PO 1200,1700 supplement 14 05/22/24 06/06/24 Rx iron) tablet (FeroSul) days #28 tabs folic acid 1 mg tablet 1 mg PO DAILY supplement 05/22/24 06/06/24 History aspirin 81 mg tablet,delayed 81 mg PO BID 23 days #0 tabs 05/28/24 06/06/24 Rx release oxycodone 5 mg tablet 5 - 10 mg (1 - 2 x 5 mg) PO Q4H 05/28/24 06/06/24 Rx PRN PRN PAIN 1-10 7 days #84 tabs sennosides 8.6 mg-docusate sodium 2 tab PO BID 30 days #120 tabs 05/28/24 06/06/24 Rx 50 mg tablet (Stimulant Laxative Plus) cyclobenzaprine 5 mg tablet 5 mg PO QHS PRN muscle spasm #14 07/08/24 07/08/24 Rx tabs methylprednisolone 4 mg tablets in See Rx Instructions PO PER PKG DIR 07/08/24 07/08/24 Rx a dose pack (Medrol (Mando)) #21 tabs Is last menstrual period known: No Post menopausal: Yes Patient : No Have you fallen in the past year?: No Nurse's Note: right shoulder pain after pulling weights in PT approx 1 month ago worsening. now more painful and decreased ROM. denies injury or over use. [facility] Medical History (Updated 07/08/24 @ 11:33 by Gavin HAWLEY, PA) Right shoulder strain Strain of right rotator cuff capsule Preoperative evaluation to rule out surgical contraindication Headache Lightheadedness Localized swelling of chest wall Thrush Perineal pruritus in female Encounter for vitamin deficiency screening Flu vaccine need Foul smelling urine Wears dentures Post-menopausal High cholesterol Back pain Gastric reflux Non-smoker Sleep apnea Leg cramps History of stress test Coronary artery disease Pancreatic cyst Skin lesion of scalp Diarrhea Macular degeneration Osteopenia Carpal tunnel syndrome Breast lump Arthritis Hemorrhoids Acid reflux Constipation Hyperlipidemia Anxiety Surgical History (Updated 06/06/24 @ 13:55 by Theresa Rey MA) History of total right knee replacement Hx of hysterectomy History of bladder suspension procedure S/P hysterectomy S/p bilateral carpal tunnel release S/P cataract extraction bilateral carpal tunnel surgery S/P bilateral foot surgery History of tubal ligation Family History Brother Colon cancer High cholesterol Hypertension Anxiety Arthritis Myocardial infarction Mother Colostomy care Hypertension High cholesterol Sister Lung cancer Anxiety Arthritis Breast cancer Depression Respiratory disease Colon cancer Sister Cancer lung Thyroid disorder Hypertension Social History (Updated 05/22/24 @ 16:[address] Jesus Veloz MD) household members: none Smoking Status: Never smoker alcohol intake: never substance use type: does not use caffeine: Yes what type of physical activity do you participate in: none seatbelt use: always do you feel safe at home: Yes additional social history: - rashad MULLINS H (more content not included)... Normal [facility] Internal Medicine Office Vis kel 06-04-2024 Internal Medicine Office Visit [facility] [address] [place] [address] [place] [address] OFFICE VISIT Date of Service: 06/06/24 MR#: [id number] Acct: [id number] Name: SOFIYA TIJERINA Rep #: [id number] : 1940 Provider: SHIREEN griffin Age/Sex: 84/F [place] [facility] Status: Signed Intake Vital Signs 05/22/24 14:14 06/06/24 13:56 Height 5 ft 2.99 in 5 ft 2 in Weight: 153 lb BMI 28.0 BP 130/82 H Blood Pressure Location Lt brachial Position Sitting Respiration 16 Pulse 71 Pulse Source Monitor Temp 97 F L Temp Source Temporal Pulse Oximetry (%) 96 Oxygen Delivery Method room air Intake Visit Reasons: [facility] FU - KEEP 1 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: No Is patient in pain?: No Allergies No Known Allergies Allergy (Verified 06/06/24 13:49) Medications ???Medication ???Instructions ???Recorded ???Confirmed ???Type calcium carbonate (Calcium 500) 500 mg PO BID supplement 07/07/20 06/06/24 History melatonin 10 mg tablet 10 mg PO QHS sleep 04/01/22 06/06/24 History vit C 250 mg-vit E 90 mg-zinc 40 1 tab PO BID supplement 04/01/22 06/06/24 History mg-copper 1 [id number] capsule (PreserVision AREDS-2) lansoprazole 30 mg capsule,delayed 30 mg PO DAILY Acid reflex #60 caps 12/28/22 06/06/24 Rx release cholecalciferol (vitamin D3) 10 10 mcg PO DAILY supplement 11/09/23 06/06/24 History mcg (400 unit) capsule blood pressure monitor #1 ea 11/27/23 06/06/24 Rx atorvastatin 40 mg tablet 40 mg PO DAILY cholesterol #90 tabs 01/19/24 06/06/24 Rx citalopram 40 mg tablet 40 mg PO QHS MENTAL HEALTH 04/26/24 06/06/24 History krill oil 500 mg capsule 500 mg PO DAILY supplement 05/06/24 06/06/24 History acetaminophen 500 mg tablet 1,000 mg PO Q8 pain 05/22/24 06/06/24 History ferrous sulfate 325 mg (65 mg 325 mg PO 1200,1700 supplement 14 05/22/24 06/06/24 Rx iron) tablet (FeroSul) days #28 tabs folic acid 1 mg tablet 1 mg PO DAILY supplement 05/22/24 06/06/24 History aspirin 81 mg tablet,delayed 81 mg PO BID 23 days #0 tabs 05/28/24 06/06/24 Rx release doxycycline monohydrate 100 mg 100 mg PO BID 7 days #14 caps 05/28/24 06/06/24 Rx capsule oxycodone 5 mg tablet 5 - 10 mg (1 - 2 x 5 mg) PO Q4H 05/28/24 06/06/24 Rx PRN PRN PAIN 1-10 7 days #84 tabs sennosides 8.6 mg-docusate sodium 2 tab PO BID 30 days #120 tabs 05/28/24 06/06/24 Rx 50 mg tablet (Stimulant Laxative Plus) meloxicam 7.5 mg tablet 7.5 mg PO BID OA 30 days #60 tabs 05/31/24 06/06/24 Rx Have you fallen in the past year?: No Nurse's Note: Here for hospital f/u had R knee replaced is feeling pretty good. Is still doing rehab for it. Has no concerns, has some swelling in R foot. Declines flu vaccine. [facility] Medical History (Updated 06/06/24 @ 14:32 by SHIREEN Langley) Preoperative evaluation to rule out surgical contraindication Headache Lightheadedness Localized swelling of chest wall Thrush Perineal pruritus in female Encounter for vitamin deficiency screening Flu vaccine need Foul smelling urine Wears dentures Post-menopausal High cholesterol Back pain Gastric reflux Non-smoker Sleep apnea Leg cramps History of stress test Coronary artery disease Pancreatic cyst Skin lesion of scalp Diarrhea Macular degeneration Osteopenia Carpal tunnel syndrome Breast lump Arthritis Hemorrhoids Acid reflux Constipation Hyperlipidemia Anxiety Surgical History (Updated 06/06/24 @ 13:55 by Theresa Rey MA) History of total right knee replacement Hx of hysterectomy History of bladder suspension procedure S/P hysterectomy S/p bilateral carpal tunnel release S/P cataract extraction bilateral carpal tunnel surgery S/P bilateral foot surgery History of tubal ligation Family History Brother Colon cancer High cholesterol Hypertension Anxiety Arthritis Myocardial infarction Mother Colostomy care Hypertension High cholesterol Sister Lung cancer Anxiety Arthritis Breast cancer Depression Respiratory disease Colon cancer Sister Cancer lung Thyroid disorder Hypertension Social History (Updated 05/22/24 @ 16:[address] Jesus Veloz MD) household members: none Smoking Status: Never smoker alcohol intake: never substance use type: does not use caffeine: Yes what type of physical activity do you participate in: none seatbelt use: always do you feel safe at home: Yes additional social history: - solorzano HPI HPI Details: SOFIYA TIJERINA, is a 84 F who presents to the office today for hospital f/u. Patient underwent right total knee replacement on 05/20/[address] Mosley. Patient tolerated procedure well per documentation without incident. She was subsequently admitted to TCU with de (more content not included)... Normal [facility] CBC W/Diff, Automatedon 10-0 -2023 Absolute Lymph 1.47 X10 3/uL Normal 0.83-4.51 [facility] Comment on above: Performed By: #### L 500.2500, L100.0500 #### [facility] [address] [place], [address] Absolute Neut 6.0 X10 3/uL Normal 2.0-7.7 [facility] Comment on above: Performed By: #### L 500.2500, L100.0500 #### [facility] [address] [place], [address] Basophils/100 WBC (Bld) 0.5 % Normal 0-1 [facility] Comment on above: Performed By: #### L 500.2500, L100.0500 #### [facility] [address] [place], [address] Eosinophils/100 WBC (Bld) 3.4 % Normal 0-5 [facility] Comment on above: Performed By: #### L 500.2500, L100.0500 #### [facility] [address] [place], [address] Erythrocyte distribution width (RBC) [Ratio] 13.2 % Normal 11.6-14.6 [facility] Comment on above: Performed By: #### L 500.2500, L100.0500 #### [facility] [address] [place], [address] Hematocrit (Bld) [Volume fraction] 31.1 % Low 37-47 [facility] Comment on above: Performed By: #### L 500.2500, L100.0500 #### [facility] [address] [place], [address] Hemoglobin (Bld) [Mass/Vol] 9.9 g/dL Low 12.0-15.0 [facility] Comment on above: Performed By: #### L 500.2500, L100.0500 #### [facility] [address] [place], [address] IG% 0.300 Normal 0.0-0.9 [facility] Comment on above: Result Comment: IG% - Immature Granulocytes (promyelocytes, myelocytes and metamyelocytes) > 1% indicates that a LEFT SHIFT is Present. Performed By: #### L 500.2500, L100.0500 #### [facility] [address] [place], [address] Lymphocytes/100 WBC (Bld) 16.8 % Low 19-41 [facility] Comment on above: Performed By: #### L 500.2500, L100.0500 #### [facility] [address] [place], [address] MCH (RBC) [Entitic mass] 29.1 pg Normal 27.0-32.0 [facility] Comment on above: Performed By: #### L 500.2500, L100.0500 #### [facility] [address] [place], [address] MCHC (RBC) [Mass/Vol] 31.8 g/dL Low 32-36 [facility] Comment on above: Performed By: #### L 500.2500, L100.0500 #### [facility] [address] [place], [address] MCV (RBC) [Entitic vol] 91.5 fL Normal 81-99 [facility] Comment on above: Performed By: #### L 500.2500, L100.0500 #### [facility] [address] [place], [address] Monocytes/100 WBC (Bld) 10.4 % High 0-10 [facility] Comment on above: Performed By: #### L 500.2500, L100.0500 #### [facility] [address] [place], [address] Neutrophils/100 WBC (Bld) 68.6 % Normal 47-70 [facility] Comment on above: Performed By: #### L 500.2500, L100.0500 #### [facility] [address] [place], [address] Nucleated RBC (Bld) [#/Vol] 0 10*3/uL Normal 0-5 [facility] Comment on above: Performed By: #### L 500.2500, L100.0500 #### [facility] [address] [place], [address] Platelet mean volume (Bld) [Entitic vol] 10.7 fL Normal 6.2-12.0 [facility] Comment on above: Performed By: #### L 500.2500, L100.0500 #### [facility] [address] [place], [address] Platelets (Bld) [#/Vol] 189 10*3/uL Normal 150-450 [facility] Comment on above: Performed By: #### L 500.2500, L100.0500 #### [facility] [address] [place], [address] RBC (Bld) [#/Vol] 3.40 10*6/uL Low 4.2-5.4 [facility] Comment on above: Performed By: #### L 500.2500, L100.0500 #### [facility] [address] [place], [address] RDW SD 44.2 fl High 35.1-43.9 [facility] Comment on above: Performed By: #### L 500.2500, L100.0500 #### [facility] [address] [place], [address] WBC (Bld) [#/Vol] 8.7 10*3/uL Normal 4.4-11.0 [facility] Comment on above: Performed By: #### L 500.2500, L100.0500 #### [facility] [address] [place], [address] Comprehensive Metabolic Prof [facility] 05-23-2024 Albumin [Mass/Vol] 2.5 g/dL Low 3.2-5.0 [facility] Comment on above: Performed By: #### L 500.2500, L100.0500 #### [facility] [address] [place], [address] Albumin/Globulin [Mass ratio] 0.8 {ratio} Low 0.9-2.4 [facility] Comment on above: Performed By: #### L 500.2500, L100.0500 #### [facility] [address] [place], [address] ALK P 53 U/L Normal 45-117 [facility] Comment on above: Performed By: #### L 500.2500, L100.0500 #### [facility] [address] [place], [address] ALT [Catalytic activity/Vol] 20 U/L Normal 13-56 [facility] Comment on above: Performed By: #### L 500.2500, L100.0500 #### [facility] [address] [place], [address] AST [Catalytic activity/Vol] 12 U/L Low 15-37 [facility] Comment on above: Performed By: #### L 500.2500, L100.0500 #### [facility] [address] [place], [address] Bilirubin [Mass/Vol] 0.60 mg/dL Normal 0.20-1.00 [facility] Comment on above: Result Comment: For patients on eltrombopag therapy, use of Dimension [place] TBIL is not recommended. Performed By: #### L 500.2500, L100.0500 #### [facility] [address] [place], [address] BUN/CRE 24.7 RATIO High 10-20 [facility] Comment on above: Performed By: #### L 500.2500, L100.0500 #### [facility] [address] [place], [address] CA,Total 8.7 mg/dL Normal 8.5-10.1 [facility] Comment on above: Performed By: #### L 500.2500, L100.0500 #### [facility] [address] [place], [address] Chloride [Moles/Vol] 106 mmol/L Normal 98-107 [facility] Comment on above: Performed By: #### L 500.2500, L100.0500 #### [facility] [address] [place], [address] CO2 [Moles/Vol] 30.0 mmol/L Normal 21.0-32.0 [facility] Comment on above: Performed By: #### L 500.2500, L100.0500 #### [facility] [address] [place], [address] Creatinine [Mass/Vol] 0.73 mg/dL Normal 0.55-1.02 [facility] Comment on above: Result Comment: The validity of the calculated GFR GFRAA in patients over 70 years has not been determined. Clinical correlation is essential. Performed By: #### L 500.2500, L100.0500 #### [facility] [address] [place], [address] ECRCL 50.38 ml/min Normal [facility] Comment on above: Performed By: #### L 500.2500, L100.0500 #### [facility] [address] [place], [address] EST GFR - AA 98 mL/min Normal >60 [facility] Comment on above: Result Comment: Afri can Citizen [place] GFR Calc Performed By: #### L 500.2500, L100.0500 #### [facility] [address] [place], [address] GAP 4 Low 5-15 [facility] Comment on above: Performed By: #### L 500.2500, L100.0500 #### [facility] [address] [place], [address] GFR/1.73 sq M.predicted among non-blacks MDRD (S/P/Bld) [Vol rate/Area] 81 mL/min/{1.73_m2} Normal >60 [facility] Comment on above: Result Comment: Non- GFR Calc Performed By: #### L 500.2500, L100.0500 #### [facility] [address] [place], [address] Globulin (S) [Mass/Vol] 3.3 g/dL Normal 2.2-4.2 [facility] Comment on above: Performed By: #### L 500.2500, L100.0500 #### [facility] [address] [place], [address] Glucose [Mass/Vol] 111 mg/dL High 74-106 [facility] Comment on above: Result Comment: Fast ing Glucose result from 100 to 125 mg/dL suggests IMPAIRED HOMEOSTASIS per A.D.A. criteria. Performed By: #### L 500.2500, L100.0500 #### [facility] [address] [place], [address] Potassium [Moles/Vol] 4.2 mmol/L Normal 3.5-5.1 [facility] Comment on above: Performed By: #### L 500.2500, L100.0500 #### [facility] [address] [place], [address] Sodium [Moles/Vol] 140 mmol/L Normal 136-145 [facility] Comment on above: Performed By: #### L 500.2500, L100.0500 #### [facility] [address] [place], [address] T PROT 5.8 g/dL Low 6.4-8.2 [facility] Comment on above: Performed By: #### L 500.2500, L100.0500 #### [facility] [address] [place], [address] Urea nitrogen [Mass/Vol] 18 mg/dL Normal 7-18 [facility] Comment on above: Performed By: #### L 500.2500, L100.0500 #### [facility] [address] [place], [address] Magnesiumon 05-23-2024 Magnesium [Mass/Vol] 1.8 mg/dL Normal 1.6-2.6 [facility] Comment on above: Performed By: #### L 500.2500, L100.0500 #### [facility] [address] [place], [address] Phosphoruson 05-23-2024 Phosphate [Mass/Vol] 3.5 mg/dL Normal 2.5-4.9 [facility] Comment on above: Performed By: #### L 500.2500, L100.0500 #### [facility] [address] [place], [address] CBC-Complete Blood Cnt No Di ffon 05-22-2024 Erythrocyte distribution width (RBC) [Ratio] 13.1 % Normal 11.6-14.6 [facility] Comment on above: Performed By: #### L 100.0500 #### [facility] [address] [place], [address] Hematocrit (Bld) [Volume fraction] 33.0 % Low 37-47 [facility] Comment on above: Performed By: #### L 100.0500 #### [facility] [address] [place], [address] Hemoglobin (Bld) [Mass/Vol] 10.7 g/dL Low 12.0-15.0 [facility] Comment on above: Performed By: #### L 100.0500 #### [facility] [address], [address] MCH (RBC) [Entitic mass] 29.6 pg Normal 27.0-32.0 [facility] Comment on above: Performed By: #### L 100.0500 #### [facility] [address] [place], [address] MCHC (RBC) [Mass/Vol] 32.4 g/dL Normal 32-36 [facility] Comment on above: Performed By: #### L 100.0500 #### [facility] [address] [place], [address] MCV (RBC) [Entitic vol] 91.2 fL Normal 81-99 [facility] Comment on above: Performed By: #### L 100.0500 #### [facility] [address] [place], [address] Platelet mean volume (Bld) [Entitic vol] 9.9 fL Normal 6.2-12.0 [facility] Comment on above: Performed By: #### L 100.0500 #### [facility] [address] [place], [address] Platelets (Bld) [#/Vol] 165 10*3/uL Normal 150-450 [facility] Comment on above: Performed By: #### L 100.0500 #### [facility] [address] [place], [address] RBC (Bld) [#/Vol] 3.62 10*6/uL Low 4.2-5.4 [facility] Comment on above: Performed By: #### L 100.0500 #### [facility] [address] [place], [address] RDW SD 43.8 fl Normal 35.1-43.9 [facility] Comment on above: Performed By: #### L 100.0500 #### [facility] [address] [place], [address] WBC (Bld) [#/Vol] 8.7 10*3/uL Normal 4.4-11.0 [facility] Comment on above: Performed By: #### L 100.0500 #### [facility] [address] [place], [address] Discharge Instructionon 0 Discharge Instruction [facility] Medical Records Department [address] [place] [address] Instructions for Home/Discharge Instructions 05/22/24 1020 MR#: [id number] Acct: [id number] Name: SOFIYA TIJERINA Rep #: [id number] : 1940 84 From: Shalom HAWLEY PA-C PCP: Dr. Malcolm Burns MD Status:ADM SUZETTE Discharge Instructions Diet Discharge Diet: No restrictions Activity Discharge Activity: May Not Drive (No driving for 6 weeks postoperatively. Must also be off all narcotics and able to walk 100 feet without the use of cane or walker.) Ice area for (Minutes): 20 (Every 1-2 hours while awake[address] Please place barrier between the skin and ice pack.) Weight Bearing Status: Weight bearing as tolerated (With walker) Keep extremity elevated above heart level: Operative Extremity Dressing / Incision Call your doctor if your incision/area has: Continuous Slow Oozing, Sudden Increased Bleeding, Increased Pain/ Swelling, Increased Redness and Foul Smelling Discharge Call your doctor if you observe: Fever of 101 or Higher, Coldness, Increased Pain, Numbness or Tingling, Change in Color, Shortness of breath, Chest pain, Calf discomfort and Uncontrolled pain Remove Dressing in: 3 days (Okay to remove dressings on May 25, 2024) Additional Dressing/Incision Instructions:: Follow [place] [facility] Post-op Instructions. Continue antibiotics for 2 weeks postoperatively: Continue with doxycycline as prescribed. You are more sensitive to sunlight and should take appropriate precautions as you are more likely to get skin burn in the setting. Okay to shower with Mepilex dressing in place. Once postoperative dressing has been removed only use gentle soap and water over the incision. Do not use any ointments, Neosporin, salves, alcohol pads over the incision for 6 weeks postoperatively. Do not submerge underwater for 6 weeks postoperatively. Continue with STEVEN hose/elastic stockings for 2 weeks postoperatively. May remove at nighttime but needs to be placed back on the leg during the day. Do NOT use alcohol with narcotic pain medication. Do NOT make important decisions while taking narcotic medication. If you have problems with taking your medication (rash, itching, nausea, etc.) call the office at once. Follow Up Care Test Results: Test results from this visit will be discussed in further detail at your follow-up appointment, if applicable. Discharge Plan Admission Admit Date/Time: 05/20/24 06:56 Attending Provider: Gavin Mosley Primary Care Provider: Malcolm Burns Consulting Providers: Angel Benitez Discharge Orders/Prescriptions Prescriptions: New acetaminophen 500 mg Tablet 1,000 mg PO TID 14 Days Qty: 84 0RF Rx Instructions: Do not take more than 3000 mg Tylenol in a 24-hour period. aspirin [Enteric Coated Aspirin] 81 mg tablet,delayed release (DR/EC) 81 mg PO BID 30 Days Qty: 60 0RF Rx Instructions: Take 81 mg aspirin twice daily for 4 weeks postoperatively for DVT prophylaxis. meloxicam 7.5 mg Tablet 7.5 mg PO BID 14 Days Qty: 28 0RF doxycycline monohydrate 100 mg Capsule 100 mg PO BID 12 Days Qty: 0 0RF Rx Instructions: Take for 2 weeks postoperatively ferrous sulfate [FeroSul] 325 mg (65 mg iron) Tablet 325 mg PO 1200,1700 14 Days Qty: 28 0RF folic acid 1 mg Tablet 1 mg PO BREAKFAST 14 Days Qty: 14 0RF oxycodone 5 mg Tablet 5 - 10 mg PO Q4H PRN PRN (Reason: as needed for pain) 7 Days Qty: 0 0RF sennosides-docusate sodium [Stimulant Laxative Plus] 8.6-50 mg Tablet 2 tab PO BID Qty: 0 0RF Rx Instructions: Only use senna as needed for constipation Continued calcium carbonate [Calcium 500] 500 mg calcium (1,250 mg) tablet 500 mg PO BID hydrocortisone 2.5 % cream 1 applic topical BID PRN (Reason: skin irritation) Qty: 30 3RF cholecalciferol (vitamin D3) 10 mcg (400 unit) capsule 10 mcg PO DAILY melatonin 10 mg Tablet 10 mg PO QHS PreserVision AREDS-2 250-90-40-1 mg Capsule 1 tab PO BID citalopram 40 mg tablet 40 mg PO QHS lansoprazole 30 mg capsule,delayed release(DR/EC) 30 mg PO DAILY Qty: 60 1RF (DME) blood pressure monitor Kit See Rx Instructions .ROUTE .MEDSUPPLY Qty: 1 0RF Rx Instructions: As directed atorvastatin 40 mg tablet 40 mg PO DAILY Qty: 90 3RF Held krill oil 500 mg capsule PO Hold Instructions: Resume on 10/14/24. Hold for 2 weeks postoperatively Discontinued indomethacin 50 mg capsule 50 mg PO BID Qty: 30 0RF Rx Instructions: administer with food or milk acetaminophen 500 mg capsule 1,000 mg PO BID meloxicam 7.5 mg tablet 7.5 mg PO BID Other Ambulatory Orders: 12 Lead EKG (Routine) Timeframe: 20240430 Location: None Selected Ordered By: Dr. Gavin Mosley CBC-Complete Blood Cnt No Diff (Routine) Timeframe: 1 Week Facility: [facility] - Location: Laboratory Ordered By: Shalom HAWLEY Referrals / Follow Up: (more content not included)... Normal [facility] Basic Metabolic Profile (BMP )on 05-21-2024 BUN/CRE 23.9 RATIO High 06-09 [facility] Comment on above: Performed By: #### L 500.2500, L100.0500 #### [facility] [address] [place], [address] CA,Total 8.6 mg/dL Normal 8.5-10.1 [facility] Comment on above: Performed By: #### L 500.2500, L100.0500 #### [facility] [address] [place], [address] Chloride [Moles/Vol] 107 mmol/L Normal 98-107 [facility] Comment on above: Performed By: #### L 500.2500, L100.0500 #### [facility] [address] [place], [address] CO2 [Moles/Vol] 28.0 mmol/L Normal 21.0-32.0 [facility] Comment on above: Performed By: #### L 500.2500, L100.0500 #### [facility] [address] [place], [address] Creatinine [Mass/Vol] 0.75 mg/dL Normal 0.55-1.02 [facility] Comment on above: Result Comment: The validity of the calculated GFR GFRAA in patients over 70 years has not been determined. Clinical correlation is essential. Performed By: #### L 500.2500, L100.0500 #### [facility] [address] [place], [place], [address] ECRCL 50.16 ml/min Normal [facility] Comment on above: Performed By: #### L 500.2500, L100.0500 #### [facility] [address] [place], [address] EST GFR - AA 95 mL/min Normal >60 [facility] Comment on above: Result Comment: Afri can Citizen Of [place] GFR Calc Performed By: #### L 500.2500, L100.0500 #### [facility] [address] [place], [address] GAP 4 Low 5-15 [facility] Comment on above: Performed By: #### L 500.2500, L100.0500 #### [facility] [address] [place], [address] GFR/1.73 sq M.predicted among non-blacks MDRD (S/P/Bld) [Vol rate/Area] 78 mL/min/{1.73_m2} Normal >60 [facility] Comment on above: Result Comment: Non- GFR Calc Performed By: #### L 500.2500, L100.0500 #### [facility] [address] [place], [address] Glucose [Mass/Vol] 124 mg/dL High 74-106 [facility] Comment on above: Result Comment: Fast ing Glucose result from 100 to 125 mg/dL suggests IMPAIRED HOMEOSTASIS per A.D.A. criteria. Performed By: #### L 500.2500, L100.0500 #### [facility] [address] [place], [address] Potassium [Moles/Vol] 3.9 mmol/L Normal 3.5-5.1 [facility] Comment on above: Performed By: #### L 500.2500, L100.0500 #### [facility] [address] [place], [address] Sodium [Moles/Vol] 139 mmol/L Normal 136-145 [facility] Comment on above: Performed By: #### L 500.2500, L100.0500 #### [facility] [address] [place], [address] Urea nitrogen [Mass/Vol] 18 mg/dL Normal 7-18 [facility] Comment on above: Performed By: #### L 500.2500, L100.0500 #### [facility] [address] [place], [address] CBC-Complete Blood Cnt No Di ffon 05-21-2024 Erythrocyte distribution width (RBC) [Ratio] 12.6 % Normal 11.6-14.6 [facility] Comment on above: Performed By: #### L 500.2500, L100.0500 #### [facility] [address] [place], [address] Hematocrit (Bld) [Volume fraction] 30.4 % Low 37-47 [facility] Comment on above: Performed By: #### L 500.2500, L100.0500 #### [facility] [address] [place], [address] Hemoglobin (Bld) [Mass/Vol] 9.8 g/dL Low 12.0-15.0 [facility] Comment on above: Performed By: #### L 500.2500, L100.0500 #### [facility] [address] [place], [address] MCH (RBC) [Entitic mass] 28.9 pg Normal 27.0-32.0 [facility] Comment on above: Performed By: #### L 500.2500, L100.0500 #### [facility] [address] [place], [address] MCHC (RBC) [Mass/Vol] 32.2 g/dL Normal 32-36 [facility] Comment on above: Performed By: #### L 500.2500, L100.0500 #### [facility] [address] [place], [address] MCV (RBC) [Entitic vol] 89.7 fL Normal 81-99 [facility] Comment on above: Performed By: #### L 500.2500, L100.0500 #### [facility] [address] [place], [address] Platelet mean volume (Bld) [Entitic vol] 10.3 fL Normal 6.2-12.0 [facility] Comment on above: Performed By: #### L 500.2500, L100.0500 #### [facility] [address] [place], [address] Platelets (Bld) [#/Vol] 148 10*3/uL Low 150-450 [facility] Comment on above: Performed By: #### L 500.2500, L100.0500 #### [facility] [address] [place], [address] RBC (Bld) [#/Vol] 3.39 10*6/uL Low 4.2-5.4 [facility] Comment on above: Performed By: #### L 500.2500, L100.0500 #### [facility] [address] [place], [address] RDW SD 41.1 fl Normal 35.1-43.9 [facility] Comment on above: Performed By: #### L 500.2500, L100.0500 #### [facility] [address] [place], [address] WBC (Bld) [#/Vol] 8.4 10*3/uL Normal 4.4-11.0 [facility] Comment on above: Performed By: #### L 500.2500, L100.0500 #### [facility] [address] [place], [address] Bedside Glucoseon 05-20-2024 FINGERSTICK GLU 115 mg/dL High 74-106 [facility] Comment on above: Result Comment: TIFFANIE WANG OF PATIENT CARE PER NURSING PROTOCOL Performed By: #### L 501.080 #### [facility] [address] [place], [address] Consultation - [place] 05-20-2024 Consultation - Hospitalist [facility] Medical Records Department [address] [place] [address] Consultation - Hospitalist 05/20/24 1549 MR#: [id number] Acct: [id number] Name: SOFIYA TIJERINA Rep #: [id number] : 1940 84 From: Angel Benitez MD PCP: Dr. Malcolm Burns MD Status:ADM SUZETTE Location: [address] Assessment Plan Assessment/Plan (1) Encounter for perioperative consultation: PLAN: Plan This 84-year-old female was admitted after right knee TKA 1. Perioperative management of right knee primary osteoarthritis: Patient had right minimally invasive robotic total knee replacement on 05/20/2024. No nausea or vomiting. Pain is well- controlled. DVT prophylaxis as per discretion of orthopedic surgeon. Incentive spirometry. Bowel and bladder care per 2. nonobstructive CAD: Twelve-lead EKG reviewed. Normal sinus rhythm 63/min. No chest pain or shortness of breath. 3. Dyslipidemia: On atorvastatin continued. 4. GERD: PPI. 5. Anxiety on citalopram continued HPI Consult Data Date of Consult: 05/20/24 HPI Narrative Reason for Consultation: Perioperative management after right TKR HPI Narrative: SOFIYA TIJERINA, is a 84 F who is admitted after elective right knee minimally invasive robotic replacement. Patient denies history of chest pain shortness of breath, dizziness vertigo or syncope. She has history of nonobstructive CAD, dyslipidemia. She is voiding urine. She had a bowel movement in the morning. No nausea or vomiting. No acute concern [facility] Medical History Preoperative evaluation to rule out surgical contraindication Headache Lightheadedness Localized swelling of chest wall Thrush Perineal pruritus in female Encounter for vitamin deficiency screening Flu vaccine need Foul smelling urine Wears dentures Post-menopausal High cholesterol Back pain Gastric reflux Non-smoker Sleep apnea Leg cramps History of stress test Coronary artery disease Pancreatic cyst Skin lesion of scalp Diarrhea Macular degeneration Osteopenia Carpal tunnel syndrome Breast lump Arthritis Hemorrhoids Acid reflux Constipation Hyperlipidemia Anxiety Home Medications ???Medication ???Instructions ???Recorded ???Last Taken ???Type calcium carbonate (Calcium 500) 500 mg PO BID 07/07/20 05/15/24 History melatonin 10 mg tablet 10 mg PO QHS 04/01/22 05/19/24 History vit C 250 mg-vit E 90 mg-zinc 40 1 tab PO BID 04/01/22 05/19/24 History mg-copper 1 [id number] capsule (PreserVision AREDS-2) lansoprazole 30 mg capsule,delayed 30 mg PO DAILY #60 caps 12/28/22 05/19/24 Rx release hydrocortisone 2.5 % topical cream 1 applic topical BID PRN skin 07/19/23 Unknown Rx irritation #30 grams cholecalciferol (vitamin D3) 10 10 mcg PO DAILY 11/09/23 05/19/24 History mcg (400 unit) capsule blood pressure monitor #1 ea 11/27/23 Unknown Rx atorvastatin 40 mg tablet 40 mg PO DAILY #90 tabs 01/19/24 05/18/24 Rx acetaminophen 500 mg capsule 1,000 mg PO BID 04/26/24 05/15/24 History citalopram 40 mg tablet 40 mg PO QHS MENTAL HEALTH 04/26/24 05/19/24 History indomethacin 50 mg capsule 50 mg PO BID #30 caps 05/06/24 05/13/24 Rx krill oil 500 mg capsule mg PO 05/06/24 05/15/24 History meloxicam 7.5 mg tablet 7.5 mg PO BID 05/20/24 05/15/24 History Allergy/AdvReac Type Severity Reaction Status Date / Time No Known Allergies Allergy Verified 05/20/24 06:28 Family History Brother Colon cancer High cholesterol Hypertension Anxiety Arthritis Myocardial infarction Mother Colostomy care Hypertension High cholesterol Sister Lung cancer Anxiety Arthritis Breast cancer Depression Respiratory disease Colon cancer Sister Cancer lung Thyroid disorder Hypertension Surgical History Hx of hysterectomy History of bladder suspension procedure S/P hysterectomy S/p bilateral carpal tunnel release S/P cataract extraction bilateral carpal tunnel surgery S/P bilateral foot surgery History of tubal ligation Social History Smoking Status: Never smoker alcohol intake: never substance use type: does not use caffeine: Yes what type of physical activity do you participate in: none seatbelt use: always do you feel safe at home: Yes additional social history: - rashad BOWDEN Narrative Constitutional: Reports fatigue and weakness. No fever. HEENT: Reports systems reviewed and no addt'l complaints, except as documented Respiratory/Chest: No acute shortness of breath or respiratory distress or wheezing. CVS: No chest pain palpitation or dizziness Gastrointestinal: Denies coffee ground emesis, (more content not included)... Normal [facility] Decalcification bone/plaqueo n 05-20-2024 Decalcification bone/plaque -------- Patient Age/Sex Location Account Attending Physician -------- SOFIYA TIJERINA 84/F MS3 [id number] Dr. Gavin Mosley MD -------- Specimen: [id number] Received: 05/20/24 Status: DIYA Ferrer Num: [id number] Spec Type: TOTAL KNEE Subm Dr: Dr. Gavin Mosley MD HEADER OPERATION: Total knee replacement robotic arm assist PRE-OP DIAGNOSIS: Severe right knee osteoarthritis with varus deformity TISSUE SUBMITTED: Bone and soft tissue right knee -------- MICROSCOPIC DIAGNOSIS Bone and soft tissue, right knee, total knee replacement/resection: Pieces of bone with degenerative osteoarthritic changes. Fibroadipose tissue, fibroconnective tissue and reactive synovial tissue. SJ: 05/23/2024 MICROSCOPIC DESCRIPTION Slides are reviewed. GROSS DESCRIPTION Received is one container designated bone and soft tissue right knee. The specimen consists of multiple fragments of laws-yellow bone measuring in aggregate 10.0 x 9.0 x 3.0 cm. Also in the specimen container are a small piece of yellow-white soft tissue noted attached to the bone measuring in aggregate 2.5 x 1.0 x 0.3 cm. A number of bony fragments contain articular surfaces consistent with tibial plateau and femoral condyle and displaying prominent osteophyte formation, eburnation and bone erosion. Tie Mill Operator sections are submitted in two cassettes as follows: 1 - soft tissue, entirely submitted, 2 - bone after decalcification. / 05/20/2024 TC:5 CPT: 20998, 34346 -------- Patient Age/Sex Location Account Attending Physician -------- SOFIYA TIJERINA 84/F MS3 [id number] Dr. Gavin Mosley MD -------- Signed (signature on file) Dr. Zain Gomez MD 05/23/24 1327 -------- Normal [facility] Comment on above: Performed By: #### L 500.2500, L100.0500 #### [facility] [address] [facility] [place], [address] Knee 1 or 2 Viewson 05-20-20 Knee 1 or 2 Views [facility] Imaging Services [address] [place], [place] [id number] Knee 1 or 2 Views MR#: [id number] Acct: [id number] Name: SOFIYA TIJERINA P Rep #: [id number] : 1940 F 84 From: Charlie Moss MD PCP: Dr. Malcolm Burns MD Status: [facility] Study: Knee 1 or 2 Views Date of Exam: 05/20/24 Exam# [id number] Ordering Dr: Gavin Mosley MD :[id number] STUDY: X-RAY - RIGHT KNEE REASON FOR EXAM: Female, 84 years old. Post op - AP and Lateral xray of operative knee in PACU. TECHNIQUE: 2 views of the right knee. COMPARISON: Right knee radiographs dated 12/22/2020. FINDINGS: There are new postoperative changes related to right total knee arthroplasty with patellar resurfacing. There is a vertical staple line along the anterior aspect of the knee. There is gas in the patellofemoral joint recess and anterior soft tissues, compatible with recent surgery. The orthopedic hardware components are intact. There is no periprosthetic fracture. Normal proximal tibiofibular articulation. RAD/Knee 1 or 2 Views IMPRESSION: New postoperative changes related to right total knee arthroplasty. Electronically Signed: Charlie Moss MD at 9:49 EDT Reading Location ID and State: [facility] / [place] , Service support , CC: Dr. Malcolm Burns MD; Dr. Gavin Mosley MD Credit Analyst: Signed [facility] MR/POSTOP.[facility] 05-20-2024 MR/POSTOP.[facility] Medical Records Department [address] [place] [address] Anesthesia Postop Eval I 05/20/24 0912 MR#: [id number] Acct: [id number] Name: SOFIYA TIJERINA P Rep #: [id number] : 1940 84 From: Linda Chiang WATERMASTER PCP: Dr. Malcolm Burns MD Status:REG SDC Y Race: C Location: [place] [address] Anesthesia: Postop Eval I Current Vital Signs Temperature: 97.6 F Pulse Rate: 72 Blood Pressure: 103/71 Respiratory Rate: 16 Pulse Ox: 97 Oxygen Delivery Method: Room Air Assessment Airway patent: Yes Spontaneous unlabored respirations: Yes Mental status: Awake and Calm nausea: No Vomiting: No Anesthesia Complication: No Fluid Hydration Crystalloid volume administer (ml): 1,800 Total IV fluid infused: 1,800 Progress Note Anesthesia document: Postop Eval 1 completed: Yes 05/20/24912 Date Linda Chiang WATERMASTER Cosigner Signature: Date CC: Signed Normal [facility] MR/[id number] 05-20-2024 [facility] Medical Records Department [address] [place] [address] Anesthesia Postop Eval II 05/20/24 1050 MR#: [id number] Acct: [id number] Name: SOFIYA TIJERINA Beatris Rep #: [id number] : 1940 84 From: Rancho Gold MD PCP: Dr. Malcolm Burns MD Status:ADM SUZETTE Y Race: C Location: [facility] [id number] Anesthesia Postop Eval I Sum Postop Eval Completion status Anesthesia document: Postop Eval 1 completed: Yes Anesthesia Postop Eval I Summary Anesthesia Postop Eval I Summary: Anesthesia Postop Eval I: Assessment Summary Airway patent Yes 05/20/24 09:13 [email or web address] Spontaneous unlabored Yes 05/20/24 09:13 [email or web address] respirations Mental status Awake,Calm 05/20/24 09:13 [email or web address] nausea No 05/20/24 09:13 [email or web address] Vomiting No 05/20/24 09:13 [email or web address] Anesthesia Postop Eval I: Fluid Summary Crystalloid volume administer 1,800 05/20/24 09:13 [email or web address] (ml) Colloids volume administered ( ml) Blood Product volume administered (ml) Total IV fluid infused 1,800 05/20/24 09:13 [email or web address] Anesthesia Postop Eval I: Summary Notes Anesthesia Complication No 05/20/24 09:13 [email or web address] Anesthesia Complication Comment: Post-operative progress note Anesthesia: Postop Eval II Evaluation Mental status: Awake Pain Level: 0 nausea: No Vomiting: No 05/20/24 1050 Date Rancho Hallman Signature: Date CC: Signed Normal [facility] Operative Reporton 4 Operative Report [facility] Medical Records Department [address] [place] [address] Operative Report 05/20/24 0834 MR#: [id number] Acct: [id number] Name: SOFIYA TIJERINA Rep #: [id number] : 1940 84 From: Gavin Mosley MD PCP: Dr. Malcolm Burns MD Status:REG [facility] Location: [place] [address] Report of Operation Date of Procedure: 05/20/24 Pre-Operative Diagnosis: Right knee primary osteoarthritis Post-Operative Diagnosis: Right knee primary osteoarthritis Surgery/Procedure Performed:: Right minimally invasive robotic total knee replacement Description of Surgical Findings:: Stable knee with good patella tracking Surgeon: Gavin Mosley agricultural technical officer: Shalom Preston Type of Anesthesia: Spinal Anesthesiologist: Rancho Gold Special Medications: 2 g Ancef, 1 g TXA at incision, 1 g TXA closure, 10 mg Decadron, joint cocktail (5 mg Duramorph, 30 mL of 0.5% Ropivicaine, 1000 units of epinephrine, 30 mg of Toradol) Specimen's removed: Bony cuts Estimated Blood Loss (mL): 50 Fluids Replaced: 1300 mL crystalloid Description of Procedure: Implants used: 1. Afshan size 2 triathlon cruciate retaining distal femoral press-fit component 2. Afshan size 3 press-fit tritanium tibial baseplate 3. [place] X3 9 mm CS polyethylene 4. Afshan X3 32 asymmetric patella Brief history operative indications: 84-year-old F with history of right knee osteoarthritis with radiographic findings with loss of joint space, osteophyte formation and subchondral sclerosis. Failed conservative measures as mentioned in the H P. Discussion of total knee arthroplasty as well as risk and benefits were discussed the patient including but not limited to blood loss, DVTs, PEs, neurovascular damage, general risk of anesthesia including loss of life, and stiffness or instability were discussed with patient. Patient demonstrated understanding and was able to sign informed consent. Procedure: On the date of procedure patient's right lower extremity was marked in the preoperative area. The patient was then taken back to the operating room where the patient was placed on the table in the supine position. All bony prominences were identified a well-padded. Anesthesia assumed control of the C-spine and airway and remained controlled throughout the remainder of the procedure. A tourniquet was placed on the right upper thigh and the leg was prepped in a sterile fashion. The surgeon then scrubbed at this time .Upon reentering the room right lower extremity was draped in a standard orthopedic fashion. A timeout was then called and everyone agreed upon the side, the site, the procedure to be performed, patient's identity and antibiotics given. Esmarch bandage was used to exsanguinate the extremity and the tourniquet was placed up to 250 mmHg with the knee in flexion. A midline skin incision was made and sharp dissection was taken down through skin subcutaneous tissue and fat. The standard medial parapatellar incision was made and the patella was subluxed laterally. An Appropriate deep MCL release was done and the fat pad was resected. Our attention was then directed to the patella. The patella was everted and a flat resection was made. The knee was then flexed up in 2 femoral pins were placed inside the incision and 2 tibial pins were placed outside the incision in the medial tibia bicortically. Once this was completed the 2 checkpoints in the femur and tibia were placed. Knee was then flexed up and the bony landmarks were registered. Once this was completed knee was taken through range of motion and manually stressed allowing us to a plan for an appropriate tibial cut. The robotic arm was brought into the field sterilely and checkpoint and saw were registered. Based on the patient's deformity the tibial cut was made in 1-1/2 degrees of. At this time the tensioner was then placed in the joint and ligament tension was checked at 90 degrees and full extension. Based on the patient's ligamentous tension appropriate adjustments were made to the operative plan and ligament releases were done. Once we were happy with our operative plan with balanced flexion and extension gaps our attention was directed to the femur. The robot was brought into the field sterilely and registered. Posterior condylar cuts, anterior chamfer cuts and anterior cuts were appropriately made for a size 2 femur. When these were completed the saws were switched out in the distal femoral and posterior chamfer cuts were made. Protecting the soft tissue throughout this time. A size 3 tibial base plate was selected. the knee was flexed to 90 degrees and the soft tissues and posterior osteophytes were removed from the joint. 40 cc of the periarticular injection was injected into the posterior medial corner of the joint. The appropriate trials were then placed on the femur and tibia. A trial polyethylene was trialed to ens (more content not included)... Normal [facility] Internal Medicine Office Vis kel 05-06-2024 Internal Medicine Office Visit [facility] [address] [place] [address] [address] [place] [address] OFFICE VISIT Date of Service: 05/06/24 MR#: [id number] Acct: [id number] Name: SOFIYA TIJERINA Rep #: [id number] : 1940 Provider: Dr. Malcolm li MD Age/Sex: 84/F Location[place] [facility] Status: Signed Intake Vital Signs 11/09/23 15:40 04/18/24 10:38 05/06/24 12:53 Height 5 ft 3 in 5 ft 3 in 5 ft 3 in Weight: 149 lb BMI 26.4 BP 136/64 H Blood Pressure Location Lt brachial Position Sitting Respiration 16 Pulse 54 L Pulse Source Palpation Temp 97.8 F Temp Source Temporal Intake Visit Reasons: SURGICAL CLEARANCE Chief Complaint: surgical clearance 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: No Accompanied by: Self Is patient in pain?: No Allergies No Known Allergies Allergy (Verified 05/06/24 12:46) Medications ???Medication ???Instructions ???Recorded ???Confirmed ???Type calcium carbonate (Calcium 500) 500 mg PO BID 07/07/20 05/06/24 History melatonin 10 mg tablet 10 mg PO QHS 04/01/22 05/06/24 History vit C 250 mg-vit E 90 mg-zinc 40 1 tab PO BID 04/01/22 05/06/24 History mg-copper 1 [id number]-[id number] capsule (PreserVision AREDS-2) lansoprazole 30 mg capsule,delayed 30 mg PO DAILY #60 caps 12/28/22 05/06/24 Rx release hydrocortisone 2.5 % topical cream 1 applic topical BID PRN skin 07/19/23 05/06/24 Rx irritation #30 grams cholecalciferol (vitamin D3) 10 10 mcg PO DAILY 11/09/23 05/06/24 History mcg (400 unit) capsule blood pressure monitor #1 ea 11/27/23 05/06/24 Rx atorvastatin 40 mg tablet 40 mg PO DAILY #90 tabs 01/19/24 05/06/24 Rx acetaminophen 500 mg capsule 1,000 mg PO BID 04/26/24 05/06/24 History citalopram 40 mg tablet 40 mg PO QHS MENTAL HEALTH 04/26/24 05/06/24 History indomethacin 50 mg capsule 50 mg PO BID #30 caps 05/06/24 05/06/24 Rx krill oil 500 mg capsule mg PO 05/06/24 05/06/24 History Have you fallen in the past year?: No PFSH Medical History (Updated 05/06/24 @ 13:[address] Malcolm Burns MD) Preoperative evaluation to rule out surgical contraindication Headache Lightheadedness Localized swelling of chest wall Thrush Perineal pruritus in female Encounter for vitamin deficiency screening Flu vaccine need Foul smelling urine Wears dentures Post-menopausal High cholesterol Back pain Gastric reflux Non-smoker Sleep apnea Leg cramps History of stress test Coronary artery disease Pancreatic cyst Skin lesion of scalp Diarrhea Macular degeneration Osteopenia Carpal tunnel syndrome Breast lump Arthritis Hemorrhoids Acid reflux Constipation Hyperlipidemia Anxiety Surgical History Hx of hysterectomy History of bladder suspension procedure S/P hysterectomy S/p bilateral carpal tunnel release S/P cataract extraction bilateral carpal tunnel surgery S/P bilateral foot surgery History of tubal ligation Family History Brother Colon cancer High cholesterol Hypertension Anxiety Arthritis Myocardial infarction Mother Colostomy care Hypertension High cholesterol Sister Lung cancer Anxiety Arthritis Breast cancer Depression Respiratory disease Colon cancer Sister Cancer lung Thyroid disorder Hypertension Social History Smoking Status: Never smoker alcohol intake: never substance use type: does not use caffeine: Yes what type of physical activity do you participate in: none seatbelt use: always do you feel safe at home: Yes additional social history: - solorzano HPI HPI Chief Complaint: surgical clearance Details: SOFIYA TIJERINA, is a 84 F who presents to the office today for follow-up and for surgical reevaluation. Scheduled for right knee replacement surgery on the . Has had surgeries in the past including under general anesthesia with no concerns. No chest pain, palpitation or shortness of breath. Save for the pain in her knee, has no limitation with activity. Tobacco use. Recently had labs and EKG done ordered by her orthopedic surgeon. She reports pain on the right side of her head which has been ongoing for a few months. Describes it as a stabbing sharp pain which occasionally goes behind her right eye. No change in vision, nausea or otherwise feeling of unwell. Has not tried anything for this. Other chronic medical conditions are stable. ROS Const Constitutional: Positive for headache(s); No body ache, chills, excessive sweating, fatigue, fever(s), frequent falls, snoring, weakness or change in appetite Eyes Eyes: No blurry vision, change in vision, dry eyes, bulging eyes, floaters, eye pain or Light sensitivity ENT ENT: Positive for headache(s); (more content not included)... Normal [facility] MRSA/SAID NASAL SCREENon MRSA+SAID SCRN Reason for Exam: PRE OP, TOTAL KNEE ARTHROSCOPY Copy of report sent to Infection Control Printer [id number] 05/01/24 1505 JPTWIN. MRSA MRSA Positive A S. AUREUS S. aureus PositiveA Normal [facility] Comment on above: Performed By: #### L 500.2500, L100.0500 #### [facility] [address] [place], [address] 12 Lead EKGon 04-30-2024 12 Lead EKG [facility] Cardiovascular Services [address] [place] [address] 12 Lead EKG 04/30/24 1245 MR#: [id number] Acct: [id number] Name: SOFIYA TIJERINA Rep #: [id number] : 1940 84 From: Jim Maldonado MD Attending Dr: Dr. Gavin Mosley MD Status: PRE [facility] Ordering Dr: Gavin Mosley MD Date: 04/30/24 Location: [facility] Sex: F C Admitted: Test Reason : PREOP Blood Pressure : / mmHG Vent. Rate : 063 BPM Atrial Rate : 063 BPM P-R Int : 120 ms QRS Dur : 074 ms QT Int : 436 ms P-R-T Axes : 035 006 028 degrees QTc Int : 446 ms Normal sinus rhythm Normal ECG Confirmed by GISELA ALONSO, JIM ([id number]), field map editor CORTEZ CALDERA ([id number]) on 05/01/2024 1:17:28 PM Referred By: Gavin Mosley Confirmed By:JIM MALDONADO MD 05/01/24 1317 Date Jim Maldonado MD CC: Dr. Malcolm Burns MD; Dr. Gavin Mosley MD Signed Normal [facility] Albumin, Serumon 04-30-2024 Albumin [Mass/Vol] 3.7 g/dL Normal 3.2-5.0 [facility] Comment on above: Performed By: #### M 100.651, L501.1800, L500.2500, L100.0100 ####[facility] [address] [place], [address] Basic Metabolic Profile (BMP )on 04-30-2024 BUN/CRE 21.3 RATIO High 10-20 [facility] Comment on above: Performed By: #### M 100.651, L501.1800, L500.2500, L100.0100 ####[facility] [address] [place], [address] CA,Total 9.4 mg/dL Normal 8.5-10.1 [facility] Comment on above: Performed By: #### M 100.651, L501.1800, L500.2500, L100.0100 ####[facility] [address] [place], [address] Chloride [Moles/Vol] 104 mmol/L Normal 98-107 [facility] Comment on above: Performed By: #### M 100.651, L501.1800, L500.2500, L100.0100 ####[facility] [address] [place], [address] CO2 [Moles/Vol] 30.0 mmol/L Normal 21.0-32.0 [facility] Comment on above: Performed By: #### M 100.651, L501.1800, L500.2500, L100.0100 ####[facility] [address] [place], [address] Creatinine [Mass/Vol] 0.85 mg/dL Normal 0.55-1.02 [facility] Comment on above: Result Comment: The validity of the calculated GFR GFRAA in patients over 70 years has not been determined. Clinical correlation is essential. Performed By: #### M 100.651, L501.1800, L500.2500, L100.0100 ####[facility] [address] [place], [address] EST GFR - AA 83 mL/min Normal >60 [facility] Comment on above: Result Comment: Afri can Citizen Of [place] GFR Calc Performed By: #### M 100.651, L501.1800, L500.2500, L100.0100 ####[facility] [address] [place], [address] GAP 3 Low 5-15 [facility] Comment on above: Performed By: #### M 100.651, L501.1800, L500.2500, L100.0100 ####[facility] [address] [place], [address] GFR/1.73 sq M.predicted among non-blacks MDRD (S/P/Bld) [Vol rate/Area] 68 mL/min/{1.73_m2} Normal >60 [facility] Comment on above: Result Comment: Non- GFR Calc Performed By: #### M 100.651, L501.1800, L500.2500, L100.0100 ####[facility] [address] [place], [address] Glucose [Mass/Vol] 100 mg/dL Normal 74-106 [facility] Comment on above: Result Comment: Fast ing Glucose result from 100 to 125 mg/dL suggests IMPAIRED HOMEOSTASIS per A.D.A. criteria. Performed By: #### M 100.651, L501.1800, L500.2500, L100.0100 ####[facility] [address] [place], [address] Potassium [Moles/Vol] 3.7 mmol/L Normal 3.5-5.1 [facility] Comment on above: Performed By: #### M 100.651, L501.1800, L500.2500, L100.0100 ####[facility] [address] [place], [address] Sodium [Moles/Vol] 137 mmol/L Normal 136-145 [facility] Comment on above: Performed By: #### M 100.651, L501.1800, L500.2500, L100.0100 ####[facility] [address] [place], [address] Urea nitrogen [Mass/Vol] 18 mg/dL Normal 7-18 [facility] Comment on above: Performed By: #### M 100.651, L501.1800, L500.2500, L100.0100 ####[facility] [address] [place], [address] Brain/Head W/WO Contraston 0 04-30-2024 Brain/Head W/WO Contrast [facility] Imaging Services [address] [place] [address] Brain/Head W/WO Contrast MR#: [id number] Acct: [id number] Name: SOFIYA TIJERINA Beatris Rep #: [id number] : 1940 F 84 From: Bradford Vazquez PCP: Dr. Malcolm Burns MD Status: [facility] CLI Study: Brain/Head W/WO Contrast Date of Exam: 4 Exam# [id number] Ordering Dr: Hamilton Lee PA :[id number] INDICATION: headache EXAMINATION: CT BRAIN WITH AND WITHOUT CONTRAST - CT Head or Brain WO/W Contrast Injection TECHNIQUE: Multiple axial images were obtained of the brain with and without IV contrast. The protocol utilizes one or more of the following dose reduction techniques: automated exposure control, adjustment of mA and/or kV according to patient size,and/or use of iterative reconstruction technique. IV Contrast dosage and agent: 60 cc of Isovue-370 RADIATION DOSAGE (If Supplied By Facility): CTDIvol = ( 44.99 ) mGy, DLP = ( 1479.73 ) mGycm COMPARISON: No relevant prior comparison study available 10/23/2003 FINDINGS: BRAIN PARENCHYMA: No intra- or extra-axial hemorrhage. No evidence of acute infarct. No intracranial mass or mass effect. There is preservation of the gilbert/white matter interface. Posterior fossa structures are unremarkable. No abnormal contrast enhancement. CSF SPACES: Appropriate for age. No hydrocephalus. Basal cisterns are patent. CALVARIUM, SKULL BASE, PARANASAL SINUSES AND MASTOID AIR CELLS: Clear. No discrete lytic or blastic abnormalities. ORBITS: Both globes, extraocular muscles, optic nerves and retrobulbar fat appear unremarkable. ASPECTS Score for Acute Strokes: 10 CT/Brain/Head W/WO Contrast IMPRESSION: Negative CT Brain with and without contrast. Electronically Signed: Bradford Jacobs MD at 10:45 EDT , CC: Dr. Malcolm Burns MD; CHANDAN Davenport Credit Analyst: Signed Normal [facility] CBC W/Diff, Automatedon 04-21 0-2023 Absolute Lymph 2.11 X10 3/uL Normal 0.83-4.51 [facility] Comment on above: Performed By: #### M 100.651, L501.1800, L500.2500, L100.0100 ####[facility] [address] [place], [address] Absolute Neut 3.5 X10 3/uL Normal 2.0-7.7 [facility] Comment on above: Performed By: #### M 100.651, L501.1800, L500.2500, L100.0100 ####[facility] [address] [place], [address] Basophils/100 WBC (Bld) 1.1 % High 0-1 [facility] Comment on above: Performed By: #### M 100.651, L501.1800, L500.2500, L100.0100 ####[facility] [address] [place], [address] Eosinophils/100 WBC (Bld) 2.9 % Normal 0-5 [facility] Comment on above: Performed By: #### M 100.651, L501.1800, L500.2500, L100.0100 ####[facility] [address] [place], [address] Erythrocyte distribution width (RBC) [Ratio] 13.2 % Normal 11.6-14.6 [facility] Comment on above: Performed By: #### M 100.651, L501.1800, L500.2500, L100.0100 ####[facility] [address] [place], [address] Hematocrit (Bld) [Volume fraction] 37.5 % Normal 37-47 [facility] Comment on above: Performed By: #### M 100.651, L501.1800, L500.2500, L100.0100 ####[facility] [address] [place], [address] Hemoglobin (Bld) [Mass/Vol] 12.1 g/dL Normal 12.0-15.0 [facility] Comment on above: Performed By: #### M 100.651, L501.1800, L500.2500, L100.0100 ####[facility] [address] [place], [address] IG% 0.300 Normal 0.0-0.9 [facility] Comment on above: Result Comment: IG% - Immature Granulocytes (promyelocytes, myelocytes and metamyelocytes) > 1% indicates that a LEFT SHIFT is Present. Performed By: #### M 100.651, L501.1800, L500.2500, L100.0100 ####[facility] [address] [place], [address] Lymphocytes/100 WBC (Bld) 32.6 % Normal 19-41 [facility] Comment on above: Performed By: #### M 100.651, L501.1800, L500.2500, L100.0100 ####[facility] [address] [place], [address] MCH (RBC) [Entitic mass] 29.4 pg Normal 27.0-32.0 [facility] Comment on above: Performed By: #### M 100.651, L501.1800, L500.2500, L100.0100 ####[facility] [address] [place], [address] MCHC (RBC) [Mass/Vol] 32.3 g/dL Normal 32-36 [facility] Comment on above: Performed By: #### M 100.651, L501.1800, L500.2500, L100.0100 ####[facility] [address] [place], [address] MCV (RBC) [Entitic vol] 91.2 fL Normal 81-99 [facility] Comment on above: Performed By: #### M 100.651, L501.1800, L500.2500, L100.0100 ####[facility] [address] [place], [address] Monocytes/100 WBC (Bld) 9.6 % Normal 0-10 [facility] Comment on above: Performed By: #### M 100.651, L501.1800, L500.2500, L100.0100 ####[facility] [address] [place], [address] Neutrophils/100 WBC (Bld) 53.5 % Normal 47-70 [facility] Comment on above: Performed By: #### M 100.651, L501.1800, L500.2500, L100.0100 ####[facility] [address] [place], [address] Nucleated RBC (Bld) [#/Vol] 0 10*3/uL Normal 0-5 [facility] Comment on above: Performed By: #### M 100.651, L501.1800, L500.2500, L100.0100 ####[facility] [address] [place], [address] Platelet mean volume (Bld) [Entitic vol] 9.6 fL Normal 6.2-12.0 [facility] Comment on above: Performed By: #### M 100.651, L501.1800, L500.2500, L100.0100 ####[facility] [address] [place], [address] Platelets (Bld) [#/Vol] 218 10*3/uL Normal 150-450 [facility] Comment on above: Performed By: #### M 100.651, L501.1800, L500.2500, L100.0100 ####[facility] [address] [place], [address] RBC (Bld) [#/Vol] 4.11 10*6/uL Low 4.2-5.4 [facility] Comment on above: Performed By: #### M 100.651, L501.1800, L500.2500, L100.0100 ####[facility] [address] [place], [address] RDW SD 44.6 fl High 35.1-43.9 [facility] Comment on above: Performed By: #### M 100.651, L501.1800, L500.2500, L100.0100 ####[facility] [address] [place], [address] WBC (Bld) [#/Vol] 6.5 10*3/uL Normal 4.4-11.0 [facility] Comment on above: Performed By: #### M 100.651, L501.1800, L500.2500, L100.0100 ####[facility] [address] [place], [address] CREATININE FINGERSTICKon CREATININE WB < 1.0 Normal 0.55-1.02 [facility] Comment on above: Performed By: #### L 9100.0200 #### [facility] [address] [place], [place], [address] EGFR WB > 60.0000 Normal >60 [facility] Comment on above: Performed By: #### L 9100.0200 #### [facility] [address] [place], [place], [address] Extremity Lower without Cont raon 04-30-2024 Extremity Lower without Contra [facility] Imaging Services [address] [place], [place] [address] Extremity Lower without Contra MR#: [id number] Acct: [id number] Name: SOFIYA TIJERINA Beatris Rep #: [id number] : 1940 F 84 From: Charlie Moss MD PCP: Dr. Malcolm Burns MD Status: REG CLI Study: Extremity Lower without Contra Date of Exam: 0 04/30/24 Exam# [id number] Ordering Dr: Gavin Mosley MD :[id number] CT RIGHT LOWER EXTREMITY WITH 3-D IMAGING CLINICAL INDICATION: Pain, right knee surgical planning. TECHNIQUE: Axial CT images of the right lower extremity (including right hip, right knee, and right ankle) was performed without IV contrast material. Coronal and sagittal reformats were provided. The protocol utilizes one or more of the following dose reduction techniques: automated exposure control, adjustment of mA and/or kV according to patient size, and/or use of iterative reconstruction technique. RADIATION DOSAGE (If Supplied By Facility): CTDIvol = ( 18.76 ) mGy, DLP = ( 1116.24 ) mGycm COMPARISON: Right knee radiographs dated 12/08/2021. FINDINGS: Bones: There is mild degenerative arthrosis of the right hip joint with mild marginal osteophyte formation. There is severe degenerative arthrosis of the medial femorotibial compartment of the right knee with ssps-iu-towz, marginal osteophyte formation, and subchondral sclerosis. There is moderate degenerative arthrosis of the patellofemoral and lateral femorotibial compartments of the right knee. Normal right ankle. Osseous structures are normal without evidence of fracture or dislocation. No lytic or blastic osseous masses. Soft Tissues: There is a tiny right knee joint effusion. The deep soft tissue structures are unremarkable. The superficial soft tissues are unremarkable without evidence of edema, hematoma, or foreign body. 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 Tiny right knee joint effusion. Electronically Signed: Charlie Moss MD at 15:48 EDT Reading Location ID and State: [address] [place] [address] , Service support , CC: Dr. Malcolm Burns MD; Dr. Gavin Mosley MD Credit Analyst: Signed Normal [facility] Magnesiumon 04-30-2024 Magnesium [Mass/Vol] 2.2 mg/dL Normal 1.6-2.6 [facility] Comment on above: Performed By: #### L 501.5200 #### [facility] [address] [place], [address] Internal Medicine Office Vis iton 04-18-2024 Internal Medicine Office Visit [facility] [address] [place] [address] [place] [address] OFFICE VISIT Date of Service: 04/18/24 MR#: [id number] Acct: [id number] Name: SOFIYA TIJERINA Beatris Rep #: [id number] : 1940 Provider: CHANDAN Davenport Age/Sex: 84/F Location[place] [facility] Status: Signed Intake Vital Signs 01/22/24 13:14 04/18/24 10:38 Height 5 ft 3 in 5 ft 3 in Weight: 147 lb 6 oz 151 lb BMI 26.1 26.7 BP 132/70 H 146/84 H Blood Pressure Location Lt brachial Lt brachial Position Sitting Sitting Respiration 16 14 Pulse 82 64 Pulse Source Monitor Monitor Temp 97.6 F L 98.4 F Temp Source Temporal Temporal Pulse Oximetry (%) 93 94 Oxygen Delivery Method room air room air Intake Visit Reasons: acute - on and off head pain 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: No Is patient in pain?: No Allergies No Known Allergies Allergy (Verified 04/18/24 10:32) Medications ???Medication ???Instructions ???Recorded ???Confirmed ???Type calcium carbonate (Calcium 500) 500 mg PO BID 07/07/20 04/18/24 History melatonin 10 mg tablet 10 mg PO QHS 04/01/22 04/18/24 History vit C 250 mg-vit E 90 mg-zinc 40 1 tab PO BID 04/01/22 04/18/24 History mg-copper 1 yt-apvajd-peavlq capsule (PreserVision AREDS-2) lansoprazole 30 mg capsule,delayed 30 mg PO DAILY #60 caps 12/28/22 04/18/24 Rx release hydrocortisone 2.5 % topical cream 1 applic topical BID PRN skin 07/19/23 04/18/24 Rx irritation #30 grams cholecalciferol (vitamin D3) 10 10 mcg PO DAILY 11/09/23 04/18/24 History mcg (400 unit) capsule mecobalamin (vitamin B12) 1,000 1,000 mcg PO DAILY 11/09/23 04/18/24 History mcg chewable tablet blood pressure monitor #1 ea 11/27/23 04/18/24 Rx atorvastatin 40 mg tablet 40 mg PO DAILY #90 tabs 01/19/24 04/18/24 Rx citalopram 40 mg tablet 40 mg PO DAILY MENTAL HEALTH #90 01/19/24 04/18/24 Rx tabs acetaminophen 650 mg 650 mg PO Q12H 04/18/24 04/18/24 History tablet,extended release Have you fallen in the past year?: No Nurse's Note: States she has been having sharp pain in her head that come and go. She is concerned due to her having a lot of dental work which required xrays. States that it happens on either side of her head, but never both at the same time. States right now the R side in the oriental orthodox is affected. She has not tried treating w/ anything as she regularly takes Tylenol for arthritis. States nothing seems to bring it on episodes can last up to 15 minutes. Nothing seems to make them go away as she has not tried anything. Denies visual or audio changes when this happens. [facility] Medical History Lightheadedness Localized swelling of chest wall Thrush Perineal pruritus in female Encounter for vitamin deficiency screening Flu vaccine need Foul smelling urine Wears dentures Post-menopausal High cholesterol Back pain Gastric reflux Non-smoker Sleep apnea Leg cramps History of stress test Coronary artery disease Pancreatic cyst Skin lesion of scalp Diarrhea Macular degeneration Osteopenia Carpal tunnel syndrome Breast lump Arthritis Hemorrhoids Acid reflux Constipation Hyperlipidemia Anxiety Surgical History Hx of hysterectomy History of bladder suspension procedure S/P hysterectomy S/p bilateral carpal tunnel release S/P cataract extraction bilateral carpal tunnel surgery S/P bilateral foot surgery History of tubal ligation Family History Brother Colon cancer High cholesterol Hypertension Anxiety Arthritis Myocardial infarction Mother Colostomy care Hypertension High cholesterol Sister Lung cancer Anxiety Arthritis Breast cancer Depression Respiratory disease Colon cancer Sister Cancer lung Thyroid disorder Hypertension Social History Smoking Status: Never smoker alcohol intake: never substance use type: does not use caffeine: Yes what type of physical activity do you participate in: none seatbelt use: always do you feel safe at home: Yes additional social history: - solorzano HPI HPI Details: SOFIYA TIJERINA, is a 84 F who presents to the office today for some head pains. Patient states that she started to have pains for the past month. Pains started on the left side in the back of the head / behind the ear and has moved around the head since then and now is more located on the right temporal area. The pains are described as sharp pains that can last seconds to a few minutes. She denies having any dizziness, changes in her hearing, changes in her vision, facial weakness. She states that she does not have a hist (more content not included)... Normal [facility] Internal Medicine Office Vis kel 01-22-2024 Internal Medicine Office Visit [facility] [address] [place] [address] [place] [address] OFFICE VISIT Date of Service: 01/22/24 MR#: [id number] Acct: [id number] Name: SOFIYA TIJERINA Rep #: [id number] : 1940 Provider: Dr. Malcolm li MD Age/Sex: 83/F Location: [facility] Status: Signed Intake Vital Signs 07/19/23 10:55 11/09/23 15:40 01/22/24 13:14 Height 5 ft 3 in 5 ft 3 in 5 ft 3 in Weight: 147 lb 6 oz BMI 26.1 BP 132/70 H Blood Pressure Location Lt brachial Position Sitting Respiration 16 Pulse 82 Pulse Source Monitor Temp 97.6 F L Temp Source Temporal Pulse Oximetry (%) 93 Oxygen Delivery Method room air Intake Visit Reasons: 6 M FU Chief Complaint: 6m f/u 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: No Accompanied by: Self Is patient in pain?: No Allergies No Known Allergies Allergy (Verified 01/22/24 13:12) Medications ???Medication ???Instructions ???Recorded ???Confirmed ???Type calcium carbonate (Calcium 500) 500 mg PO BID 07/07/20 01/22/24 History melatonin 10 mg tablet 10 mg PO QHS 04/01/22 01/22/24 History vit C 250 mg-vit E 90 mg-zinc 40 1 tab PO BID 04/01/22 01/22/24 History mg-copper 1 xs-vhqfdr-ffvxog capsule (PreserVision AREDS-2) lansoprazole 30 mg capsule,delayed 30 mg PO DAILY #60 caps 12/28/22 01/22/24 Rx release hydrocortisone 2.5 % topical cream 1 applic topical BID PRN skin 07/19/23 01/22/24 Rx irritation #30 grams cholecalciferol (vitamin D3) 10 10 mcg PO DAILY 11/09/23 01/22/24 History mcg (400 unit) capsule mecobalamin (vitamin B12) 1,000 1,000 mcg PO DAILY 11/09/23 01/22/24 History mcg chewable tablet blood pressure monitor #1 ea 11/27/23 01/22/24 Rx atorvastatin 40 mg tablet 40 mg PO DAILY #90 tabs 01/19/24 01/22/24 Rx citalopram 40 mg tablet 40 mg PO DAILY MENTAL HEALTH #90 01/19/24 01/22/24 Rx tabs PFSH Medical History Lightheadedness Localized swelling of chest wall Thrush Perineal pruritus in female Encounter for vitamin deficiency screening Flu vaccine need Foul smelling urine Wears dentures Post-menopausal High cholesterol Back pain Gastric reflux Non-smoker Sleep apnea Leg cramps History of stress test Coronary artery disease Pancreatic cyst Skin lesion of scalp Diarrhea Macular degeneration Osteopenia Carpal tunnel syndrome Breast lump Arthritis Hemorrhoids Acid reflux Constipation Hyperlipidemia Anxiety Surgical History Hx of hysterectomy History of bladder suspension procedure S/P hysterectomy S/p bilateral carpal tunnel release S/P cataract extraction bilateral carpal tunnel surgery S/P bilateral foot surgery History of tubal ligation Family History Brother Colon cancer High cholesterol Hypertension Anxiety Arthritis Myocardial infarction Mother Colostomy care Hypertension High cholesterol Sister Lung cancer Anxiety Arthritis Breast cancer Depression Respiratory disease Colon cancer Sister Cancer lung Thyroid disorder Hypertension Social History Smoking Status: Never smoker alcohol intake: never substance use type: does not use caffeine: Yes what type of physical activity do you participate in: none seatbelt use: always do you feel safe at home: Yes additional social history: - solorzano HPI HPI Chief Complaint: 6m f/u Details: SOFIYA TIJERINA, is a 83 F who presents to the office today for follow-up of her chronic medical conditions. No acute concerns at this time. Was referred to general surgery due to concern for swelling. Imaging done with no acute findings and per recommendation of general surgery, plan is to monitor. There has been no significant change. Had also reported occasional lightheadedness typically with change in position. She states that for the most part this is not as bothersome. Still not drinking enough. No syncopal or near syncopal episodes. Other chronic medical conditions are stable. History of anxiety on citalopram. No acute concerns in that regard reported. Also history of reflux on lansoprazole, no dark or bloody stool or unintentional weight changes. ROS Const Constitutional: No body ache, chills, excessive sweating, fatigue, fever(s), frequent falls, headache(s), snoring, weakness or change in appetite Eyes Eyes: No blurry vision, change in vision, floaters, visual disturbances, eye pain or Light sensitivity ENT ENT: No abnormal hearing, ear or mastoid pain, tinnitus, balance problems, nosebleed/epistaxis, nasal congestion, headache(s), neck pain or sore throat Resp Respiratory: No cough, excessive phlegm production, pain (more content not included)... Normal [facility] Absolute lymphocyte countOrd ered By: Malcolm Burns on 07-19-2023 Lymphocytes Auto (Unsp spec) [#/Vol] 1.89 10*3/uL 0.83-4.51 [facility] Basophil percentageOrdered B y: Malcolm Burns on 07-19-2023 Basophils/100 WBC (Bld) 1.4 % 0-1 [facility] Bilirubin [Mass/Vol] 0.60 mg/dL 0.20-1.00 [facility] Comment on above: For patients on eltr ombopag therapy, use of Dimension [place] TBIL is not recommended. Chloride [Moles/Vol] 107 mmol/L 98-107 [facility] Cholesterol [Mass/Vol] 133 mg/dL <200 [facility] Comment on above: <200 mg/dL Desirable 200-240 mg/dL Borderline >240 mg/dL High Risk Eosinophils/100 WBC (Bld) 1.4 % 0-5 [facility] Glucose [Mass/Vol] 90 mg/dL 74-106 [facility] Neutrophils (Bld) [#/Vol] 3.8 10*3/uL 2.0-7.7 [facility] Neutrophils/100 WBC (Bld) 58.1 % 47-70 [facility] Potassium [Moles/Vol] 3.8 mmol/L 3.5-5.1 [facility] Protein [Mass/Vol] 6.8 g/dL 6.4-8.2 [facility] Sodium [Moles/Vol] 142 mmol/L 136-145 [facility] Triglyceride [Mass/Vol] 85 mg/dL <199 [facility] Comment on above: The drugs N-Acetylcy steine and Metamizole may falsely depress this assay.Serum Triglycerides Reference Interval Normal <150 mg/dL Borderline high 150 - 199 mg/dL High 200 - 499 mg/dL Very High > or = 500 mg/dL WBC (Bld) [#/Vol] 6.5 10*3/uL 4.4-11.0 [facility] Blood erythrocytes count (nu mber/volume)Ordered By: Malcolm Burns on 07-19-2023 RBC (Bld) [#/Vol] 4.45 10*6/uL 4.2-5.4 [facility] Blood hemoglobin measurement (mass/volume)Ordered By: Malcolm Bursn on 07-19-2023 Hemoglobin (Bld) [Mass/Vol] 12.7 g/dL 12.0-15.0 [facility] Blood lymphocytes/100 leukoc ytesOrdered By: Malcolm Burns on 07-19-2023 Lymphocytes/100 WBC (Bld) 29.2 % 19-41 [facility] Blood monocytes/100 leukocyt esOrdered By: sanjuanitamemphisvivi Burns on 07-19-2023 Monocytes/100 WBC (Bld) 9.7 % 0-10 [facility] Blood platelet mean volumeOr dered By: Malcolm Burns on 07-19-2023 Platelet mean volume (Bld) [Entitic vol] 10.6 fL 6.2-12.0 [facility] Determination of erythrocyte mean corpuscular volume (MCV)Ordered By: Malcolm Burns on 07-19-2023 MCV (RBC) [Entitic vol] 91.0 fL 81-99 [facility] Hematocrit Auto (Bld) [Volum e fraction]Ordered By: Malcolm Burns on 07-19-2023 Hematocrit (Bld) [Volume fraction] 40.5 % 37-47 [facility] Laboratory - Chemistry and C hemistry - challengeOrdered By: Malcolm Burns on 07-19-2023 ALP [Catalytic activity/Vol] 63 U/L 45-117 [facility] ALT [Catalytic activity/Vol] 23 U/L 13-56 [facility] CO2 [Moles/Vol] 28.0 mmol/L 21.0-32.0 [facility] Cobalamin (Vitamin B12) [Mass/Vol] 881 pg/mL 211-911 [facility] Globulin (S) [Mass/Vol] 2.8 g/dL 2.2-4.2 [facility] Urea nitrogen/Creatinine [Mass ratio] 19.0 mg/mg 10-20 [facility] Laboratory - Hematology and Cell countsOrdered By: Malcolm Burns on 07-19-2023 Erythrocyte distribution width (RBC) [Entitic vol] 42.5 fL 35.1-43.9 [facility] Erythrocyte distribution width (RBC) [Ratio] 12.9 % 11.6-14.6 [facility] Immature granulocytes/100 WBC (Bld) 0.200 % 0.0-0.9 [facility] Comment on above: IG% - Immature Granu locytes (promyelocytes, myelocytes and metamyelocytes) > 1% indicates that a LEFT SHIFT is Present. MCH (RBC) [Entitic mass] 28.5 pg 27.0-32.0 [facility] Nucleated RBC/100 WBC (Bld) [Ratio] 0 % 0-5 [facility] MCHC Auto (RBC) [Mass/Vol]Or dered By: Malcolm Burns on 07-19-2023 MCHC (RBC) [Mass/Vol] 31.4 g/dL 32-36 [facility] No Panel InformationOrdered By: Malcolm Burns on 07-19-2023 Estimated GFR (MDRD) Amer 83 mL/min >60 [facility] Comment on above: GFR Calc Estimated GFR (MDRD) Non-Af Amer 69 mL/min >60 [facility] Comment on above: Non- GFR Calc Vitamin D 25-Hydroxy 48.0 ng/mL [facility] Comment on above: Vitamin D 25(OH) Sta tus Range Deficiency <20 ng/mL (50nmol/L) Insufficiency 20 - 30 ng/mL (50 - 75 nmol/L) Sufficiency 30 - 100 ng/mL (75 - 250 nmol/L) Toxicity >100 ng/mL (>250 nmol/L) Platelets bldOrdered By: Lorenzo malhotra Mookiejamarcussanket on 07-19-2023 Platelets (Bld) [#/Vol] 238 10*3/uL 150-450 [facility] Serum or plasma albumin lucinda urement (mass/volume)Ordered By: Slymattievivi Burns on 07-19-2023 Albumin [Mass/Vol] 4.0 g/dL 3.2-5.0 [facility] Serum or plasma albumin/glob ulin mass ratioOrdered By: Malcolm Damicojamarcussanket on 07-19-2023 Albumin/Globulin [Mass ratio] 1.4 {ratio} 0.9-2.4 [facility] Serum or plasma calcium lucinda urement (mass/volume)Ordered By: Vickysanjuanitamattievivi Damicojamarcussanket on 07-19-2023 Calcium [Mass/Vol] 9.0 mg/dL 8.5-10.1 [facility] Serum or plasma cholesterol in HDL measurement (mass/volume)Ordered By: Malcolm Burns on 07-19-2023 Cholesterol in HDL [Mass/Vol] 64 mg/dL >40 [facility] Comment on above: The drugs N-Acetylcy steine and Metamizole may falsely depress this assay. Reference Range HDL <40 mg/dL Low HDL Cholesterol HDL >or= 60 mg/dL High HDL Cholesterol Serum or plasma cholesterol in VLDL measurement (mass/volume)Ordered By: Malcolm Burns on 07-19-2023 Cholesterol in VLDL [Mass/Vol] 17 mg/dL 5-40 [facility] Serum or plasma creatinine m easurement (mass/volume)Ordered By: Malcolm Burns on 07-19-2023 Creatinine [Mass/Vol] 0.84 mg/dL 0.55-1.02 [facility] Comment on above: The validity of the calculated GFR & GFRAA in patients over 70 years has not been determined. Clinical correlation is essential. Serum or plasma low density lipoprotein (LDL) cholesterol measurement (mass/volume)Ordered By: Malcolm Burns on 07-19-2023 Cholesterol in LDL [Mass/Vol] 52 mg/dL 0-130 [facility] Serum or plasma urea nitroge n measurement (mass/volume)Ordered By: Malcolm Burns on 07-19-2023 Urea nitrogen [Mass/Vol] 16 mg/dL 7-18 [facility] Thin prep Papanicolaou smear with manual screeningOrdered By: Malcolm Burns on 07-19-2023 Thin prep Papanicolaou smear with manual screening 13 U/L 15-37 [facility] Thin prep Papanicolaou smear with manual screening 7 5-15 [facility] Basophil percentageOrdered B y: Chuck Regan on 06-08-2023 Basophil percentage 0 SEEN /hpf 0-5 [facility] Bilirubin Test strip Ql (U)O rdered By: Chuck Regan on 06-08-2023 Bilirubin Ql (U) Negative Negative [facility] Culture, urineOrdered By: Yemi Regan on 06-08-2023 Bacteria identified Cx Nom (U) Culture exhibits no growth. [facility] Bacteria identified Cx Nom (U) Culture exhibits no growth. [facility] Ketones Test strip Ql (U)Ord ered By: Chuck Regan on 06-08-2023 Ketones Ql (U) Negative Negative [facility] Laboratory - Chemistry and C hemistry - challengeon 06-08-2023 Bilirubin Ql (U) Negative [facility] Glucose Ql (U) Negative [facility] Ketones Ql (U) Trace (5) [facility] pH (U) 6.5 [pH] [facility] Specific gravity (U) [Rel density] 1.015 [facility] Urobilinogen (U) [Mass/Vol] 0.0806055 mg/dL [facility] Laboratory - Hematology and Cell countson 06-08-2023 Hemoglobin Ql (U) Negative [facility] Laboratory - Specimen inform ationon 06-08-2023 Clarity (U) Clear [facility] Color (U) Yellow [facility] Laboratory - Urinalysison Nitrite Ql (U) Negative [facility] Protein Ql (U) Negative [facility] Mucus LM Ql (Urine sed)Order ed By: Chuck Regan on 06-08-2023 Mucus Ql (Urine sed) 0 SEEN /hpf [facility] Nitrite Test strip Ql (U)Ord ered By: Chuck Regan on 06-08-2023 Nitrite Ql (U) Negative Negative [facility] No Panel Informationon 06-08 Urine Leukocytes Positive [facility] Urine Non-Hemolyzed Blood Negative [facility] Protein Test strip Ql (U)Ord ered By: Chuck Regan on 06-08-2023 Protein Ql (U) Negative Negative [facility] Squamous epithelial cells de tection in urine sediment by light microscopyOrdered By: Chuck Regan on 06-08-2023 Epithelial cells.squamous LM Ql (Urine sed) 5-10 SEEN /hpf 5-10 [facility] Urine blood detectionOrdered By: Chuck Regan on 06-08-2023 RBC Ql (U) Negative Negative [facility] RBC Ql (U) 0 SEEN /hpf 0-5 [facility] Urine clarityOrdered By: Nick Regan on 06-08-2023 Clarity (U) Clear Clear [facility] Urine color determinationOrd ered By: Chuck Regan on 06-08-2023 Color (U) Yellow Yellow [facility] Urine glucose detectionOrder ed By: Chuck Regan on 06-08-2023 Glucose Ql (U) Normal mg/dl Normal [facility] Urine leukocyte esterase det ection by dipstickOrdered By: Chuck Regan on 06-08-2023 Leukocyte esterase Test strip Ql (U) Negative Negative [facility] Urine pHOrdered By: Chuck jurado on 06-08-2023 pH (U) 7.0 [pH] 5.0 - 8.0 [facility] Urine sediment bacteria coun t by microscopy (number/high power field)Ordered By: Chuck Regan on 06-08-2023 Bacteria LM.HPF (Urine sed) [#/Area] 0 /[HPF] None Seen [facility] Urine specific gravity measu rementOrdered By: Chuck Regan on 06-08-2023 Specific gravity (U) [Rel density] 1.005 1.002-1.03 0 [facility] Urobilinogen Auto test strip Ql (U)Ordered By: Chuck Regan on 06-08-2023 Urobilinogen Ql (U) Normal mg/dl Normal [facility] CBC W Auto Differential pane l (Bld)on 01-25-2022 Abs Immature Gran <0.03 <0.10 k/uL [facility] Basophils (Bld) [#/Vol] 0.08 10*3/uL <0.11 k/uL [facility] Basophils/100 WBC (Bld) 1.2 % [facility] Differential cell count method Nom (Bld) Auto [facility] Eosinophils (Bld) [#/Vol] 0.16 10*3/uL <0.46 k/uL [facility] Eosinophils/100 WBC (Bld) 2.3 % [facility] Erythrocyte distribution width (RBC) [Ratio] 12.7 % 11.5 - 15.0 % [facility] Hematocrit (Bld) [Volume fraction] 37.8 % 36.0 - 46.0 % [facility] Hemoglobin (Bld) [Mass/Vol] 12.7 g/dL 11.5 - 15.5 g/dL [facility] Immature Gran % 0.3 % [facility] Lymphocytes (Bld) [#/Vol] 1.91 10*3/uL 1.00 - 4.00 k/uL [facility] Lymphocytes/100 WBC (Bld) 27.6 % [facility] MCH (RBC) [Entitic mass] 30.0 pg 26.0 - 34.0 pg [facility] MCHC (RBC) [Mass/Vol] 33.6 g/dL 30.5 - 36.0 g/dL [facility] MCV (RBC) [Entitic vol] 89.4 fL 80.0 - 100.0 fL [facility] Monocytes (Bld) [#/Vol] 0.76 10*3/uL <0.87 k/uL [facility] Monocytes/100 WBC (Bld) 11.0 % [facility] Neutrophils (Bld) [#/Vol] 4.00 10*3/uL 1.45 - 7.50 k/uL [facility] Neutrophils/100 WBC (Bld) 57.6 % [facility] Nucleated RBC (Bld) [#/Vol] 10*3/uL <0.01 k/uL [facility] Nucleated RBC/100 WBC (Bld) [Ratio] 0.0 /100 WBC [facility] Platelet mean volume (Bld) [Entitic vol] 10.3 fL 9.0 - 12.7 fL [facility] Platelets (Bld) [#/Vol] 204 10*3/uL 150 - 400 k/uL [facility] RBC (Bld) [#/Vol] 4.23 10*6/uL 3.90 - 5.20 m/uL [facility] WBC (Bld) [#/Vol] 6.93 10*3/uL 3.70 - 11.00 k/uL [facility] Comprehensive metabolic 2000 panelon 01-25-2022 Albumin [Mass/Vol] 4.4 g/dL 3.9 - 4.9 g/dL [facility] ALP [Catalytic activity/Vol] 66 U/L 34 - 123 U/L [facility] ALT [Catalytic activity/Vol] 12 U/L 7 - 38 U/L [facility] Anion gap [Moles/Vol] 10 mmol/L 9 - 18 mmol/L [facility] AST [Catalytic activity/Vol] 17 U/L 13 - 35 U/L [facility] Bilirubin [Mass/Vol] 0.4 mg/dL 0.2 - 1 .3 mg/dL [facility] Calcium [Mass/Vol] 9.6 mg/dL 8.5 - 10. 2 mg/dL [facility] Chloride [Moles/Vol] 103 mmol/L 97 - 10 5 mmol/L [facility] CO2 [Moles/Vol] 26 mmol/L 22 - 30 mmol/L [facility] Creatinine [Mass/Vol] 0.93 mg/dL 0.58 - 0.96 mg/dL [facility] Estimated Glomerular Filtration Rate 63 mL/min/1.73m >=60 mL/min/1.7 3m [facility] Glucose [Mass/Vol] 104 mg/dL High 74 - 99 mg/dL [facility] Potassium [Moles/Vol] 3.7 mmol/L 3.7 - 5.1 mmol/L [facility] Protein [Mass/Vol] 6.9 g/dL 6.3 - 8.0 g/dL [facility] Sodium [Moles/Vol] 139 mmol/L 136 - 144 mmol/L [facility] Urea nitrogen [Mass/Vol] 18 mg/dL 7 - 21 mg/dL [facility] Operative Reporton 0 Operative Report [facility] [address] [place], [place] [address] RECORD OF PROCEDURE PATIENT NAME: SOFIYA TIJERINA DATE OF : 1940 MED REC #: [id number] PT LOCATION: OR PACU PT TYPE: OPS AGE: 80 SEX: F ADMISSION DATE: 08/03/2020 DATE OF SERVICE: 08/03/2020 PREPROCEDURE DIAGNOSIS: Anterior and posterior vaginal prolapse, stress urinary incontinence. POSTPROCEDURE DIAGNOSIS: Anterior and posterior vaginal prolapse, stress urinary incontinence. NAME OF PROCEDURE: Anterior and posterior colporrhaphy, midurethral sling and cystoscopy. SURGEON: Dee Dee Oakes MD CHIEF GREEN OFFICER: Bryan Platt DO FINDINGS: Bilateral ureteral orifices were noted to be patent with Pyridium-stained urine. No bladder, urethral or rectal injury. ESTIMATED BLOOD LOSS: 50 mL. INTRAVENOUS FLUIDS: DRAINS: Johnson to PACU. PROCEDURE DETAILS: The patient was taken to the operating room where general anesthesia was initiated. The patient was placed in dorsal lithotomy position and prepped and draped in sterile fashion. A surgical timeout occurred. A Johnson catheter was placed in the patient's bladder. A lone star retractor was used for retraction. The prolapsed vaginal vault was grasped with two Allis clamps, injected with 0.5% Marcaine with epinephrine and a midline incision was made over the herniation. Blunt dissection then was used to create tunnels to the ischial spine and then medially to the sacrospinous ligaments bilaterally. A PDS suture on a [employer] needle cdl driver was then passed through the sacrospinous ligament on the patients right side. This was followed by a Prolene suture. This same procedure was repeated on the patients left side. The sutures were then bought through the corners of the vaginal cuff. The cuff was closed with interrupted 0-vicryl sutures. The sacrospinous ligament sutures were then tied, elevating the vaginal vault. Anterior Repair: The vaginal epithelium overlying the anterior vaginal wall was grasped with two Allis clamps, injected with 0.5% Marcaine with epinephrine and a midline incision was made over the herniation of the anterior vaginal wall. The underlying pubocervical fascia was dissected off the overlying vaginal epithelium until the herniation of the pubocervical fascia was completely exposed. Hemostasis was achieved with electrosurgical cautery. The herniation was repaired in the traditional fashion using imbricating horizontal mattress sutures of 2-O PDS on a CT-1 needle. Once the herniation was completely repaired, the redundant vaginal epithelium was excised and the incision was closed with a running, locking 3-O Vicryl suture. Excellent hemostasis was noted. Posterior repair: A self-retaining retractor was used to retract the labia and vagina for adequate visualization and exposure. The vaginal epithelium overlying the posterior vaginal wall was grasped with two Allis clamps, injected with 0.5% Marcaine with epinephrine and a midline incision was made over the herniation of the posterior vaginal wall. The underlying rectovaginal fascia was dissected off the overlying vaginal epithelium until the herniation of the rectovaginal fascia was completely exposed. Hemostasis was achieved with electrosurgical cautery. The herniation was repaired in the traditional fashion using imbricating horizontal mattress sutures of 2-O PDS on a CT-1 needle. Once the herniation was completely repaired, the redundant vaginal epithelium was excised and the incision was closed with a running, locking 3-O Vicryl suture. Excellent hemostasis was noted. Midurethral sling: The vaginal epithelium overlying the mid-urethra was grasped with two Allis clamps, injected with 0.5% Marcaine with epinephrine and a 1.5 cm midline incision was made over the mid urethra using a 15 blade scalpel. Tunnels were dissected bilaterally to the pubic rami and the Tamanna Desara trocar was passed through the tunnels on the right side, through the space of Retzius and out the skin at the pubic symphysis. This was repeated on the patient's left side. Cystoscopy was performed and there was no evidence of bladder or urethral injury. The sling was then drawn up through the space of Retzius and out the skin at the pubic symphysis. Tension was adjusted by placing a Metzenbaum scissor tip between the sling and the urethra. Once adequate tension was adjusted, the plastic sheaths were removed. The redundant sling was trimmed at the skin edges and the skin was repaired with Indermil. The vaginal epithelium was repaired with a running locking 3-0 Vicryl suture. Anesthesia was discontinued. All needle, instrument, and sponge counts were correct x 2. The patient was taken to recovery room in stable condition. COMPLICATIONS: None. CONDITION: Stable. Teacher surgeon was present and scrubbed for the entire procedure. project assistant helped with suture closure and retraction. Dee Dee Oakes MD [facility]/[id number] SSI File#: [id number] CC: Dee Dee Oakes MD [facility] Basic Metabolic Panelon 07-21 Anion gap [Moles/Vol] 9 mmol/L Normal 8-15 [facility] Comment on above: Performed By: #### B MP #### [facility] [address] [place] [phone] Calcium [Mass/Vol] 9.7 mg/dL Normal 8.6-10.6 [facility] Comment on above: Performed By: #### B MP #### [facility] [address] [place] [phone] Chloride [Moles/Vol] 104 mmol/L Normal 98-107 [facility] Comment on above: Performed By: #### B MP #### [facility] [address] [place] [address] 18465 CO2 [Moles/Vol] 28 mmol/L Normal 22-29 [facility] Comment on above: Performed By: #### B MP #### [facility] [address] [place] [address] 23011 Creatinine [Mass/Vol] 1.0 mg/dL Normal 0.5-1.2 [facility] Comment on above: Performed By: #### B MP #### [facility] [address] [place] [address] 70248 eGFR -Amer >=60 Normal >=60 [facility] Comment on above: Performed By: #### B MP #### [facility] [address] [place] [address] 13390 GFR/1.73 sq M predicted among non-blacks MDRD (S/P/Bld) [Vol rate/Area] 52 mL/min/1.73sqm Low >=60 [facility] Comment on above: Performed By: #### B MP #### [facility] [address] [place] [address] [phone] Glucose [Mass/Vol] 96 mg/dL Normal 74-109 [facility] Comment on above: Performed By: #### B MP #### [facility] [address] [place] [address]80 Potassium [Moles/Vol] 4.4 mmol/L Normal 3.4-5.1 [facility] Comment on above: Performed By: #### B MP #### [facility] [address] [place] [address] 22841 Sodium [Moles/Vol] 141 mmol/L Normal 136-145 [facility] Comment on above: Performed By: #### B MP #### [facility] [address] [place] [address] 88277 Urea nitrogen [Mass/Vol] 12 mg/dL Normal 6-23 [facility] Comment on above: Performed By: #### B MP #### [facility] [address] [place] [address] 57355 CBC with Diffon 07-31-2020 Basophils (Bld) [#/Vol] 0.1 x(10)3/cumm Normal 0.0-0.1 [facility] Comment on above: Performed By: #### C BCDIFF #### [facility] [address] [place] [address] 80046 Basophils/100 WBC (Bld) 1.2 % High 0.0-1.0 [facility] Comment on above: Performed By: #### C BCDIFF #### [facility] [address] [place] [address]51 Eosinophils (Bld) [#/Vol] 0.1 x(10)3/cumm Normal 0.0-0.4 [facility] Comment on above: Performed By: #### C BCDIFF #### [facility] [address] [place] [address] 21738 Eosinophils/100 WBC (Bld) 2.2 % Normal 0.0-6.1 [facility] Comment on above: Performed By: #### C BCDIFF #### [facility] [address] [place] [address] 54048 Erythrocyte distribution width (RBC) [Ratio] 13.4 % Normal 11.1-15.3 [facility] Comment on above: Performed By: #### C BCDIFF #### [facility] [address] [place] [address]387 Hematocrit (Bld) [Volume fraction] 38.8 % Normal 34.6-45.0 [facility] Comment on above: Performed By: #### C BCDIFF #### [facility] [address] [place] [address] 58472 Hemoglobin (Bld) [Mass/Vol] 12.9 g/dL Normal 11.5-15.5 [facility] Comment on above: Performed By: #### C BCDIFF #### [facility] [address] [place], [place] [phone] Lymphocytes (Bld) [#/Vol] 1.6 x(10)3/cumm Normal 0.8-2.9 [facility] Comment on above: Performed By: #### C BCDIFF #### [facility] [address] [place], [place] [phone] Lymphocytes/100 WBC (Bld) 32.7 % Normal 12.2-42.6 [facility] Comment on above: Performed By: #### C BCDIFF #### [facility] [address] [place], [place] [phone] MCH (RBC) [Entitic mass] 29.6 pg Normal 27.2-33.6 [facility] Comment on above: Performed By: #### C BCDIFF #### [facility] [address] [place], [place] [phone] MCHC (RBC) [Mass/Vol] 33.3 g/dL Normal 32.9-35.3 [facility] Comment on above: Performed By: #### C BCDIFF #### [facility] [address] [place] [address] [phone] MCV (RBC) [Entitic vol] 89.1 fL Normal 81.3-96.7 [facility] Comment on above: Performed By: #### C BCDIFF #### [facility] [address] [place], [place] [address] Monocytes (Bld) [#/Vol] 0.5 x(10)3/cumm Normal 0.2-0.8 [facility] Comment on above: Performed By: #### C BCDIFF #### [facility] [address] [place] [address]146 Monocytes/100 WBC (Bld) 10.9 % Normal 3.3-11.6 [facility] Comment on above: Performed By: #### C BCDIFF #### [facility] [address] [place] [address] 22786 Neutrophils (Bld) [#/Vol] 2.7 x(10)3/cumm Normal 1.3-7.4 [facility] Comment on above: Performed By: #### C BCDIFF #### [facility] [address] [place] [address] 19679 Neutrophils/100 WBC (Bld) 53.0 % Normal 44.9-78.8 [facility] Comment on above: Performed By: #### C BCDIFF #### [facility] [address] [place] [id number] Platelet mean volume (Bld) [Entitic vol] 8.1 fL Normal 6.4-10.0 [facility] Comment on above: Performed By: #### C BCDIFF #### [facility] [address] [place] [id number] Platelets (Bld) [#/Vol] 221 x(10)3/cumm Normal 138-367 [facility] Comment on above: Performed By: #### C BCDIFF #### [facility] [address] [place] [id number] Plt Morph Normal [facility] Comment on above: Performed By: #### C BCDIFF #### [facility] [address] [place] [address] [id number] RBC (Bld) [#/Vol] 4.35 X(10)6/cumm Normal 3.90-5.10 [facility] Comment on above: Performed By: #### C BCDIFF #### [facility] [address] [place] [address] [id number] RBC Morph cont [facility] Comment on above: Performed By: #### C BCDIFF #### [facility] [address] [place] [address] [id number] RBC morphology finding Nom (Bld) [facility] Comment on above: Performed By: #### C BCDIFF #### [facility] [address] [place] [address] [id number] WBC (Bld) [#/Vol] 5.0 x(10)3/cumm Normal 3.6-10.3 [facility] Comment on above: Performed By: #### C BCDIFF #### [facility] [address] [place] [id number] WBC Morph [facility] Comment on above: Performed By: #### C BCDIFF #### [address] [address] Vital Signs Date Time Vital Sign Value Performing Clinician Facility 03-24-2025 14:32-0400 Diastolic blood pressure 80 mm[Hg] Dr. Malcolm Burns MD Work Phone: [facility] 03-24-2025 14:32-0400 Heart rate 69 /min Dr. Malcolm Burns MD Work Phone: [facility] 03-24-2025 14:32-0400 Systolic blood pressure 148 mm[Hg] Dr. Malcolm Burns MD Work Phone: [facility] 03-24-2025 13:31-0400 Body height 157.[address] Malcolm Burns MD Work Phone: [facility] 03-24-2025 13:31-0400 Body mass index (BMI) [Ratio] 26.6 kg/m2 Dr. Malcolm Burns MD Work Phone: [facility] 03-24-2025 13:31-0400 Body temperature 96 [degF] Dr. Malcolm Burns MD Work Phone: [facility] 03-24-2025 13:31-0400 Body weight 65.[address] Malcolm Burns MD Work Phone: [facility] 03-24-2025 13:31-0400 Respiratory rate 16 /min Dr. Malcolm Burns MD Work Phone: [facility] 03-24-2025 13:31-0400 SaO2% (BldA) [Mass fraction] 97 % Dr. Malcolm Burns MD Work Phone: [facility] 01-02-2025 15:02-0400 Diastolic blood pressure 68 mm[Hg] Dr. Malcolm Burns MD Work Phone: [facility] 01-02-2025 15:02-0400 Systolic blood pressure 136 mm[Hg] Dr. Malcolm Burns MD Work Phone: [facility] 01-02-2025 14:57-0400 Body height 157.[address] Malcolm Burns MD Work Phone: [facility] 01-02-2025 14:57-0400 Body mass index (BMI) [Ratio] 27.4 kg/m2 Dr. Malcolm Burns MD Work Phone: [facility] 01-02-2025 14:57-0400 Body temperature 97.6 [degF] Dr. Malcolm Burns MD Work Phone: [facility] 01-02-2025 14:57-0400 Body weight 68.[address] Malcolm Burns MD Work Phone: [facility] 01-02-2025 14:57-0400 Heart rate 94 /min Dr. Malcolm Burns MD Work Phone: [facility] 01-02-2025 14:57-0400 Respiratory rate 18 /min Dr. Malcolm Burns MD Work Phone: [facility] 01-02-2025 14:57-0400 SaO2% (BldA) [Mass fraction] 96 % Dr. Malcolm Burns MD Work Phone: [facility] 12-09-2024 11:23-0400 Body temperature 98.1 [degF] Vickie Praisler-Wood MEDICAL DEVICE.TITLE I ASSISTANT Work Phone: [facility] 12-09-2024 11:23-0400 Body weight 70.6 kg Vickie Praisler-Wood MEDICAL DEVICE.TITLE I ASSISTANT Work Phone: [facility] 12-09-2024 11:23-0400 Diastolic blood pressure 64 mm[Hg] Vickie Praisler-Wood MEDICAL DEVICE.TITLE I ASSISTANT Work Phone: [facility] 12-09-2024 11:23-0400 Heart rate 68 /min Vickie Praisler-Wood MEDICAL DEVICE.TITLE I ASSISTANT Work Phone: [facility] 12-09-2024 11:23-0400 Respiratory rate 18 /min Vickie Praisler-Wood MEDICAL DEVICE.TITLE I ASSISTANT Work Phone: [facility] 12-09-2024 11:23-0400 SaO2% (BldA) [Mass fraction] 98 % Vickie Praisler-Wood MEDICAL DEVICE.TITLE I ASSISTANT Work Phone: [facility] 12-09-2024 11:23-0400 Systolic blood pressure 110 mm[Hg] Vickie Praisler-Wood MEDICAL DEVICE.TITLE I ASSISTANT Work Phone: [facility] 09-27-2024 12:21-0500 Body temperature 98.1 [degF] Dr. Malcolm Burns MD Work Phone: [facility] 09-27-2024 12:21-0500 Diastolic blood pressure 80 mm[Hg] Dr. Malcolm Burns MD Work Phone: [facility] 09-27-2024 12:21-0500 Heart rate 75 /min Dr. Malcolm Burns MD Work Phone: [facility] 09-27-2024 12:21-0500 SaO2% (BldA) [Mass fraction] 96 % Dr. Malcolm Burns MD Work Phone: [facility] 09-27-2024 12:21-0500 Systolic blood pressure 120 mm[Hg] Dr. Malcolm Burns MD Work Phone: [facility] 09-25-2024 09:34-0500 Body mass index (BMI) [Ratio] 27.6 kg/m2 Dr. Malcolm Burns MD Work Phone: [facility] 09-25-2024 09:34-0500 Body temperature 98.6 [degF] Dr. Malcolm Burns MD Work Phone: [facility] 09-25-2024 09:34-0500 Body weight 68.[address] Malcolm Burns MD Work Phone: [facility] 09-25-2024 09:34-0500 Diastolic blood pressure 64 mm[Hg] Dr. Malcolm Burns MD Work Phone: [facility] 09-25-2024 09:34-0500 Heart rate 76 /min Dr. Malcolm Burns MD Work Phone: [facility] 09-25-2024 09:34-0500 SaO2% (BldA) [Mass fraction] 97 % Dr. Malcolm Burns MD Work Phone: [facility] 09-25-2024 09:34-0500 Systolic blood pressure 110 mm[Hg] Dr. Malcolm Burns MD Work Phone: [facility] 08-30-2023 10:21-0500 Body height 160.[address] Malcolm Burns Work Phone: [facility] 08-23-2023 09:16-0500 Body mass index (BMI) [Ratio] 26.4 kg/m2 Dr. Malcolm Burns Work Phone: [facility] 08-23-2023 09:16-0500 Body weight 67.[address] Malcolm Burns Work Phone: [facility] 08-23-2023 09:16-0500 Diastolic blood pressure 74 mm[Hg] Dr. Malcolm Burns Work Phone: [facility] 08-23-2023 09:16-0500 Respiratory rate 16 /min Dr. Malcolm Burns Work Phone: [facility] 08-23-2023 09:16-0500 Systolic blood pressure 138 mm[Hg] Dr. Malcolm Burns Work Phone: [facility] 07-19-2023 10:55-0500 Body height 160.[address] Malcolm Burns Work Phone: [facility] 07-19-2023 10:55-0500 Body mass index (BMI) [Ratio] 26.4 kg/m2 Dr. Malcolm Burns Work Phone: [facility] 07-19-2023 10:55-0500 Body temperature 97.4 [degF] Dr. Malcolm Burns Work Phone: [facility] 07-19-2023 10:55-0500 Body weight 67.[address] Malcolm Burns Work Phone: [facility] 07-19-2023 10:55-0500 Diastolic blood pressure 88 mm[Hg] Dr. Malcolm Burns Work Phone: [facility] 07-19-2023 10:55-0500 Heart rate 70 /min Dr. Malcolm Burns Work Phone: [facility] 07-19-2023 10:55-0500 Respiratory rate 16 /min Dr. Malcolm Burns Work Phone: [facility] 07-19-2023 10:55-0500 SaO2% (BldA) [Mass fraction] 95 % Dr. Malcolm Burns Work Phone: [facility] 07-19-2023 10:55-0500 Systolic blood pressure 132 mm[Hg] Dr. Malcolm Burns Work Phone: [facility] 06-08-2023 11:37-0400 Body temperature 98.6 [degF] Dr. Malcolm Burns Work Phone: [facility] 06-08-2023 11:37-0400 Diastolic blood pressure 75 mm[Hg] Dr. Malcolm Burns Work Phone: [facility] 06-08-2023 11:37-0400 Heart rate 84 /min Dr. Malcolm Burns Work Phone: [facility] 06-08-2023 11:37-0400 Respiratory rate 17 /min Dr. Malcolm Burns Work Phone: [facility] 06-08-2023 11:37-0400 SaO2% (BldA) [Mass fraction] 94 % Dr. Malcolm Burns Work Phone: [facility] 06-08-2023 11:37-0400 Systolic blood pressure 143 mm[Hg] Dr. Malcolm Burns Work Phone: [facility] 04-04-2022 09:15-0400 Body temperature 98.9 [degF] Dr. Malcolm Burns Work Phone: [facility] Work Phone: 04-04-2022 09:15-0400 Diastolic blood pressure 78 mm[Hg] Dr. Malcolm Burns Work Phone: [facility] Work Phone: 04-04-2022 09:15-0400 Heart rate 68 /min Dr. Malcolm Burns Work Phone: [facility] Work Phone: 04-04-2022 09:15-0400 Respiratory rate 16 /min Dr. Malcolm Burns Work Phone: [facility] Work Phone: 04-04-2022 09:15-0400 SaO2% (BldA) [Mass fraction] 97 % Dr. Malcolm Burns Work Phone: [facility] Work Phone: 04-04-2022 09:15-0400 Systolic blood pressure 160 mm[Hg] Dr. Malcolm Burns Work Phone: [facility] Work Phone: 04-04-2022 07:50-0400 Body height 158.[address] Malcolm Burns Work Phone: [facility] Work Phone: 04-04-2022 07:50-0400 Body mass index (BMI) [Ratio] 26.2 kg/m2 Dr. Malcolm Burns Work Phone: [facility] Work Phone: 04-04-2022 07:50-0400 Body weight [address] Malcolm Burns Work Phone: [facility] Work Phone: 03-29-2022 15:26-0400 Body mass index (BMI) [Ratio] 25.1 kg/m2 Dr. Malcolm Burns Work Phone: [facility] Work Phone: 03-29-2022 15:26-0400 Body weight 64.[address] Malcolm Burns Work Phone: [facility] Work Phone: 03-29-2022 15:26-0400 Diastolic blood pressure 75 mm[Hg] Dr. Malcolm Burns Work Phone: [facility] Work Phone: 03-29-2022 15:26-0400 Heart rate 61 /min Dr. Malcolm Burns Work Phone: [facility] Work Phone: 03-29-2022 15:26-0400 SaO2% (BldA) [Mass fraction] 94 % Dr. Malcolm Burns Work Phone: [facility] Work Phone: 03-29-2022 15:26-0400 Systolic blood pressure 136 mm[Hg] Dr. Malcolm Burns Work Phone: [facility] Work Phone: 02-23-2022 14:04-0400 Body mass index (BMI) [Ratio] 26.8 kg/m2 Dr. Malcolm Burns Work Phone: [facility] Work Phone: 02-23-2022 14:04-0400 Body temperature 97.4 [degF] Dr. Malcolm Burns Work Phone: [facility] Work Phone: 02-23-2022 14:04-0400 Body weight 68.[address] Malcolm Burns Work Phone: [facility] Work Phone: 02-23-2022 14:04-0400 Diastolic blood pressure 68 mm[Hg] Dr. Malcolm Burns Work Phone: [facility] Work Phone: 02-23-2022 14:04-0400 Heart rate 72 /min Dr. Malcolm Burns Work Phone: [facility] Work Phone: 02-23-2022 14:04-0400 Respiratory rate 16 /min Dr. Malcolm Burns Work Phone: [facility] Work Phone: 02-23-2022 14:04-0400 SaO2% (BldA) [Mass fraction] 96 % Dr. Malcolm Burns Work Phone: [facility] Work Phone: 02-23-2022 14:04-0400 Systolic blood pressure 118 mm[Hg] Dr. Malcolm Burns Work Phone: [facility] Work Phone: 02-08-2022 14:52-0400 Body mass index (BMI) [Ratio] 26.5 kg/m2 Dr. Malcolm Burns Work Phone: [facility] Work Phone: 02-08-2022 14:52-0400 Body temperature 97.6 [degF] Dr. Malcolm Burns Work Phone: [facility] Work Phone: 02-08-2022 14:52-0400 Body weight 68.[address] Malcolm Burns Work Phone: [facility] Work Phone: 02-08-2022 14:52-0400 Diastolic blood pressure 80 mm[Hg] Dr. Malcolm Burns Work Phone: [facility] Work Phone: 02-08-2022 14:52-0400 Heart rate 78 /min Dr. Malcolm Burns Work Phone: [facility] Work Phone: 02-08-2022 14:52-0400 Respiratory rate 14 /min Dr. Malcolm Burns Work Phone: [facility] Work Phone: 02-08-2022 14:52-0400 SaO2% (BldA) [Mass fraction] 97 % Dr. Malcolm Burns Work Phone: [facility] Work Phone: 02-08-2022 14:52-0400 Systolic blood pressure 130 mm[Hg] Dr. Malcolm Burns Work Phone: [facility] Work Phone: 01-25-2022 14:51-0400 Body temperature 97.59 [degF] Arti Lo MEDICAL DEVICE.TITLE I ASSISTANT Work Phone: [facility] 01-25-2022 14:51-0400 Body weight 69.22 kg Arti Lo MEDICAL DEVICE.TITLE I ASSISTANT Work Phone: [facility] 01-25-2022 14:51-0400 Diastolic blood pressure 82 mm[Hg] Arti Lo MEDICAL DEVICE.TITLE I ASSISTANT Work Phone: [facility] 01-25-2022 14:51-0400 Heart rate 86 /min Arti Lo MEDICAL DEVICE.TITLE I ASSISTANT Work Phone: [facility] 01-25-2022 14:51-0400 Respiratory rate 16 /min Arti Lo MEDICAL DEVICE.TITLE I ASSISTANT Work Phone: [facility] 01-25-2022 14:51-0400 SaO2% (BldA) [Mass fraction] 97 % Arti Lo MEDICAL DEVICE.TITLE I ASSISTANT Work Phone: [facility] 01-25-2022 14:51-0400 Systolic blood pressure 144 mm[Hg] Arti Lo MEDICAL DEVICE.TITLE I ASSISTANT Work Phone: [facility] 12-08-2021 18:04-0400 Heart rate 97 /min [facility] Work Phone: 12-08-2021 18:04-0400 Respiratory rate 16 /min [facility] Work Phone: 12-08-2021 16:46-0400 Body height 160.02 cm [facility] Work Phone: 12-08-2021 16:46-0400 Body mass index (BMI) [Ratio] 26.2 kg/m2 [facility] Work Phone: 12-08-2021 16:46-0400 Body temperature 97.2 [degF] [facility] Work Phone: 12-08-2021 16:46-0400 Body weight 67.13 kg [facility] Work Phone: 12-08-2021 16:46-0400 Diastolic blood pressure 71 mm[Hg] [facility] Work Phone: 12-08-2021 16:46-0400 SaO2% (BldA) [Mass fraction] 98 % [facility] Work Phone: 12-08-2021 16:46-0400 Systolic blood pressure 154 mm[Hg] [facility] Work Phone: Encounters Encounter Date Encounter Type Care Provider Facility Start: 03-24-[address] Malcolm Burns MD -Laboratory [facility] Start: 03-24-2025 End: 03-24-[address] Malcolm Burns MD Work Phone: [facility] Start: 03-24-2025 End: 03-24-[address] Malcolm Burns MD -[facility] Work Phone: Start: 01-10-2025 End: 01-10-[address] Malcolm Burns MD Work Phone: [facility] Work Phone: Start: 01-10-2025 End: 01-10-[address] Malcolm Burns MD -Outpatient Breast Imaging Work Phone: Start: 01-10-2025 End: 01-10-2025 ambulatory Malcolm Burns Facility:[facility] Start: 01-02-2025 End: 01-02-[address] Malcolm Burns MD -[facility] Work Phone: Start: 01-02-2025 End: 01-02-[address] Malcolm Burns MD Work Phone: [facility] Work Phone: Start: 01-02-2025 End: 01-02-2025 ambulatory Malcolm Burns Facility:[facility] Start: 12-17-2024 End: 12-18-2024 Telephone encounter Samra You [facility] Comment on above: Release Of Medical R ecords (Imaging) Start: 12-09-2024 End: 12-09-2024 Subsequent hospital visit by physician Xr [facility] Work Phone: Radiology Comment on above: Acute left ankle royal n [M25.572] Start: 12-09-2024 End: 12-09-2024 Patient encounter procedure Vickie Murillo APRN.TITLE I ASSISTANT Work Phone: [facility] Comment on above: Acute left ankle royal n (Primary Dx) Start: 12-09-2024 End: 12-09-2024 ambulatory MALCOLM BURNS Facility:[facility] Start: 09-27-2024 End: 09-27-2024 Patient encounter procedure Chuck Regan PA [facility] Work Phone: Start: 09-27-2024 End: 09-27-2024 ambulatory Chuck HAWLEY Facility:[facility] Start: 09-27-2024 End: 09-27-2024 ambulatory Chuck HAWLEY Facility:[facility] Start: 09-25-2024 End: 09-25-2024 Patient encounter procedure Amos Erickson [employer]INTENA[employer] SUPERVISOR-C -[facility] Work Phone: Start: 09-25-2024 End: 09-25-2024 ambulatory Amos Moaranza Facility:[facility] Start: 07-08-2024 End: 07-08-2024 ambulatory Malcolm Burns Facility:[facility] Start: 07-08-2024 End: 07-08-2024 ambulatory Carina Brand Facility:[facility] Start: 06-06-2024 End: 06-06-2024 ambulatory Malcolm Burns Facility:[facility] Start: 05-23-2024 Encounter for other preprocedural examination [facility] Start: 05-22-2024 End: 05-29-2024 Evaluation and management of inpatient Jesus Gerald Veloz Facility:[facility] Start: 05-21-2024 Encounter for preprocedural laboratory examination Hamilton HAWLEY [facility] Start: 05-20-[address] Malcolm Burns MD Work Phone: [facility] Start: 05-20-2024 End: 05-22-[address] [facility] Facility:[facility] Start: 05-06-[address] Malcolm Burns MD Work Phone: [facility] Start: 05-06-2024 End: 05-06-2024 [facility] Start: 04-30-2024 End: 04-30-20[facility] Start: 04-30-2024 End: 04-30-2024 [facility] Start: 04-18-2024 End: 04-18-2024 ambulatory [facility] Facility:[facility] Start: 01-22-2024 End: 01-22-2024 ambulatory E[facility] Oleghe Facility:[facility] Start: 09-18-2023 Telephone encounter Corby posada DO Work Phone: [address] [place] [address] Comment on above: New Patient Start: 08-30-2023 End: 08-30-[address] Malcolm Burns Work Phone: [facility] Work Phone: Start: 08-30-2023 End: 08-30-[address] Malcolm Burns Work Phone: [facility]-Outpatient Bone Densitometry Work Phone: Start: 08-23-2023 End: 08-23-[address] Malcolm Burns Work Phone: [facility] Work Phone: Start: 07-24-2023 End: 07-24-[address] Malcolm Burns Work Phone: [facility] Work Phone: Start: 07-24-2023 End: 07-24-[address] Malcolm Burns Work Phone: [facility]-Ultrasound, [facility] Work Phone: Start: 07-19-2023 End: 07-19-[address] Malcolm Burns Work Phone: [facility] Work Phone: Start: 07-19-2023 End: 07-19-[address] Malcolm Burns Work Phone: [facility] Work Phone: Start: 06-08-2023 End: 06-08-[address] Malcolm Burns Work Phone: [facility] Work Phone: Start: 06-08-2023 End: 06-08-[address] Malcolm Burns Work Phone: [facility]-Laboratory, Specimen Work Phone: Start: 06-08-2023 End: 06-08-[address] Malcolm Burns Work Phone: [facility] Work Phone: Start: 02-14-2023 End: 02-14-[address] Malcolm Burns Work Phone: [facility] Start: 04-04-2022 Non-patient / Non-visit Dr. Malcolm Burns Work Phone: [facility] Start: 04-04-2022 End: 04-04-2022 Admission to same day surgery center Dr. Malcolm Burns Work Phone: [facility]-Endoscopy Start: 03-29-2022 End: 03-29-[address] Malcolm Burns Work Phone: [facility] Start: 02-23-2022 End: 02-23-[address] Malcolm Burns Work Phone: [facility] Start: 02-08-2022 End: 02-08-[address] Malcolm Burns Work Phone: [facility] Start: 01-27-2022 Telephone encounter Arti cordero MEDICAL DEVICE.TITLE I ASSISTANT Work Phone: [facility] Comment on above: Results Start: 01-25-2022 End: 01-25-2022 Patient encounter procedure Arti Lo MEDICAL DEVICE.TITLE I ASSISTANT Work Phone: [facility] Comment on above: Diarrhea, unspecifie d type (Primary Dx); Rectal bleeding Start: 01-25-2022 Telephone encounter Arti cordero MEDICAL DEVICE.TITLE I ASSISTANT Work Phone: [facility] Comment on above: Results Start: 12-08-2021 End: 12-08-2021 Emergency department patient visit [facility]-Emergency Department Start: 08-19-2020 Encounter for other preprocedural examination [facility] Start: 08-03-2020 End: 08-03-2020 Patient encounter procedure BRYANT Mantilla [facility] Start: 07-31-2020 End: 08-01-2020 Patient encounter procedure [facility] Procedures Date Procedure Procedure Detail Performing Clinician Start: 01-10-2025 Screening mammography George Burns MD Work Phone: Start: 01-02-[address] Lorenzo Burns MD Work Phone: Comment on above: Performed at: [facility] [id number] [place], [place] [id number] Director: Ponce Alberto PhD, Phone: [phone] Start: 01-02-2025 Antibody to centrome re measurement Dr. Malcolm Burns MD Work Phone: Comment on above: Test not performed Start: 01-02-2025 Antibody to extracta ble nuclear antigen measurement Dr. Malcolm Burns MD Work Phone: Comment on above: Test not performed Start: 01-02-2025 Antibody to LUIS A-[address] Malcolm Burns MD Work Phone: Comment on above: Test not performed Start: 01-02-2025 Antibody to lupus La protein measurement Dr. Malcolm Burns MD Work Phone: Start: 01-02-2025 Antibody to SS-A measurement Dr. Malcolm Burns MD Work Phone: Start: 01-02-[address] Malcolm Burns MD Work Phone: Comment on above: Test not performed Start: 01-02-2025 GRAIN BLENDER antibody measurement Dr. Malcolm Burns MD Work Phone: Comment on above: Test not performed Start: 01-02-2025 Vitamin D, 25-hydrox y measurement Dr. Malcolm Burns MD Work Phone: Comment on above: Vitamin D StatusDefi ciency: <20 ng/mL (50nmol/L)Insufficiency: 20-30 ng/mL (50-75 nmol/L)Sufficiency: 30-100 ng/mL (75-250 nmol/L)Toxicity: >100 ng/mL (>250 nmol/L) Start: 12-09-2024 Radex ankle complete minimum 3 views Vickie Murillo APRN.TITLE I ASSISTANT Work Phone: Start: 09-27-2024 X-ray of chest, PA a nd lateral views Dr. Malcolm Burns MD Work Phone: Start: 08-30-2023 Dual energy X-ray absorptiometry Dr. Malcolm Burns Work Phone: Start: 08-30-2023 Screening mammography George Burns Work Phone: Start: 07-24-[address] Malcolm Burns Work Phone: Start: 06-08-[address] Juli Burns Work Phone: Start: 02-14-2023 X-ray of both feet Dr. Malcolm Burns Work Phone: Start: 04-04-[address] Candido Burns Work Phone: Start: 12-08-2021 Radiologic examinati on of knee H/O: hysterectomy S/P hysterectomy H/O: surgery History of bladd er suspension procedure Comment on above: X2 H/O: surgery S/P bilateral fo ot surgery H/O: tubal ligation History of t ubal ligation History of cataract extraction S/P cataract extraction Comment on above: bilateral History of decompres candice of median nerve S/p bilateral carpal tunnel release Dr. Malcolm Burns Work Phone: Plan of Treatment Date Care Activity Detail Author Start: 12-02-2034 Urine microalbumin profile DTa P,Tdap,Td Vaccine (2 - Td or Tdap) [facility] Start: 03-24-2025 CBC W Auto Different ial panel - Blood [facility] Start: 03-24-2025 Comprehensive metabo lic 2000 panel - Serum or Plasma [facility] Start: 03-24-2025 T4 free measurement [facility] Start: 03-24-2025 Thyroid stimulating hormone measurement [facility] Start: 03-24-2025 Triiodothyronine (T3).reverse [Mass/volume] in Serum or Plasma [facility] Start: 01-25-2025 DIABETES SCREEN DIABETES SCREEN [facility] Start: 01-25-2025 Diabetes Screening Diabetes Screenin g [facility] Start: 01-10-2025 MG Breast - bilatera l Screening [facility] Start: 01-02-2025 CBC W Auto Different ial panel - Blood [facility] Start: 01-02-2025 Comprehensive metabo lic 2000 panel - Serum or Plasma [facility] Start: 01-02-2025 Cyclic citrullinated peptide IgG Ab [Units/volume] in Serum or Plasma [facility] Start: 01-02-2025 Cytoplasmic ANCA Screen [facility] Start: 01-02-2025 Erythrocyte sediment ation rate [facility] Start: 01-02-2025 Lipid 1996 panel - S ana maría or Plasma [facility] Start: 01-02-2025 Rheumatoid factor [Presence] in Serum [facility] Start: 01-02-2025 Vitamin D, 25-hydrox y measurement [facility] Start: 08-21-2024 Advance Directive Discussion Advance Directive Discussion [facility] Start: 04-21-2024 Covid-19 Vaccine ( season) Covid-19 Vaccine ( season) [facility] Start: 04-21-2024 Influenza vaccination Influenza Vacc ine (#1) [facility] Start: 08-21-2023 Advance Directive Discussion Advance Directive Discussion [facility] Start: 08-21-2023 Depression Assessment Depression Ass essment [facility] Start: 07-19-2023 Patient referral [facility] Work Phone: Start: 04-21-2023 Covid-19 Vaccine ( season) Covid-19 Vaccine ( season) [facility] Start: 04-21-2023 Influenza vaccination Influenza Vacc ine (#1) [facility] Start: 04-04-2022 Patient discharge [facility] Work Phone: Start: 02-08-2022 Patient referral [facility] Work Phone: Start: 08-21-2021 ADVANCE DIRECTIVE DISCUSSION ADVANCE DIRECTIVE DISCUSSION [facility] Start: 2017 RSV Vaccine (1 - 1-d ose 75+ series) RSV Vaccine (1 - 1-dose 75+ series) [facility] Start: 2007 Pneumococcal Vaccine : 65+ (1 of 1 - PCV) Pneumococcal Vaccine: 65+ (1 of 1 - PCV) [facility] Start: 2007 PNEUMOCOCCAL: 65+ (1 - PCV) PNEUMOCOCCAL: 65+ (1 - PCV) [facility] Start: 2002 RSV Vaccine (1 - 1-d ose 60+ series) RSV Vaccine (1 - 1-dose 60+ series) [facility] Start: 1992 Pneumococcal Vaccine : 50+ (1 of 1 - PCV) Pneumococcal Vaccine: 50+ (1 of 1 - PCV) [facility] Start: 1992 SHINGRIX VACCINE (1 of 2) STOKES GRIX VACCINE (1 of 2) [facility] Start: 1961 Urine microalbumin profile [facility] Start: 1960 Anxiety Screening Anxiety Screening [facility] Start: 1960 Depression Screening Depression Scre ening [facility] Start: 1954 Adult depression scr eening assessment DEPRESSION SCREENING [facility] Start: 1947 COVID-19 VACCINE (#1) COVID-19 VACCI NE (#1) [facility] Alanine aminotransfe rase [Enzymatic activity/volume] in Serum or Plasma [facility] Alanine aminotransfe rase [Enzymatic activity/volume] in Serum or Plasma [facility] Albumin [Mass/volume ] in Serum or Plasma [facility] Albumin [Mass/volume ] in Serum or Plasma [facility] Alkaline phosphatase [Enzymatic activity/volume] in Serum or Plasma [facility] Alkaline phosphatase [Enzymatic activity/volume] in Serum or Plasma [facility] Anion gap in Serum o r Plasma [facility] Anion gap in Serum o r Plasma [facility] Antibody to lupus La protein measurement [facility] Antibody to SS-A measurement [facility] Bilirubin, total measurement [facility] Bilirubin, total measurement [facility] BUN/Creatinine ratio [facility] BUN/Creatinine ratio [facility] Calcium [Mass/volume ] in Serum or Plasma [facility] Calcium [Mass/volume ] in Serum or Plasma [facility] Carbon dioxide, tota l [Moles/volume] in Central venous blood [facility] Carbon dioxide, tota l [Moles/volume] in Central venous blood [facility] Cholesterol [Mass/vo lume] in Serum or Plasma [facility] Cholesterol in HDL [Mass/volume] in Serum or Plasma [facility] Clostridioides diffi cile toxin genes [Presence] in Stool by IRAIS with probe detection C. DIFFICILE PCR Lab Routine Diarrhea, unspecified type Ordered: 01/25/2022 [facility] Work Phone: Comment on above: Ordered: 01/25/2022 Creatinine [Mass/vol ume] in Serum or Plasma [facility] Creatinine [Mass/vol ume] in Serum or Plasma [facility] DNA double strand Ab [Units/volume] in Serum [facility] DXA Bone [Mass/Area] Bone density [facility] Elastase.pancreatic [Presence] in Stool [facility] ENTERIC BACTERIAL PA LAURO BY PCR ENTERIC BACTERIAL PANEL BY PCR Lab STAT Diarrhea, unspecified type Ordered: 01/25/2022 [facility] Work Phone: Comment on above: Ordered: 01/25/2022 Erythrocyte mean corpuscular volume determination [facility] Erythrocyte mean corpuscular volume determination [facility] Glucose [Mass/volume ] in Serum or Plasma [facility] Glucose [Mass/volume ] in Serum or Plasma [facility] Hematocrit [Volume Fraction] of Blood [facility] Hematocrit [Volume Fraction] of Blood [facility] Hemoglobin [Mass/vol ume] in Blood [facility] Hemoglobin [Mass/vol ume] in Blood [facility] Hemoglobin.gastroint estina l.lower [Presence] in Stool by Immunoassay FECAL OCCULT BLOOD TEST Lab Routine Diarrhea, unspecified type Rectal bleeding Ordered: 01/25/2022 [facility] Work Phone: Comment on above: Ordered: 01/25/2022 Lactoferrin [Presenc e] in Stool by Immunoassay [facility] Leukocytes [#/volume ] in Blood [facility] Leukocytes [#/volume ] in Blood [facility] Low density lipoprot ein cholesterol measurement [facility] Mean corpuscular hemoglobin concentration determination [facility] Mean corpuscular hemoglobin concentration determination [facility] Mean corpuscular hemoglobin determination [facility] Mean corpuscular hemoglobin determination [facility] Measurement of renal function [facility] Measurement of renal function [facility] MG Breast - bilatera l Screening [facility] MG Breast - bilatera l Screening [facility] Neutrophil count [facility] Neutrophil count [facility] Neutrophil percent differential count [facility] Neutrophil percent differential count [facility] Nuclear Ab [Presence ] in Serum [facility] Ova and parasites identified in Unspecified specimen by Light microscopy OVA + PARA MICROSCOPIC Microbiology STAT Diarrhea, unspecified type Ordered: 01/25/2022 [facility] Work Phone: Comment on above: Ordered: 01/25/2022 Patient Education Knee Pain [facility] Work Phone: Patient referral [facility] Work Phone: Platelets [#/volume] in Blood [facility] Platelets [#/volume] in Blood [facility] Potassium measurement [facility] Potassium measurement [facility] Protein measurement [facility] Red blood cell count [facility] Red blood cell count [facility] Red cell distributio n width determination [facility] Red cell distributio n width determination [facility] Serum chloride measurement [facility] Serum chloride measurement [facility] Sodium measurement [facility] Sodium measurement [facility] Total cholesterol:HD L ratio measurement [facility] Total protein measurement [facility] Total protein measurement [facility] Triglycerides measurement [facility] Urea nitrogen [Mass/volume] in Serum or Plasma [facility] Urea nitrogen [Mass/volume] in Serum or Plasma [facility] VLDL cholesterol measurement [facility] Immunizations Immunization Date Immunization Notes Care Provider Jane ramos 06-10-2022 Influenza High-Dose Quadrivalent Dr. Malcolm Burns MD Work Phone: [facility] 06-10-2022 influenza virus vaccine, unspecified formulation Vickie Murillo APRN.CNP Work Phone: [facility] 06-03-2021 influenza, injectabl e, quadrivalent, preservative free Dr. Malcolm Burns MD Work Phone: [facility] 06-03-2021 influenza virus vaccine, unspecified formulation Corby Valente DO Work Phone: [facility] 05-26-2020 influenza, injectabl e, quadrivalent, preservative free Dr. Malcolm Burns MD Work Phone: [facility] 05-02-2019 influenza, high dose seasonal, preservative-free Dr. Malcolm Burns MD Work Phone: [facility] 05-21-2018 Influenza virus vaccine [facility] 06-21-2016 influenza, injectabl e, quadrivalent, preservative free Dr. Malcolm Burns MD Work Phone: [facility] Payers Date Payer Category Payer Private Health Insurance [employer] S UPPLEMENT [id number] 2024 Medicare [id number] 2023 Self-pay [id number] 2023 Unknown [id number] 2019 Unknown [employer] MEDICARE SUPPLEMENT [id number] 2019-Present [phone] [id number] [employer] [place] [id number] [facility] [id number] 2019 Unknown [employer] MEDICARE SUPPLEMENT [id number] 2019-Present [phone] [place] [address] Indemnity [id number] 2013 Medicare [id number] 2007 Medicare [id number] 2007 Medicare [id number] 1959 Medicare [id number] 1959 Unknown [id number] 1942 Unknown [id number] .[id number] 1942 Unknown [id number] .598 1942 Unknown [id number] .598 Medicare [id number] Unknown [id number] Unknown [id number] .462 Unknown [id number] 2.840.1.484453.3.579.2 .462 Unknown [id number] 2.840.1.022729.3.579.2 .462 Unknown [id number] 2.16840.1.971130.3.579.2 .462 Unknown [id number] 2.16840.1.763530.3.579.2 .462 Unknown [id number] 2.840.1.587687.3.579.2 .462 Unknown [id number] 2.840.1.616690.3.579.2 .462 Unknown [id number] 2.16.840.1.877645.3.579.2 .462 Unknown [id number] 2.16.840.1.553539.3.579.2 .462 Unknown [id number] 2.16.840.1.958867.3.579.2 .462 Unknown [id number] 2.16.840.1.347016.3.579.2 .462 Unknown [id number] 2.16.840.1.057734.3.579.2 .462 Unknown [id number] 2.16.840.1.908355.3.579.2 .462 Unknown [id number] 2.16.840.1.571450.3.579.2 .462 Unknown [id number] 2.16.840.1.433212.3.579.2 .462 Unknown [id number] 2.16840.1.538449.3.579.2 .462 Unknown [id number] 2.16840.1.501082.3.579.2 .462 Unknown [id number] [id number] .462 Social History Date Type Detail Facility Start: 12-08-2021 End: 08-23-2023 Tobacco smoking status ALIS Unknown if ever smoked [facility] Start: 06-28-2018 Non-smoker [facility] Start: 1940 Sex Assigned At Female [facility] Start: 08-05-2011 End: 05-22-2024 Tobacco smoking status ALIS Never smoked tobacco [facility] Start: 01-25-2022 End: 12-09-2024 Alcohol intake Current non-drinker of alcohol (finding) [facility] Start: 1940 Sex Assigned At Not on file [facility] Start: 01-15-2022 End: 01-25-2022 Exposure to SARS-CoV-2 (event) Not sure [facility] Start: 08-05-2011 Tobacco use and exposure Smokeless tobacco non-user [facility] Work Phone: Start: 07-26-2020 End: 04-05-2022 History of Social function [facility] Start: 07-26-2020 End: 04-05-2022 Tobacco use panel [facility] Work Phone: National Score (1-100), lower number is lower risk Not on file [facility] Medical Equipment Procedure Code Equipment Code Equipment Origin al Text Equipment Identifier Dates Vaginal hysterectomy RESTRORELLE DIRECTFIX ANT MESH FDA Start: 06-26-2018 Vaginal hysterectomy RESTRORELLE DIRECTFIX ANT MESH FDA Start: 06-26-2018 Vaginal hysterectomy RESTRORELLE DIRECTFIX ANT MESH FDA Start: 06-26-2018 Vaginal hysterectomy RESTRORELLE DIRECTFIX ANT MESH FDA Start: 06-26-2018 Vaginal hysterectomy RESTRORELLE DIRECTFIX ANT MESH FDA Start: 06-26-2018 Vaginal hysterectomy RESTRORELLE DIRECTFIX ANT MESH FDA Start: 06-26-2018 Vaginal hysterectomy RESTRORELLE DIRECTFIX ANT MESH FDA Start: 06-26-2018 Vaginal hysterectomy RESTRORELLE DIRECTFIX ANT MESH FDA Start: 06-26-2018 Vaginal hysterectomy RESTRORELLE DIRECTFIX ANT MESH FDA Start: 06-26-2018 Vaginal hysterectomy RESTRORELLE DIRECTFIX ANT MESH FDA Start: 06-26-2018 ([id number]) Metal-backed patella prosthesis ()[id number] FDA Start: 05-20-2024 ([id number]) Coated knee tibi a prosthesis ()[id number] FDA Start: 05-20-2024 ([id number]) Coated knee femu r prosthesis ()[id number] ([id number] FDA Start: 05-20-2024 ([id number]) Tibial insert ()[id number] FDA Start: 05-20-2024 Goals Date Patient Goal Desired Activity /State Mental Status Date Assessment Result Facility 04-04-2022 Cognitive function Voice/Name;Touch/La Nena melara [facility] Work Phone: Clinical Notes 01-25-2022 to 01-02-2025 Note Date & Type Note Facility 01-02-2025 Evaluation note Diagnosis Onset Date Resolution Thrush acute January 02, 2025 2:52pm Anxiety chronic January 02, 2025 2:52pm Arthritis chronic January 02, 2025 2:52pm GERD (gastroesophageal reflux disease) chronic January 02, 2025 2:52pm Hemorrhoids chronic January 02 2:52pm Hyperlipidemia chronic January 02, 2025 2:52pm Osteopenia chronic January 02, 2025 2:52pm [facility] Work Phone: [phone] Telephone encounter Note* Telephone Encounter - Samra You PSS - 12/17/2024 4:30 PM EDT CD READY FOR CONDUCTOR AND ENGINEER AT [facility]04-29-2025 Miscellaneous Notes* Telephone Encounter - Samra You PSS - 12/17/2024 4:30 PM EDT CD READY FOR CONDUCTOR AND ENGINEER AT [facility] * Telephone Encounter - Natasha Garcia - 12/17/2024 1:40 PM EDT Patient is requesting disc and report of 12/09/24 XR Ankle LT. Patient is scheduled to follow up with non [facility] specialist tomorrow, 12/18/24 at 2:00 pm. PH. [phone] [facility] Telephone encounter Note * Telephone Encounter - Natasha Garcia - 12/17/2024 1:40 PM EDT Patient is requesting disc and report of 12/09/24 XR Ankle LT. Patient is scheduled to follow up with non [facility] specialist tomorrow, 12/18/24 at 2:00 pm. PH. [phone] [facility]04-21-2025 Instructions* Patient Instructions* Vickie Murillo APRN.CHRIS - 12/09/2024 12:40 PM EDT ASSESSMENT/PLAN: 1. Acute left ankle pain - ICD9: 719.47, ICD10: M25.572 - XR ANKLE GENERAL 3V AP/LAT/OBL LEFT FINDINGS: Soft tissue swelling. No acute fracture or dislocation identified. Talonavicular joint degenerative changes with dorsal hypertrophic spur formation. No evidence of cortical destruction or periostitis to suggest radiographic evidence of osteomyelitis. No soft tissue gas or radiopaque foreign body IMPRESSION IMPRESSION: Soft tissue swelling. No radiographic evidence of acute osseous abnormality. Credit Analyst: JESSICA Transcribe Date/Time: Dec 09 2024 11:59A Dictated by : CANDIE RUSSELL MD - CHINA wrap applied to left ankle. Wear during daytime only for 5-7 days or until pain is improved. - PREDNISONE 20 MG TABLET - Follow-up with your PCP in 3-5 days if symptoms have not improved or sooner if symptoms worsen - Discussed red flags and need for immediate medical evaluation if any occur. - Discussed supportive care treatment with fluids, rest and analgesia. - Discussed expected course of illness Vickie Murillo APRN.TITLE I ASSISTANT documented [facility] NoteHNO ID: [id number] Author: VICKIE MURILLO APRN.CNP Service: ? Author Type: Nurse Practitioner Type: Progress Notes Filed: 12/09/2024 12:40 Note Text: [facility] Subjective Sofiya Tijerina is a 84 year old female. Patient presents with: left ankle pain and swelling: X 4 days-cannot recall an injury HPI Sofiya Tijerina is a 84 year old female who presents with left ankle pain and swelling for the past 4 days. She denies injury. States she has known arthritis in joints and takes aleve for this. She denies numbness or tingling in the ankle or foot. She has kept it elevated. Rates pain 5/10; describes pain as feels weird. Review of Systems Constitutional: Negative for chills and fever. Musculoskeletal: Positive for joint swelling. Negative for gait problem. See HPI Skin: Negative for color change and rash. Objective BP 110/64 Pulse 68 Temp 36.7 ?C (98.1 ?F) (Tympanic) Resp 18 Wt 70.6 kg (155 lb 10.3 oz) SpO2 98% PAST MEDICAL HISTORY Diagnosis Date - Anxiety state, unspecified - Arthritis - Coronary artery disease - Diverticulosis of colon (without mention of hemorrhage) - GERD (gastroesophageal reflux disease) - Mixed hyperlipidemia Hyperlipidemia - Pancreatic cyst (HCC) 07/2010 monitoring it. - PMH - PAST MEDICAL HISTORY OF IRRITABLE BLADDER PAST SURGICAL HISTORY Procedure Laterality Date - COLONOSCOPY - COLONOSCOPY 07/15/03 - COLONOSCOPY FLX DX W/COLLJ SPEC WHEN PFRMD 12/29/2008 Colonoscopy - LIG/TRNSXJ FLP TUBE ABDL/VAG APPR UNI/BI - PAST SURGICAL HISTORY OF BUNIONECTOMY - PAST SURGICAL HISTORY OF carpal tunnel surgery bilaterally ALLERGIES Patient has no known allergies. MEDICATIONS - citalopram hydrobromide (CELEXA) 10 mg tablet Take 2 tablets by mouth once daily. - Omeprazole (PRILOSEC) 40 mg capsule Take 1 capsule by mouth once daily. - multivitamin ORAL tablet Take 1 tablet by mouth once daily. - NAPROXEN SODIUM (ALEVE ORAL) Take by mouth. - VITAMIN B COMPLEX ORAL Take by mouth. - atorvastatin (LIPITOR) 20 mg ORAL tablet Take 1 tablet by mouth once daily. - aspirin(ECOTRIN LOW STRENGTH 81 MG TAB) Take one(1) tablet daily. - TRACIE-600 WITH VITAMIN D 600 MG-200 UNIT TAB ,bid - vit A/vit C/vit E/zinc/copper (OCUVITE PRESERVISION ORAL) Take by mouth. - phenazopyridine (PYRIDIUM) 200 mg tablet Take 1 tablet by mouth twice daily as needed for Pain (urinary burning. Turns urine orange.). (Patient not taking: Reported on 01/25/2018 ) - estradiol (ESTRACE) 0.01 % (0.1 mg/g) VAGINAL vaginal cream Use vaginally. Apply small amount at vaginal opening 1-2 times week (Patient not taking: Reported on 12/09/2024) FAMILY HISTORY Problem Relation Age of Onset - Colon Cancer Brother PASSED FROM THIS - other (SEPTICEMIA [Other]) Mother PASSED FROM THIS - other (UNKNOWN [Other]) Father - Colon Cancer Sister - other (cystic fibrosis [Other]) Daughter - other (cystic fibrosis [Other]) Daughter Social History Tobacco Use - Smoking status: Never - Smokeless tobacco: Never Substance Use Topics - Alcohol use: No - Drug use: No Physical Exam Vitals and nursing note reviewed. Constitutional: Appearance: Normal appearance. Musculoskeletal: General: Swelling and tenderness present. No deformity or signs of injury. Left ankle: Swelling present. No ecchymosis. Tenderness present over the lateral malleolus. Normal range of motion. Normal pulse. Skin: General: Skin is warm and dry. Capillary Refill: Capillary refill takes less than 2 seconds. Findings: No bruising, erythema or rash. Neurological: Mental Status: She is alert. {ASSESSMENT/PLAN: 1. Acute left ankle pain - ICD9: 719.47, ICD10: M25.572 - XR ANKLE GENERAL 3V AP/LAT/OBL LEFT FINDINGS: Soft tissue swelling. No acute fracture or dislocation identified. Talonavicular joint degenerative changes with dorsal hypertrophic spur formation. No evidence of cortical destruction or periostitis to suggest radiographic evidence of osteomyelitis. No soft tissue gas or radiopaque foreign body IMPRESSION IMPRESSION: Soft tissue swelling. No radiographic evidence of acute osseous abnormality. Credit Analyst: JESSICA Transcribe Date/Time: Dec 09 2024 11:59A Dictated by : CANDIE RUSSELL MD - [place] wrap applied to left ankle. Wear during daytime only for 5-7 days or until pain is improved. - PREDNISONE 20 MG TABLET - Follow-up with your PCP in 3-5 days if symptoms have not improved or sooner if symptoms worsen - Discussed red flags and need for immediate medical evaluation if any occur. - Discussed supportive care treatment with fluids, rest and analgesia. - Discussed expected course of illness Vickie Murillo APRN.TITLE I ASSISTANT Disposition [facility]. [facility] of Present illness Narrative* Vickie Murillo APRN.TITLE I ASSISTANT - 12/09/2024 11:46 AM EDT [facility] Subjective Sofiya Tijerina is a 84 year old female. Patient presents with: left ankle pain and swelling: X 4 days-cannot recall an injury HPI Sofiya Tijerina is a 84 year old female who presents with left ankle pain and swelling for the past4 days. She denies injury. States she has known arthritis in joints and takes aleve for this. She denies numbness or tingling in the ankle or foot. She has kept it elevated. Rates pain 5/10; describes pain as feels weird. Review of Systems Constitutional: Negative for chills and fever. Musculoskeletal: Positive for joint swelling. Negative for gait problem. See HPI Skin: Negative for color change and rash. Objective BP 110/64 Pulse 68 Temp 36.7 C (98.1 F) (Tympanic) Resp 18 Wt 70.6 kg (155 lb 10.3 oz) SpO2 98% PAST MEDICAL HISTORY Diagnosis Date Anxiety state, unspecified Arthritis Coronary artery disease Diverticulosis of colon (without mention of hemorrhage) GERD (gastroesophageal reflux disease) Mixed hyperlipidemia Hyperlipidemia Pancreatic cyst (HCC) 07/2010 monitoring it. PMH - PAST MEDICAL HISTORY OF IRRITABLE BLADDER PAST SURGICAL HISTORY Procedure Laterality Date COLONOSCOPY COLONOSCOPY 07/15/03 COLONOSCOPY FLX DX W/COLLJ SPEC WHEN PFRMD 12/29/2008 Colonoscopy LIG/TRNSXJ FLP TUBE ABDL/VAG APPR UNI/BI PAST SURGICAL HISTORY OF BUNIONECTOMY PAST SURGICAL HISTORY OF carpal tunnel surgery bilaterally ALLERGIES Patient has no known allergies. MEDICATIONS citalopram hydrobromide (CELEXA) 10 mg tablet Take 2 tablets by mouth once daily. Omeprazole (PRILOSEC) 40 mg capsule Take 1 capsule by mouth once daily. multivitamin ORAL tablet Take 1 tablet by mouth once daily. NAPROXEN SODIUM (ALEVE ORAL) Take by mouth. VITAMIN B COMPLEX ORAL Take by mouth. atorvastatin (LIPITOR) 20 mg ORAL tablet Take 1 tablet by mouth once daily. aspirin(ECOTRIN LOW STRENGTH 81 MG TAB) Take one(1) tablet daily. TRACIE-600 WITH VITAMIN D 600 MG-200 UNIT TAB ,bid vit A/vit C/vit E/zinc/copper (OCUVITE PRESERVISION ORAL) Take by mouth. phenazopyridine (PYRIDIUM) 200 mg tablet Take 1 tablet by mouth twice daily as needed for Pain (urinary burning. Turns urine orange.). (Patient not taking: Reported on 01/25/2018 ) estradiol (ESTRACE) 0.01 % (0.1 mg/g) VAGINAL vaginal cream Use vaginally. Apply small amount at vaginal opening 1-2 times week (Patient not taking: Reported on 12/09/2024) FAMILY HISTORY Problem Relation Age of Onset Colon Cancer Brother PASSED FROM THIS other (SEPTICEMIA [Other]) Mother PASSED FROM THIS other (UNKNOWN [Other]) Father Colon Cancer Sister other (cystic fibrosis [Other]) Daughter other (cystic fibrosis [Other]) Daughter Social History Tobacco Use Smoking status: Never Smokeless tobacco: Never Substance Use Topics Alcohol use: No Drug use: No Physical Exam Vitals and nursing note reviewed. Constitutional: Appearance: Normal appearance. Musculoskeletal: General: Swelling and tenderness present. No deformity or signs of injury. Left ankle: Swelling present. No ecchymosis. Tenderness present over the lateral malleolus. Normal range of motion. Normal pulse. Skin: General: Skin is warm and dry. Capillary Refill: Capillary refill takes less than 2 seconds. Findings: No bruising, erythema or rash. Neurological: Mental Status: She is alert. {ASSESSMENT/PLAN: 1. Acute left ankle pain - ICD9: 719.47, ICD10: M25.572 - XR ANKLE GENERAL 3V AP/LAT/OBL LEFT FINDINGS: Soft tissue swelling. No acute fracture or dislocation identified. Talonavicular joint degenerative changes with dorsal hypertrophic spur formation. No evidence of cortical destruction or periostitis to suggest radiographic evidence of osteomyelitis. No soft tissue gas or radiopaque foreign body IMPRESSION IMPRESSION: Soft tissue swelling. No radiographic evidence of acute osseous abnormality. Credit Analyst: JESSICA Transcribe Date/Time: Dec 09 2024 11:59A Dictated by : CANDIE RUSSELL MD - [place] wrap applied to left ankle. Wear during daytime only for 5-7 days or until pain is improved. - PREDNISONE 20 MG TABLET - Follow-up with your PCP in 3-5 days if symptoms have not improved or sooner if symptoms worsen - Discussed red flags and need for immediate medical evaluation if any occur. - Discussed supportive care treatment with fluids, rest and analgesia. - Discussed expected course of illness Vickie Murillo APRN.CNP Disposition The patient was discharged. Procedures [facility] History of Present illness Narrative* [place]a [place] RT(R) - 12/09/2024 11:40 AM EDT Radiology Service Progress Note PATIENT NAME: Sofiya Tijerina DATE OF SERVICE: December 09, 2024 TIME: 11:39 AM PATIENT IDENTITY VERIFICATION COMPLETED USING TWO (2) IDENTIFIERS: Name and Date of confirmedby patient verbally. FALL SCREENING: Has the patient had 2 falls in the last year or 1 fall with injury or currently using an Ambulatory Assistive Device (Walker, Cane, Wheelchair, Crutches, etc.)? No PATIENT GENDER DATA: Assigned female at . status: : No status:NO. PATIENT RELEVANT IMPLANT DATA REVIEWED: Not Applicable PATIENT PRESENTS WITH AN IMPLANTABLE OR ATTACHED MANAGER LATIN: No RADIOLOGY DEPARTMENT: General X-ray: Exam(s) Completed: Lower Extremity X- Ray(s): Ankle, Left and Wt. Bearing PERIPHERAL IV DATA: Not applicable SIGNED BY: RT Paulino(R) December 09, 2024 11:39 AM documented in this encounterDayton [facility]04-21-2025 NoteHNO ID: [id number] Author: TOYA BEACH RT(Marcelino) Service: Radiology Author Type: Technologist Type: Progress Notes Filed: 12/09/2024 11:48 Note Text: Radiology Service Progress Note PATIENT NAME: Sofiya Tijerina DATE OF SERVICE: December 09, 2024 TIME: 11:39 AM PATIENT IDENTITY VERIFICATION COMPLETED USING TWO (2) IDENTIFIERS: Name and Date of confirmed by patient verbally. FALL SCREENING: Has the patient had 2 falls in the last year or 1 fall with injury or currently using an Ambulatory Assistive Device (Walker, Cane, Wheelchair, Crutches, etc.)? No PATIENT GENDER DATA: Assigned female at . status: : No status: NO. PATIENT RELEVANT IMPLANT DATA REVIEWED: Not Applicable PATIENT PRESENTS WITH AN IMPLANTABLE OR ATTACHED MANAGER LATIN: No RADIOLOGY DEPARTMENT: General X-ray: Exam(s) Completed: Lower Extremity X-Ray(s): Ankle, Left and Wt. Bearing PERIPHERAL IV DATA: Not applicable SIGNED BY: RT Paulino(R) December 09, 2024 11:39 [facility]02-05-2025 Evaluation note* Diagnosis Onset Date Resolution Status Admit Date Viral URI acute September 25, 2024 9:23am Influenza due to influenza virus, type A, human acute September 12:15pm [facility] Work Phone: [phone] Evaluation note* Diagnosis Onset Date Resolution Status Admit Date Viral URI acute September 25, 2024 9:23am Influenza due to influenza virus, type A, human acute September 12:15pm Thrush acute January 02, 2025 2:52pm Anxiety chronic January 02, 2025 2:52pm Arthritis chronic January 02, 2025 2:52pm GERD (gastroesophageal reflu x disease) chronic January 02, 2025 2 :52pm Hemorrhoids chronic January 02 2:52pm Hyperlipidemia chronic January 02, 2025 2:52pm Osteopenia chronic January 02, 2025 2:52pm [facility] Work Phone: [phone]) 361-512210-08-2024 [facility] Medical Records Department [address] [place] [address] Discharge Summary 05/28/24 0811 MR#: [id number] Acct: [id number] Name: SOFIYA TIJERINA Rep #: [id number] : 1940 84 From: Jesus Veloz MD PCP: Dr. Malcolm Burns MD Status:ADM IN Location: [place] [address] Providers Date of Admission: 05/22/24 Primary Care Physician: Dr. Malcolm Burns MD Reason For Visit: TOTAL RIGHT KNEE REPLACEMENT Diagnosis Discharge Diagnosis (1) Debility: Status: Acute Code(s): R53.81 - Other malaise (2) Status post total right knee replacement: Status: Acute Code(s): Z96.651 - Presence of right artificial knee joint (3) Coronary artery disease: Status: Acute Code(s): I25.10 - Atherosclerotic heart disease of [place] coronary artery without angina pectoris (4) Acid reflux: Status: Acute Code(s): K21.9 - Gastro-esophageal reflux disease without esophagitis (5) Anxiety: Status: Chronic Code(s): F41.9 - Anxiety disorder, unspecified (6) Hyperlipidemia: Status: Chronic Code(s): E78.5 - Hyperlipidemia, unspecified Qualifiers: Hyperlipidemia type: unspecified Qualified Code(s): E78.5 - Hyperlipidemia, unspecified Plan 84 year old female with below past medical history hospitalized for right total knee replacement 05/20/[address] Mosley, admitted to TCU with debility, here for rehabilitation, strengthening, prior to discharge home alone. * Debility - PT/OT. * Pain - Tylenol 1000mg q8, Oxycodone 5 - 10mg q4 prn. * Bowel - senna/colace 2 tablets bid, Dulcolax 10mg pr x 1 prn, MOM 30ml po x 1 prn. * DVT prophylaxis - Aspirin 81mg bid thru 06/21/2024. * Hyperlipidemia - Atorvastatin 40mg qhs. * Calcium deficiency - Calcium 500mg bid. * Vitamin D deficiency - D3 25mcg daily. * Depression - Celexa 40mg qhs. * S. aureus nasal swab - Doxycycline 100mg bid thru 06/05/2024. * Iron deficiency anemia - Ferrous sulfate 325mg bid. * Folate deficiency - Folic acid 1mg daily. * Rash - HC 2.5% topical bid prn. * Insomnia - Melatonin 10mg qhs. * Osteoarthritis - Meloxicam 7.5mg bid. * Macular degeneration - Healthy Eyes 1 capsule po bid. * GERD - Pantoprazole 40mg daily. Medications at Discharge Home Medications calcium carbonate (Calcium 500) 500 mg PO BID supplement 07/07/20 melatonin 10 mg tablet 10 mg PO QHS sleep 04/01/22 vit C 250 mg-vit E 90 mg-zinc 40 mg-copper 1 [id number]-brtazf capsule (PreserVision AREDS-2) 1 tab PO BID supplement 04/01/22 lansoprazole 30 mg capsule,delayed release 30 mg PO DAILY Acid reflex #60 caps 12/28/22 cholecalciferol (vitamin D3) 10 mcg (400 unit) capsule 10 mcg PO DAILY supplement 11/09/23 blood pressure monitor #1 ea 11/27/23 atorvastatin 40 mg tablet 40 mg PO DAILY cholesterol #90 tabs 01/19/24 citalopram 40 mg tablet 40 mg PO QHS MENTAL HEALTH 04/26/24 krill oil 500 mg capsule 500 mg PO DAILY supplement 05/06/24 acetaminophen 500 mg tablet 1,000 mg PO Q8 pain 05/22/24 ferrous sulfate 325 mg (65 mg iron) tablet (FeroSul) 325 mg PO 1200,1700 supplement 14 days #28 tabs 05/22/24 folic acid 1 mg tablet 1 mg PO DAILY supplement 05/22/24 meloxicam 7.5 mg tablet 7.5 mg PO BID OA 14 days #28 tabs 05/22/24 aspirin 81 mg tablet,delayed release 81 mg PO BID 23 days #0 tabs 05/28/24 doxycycline monohydrate 100 mg capsule 100 mg PO BID 7 days #14 caps 05/28/24 oxycodone 5 mg tablet 5 - 10 mg (1 - 2 x 5 mg) PO Q4H PRN PRN PAIN 1-10 7 days #84 tabs 05/28/24 sennosides 8.6 mg-docusate sodium 50 mg tablet (Stimulant Laxative Plus) 2 tab PO BID 30 days #120 tabs 05/28/24 Hospital Course Operations total knee replacement (Right.) Procedures None Summary of Care Provided Minutes Spent on Discharge: 35 Hospital Course: 84 year old female with below past medical history hospitalized for right total knee replacement 05/20/[address] Mosley, admitted to TCU with debility, here for rehabilitation, strengthening, prior to discharge home alone. Discharge home alone 05/29/2024, [facility] PT. Physical Exam Const alert General Appearance: cooperative HEENT normocephalic Eyes PERRL and EOMs intact bilaterally Neck supple, no JVD and no carotid bruits Resp normal respiratory effort, normal air movement and clear to auscultation bilaterally Cardio regular rate and regular rhythm GI normal to inspection, nondistended, normoactive bowel sounds, non-tender and non-distended Extremity normal capillary refill General Extremity: Negative for edema Skin no rashes or lesions noted General Skin Exam: no breakdown Psych affect normal Appearance: appropriate Weight / BMI Weight Weight: 72 kg Body Mass Index (BMI) 28.1 ABG / Lab / Microbiology Data 05/23/24 05:17 05/23/24 05:17 Indicators for Scoring Admitted with or Primary Diagnosis of CVA/Stroke: No Hx of CVA/Stroke: No D/C Ins (more content not included)...[facility]10-02-2024 Note [facility] Medical Records Department [address] [place] [address] History Physical Exam 05/22/24 1622 MR#: [id number] Acct: [id number] Name: SOFIYA TIJERINA Rep #: [id number] : 1940 84 From: Jesus Veloz MD PCP: Dr. Malcolm Burns MD Status:ADM IN Location: [address] - General General Date of Admission: 05/22/24 Date of Service: 05/22/24 Chief Complaint: Here for 3 hours daily rehabilitation. HPI Narrative SOFIYA TIJERINA, is a 84 Female who presents with followin05/20/2024 Admit [facility]. 05/20/2024 Dr. Mosley performed right total knee replacement. 05/20/2024 Medicine consulted. 05/21/2024 Sitting in bed, pain controlled with medications. Lives alone. Hemoglobin 9.8. Tylenol, Meloxicam, Oxycodone for pain. Aspirin 81mg twice daily x 4 weeks for dvt prophylaxis. PT/OT, consider SNF. Doxycycline 100mg twice daily x 2 weeks, nasal swab s. aureus. Bowel regimen. 05/21/2024, Constipated, on stool softeners. 05/22/2024 Admit to with debility, here for rehabilitation, strengthening, prior to discharge home alone. [facility] Medical History (Updated 05/22/24 @ 16:[address] Jesus Veloz MD) Preoperative evaluation to rule out surgical contraindication Headache Lightheadedness Localized swelling of chest wall Thrush Perineal pruritus in female Encounter for vitamin deficiency screening Flu vaccine need Foul smelling urine Wears dentures Post-menopausal High cholesterol Back pain Gastric reflux Non-smoker Sleep apnea Leg cramps History of stress test Coronary artery disease Pancreatic cyst Skin lesion of scalp Diarrhea Macular degeneration Osteopenia Carpal tunnel syndrome Breast lump Arthritis Hemorrhoids Acid reflux Constipation Hyperlipidemia Anxiety Home Medications ???Medication ???Instructions ???Recorded ???Last Taken ???Type calcium carbonate (Calcium 500) 500 mg PO BID supplement 07/07/20 05/22/24 History melatonin 10 mg tablet 10 mg PO QHS sleep 04/01/22 05/21/24 History vit C 250 mg-vit E 90 mg-zinc 40 1 tab PO BID supplement 04/01/22 05/19/24 History mg-copper 1 ji-ohjoaw-qswhju capsule (PreserVision AREDS-2) lansoprazole 30 mg capsule,delayed 30 mg PO DAILY Acid reflex #60 caps 12/28/22 05/22/24 Rx release hydrocortisone 2.5 % topical cream 1 applic topical BID PRN skin 07/19/23 Unknown Rx irritation #30 grams cholecalciferol (vitamin D3) 10 10 mcg PO DAILY supplement 11/09/23 05/22/24 History mcg (400 unit) capsule blood pressure monitor #1 ea 11/27/23 Unknown Rx atorvastatin 40 mg tablet 40 mg PO DAILY cholesterol #90 tabs 01/19/24 05/22/24 Rx citalopram 40 mg tablet 40 mg PO QHS MENTAL HEALTH 04/26/24 05/21/24 History krill oil 500 mg capsule 500 mg PO DAILY supplement 05/06/24 05/15/24 History acetaminophen 500 mg tablet 1,000 mg PO Q8 pain 05/22/24 05/22/24 History aspirin 81 mg tablet,delayed 81 mg PO BID DVT Prophalyaxis 05/22/24 05/22/24 History release (Enteric Coated Aspirin) doxycycline monohydrate 100 mg 100 mg PO BID ATB 05/22/24 05/22/24 History capsule ferrous sulfate 325 mg (65 mg 325 mg PO 1200,1700 supplement 14 05/22/24 05/21/24 Rx iron) tablet (FeroSul) days #28 tabs folic acid 1 mg tablet 1 mg PO DAILY supplement 05/22/24 05/22/24 History meloxicam 7.5 mg tablet 7.5 mg PO BID OA 14 days #28 tabs 05/22/24 05/22/24 Rx oxycodone 5 mg tablet 5 - 10 mg (1 - 2 x 5 mg) PO Q4H 05/22/24 05/22/24 11:10 Rx PRN PRN as needed for pain 7 days #0 tabs sennosides 8.6 mg-docusate sodium 2 tab PO BID bowel mobility #0 tabs 05/22/24 05/22/24 Rx 50 mg tablet (Stimulant Laxative Plus) Allergy/AdvReac Type Severity Reaction Status Date / Time No Known Allergies Allergy Verified 05/20/24 06:28 Family History Brother Colon cancer High cholesterol Hypertension Anxiety Arthritis Myocardial infarction Mother Colostomy care Hypertension High cholesterol Sister Lung cancer Anxiety Arthritis Breast cancer Depression Respiratory disease Colon cancer Sister Cancer lung Thyroid disorder Hypertension Surgical History (Updated 05/22/24 @ 16:[address] Jesus Veloz MD) History of total right knee replacement Hx of hysterectomy History of bladder suspension procedure S/P hysterectomy S/p bilateral carpal tunnel release S/P cataract extraction bilateral carpal tunnel surgery S/P bilateral foot surgery History of tubal ligation Social History (Updated 05/22/24 @ 16:[address] Jesus Veloz MD) household members: none Smoking Status: Never smoker alcohol intake: never substance use type: does not use caffeine: Yes what type of physical activity do you participate in: none seatbelt use: always do you feel safe at home: Yes additional social (more content not included)...[facility] 05-22-2024 [facility] Medical Records Department [address] [place] [address] Discharge Summary 05/22/24 1039 MR#: [id number] Acct: [id number] Name: SOFIYA TIJERINA Beatris Rep #: [id number] : 1940 84 From: Shalom HAWLEY PA-C PCP: Dr. Malcolm Burns MD Status:ADM SUZETTE Location: [place] [address] Providers Date of Admission: 05/20/24 Primary Care Physician: Dr. Malcolm Burns MD Consultations 05/20/24 06:56 Consult: Hospitalist Routine Consulting Provider: Angel Benitez Reason for Consult: post op med management EMERGENT Consult: No MD Notified: Yes Date Notified: 05/20/24 Time Notified: 10:41 Method of Notification: Text Reason For Visit: Total Knee Replacement Robotic Arm Diagnosis Discharge Diagnosis (1) Status post total right knee replacement: Status: Acute Code(s): Z96.651 - Presence of right artificial knee joint Plan: 1. S/P robotic assisted right total knee arthroplasty POD #2 2. Continue Pain Medications: Tylenol, meloxicam, oxycodone. Patient will resume her home meloxicam postoperatively. 3. DVT Prophylaxis: Take 81 mg aspirin twice daily for 4 weeks postoperatively for DVT prophylaxis. Patient denies past history of DVT or pulmonary embolism. 4. PT/OT: Weightbearing as tolerated with walker. Patient does live home alone and in a 1.5 story home. Would appreciate recommendations from physical therapy for appropriate discharge planning 5. H H: 10.7/33.0, asymptomatic. Hemoglobin has improved since yesterday. There has been postoperative drop in hemoglobin most likely secondary to acute blood loss versus dilutional component. She has no past history of anemia. Vitals are stable. Patient will be started on ferrous sulfate and folic acid. I did recommend to the patient that upon discharge following back with her primary care physician in approximately 3-4 weeks for reassessment with labs. She did voiced understanding. 6. Currently on doxycycline for 2 weeks postoperatively due to findings of staph positive in preoperative workup. I discussed with the patient potential side effects of doxycycline including sensitivity to the sunlight and increased risk of skin burn. Recommend patient take appropriate precautions. Also recommend patient to take probiotic while on the antibiotic. Patient voiced understanding agreement. 7. Encouraged Incentive Spirometry 8. Postoperative constipation: Patient has had a bowel movement. We will use the stool softener as needed. Also discussed with the patient that the ferrous sulfate can cause some constipation. If needed she can use this while on that medication. 9. Continue postoperative medical treatment per medicine 10. Disposition: Case was discussed with case management. Patient is okay to be discharged to the fourth floor rehabilitation unit at [facility]. Plan will be for discharge today. Patient will continue above medications. I discussed her medications in great detail. Patient was found to have some postoperative anemia in which we did start her on ferrous sulfate and folic acid. I would recommend we repeat lab work in 1 week. Also recommend once she is discharged from the fourth floor rehabilitation unit she is scheduling a follow-up within 3-4 weeks postoperatively with her primary care provider. I would defer any further management to the primary care provider. Patient did voiced understanding. We discussed the potential for constipation and black tarry stools with ferrous sulfate. If she has any concerns she will contact our office. Patient will follow-up as scheduled at her 2-week postoperative follow-up with orthopedics for suture/staple removal and x-rays. Upon discharge she will contact our office with any concerns or questions. I have reviewed the [place] Automated Rx Reporting System (OARRS) report for this patient for refill pattern and other prescriber involvement as part of the appropriate surveillance for the provision of acute and chronic controlled medications. The report was requested and reviewed on the date of this entry and was considered in the prescribing process. This dictation was created using voice recognition software. Phonetic and/or grammatical errors may exist. Medications at Discharge Home Medications calcium carbonate (Calcium 500) 500 mg PO BID 07/07/20 melatonin 10 mg tablet 10 mg PO QHS 04/01/22 vit C 250 mg-vit E 90 mg-zinc 40 mg-copper 1 iv-liztql-aissxt capsule (PreserVision AREDS-2) 1 tab PO BID 04/01/22 lansoprazole 30 mg capsule,delayed release 30 mg PO DAILY #60 caps 12/28/22 hydrocortisone 2.5 % topical cream 1 applic topical BID PRN skin irritation #30 grams 07/19/23 cholecalciferol (vitamin D3) 10 mcg (400 unit) capsule 10 mcg PO DAILY 11/09/23 blood pressure monitor #1 ea 11/27/23 atorvastatin 40 mg tablet 40 mg PO DAILY #90 tabs 01/19/24 citalopram 40 mg tablet 40 mg PO QHS MENTAL (more content not included)... [facility]09-26-2024 [facility] Medical Records Department [address] [place] [address] History Physical Exam 05/16/24 0907 MR#: [id number] Acct: [id number] Name: SOFIYA TIJERINA Rep #: [id number] : 1940 84 From: Shalom HAWLEY PA-C PCP: Dr. Malcolm Burns MD Status:REG [facility] Location: [place] [address] History and Physical History and Physical Patient Name: Sofiya Tijerina : 1940From:??? SHALOM PRESTON PA-C DATE OF PRE-OPERATIVE EXAM: 05/13/2024 DATE OF SURGERY:??? 05/20/2024 SCHEDULED PROCEDURE:??? Robotic-assisted right total knee arthroplasty HISTORY OF PRESENT ILLNESS: Preoperative history and physical exam was performed on May 13, 2024.??? This is a 84-year-old female who has been having ongoing pain for many years with her right knee.??? Patient's pain has been constant, dull, aching, sharp, and sore.??? Her pain can reach 8/10 with activities and on average is 6/10.??? Pain is increased with going up and down stairs, sitting and walking for long distances.??? Patient has attempted conservative measures including nonsteroidal anti- inflammatories, Tylenol, corticosteroid injections, and viscose supplementation injections.??? The last injection was temporarily helpful.??? She continues to have pain over the medial aspect of the knee.??? She denies past history of surgery on the right knee.??? After failing conservative measures and discussing treatment options with Dr. aGvin Mosley, the patient does wish to proceed with the robotic assisted right total knee arthroplasty.??? Patient has medical history pertinent for coronary artery disease, gastroesophageal reflux disease, anxiety, hypercholesterolemia.??? She denies past history of DVT or pulmonary embolism.??? No recent chest pain, shortness of breath, fevers chills or recent infections.??? Patient has obtain surgical clearance from the primary care provider Dr. Burns. ??? REVIEW OF SYSTEMS: Review Of Systems: Constitutional: Reports anxiety.??? Denies anorexia,??? change in appetite, fever and weight change,hard of hearing, and vision problems. Cardiovasular: Denies chest pain, heart murmur, irregular heartbeat and peripheral vascular disease. Respiratory: Denies asthma, cough, pneumonia, sleep apnea, shortness of breath, tuberculosis and wheezing. Gastrointestinal: Reports constipation, but denies diarrhea, heartburn, nausea, rectal itching and vomitingDenies constipation, diarrhea, heartburn, nausea, bloody stools and vomiting, and difficulty swallowing. Genitourinary: Reports incontinence. Musculoskeletal: Reports leg swelling and pain, but denies trouble walking and weakness and limp. Skin: Reports tattoo, but denies Raynaud's and history of shingles. Neurological: Denies ambulatory dysfunction, dizziness, numbness/tingling and tremor. Psychiatric: Reports anxiety, but denies depression, insomnia, mental illness and stress. Hematologic/Lymphatic: Denies anemia, bleeding/bruising tendency and past transfusion. Reviewed, no changes. PAST MEDICAL HISTORY: Advance Care Plan: Other Directive, LIVING WILL Effective Date: 12/13/2021 Other Directive, POA Effective Date: 12/13/2021 Past Medical History: Medical Problems: Arthritis, Hypercholesterolemia, Osteoarthritis Covid- 19 - (02/2021) Acid Reflux, Coronary Artery Disease, Anxiety Accidents: Fracture - RT FOOT Surgical Hx: Tubal Ligation - sukh Feet - Bilateral bunion-sukh Carpal Tunnel - (09/2006) left [facility] Tenovaginotomy RRF - (11/20/2006) [facility]??? [facility] Carpal Tunnel - (2006) RIGHT CTR, DR. BROWN, [facility] Hysterectomy - (2016) BLADDER SURGERY Anesthesia Complications: None Assistive Devices: Dentures Reviewed and updated. 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 Personal Habits:??? Cigarette Use: Never.Smokeless Tobacco: Never Used Smokeless Tobacco.E-Cigarette Use: Never used.Alcohol: Denies use.Drug Use: Denies Use.Enjoy Exercising: Never Exercises. Reviewed, no changes. VITALS: Ht: 61 Wt: 152lb Wt k.947 BMI: 28.7 BP: 134/82 Pulse: 66 T: 97.4 T: 36.3C Pain Level: 8 O2SatR: 97 ALLERGIES: No Known Drug Allergy No Known Substance Allergies MEDICATIONS: Mupirocin 2 % use qtip and apply inside each nostril twice a day until the day of surgery, Meloxicam 7.5 mg 1 by mouth twice a day, Citalopram Hydrobromide 40 mg daily, B-Complex??? 1 po qd, Atorvastatin Calcium 20 mg 1 tab by mouth every night at bedtime, Preservision Areds 2??? 1po qdya, Calcium 500 mg twice daily, Multivitamin??? take one(1) tablet daily., Prevacid 30 mg 1 tablet 1x/day by mouth, Melatonin 10 mg one by mouth at bedtime, Vitamin D (Cholecalciferol) 10 mcg (400 Unit) 1t po qd, Krill Oil 350 mg one daily by mouth PRE-OP EXAM: General appearance:NORMAL? Other: E (more content not included)...[facility]03-12-2024 Miscellaneous Notes* Telephone Encounter - Jayda Khanna MA - 10/31/2023 2:44 PM EDT Patient notified. Jayda Khanna MA\ * Telephone Encounter - Ana Rosa Major - 10/19/2023 2:36 PM EST Unable to reach patient. Will need to try again. Ana Rosa Major * Telephone Encounter - Rosie Birmingham APRN.CNP - 10/18/2023 5:[address] Valente and her staff are not accepting new patients. Rosie Birmingham APRN.CNP * Telephone Encounter - Lay Palmer - 09/18/2023 8:29 AM EST Patient was advised by her neighbors Myke and Cesilia Shah and Dr Valente in-laws to call the officeand ask if she would take patient on. Please advise Sofiya. documented in this encounterDay[facility] Miscellaneous Notes* Telephone Encounter - Elsie Horton LPN - 01/27/2022 3:34 PM EDT Spoke with pt and information listed below given. Pt verbalizes understanding. Elsie Horton LPN * Telephone Encounter - Arti Lo APRN.CNP - 01/27/2022 3:22 PM EDT Fecal occult is negative as well. In regards to continued diarrhea. We are still awaiting the final stool study before we trial medicines. I would advise bland diet. Low fat. Follow up with PCP and or GI. * Telephone Encounter - Elsie Horton LPN - 01/27/2022 2:19 PM EDT Spoke with pt and information listed below given. Pt verbalizes understanding. 1. Pt has not made her apt with GI yet. She is requesting Dr. Field at [facility]. I have faxed information to his office with referral. Pt states she will call to make apt. Phone number has been given. 2. Pt asking if there is something she can do or take to slow down the diarrhea. She has things to do. Please advise pt. Elsie Horton LPN * Telephone Encounter - Arti Lo APRN.CNP - 01/27/2022 2:05 PM EDT C. Diff negative. Enteric panel negative We are awaiting the O & P We will call when that results. Has patient made an appointment with GI as of yet? documented in this encounterDayton [facility]06-[facility]22 Miscellaneous Notes* Telephone Encounter - Charity Horton LPN - 01/25/2022 7:03 PM EDT Phone call placed patient advised (see prior provider encounter) Charity Horton LPN * Telephone Encounter - Arti Lo APRN.CNP - 01/25/2022 4:15 PM EDT Please see below and inform Sofiya her CMP is normal. We will await stool studies BRAT diet Follow up with PCP and/or GI. * Telephone Encounter - Arti Lo APRN.CNP - 01/25/2022 3:56 PM EDT Please inform patient that her CBC is normal We are awaiting her CMP, and will call when that results. documented in this encounterDayton [facility] Hospital06-07-2022 Instructions* Patient Instructions* Arti Lo APRN.CNP - 01/25/2022 3:09 PM EDT DIARRHEA Diarrhea can be caused by many different conditions. The most common cause is viral illness. Food poisoning, bacterial infection, and reactions to medicine (especially antibiotics and antacids) may also be the cause. Most of the time diarrhea improves after 2-3 days of rest and oral fluid replacement. You should drink enough clear fluids (water, sodas, Gatorade) to prevent dehydration. Adults must drink at least 2-3 quarts daily. Solid foods and dairy products must be avoided until your illnessimproves; then only small amounts may be included in your diet for several days. Medicine to control cramping and diarrhea may be helpful. If you have a fever or blood in the stool, however, these medicines should be avoided as they may prolong your illness. Antibiotics can speedrecovery from diarrhea due to some bacterial infections, but may cause complications. Please call your doctor or the emergency department if your diarrhea does not get better in 3 days, or if you have fever, blood in the stool, vomiting, or become more dehydrated. documented in this encounterDayton [facility] Hospital06-07-2022 History of Present illness Narrative* Arti Lo APRN.CNP - 01/25/2022 2:55 PM EDT This note was created using dBMEDxriter. Subjective Sofiya Tijerina is a 81 year old female. 81 year old female with PMH GERD, hyperlipidemia presents with complaints of diarrhea. +diarrhea Acute onset of symptoms Monday 2 to 3 episodes daily Bright red blood Denies pain with defecation. Denies abdominal pain. Denies N/V Denies fever or chills. Denies recent travel or ATB usage. Denies prior history of same. Last colonoscopy approximately 2 years ago and normal. States that she has a familial history of colon CA. States Monday evening she ate chili from her freezer. She is scheduled to see a new PCP through [facility], but that is a few weeks out. The history is provided by the patient. No truck shop mechanic was used. Diarrhea This is a new problem. The current episode started more than 2 days ago. The problem occurs 2 to 4 times per day. The problem has not changed since onset.The stool consistency is described as watery and blood tinged. There has been no fever. Pertinent negatives include no abdominal pain, no vomiting, no chills, no sweats, no headaches, no arthralgias, no myalgias, no URI and no cough. She has tried nothing for the symptoms. Her past medical history does not include irritable bowel syndrome, inflammatory bowel disease, short gut syndrome, bowel resection, recent abdominal surgery or malabsorption. PAST MEDICAL HISTORY Diagnosis Date Anxiety state, unspecified Arthritis Coronary artery disease Diverticulosis of colon (without mention of hemorrhage) GERD (gastroesophageal reflux disease) Mixed hyperlipidemia Hyperlipidemia Pancreatic cyst 07/2010 monitoring it. PMH - PAST MEDICAL HISTORY OF IRRITABLE BLADDER PAST SURGICAL HISTORY Procedure Laterality Date COLONOSCOPY COLONOSCOPY 07/15/03 COLONOSCOPY FLX DX W/COLLJ SPEC WHEN PFRMD 12/29/2008 Colonoscopy LIG/TRNSXJ FLP TUBE ABDL/VAG APPR UNI/BI PAST SURGICAL HISTORY OF BUNIONECTOMY PAST SURGICAL HISTORY OF carpal tunnel surgery bilaterally ALLERGIES Patient has no known allergies. MEDICATIONS citalopram hydrobromide (CELEXA) 10 mg tablet Take 2 tablets by mouth once daily. Omeprazole (PRILOSEC) 40 mg capsule Take 1 capsule by mouth once daily. multivitamin ORAL tablet Take 1 tablet by mouth once daily. NAPROXEN SODIUM (ALEVE ORAL) Take by mouth. VITAMIN B COMPLEX ORAL Take by mouth. estradiol (ESTRACE) 0.01 % (0.1 mg/g) VAGINAL vaginal cream Use vaginally. Apply small amount at vaginal opening 1-2 times week atorvastatin (LIPITOR) 20 mg ORAL tablet Take 1 tablet by mouth once daily. aspirin(ECOTRIN LOW STRENGTH 81 MG TAB) Take one(1) tablet daily. TRACIE-600 WITH VITAMIN D 600 MG-200 UNIT TAB ,bid phenazopyridine (PYRIDIUM) 200 mg tablet Take 1 tablet by mouth twice daily as needed for Pain (urinary burning. Turns urine orange.). FAMILY HISTORY Problem Relation Age of Onset Colon Cancer Brother PASSED FROM THIS other (SEPTICEMIA [Other]) Mother PASSED FROM THIS other (UNKNOWN [Other]) Father Colon Cancer Sister other (cystic fibrosis [Other]) Daughter other (cystic fibrosis [Other]) Daughter Social History Tobacco Use Smoking status: Never Smoker Smokeless tobacco: Never Used Substance Use Topics Alcohol use: No Drug use: No Review of Systems Constitutional: Negative for chills, diaphoresis, fatigue and fever. Eyes: Negative for pain, discharge and itching. Respiratory: Negative for apnea, cough, choking, chest tightness and shortness of breath. Cardiovascular: Negative for chest pain, palpitations and leg swelling. Gastrointestinal: Positive for diarrhea. Negative for abdominal pain, constipation, nausea and vomiting. Musculoskeletal: Negative for arthralgias, back pain and myalgias. Skin: Negative for color change, pallor, rash and wound. Allergic/Immunologic: Negative for environmental allergies, food allergies and immunocompromised state. Neurological: Negative for dizziness, facial asymmetry, light-headedness and headaches. Hematological: Does not bruise/bleed easily. Psychiatric/Behavioral: Negative for agitation and behavioral problems. Objective BP 144/82 Pulse 86 Temp 36.4 C (97.6 F) Resp 16 Wt 69.2 kg (152 lb 9.6 oz) SpO2 97% BMI27.47 kg/m Physical Exam Vitals and nursing note reviewed. Constitutional: General: She is not in acute distress. Appearance: Normal appearance. She is normal weight. She is not ill-appearing, toxic-appearing or diaphoretic. HENT: Head: Normocephalic and atraumatic. Right Ear: Ear canal and external ear normal. Left Ear: Ear canal and external ear normal. Nose: Nose normal. No congestion or rhinorrhea. Mouth/Throat: Mouth: Mucous membranes are moist. Pharynx: No oropharyngeal exudate or posterior oropharyngeal erythema. Eyes: General: Right eye: No discharge. Left eye: No discharge. Extraocular Movements: Extraocular movements intact. Conjunctiva/sclera: Conjunctivae normal. Pupils: Pupils are equal, round, and reactive to light. Cardiovascular: Rate and Rhythm: Normal rate and regular rhythm. Pulses: Normal pulses. Heart sounds: Normal heart sounds. No murmur heard. No friction rub. Pulmonary: Effort: Pulmonary effort is normal. No respiratory distress. Breath sounds: Normal breath sounds. No stridor. No wheezing, rhonchi or rales. Chest: Chest wall: No tenderness. Abdominal: General: Abdomen is flat. There is no distension. Palpations: Abdomen is soft. There is no mass. Tenderness: There is no abdominal tenderness. There is no right CVA tenderness, left CVA tenderness, guarding or rebound. Hernia: No hernia is present. Genitourinary: Rectum: Normal. Comments: External rectum with no external hemorrhoids noted. Musculoskeletal: General: No swelling, tenderness, deformity or signs of injury. Normal range of motion. Cervical back: Normal range of motion and neck supple. No rigidity. Right lower leg: No edema. Left lower leg: No edema. Lymphadenopathy: Cervical: No cervical adenopathy. Skin: General: Skin is warm and dry. Capillary Refill: Capillary refill takes less than 2 seconds. Coloration: Skin is not jaundiced or pale. Findings: No bruising, erythema, lesion or rash. Neurological: General: No focal deficit present. Mental Status: She is alert and oriented to person, place, and time. Cranial Nerves: No cranial nerve deficit. Sensory: No sensory deficit. Motor: No weakness. Coordination: Coordination normal. Gait: Gait normal. Psychiatric: Mood and Affect: Mood normal. Behavior: Behavior normal. Thought Content: Thought content normal. Judgment: Judgment normal. Assessment and Plan ASSESSMENT/PLAN: 1. Diarrhea, unspecified type - ICD9: 787.91, ICD10: R19.7 (primary diagnosis) X 4 days +bright red blood noted with stool Denies abdominal pain Denies lightheadedness History of colon CA in family No red flags Will obtain lab work, She is to follow up with PCP and also have placed a consult for GI Discussed with patient that she would need further workup to rule out cancer. Verbalized understanding and will follow up. - C. DIFFICILE PCR - ENTERIC BACTERIAL PANEL BY PCR - OVA + PARA MICROSCOPIC - CBC + DIFF - COMP METABOLIC PANEL - CONSULT TO GASTROENTEROLOGY - FECAL OCCULT BLOOD TEST 2. Rectal bleeding - ICD9: 569.3, ICD10: K62.5 X 4 days +bright red blood noted with stool Denies abdominal pain Denies lightheadedness History of colon CA in family No red flags Will obtain lab work, She is to follow up with PCP and also have placed a consult for GI Discussed with patient that she would need further workup to rule out cancer. Verbalized understanding and will follow up. - FECAL OCCULT BLOOD TEST Arti Lo APRN.CNP documented in this encounterC[facility] noteNo assessment information availableWAultman Hospital Work Phone: Evaluation note* Diagnosis Diarrhea, unspecified type- Primary Rectal bleeding Hemorrhage of rectum and anus documented in this encounter [facility] note* Diagnosis Onset Date Resolution Status Diarrhea acute Skin lesion of scalp chronic Acid reflux acute Diarrhea acute Constipation acute Diarrhea acute Acid reflux acute Constipation acute Diarrhea acute [facility] Work Phone: Evaluation note* Diagnosis Onset Date Resolution Status Urinary tract infection none active [facility] Work Phone: Evaluation note* Diagnosis Onset Date Resolution Status Urinary tract infection none active Acid reflux acute Anxiety chronic Hyperlipidemia chronic Lightheadedness chronic Localized swelling of chest wall chronic Osteopenia chronic [facility] Work Phone: Evaluation note* Diagnosis Onset Date Resolution Status Urinary tract infection none active Acid reflux acute Anxiety chronic Hyperlipidemia chronic Lightheadedness chronic Localized swelling of chest wall chronic Osteopenia chronic Localized swelling of chest wall chronic [facility] Work Phone: Evaluation note* Diagnosis Acute left ankle pain- Primary Acute left ankle pain documented [facility] this encounter [facility]* Diagnosis Acute left ankle pain [facility] Additional Instructions Significant osteoarthritis of the left knee. Internal derangement of left knee. Follow-up with Dr. Boudreaux for outpatient discussion as you were recommended knee replacement by Dr. Valles in the past.[facility] Work Phone: Hospital Discharge instructionsWAultman Hospital Work Phone: Reason for referral (narrative)No reason for referral information availableProvidence Mission Hospital Work Phone: Reason for visit Narrative* Diagnostic Procedure Only (Urgent) - Closed Specialty Diagnoses / Procedures Referred By Contac t Referred To Contact XR IMAGING Diagnoses Acute left ankle pain Procedures XR ANKLE GENERAL 3V AP/LAT/OBL LEFT RADEX ANKLE COMPLETE MINIMUM 3 VIEWS Vickie Murillo, AMALIA.TITLE I ASSISTANT [address] [place] [address] Phone: tel: fax: [place] [address] Referral ID Status Reason Start Date Expiration Date V isits Requested Visits Authorized [id number] Closed Auto-Generate d Referral 12/09/2024 01/08/2026 1 1 [facility] Summary Purpose Family History Relationship Condition Age at Onset Recorded Date/T roxann brother Malignant neoplasm of colon Unknown High blood cholesterol Unknown Hypertension Unknown mother Attention to colostomy Unknown sister Malignant neoplasm of lung Unknown sister Malignant neoplasm Unknown Disorder of thyroid Unknown Relationship Condition Age at Onset Recorded Date/T roxann brother Malignant neoplasm of colon Unknown High blood cholesterol Unknown Hypertension Unknown Anxiety Unknown Arthritis Unknown Myocardial infarction Unknown mother Attention to colostomy Unknown sister Malignant neoplasm of lung Unknown Malignant neoplasm of breast Unknown Depression Unknown Disorder of respiratory system Unknown Malignant neoplasm of colon Unknown sister Malignant neoplasm Unknown Disorder of thyroid Unknown Advance Directives Advance Directive Response Recorded Date/ Time Living Will No December 08, 2021 4:56pm Power of Retail Leader No December 08 4:56pm Advance Directive Response Recorded Date/ Time Living Will No April 01 9:22am Power of Retail Leader No April 01 022 9:22am Advance Directive Response Recorded Date/ Time Living Will No April 01 8:22am Power of Retail Leader No April 01 8:22am Chief Complaint and Reason for Visit Chief Complaint LEFT KNEE 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 Diarrhea Diarrhea Reason for Visit Diarrhea Skin lesion of scalp Acid reflux Diarrhea Constipation Diarrhea Acid reflux Constipation Diarrhea Chief Complaint XRAY Urinary tract infection Reason for Visit Urinary tract infect ion Chief Complaint Urinary tract infect ion dizziness Reason for Visit Urinary tract infect ion Acid reflux Anxiety Hyperlipidemia Lightheadedness Localized swelling of chest wall Osteopenia Chief Complaint Urinary tract infect ion dizziness Localized swelling, mass and lump, trunk Reason for Visit Urinary tract infect ion Acid reflux Anxiety Hyperlipidemia Lightheadedness Localized swelling of chest wall Osteopenia Chief Complaint Urinary tract infect ion dizziness Localized swelling, mass and lump, trunk LEFT MASS UNDER BREAST SCREENING/ OSTEO Reason for Visit Urinary tract infect ion Acid reflux Anxiety Hyperlipidemia Lightheadedness Localized swelling of chest wall Osteopenia Localized swelling of chest wall Chief Complaint Admit Date COUGH, HEADACHE September 25, 2024 9 :23am Cough September 27, 2024 1 2:15pm CXR September 27, 2024 1 2:55pm FU January 02, 2025 2:52p m Reason for Visit Admit Date Viral URI September 25, 2024 9 :23am Influenza due to influenza virus, type A , human September 27, 2024 12:15pm Reason for Visit Admit Date Viral URI September 25, 2024 9 :23am Influenza due to influenza virus, type A , human September 27, 2024 12:15pm Thrush January 02, 2025 2:52p m Anxiety January 02, 2025 2:52p m Arthritis January 02, 2025 2:52p m GERD (gastroesophageal reflux disease) M ay 2024 2:52pm Hemorrhoids January 02, 2025 2:52p m Hyperlipidemia January 02, 2025 2:52p m Osteopenia January 02, 2025 2:52p m Chief Complaint Admit Date COUGH, HEADACHE September 25, 2024 9 :23am Cough September 27, 2024 1 2:15pm CXR September 27, 2024 1 2:55pm FU May 15th, 2025 2:52p m Breast Cancer Screening January 10, 2025 1 :01pm Chief Complaint Admit Date FU January 02, 2025 2:52p m Breast Cancer Screening January 10, 2025 1 :01pm EXCESSIVE SWEATING March 24, 2025 1:2 6pm Reason for Visit Admit Date Thrush January 02, 2025 2:52p m Anxiety January 02, 2025 2:52p m Arthritis January 02, 2025 2:52p m GERD (gastroesophageal reflux disease) M ay 2024 2:52pm Hemorrhoids January 02, 2025 2:52p m Hyperlipidemia January 02, 2025 2:52p m Osteopenia January 02, 2025 2:52p m Reason for Referral Specialty Diagnoses / Procedures Referred By Nereida dupont Referred To Contact Gastroenterology Diagnoses Diarrhea, unspecified type Procedures CONSULT TO GASTROENTEROLOGY OFFICE/OUTPATIENT [facility] [place] 60-74 MINUTES Arti Lo APRN.TITLE I ASSISTANT [address] [place] [address] Referral ID Status Reason Start Date Expiration Date Visits Requested Visits Authorized [id number] Authorized PCP Requested Referral 01/25/2022 01/25/2023 1 1 Additional Source Comments INFORMATION SOURCE (unrecogn ized section and content) DATE CREATED AUTHOR 08/20/2020 [facility] DATE CREATED AUTHOR AUTHOR'S ORGANIZ ATION 12/23/2024 [facility] DATE CREATED AUTHOR AUTHOR'S ORGANIZ ATION 01/19/2025 [facility] Goals (unrecognized section and content) Goals may be documented in a n alternate sectionGoals may be documented in an alternate sectionGoals may be documented in an alternate sectionGoals may be documented in an alternate sectionGoals may be documented in an alternate sectionGoals may be documented in an alternate sectionGoals may be documented in an alternate sectionGoals may be documented in an alternate sectionGoals may be documented in an alternate section Source Comments (unrecognize d section and content) In the event this informatio n is protected by the Federal Confidentiality of Alcohol and Drug Abuse Patient Records regulations: The Federal rules restrict any use of the information to criminally investigate or prosecute any alcohol or drug abuse patient.[facility] HospitalIn the event this information is protected by the Federal Confidentiality of Alcohol and Drug Abuse Patient Records regulations: The Federal rules restrict any use of the information to criminally investigate or prosecute any alcohol or drug abuse patient.[facility] HospitalIn the event this information is protected by the Federal Confidentiality of Alcohol and Drug Abuse Patient Records regulations: The Federal rules restrict any use of the information to criminally investigate or prosecute any alcohol or drug abuse patient.[facility] HospitalIn the event this information is protected by the Federal Confidentiality of Alcohol and Drug Abuse Patient Records regulations: The Federal rules restrict any use of the information to criminally investigate or prosecute any alcohol or drug abuse patient.[facility] HospitalIn the event this information is protected by the Federal Confidentiality of Alcohol and Drug Abuse Patient Records regulations: The Federal rules restrict any use of the information to criminally investigate or prosecute any alcohol or drug abuse patient.[facility] HospitalIn the event this information is protected by the Federal Confidentiality of Alcohol and Drug Abuse Patient Records regulations: The Federal rules restrict any use of the information to criminally investigate or prosecute any alcohol or drug abuse patient.[facility] HospitalIn the event this information is protected by the Federal Confidentiality of Alcohol and Drug Abuse Patient Records regulations: The Federal rules restrict any use of the information to criminally investigate or prosecute any alcohol or drug abuse patient.[facility] Reason for Visit (unrecogniz ed section and content) Reason Comments Diarrhea Pt reported intermit tent red blood, mucus with diarrhea onset x4 days Reason Comments Results Reason Comments New Patient Reason Comments left ankle pain and swelling X 4 days-ca nnot recall an injury Reason Comments Release Of Medical Records Imaging Care Teams (unrecognized sec tion and content) Income Auditor Relationship Specialty Start Date End Date Johnnie Ragsdale MD [address] [place] [address] PCP - General Family Practice 01/25/18 Income Auditor Relationship Specialty Start Date End Date Johnnie Ragsdale MD [address] [place] [address] PCP - General Family Practice 01/25/18 Income Auditor Relationship Specialty Start Date End Date Johnnie Ragsdale MD [address] [place] [address] PCP - General Family Practice 01/25/18 Team Status: Active Member Role Status Dates Dr. Nicholas Ragsdale MD Family Provider Active Dr. Malcolm Burns MD Primary Care Provider Active Team Status: Inactive Member Role Status Dates Dr. Malcolm Burns MD Primary Care Provider Active Dr. Jim Maldonado MD Attending Provider Active Team Status: Inactive Member Role Status Dates Dr. Malcolm Burns MD Primary Care Provider, Refer ring Provider Active Chuck HAWLEY PA Attending Provider Active Team Status: Inactive Member Role Status Dates Dr. Malcolm Burns MD Primary Care Provider Active Chuck HAWLEY PA Attending Provider, Referring Provi richard Active Team Status: Inactive Member Role Status Dates Dr. Malcolm Burns MD Primary Care P rovider, Attending Provider, Referring Provider Active Team Status: Inactive Member Role Status Dates Dr. Malcolm Burns MD Primary Care Provider, Atten ding Provider Active Team Status: Inactive Member Role Status Dates Dr. Malcolm Burns MD Primary Care Provider, Refer ring Provider Active Dr. Khadra Seo MD Attending Provider Active Income Auditor Relationship Specialty Start Date End Date Johnnie Ragsdale MD [address] [place] [address] [place] [address] PCP - General Family Medicine 01/25/18 Income Auditor Relationship Specialty Start Date End Date Malcolm Burns MD [address] [place] [address] PCP - General Internal Medicine 12/09/24 Income Auditor Relationship Specialty Start Date End Date Malcolm Burns MD [address] [place] [address] PCP - General Internal Medicine 12/09/24 Income Auditor Relationship Specialty Start Date End Date Malcolm Burns MD [address] [place] [address] PCP - General Internal Medicine 12/09/24 Team Status: Active Member Role Status Dates Dr. Johnnie Ragsdale MD Family Provider Active Dr. Malcolm Burns MD Primary Care Provider Active Team Status: Inactive Member Role Status Dates Dr. Malcolm Burns MD Primary Care Provider Active Start: September 25, 2024 End: September 25, 2024 Dr. Malcolm Burns MD Referring Provider Active Start: September 25, 2024 End: September 25, 2024 SHIREEN Drummond Attending Provider Active Star t: September 25, 2024 End: September 25, 2024 Team Status: Inactive Member Role Status Dates Dr. Malcolm Burns MD Primary Care Provider Active Start: September 27, 2024 End: September 27, 2024 Dr. Malcolm Burns MD Referring Provider Active Start: September 27, 2024 End: September 27, 2024 CHANDAN Angulo Attending Provider Active Sta rt: September 27, 2024 End: September 27, 2024 Team Status: Inactive Member Role Status Dates Dr. Malcolm Burns MD Primary Care Provider Active Start: September 27, 2024 End: September 27, 2024 CHANDAN Angulo Attending Provider Active Sta rt: September 27, 2024 End: September 27, 2024 CHANDAN Angulo Referring Provider Active Sta rt: September 27, 2024 End: September 27, 2024 Team Status: Inactive Member Role Status Dates Dr. Malcolm Burns MD Primary Care Provider Active Start: January 02, 2025 End: January 02, 2025 Dr. Malcolm Burns MD Attending Provider Active Start: January 02, 2025 End: January 02, 2025 Dr. Malcolm Burns MD Referring Provider Active Start: January 02, 2025 End: January 02, 2025 Team Status: Active Member Role Status Dates Dr. Malcolm Burns MD Primary Care Provider Active Start: January 02, 2025 Dr. Malcolm Burns MD Attending Provider Active Start: January 02, 2025 Dr. Malcolm Burns MD Referring Provider Active Start: January 02, 2025 Team Status: Active Member Role Status Dates Dr. Malcolm Burns MD Primary Care Provider Active Team Status: Inactive Member Role Status Dates Dr. Malcolm Burns MD Primary Care Provider Active Start: January 10, 2025 End: January 10, 2025 Dr. Malcolm Burns MD Attending Provider Active Start: January 10, 2025 End: January 10, 2025 Dr. Malcolm Burns MD Referring Provider Active Start: January 10, 2025 End: January 10, 2025 Team Status: Active Member Role/Relationship Status Dates Dr. Malcolm Burns MD Primary Care Provider Active Team Status: Inactive Member Role/Relationship Status Dates Dr. Malcolm Burns MD Primary Care Provider Active Start: January 02, 2025 End: January 02, 2025 Dr. Malcolm Burns MD Attending Provider Active Start: January 02, 2025 End: January 02, 2025 Dr. Malcolm Burns MD Referring Provider Active Start: January 02, 2025 End: January 02, 2025 Team Status: Inactive Member Role/Relationship Status Dates Dr. Malcolm Burns MD Primary Care Provider Active Start: January 02, 2025 End: January 02, 2025 Dr. Malcolm Burns MD Attending Provider Active Start: January 02, 2025 End: January 02, 2025 Dr. Malcolm Burns MD Referring Provider Active Start: January 02, 2025 End: January 02, 2025 Team Status: Inactive Member Role/Relationship Status Dates Dr. Malcolm Burns MD Primary Care Provider Active Start: January 10, 2025 End: January 10, 2025 Dr. Malcolm Burns MD Attending Provider Active Start: January 10, 2025 End: January 10, 2025 Dr. Malcolm Burns MD Referring Provider Active Start: January 10, 2025 End: January 10, 2025 Team Status: Inactive Member Role/Relationship Status Dates Dr. Malcolm Burns MD Primary Care Provider Active Start: March 24, 2025 End: March 24, 2025 Dr. Malcolm Burns MD Attending Provider Active Start: March 24, 2025 End: March 24, 2025 Dr. Malcolm Burns MD Referring Provider Active Start: March 24, 2025 End: March 24, 2025 Team Status: Active Member Role/Relationship Status Dates Dr. Malcolm Burns MD Primary Care Provider Active Start: March 24, 2025 Dr. Malcolm Burns MD Attending Provider Active Start: March 24, 2025 Dr. Malcolm Burns MD Referring Provider Active Start: March 24, 2025 FOR RECORDS PERTAINING TO PATIENTS WHO ARE OR HAVE BEEN ENROLLED IN A CHEMICAL DEPENDENCY/SUBSTANCEABUSE PROGRAM, SOME INFORMATION MAY BE OMITTED. This clinical summary was aggregated from multiple sources. Caution should be exercised in using it in the provision of clinical care. This summary normalizes information from multiple sources, and as a consequence, information in this document may materially change the coding, format and clinical context of patient data. In addition, data may be omitted in some cases. CLINICAL DECISIONS SHOULD BE BASED ON THE PRIMARY CLINICAL RECORDS. [employer] [facility]. provides no warranty or guarantee of the accuracy or completeness of information in this document.
[2025-03-28 15:08] LABS: Pancreatic Elastase, Fecal 593 (>200)
[2025-03-29 02:07] LABS: Calprotectin, Stool 60 ug/g (0-120)
== END | disposition home or self-care (01) ==
LOC: LABSPEC 13:28
PROVIDERS: PCP Internal Medicine; Referring Provider Internal Medicine; Visit Provider Internal Medicine
DX: R19.7 Diarrhea, unspecified (principal); K58.9 Irritable bowel syndrome, unspecified
CPT/HCPCS: 82653; 83630; 83993